=== PATIENT | male | born 1960 ===

== ENCOUNTER → 2020-06-05 10:42 | Outpatient (BNVA) | payer OTHER, SELFPAY | PROVIDERS: PCP Internal Medicine; Referring Provider Internal Medicine; Visit Provider Student in an Organized Health Care Education/Training Program | DX: M19.011 Primary osteoarthritis, right shoulder (principal) | CPT/HCPCS: 20610; 99212 ==

== ENCOUNTER 2020-08-29 13:19 | Outpatient (REF) | payer OTHER, SELFPAY | END 2020-08-29 13:20 | disposition home or self-care (01) | LOC: HO.LAB 13:19 | PROVIDERS: Visit Provider Internal Medicine | DX: Z20.828 Contact with and (suspected) exposure to other viral communicable diseases (principal) | CPT/HCPCS: 36415; C9803; U0003 ==

== ENCOUNTER → 2020-10-03 10:13 | Outpatient (BNVA) | payer OTHER, SELFPAY | PROVIDERS: PCP Internal Medicine; Visit Provider Student in an Organized Health Care Education/Training Program | DX: M19.011 Primary osteoarthritis, right shoulder (principal) | CPT/HCPCS: 99212 ==

== ENCOUNTER 2020-10-21 09:15 | Outpatient (REF) | payer OTHER, SELFPAY ==
--- NOTE | ~2020-10-21 | XR_ITS ---
EXAMINATION: XR FOOT, LEFT CLINICAL INFORMATION: Pain COMPARISON: None TECHNIQUE: AP, lateral, and oblique views of the left foot. FINDINGS: Bone alignment is normal. No fracture or dislocation is seen. There is mild arthritis with joint space narrowing and small osteophytes at the talar navicular and navicular first cuneiform joints. Soft tissues are unremarkable. XR/XR foot LT min 3V IMPRESSION: Mild degenerative changes.
== END 2020-10-21 09:16 | disposition home or self-care (01) ==
LOC: HO.XRAY 09:15
PROVIDERS: PCP Internal Medicine; Visit Provider Internal Medicine
DX: M79.672 Pain in left foot (principal)
CPT/HCPCS: 73630

== ENCOUNTER → 2021-01-31 09:58 | Outpatient (BNVA) | payer OTHER, SELFPAY | PROVIDERS: PCP Internal Medicine; Visit Provider Student in an Organized Health Care Education/Training Program | DX: M19.011 Primary osteoarthritis, right shoulder (principal); M51.36 Other intervertebral disc degeneration, lumbar region; M79.672 Pain in left foot | CPT/HCPCS: 20610; 99212 ==

== ENCOUNTER 2021-02-04 11:12 | Outpatient (REF) | payer OTHER, SELFPAY ==
--- NOTE | ~2021-02-04 | XR_ITS ---
EXAMINATION: XR LUMBOSACRAL SPINE CLINICAL INFORMATION: Other intervertebral disc degeneration lumbar region COMPARISON: Lumbar spine radiograph from 03/22/2018 TECHNIQUE: Three views of the lumbosacral spine. FINDINGS: There are 5 nonrib-bearing lumbar-type vertebral bodies. No acute visible fracture or dislocation. Very mild levocurvature at the thoracolumbar junction. Loss of lumbar lordosis. Multilevel degenerative changes with disc space narrowing greatest at L5-S1, endplate sclerosis, osteophyte formation, and lower lumbar spine facet arthropathy. Very mild grade 1 retrolisthesis of L3 on L4. Vertebral body and disc spaces are otherwise maintained. Posterior elements are intact. Paraspinal soft tissues are unremarkable. Bowel gas is unremarkable. Pelvic phleboliths are noted. XR/XR lumbar spine 2-3V IMPRESSION: 1. No acute visible fracture or dislocation. 2. Multilevel degenerative changes greatest at L5-S1 with loss of the normal lumbar lordosis and very mild grade 1 retrolisthesis of L3 on L4.
== END 2021-02-04 11:13 | disposition home or self-care (01) ==
LOC: HO.XRAY 11:12
PROVIDERS: PCP Internal Medicine; Visit Provider Student in an Organized Health Care Education/Training Program
DX: M51.36 Other intervertebral disc degeneration, lumbar region (principal)
CPT/HCPCS: 72100

== ENCOUNTER 2021-05-15 10:51 | Outpatient (REF) | payer OTHER, SELFPAY | END 2021-05-15 10:52 | disposition home or self-care (01) | LOC: HO.LAB 10:51 | PROVIDERS: PCP Internal Medicine; Visit Provider Internal Medicine | DX: Z20.822 Contact with and (suspected) exposure to COVID-19 (principal) | CPT/HCPCS: C9803; U0003; U0005 ==

== ENCOUNTER 2021-07-16 11:07 | Outpatient (REF) | payer OTHER, SELFPAY | END 2021-07-16 11:08 | disposition home or self-care (01) | LOC: HO.LAB 11:07 | PROVIDERS: PCP Internal Medicine; Visit Provider Internal Medicine | DX: Z20.822 Contact with and (suspected) exposure to COVID-19 (principal) | CPT/HCPCS: C9803; U0003; U0005 ==

== ENCOUNTER 2021-10-24 09:05 | Outpatient (REF) | payer OTHER, SELFPAY ==
[2021-10-24 09:28] LABS: MANUAL DIFF FLAG NO
[2021-10-24 09:57] LABS: Appearance Urine CLEAR; Color Urine YELLOW; Glucose Urine UA NEG (NEG); Leukocyte Esterase Urine 2+ (NEG); Nitrite Urine NEG (NEG); PH 6.5 (5.0-8.0); UACC Culture Trigger YES; Urine Blood NEG (NEG); Urine Ketones NEG (NEG); Urine Protein TRACE MG/DL (NEG-TRACE)
[2021-10-24 10:09] LABS: Mucus Urine TRACE /LPF; RBC Urine 0 /HPF (0); Squamous Epithelial Cell Urine TRACE /LPF
[2021-10-24 10:25] LABS: Basophils Percent Auto 0.5 % (0-2); Eosinophils Absolute Auto 0.1 X10*3/uL (0.0-0.4); Eosinophils Percent Auto 0.8 % (0-4); Hematocrit 42.7 % (42.0-52.0); Hemoglobin 13.6 g/dl (14.0-18.0); Imm Gran Abs Auto 0.01 X10*3/uL (0.00-0.03); Imm Gran Pct Auto 0.2 % (0.0-0.4); Lymphocytes Absolute Auto 1.4 X10*3/uL (1.2-4.9); Lymphocytes Percent Auto 22.5 % (20-40); Mean Corpuscular HGB Conc 31.9 g/dl (31.0-36.0); Mean Corpuscular Hemoglobin 27.2 pg (27.0-33.0); Mean Corpuscular Volume 85.4 fL (80.0-98.0); Mean Platelet Volume 12.6 fL (9.4-12.4); Monocytes Absolute Auto 0.6 X10*3/uL (0.1-1.2); Platelet Count 165 X10*3/uL (160-400); Red Cell Distribution Width 14.7 % (11.0-16.0); White Blood Count 6.1 X10*3/uL (4.8-10.8)
[2021-10-24 11:05] LABS: Alanine Aminotransferase 15 U/L (0-40); Albumin Level 4.1 g/dL (3.5-5.0); Alkaline Phosphatase 81 U/L (39-117); Anion Gap 10 (12-20); Aspartate Amino Transferase 15 U/L (5-37); Bilirubin Total 0.6 mg/dL (0.0-1.0); Blood Urea Nitrogen 20 mg/dL (9-16); Calcium 9.6 mg/dL (8.4-10.2); Carbon Dioxide 28 mmol/L (22-29); Chloride 106 mmol/L (96-108); Cholesterol 151 mg/dL; Estimated Glomerular Filt Rate > 60; Glucose Random 97 mg/dL (60-115); HDL Cholesterol 48 mg/dL; LDL Cholesterol Calculated 90 mg/dl; Potassium 4.6 mmol/L (3.3-5.1); Sodium 139 mmol/L (135-145); Total Protein 6.8 g/dL (6.5-8.0); Triglycerides 66 mg/dL
[2021-10-24 11:19] LABS: Prostate Specific Antigen 7.32 ng/mL (<0.05-4.0); TSH reflex Free T4 1.27 uIU/mL (0.32-4.0); Vitamin D 25-OH Total 24.9 ng/mL (>30)
== END 2021-10-24 09:06 | disposition home or self-care (01) ==
LOC: HO.LAB 09:05
PROVIDERS: Absent Provider Nurse Practitioner Family; PCP Internal Medicine; Visit Provider Internal Medicine
DX: Z00.00 Encounter for general adult medical examination without abnormal findings (principal); Z12.5 Encounter for screening for malignant neoplasm of prostate; E55.9 Vitamin D deficiency, unspecified; N40.0 Benign prostatic hyperplasia without lower urinary tract symptoms; E78.00 Pure hypercholesterolemia, unspecified; M79.672 Pain in left foot
CPT/HCPCS: 36415; 80053; 80061; 81001; 82306; 84153; 84443; 85025; 87086

== ENCOUNTER → 2021-11-05 10:55 | Outpatient (BNVA) | payer OTHER, SELFPAY | PROVIDERS: PCP Internal Medicine; Visit Provider Nurse Practitioner Family | DX: M19.011 Primary osteoarthritis, right shoulder (principal); M51.36 Other intervertebral disc degeneration, lumbar region; M79.672 Pain in left foot; M79.604 Pain in right leg; M79.605 Pain in left leg | CPT/HCPCS: 99212 ==

== ENCOUNTER 2021-11-06 09:57 | Outpatient (REF) | payer OTHER, SELFPAY ==
--- NOTE | ~2021-11-06 | XR_ITS ---
EXAMINATION: XR shoulder RT min 2V CLINICAL INFORMATION: Reason for Exam M25.511 - Pain in right shoulder COMPARISON: None TECHNIQUE: Four views of the shoulder. XR/XR shoulder RT min 2V FINDINGS/IMPRESSION: No acute fracture or dislocation. Mild degenerative changes of the acromioclavicular and glenohumeral joints with degenerative spurring. Soft tissues are unremarkable. Visualized portion of lung appears clear.
== END 2021-11-06 09:58 | disposition home or self-care (01) ==
LOC: HO.XRAY 09:57
PROVIDERS: PCP Internal Medicine; Visit Provider Nurse Practitioner Family
DX: M25.511 Pain in right shoulder (principal)
CPT/HCPCS: 73030

== ENCOUNTER → 2022-01-21 13:35 | Outpatient (BNVA) | payer OTHER, SELFPAY | PROVIDERS: PCP Internal Medicine; Visit Provider Nurse Practitioner Family | DX: M25.551 Pain in right hip (principal); M25.552 Pain in left hip; M51.36 Other intervertebral disc degeneration, lumbar region; M54.16 Radiculopathy, lumbar region | CPT/HCPCS: 99202 ==

== ENCOUNTER 2022-05-15 14:54 | Emergency (ER) | payer OTHER, SELFPAY ==
[2022-05-15 15:00] VITALS: BP 131/82; PULSE 85; RESP 18; TEMP 37.2; O2SAT 98; BMI 23.7
== END 2022-05-15 21:34 | disposition left against medical advice (07) ==
PROVIDERS: Emergency Provider Emergency Medicine
DX: M54.50 Low back pain, unspecified (principal)
CPT/HCPCS: 99281

== ENCOUNTER 2022-05-22 10:43 | Outpatient (REF) | payer OTHER, SELFPAY ==
[2022-05-22 11:51] LABS: Blood Urea Nitrogen 13 mg/dL (9-16); Estimated Glomerular Filt Rate > 60
== END 2022-05-22 10:44 | disposition home or self-care (01) ==
LOC: HO.LAB 10:43
PROVIDERS: PCP Internal Medicine; Visit Provider Urology
DX: C61 Malignant neoplasm of prostate (principal)
CPT/HCPCS: 36415; 82565; 84520

== ENCOUNTER → 2022-05-28 08:54 | Outpatient (REF) | payer OTHER, SELFPAY ==
--- NOTE | ~2022-05-28 | NM_ITS ---
EXAMINATION: NM BONE SCAN OF THE WHOLE BODY CLINICAL INFORMATION: Carcinoma of the prostate. Low back pain. COMPARISON: No existing relevant imaging study available. TECHNIQUE: Multiple gamma scintillation camera images of the whole body were performed 3 hours following the intravenous administration of 25 mCi Tc-99m MDP. FINDINGS: In the head, no suspicious focal lesion. In the thoracic cage and upper extremities, asymmetric mild increased radiotracer activities are present at the costochondral transverse junction of right 10th and 11th ribs, most consistent with degenerative changes. Mild increased radiotracer activities are also noted at both sternoclavicular as well as acromioclavicular joints, most consistent with arthritic changes. In the spine, mild increased radiotracer activities at lower cervical spine, and lower lumbosacral spine, most consistent with degenerative spondylosis. In the pelvis, no suspicious focal lesion. In the lower extremities, mildly increased radiotracer activities around both knees, most consistent with mild degenerative osteoarthrosis. No other definite bony abnormalities are noted. The urinary bladder and faint visualization of both kidneys are noted. NM/NM bone scan whole body IMPRESSION: 1. No definite scintigraphic evidence of metastatic disease. 2. Note is however made of presence of increased radiotracer activities at the costotransverse junction of right 10th and 11th ribs, the lower cervical, and the lower lumbosacral spine, most consistent with degenerative changes. 3. Mild increased radiotracer activities around both shoulder and both sternoclavicular joints and both kidneys likely also represent degenerative and/or posttraumatic arthritic changes. Follow-up the [facility] PET/CT study may be considered (more sensitive) for further full detail evaluation, if clinically appropriate.
== END ==
LOC: HO.NUCMED 08:54
PROVIDERS: Visit Provider Urology
DX: C61 Malignant neoplasm of prostate (principal)
CPT/HCPCS: 78306; A9503

== ENCOUNTER 2022-07-27 10:38 | Outpatient (REF) | payer OTHER, SELFPAY ==
[2022-07-27 11:10] LABS: COVID-19 Test Positive (Negative); IDNOW Serial# BCCEAD1C
== END 2022-07-27 10:39 | disposition home or self-care (01) ==
LOC: HO.LAB 10:38
PROVIDERS: Visit Provider Internal Medicine
DX: Z20.822 Contact with and (suspected) exposure to COVID-19 (principal)
CPT/HCPCS: 87635; C9803

== ENCOUNTER 2022-08-20 08:58 | Outpatient (REF) | payer OTHER, SELFPAY ==
--- NOTE | ~2022-08-20 | XR_ITS ---
EXAMINATION: XR FINGER, LEFT CLINICAL INFORMATION: Pain. COMPARISON: Radiograph of the left hand/wrist 09/01/2010. TECHNIQUE: Three views of the left index finger. FINDINGS: Soft tissue swelling around the second digit. No unexpected radiopaque foreign bodies. No acute fractures or malalignment. Mild degenerative osteoarthritis of the first carpometacarpal joint and triscaphe space. XR/XR finger LT min 2V IMPRESSION: 1. No acute fractures or malalignment. 2. Mild degenerative osteoarthritis of the first carpometacarpal joint and triscaphe space.
[2022-08-20 09:31] LABS: Hematocrit 42.5 % (42.0-52.0); Hemoglobin 13.8 g/dl (14.0-18.0); Mean Corpuscular HGB Conc 32.5 g/dl (31.0-36.0); Mean Corpuscular Hemoglobin 26.7 pg (27.0-33.0); Mean Corpuscular Volume 82.2 fL (80.0-98.0); Mean Platelet Volume 12.6 fL (9.4-12.4); Platelet Count 198 X10*3/uL (160-400); Red Blood Count 5.17 X10*6/uL (4.60-5.80); Red Cell Distribution Width 14.4 % (11.0-16.0)
[2022-08-20 09:32] LABS: WBC ABN SCTR FOR CBC 1
[2022-08-20 09:58] LABS: Band Neutrophils Percent 0 % (3-5); Eosinophils Percent Manual 3 % (0-4); Lymphocytes Percent Manual 29 % (20-40); Monocytes Percent Manual 7 % (2-11); Neutrophils Percent Manual 61 % (45-73)
[2022-08-20 09:59] LABS: Large Platelet PRESENT; Platelet Estimate NORMAL (NORMAL)
[2022-08-20 10:00] LABS: Hypochromasia 1+ (5-14) /OIF
[2022-08-20 10:01] LABS: Microcytosis 1+ (5-14) /OIF; Platelet Morphology Comment NOTE; RBC Morphology NOTED
[2022-08-20 10:05] LABS: Erythrocyte Sedimentation Rate 2 MM/HR (0-15)
[2022-08-20 10:26] LABS: Appearance Urine Clear; Color Urine Yellow; Glucose Urine UA Negative (Negative); Leukocyte Esterase Urine Trace (Negative); Nitrite Urine Negative (Negative); Specific Gravity - Urine 1.025 (1.005-1.025); UMIC TRIGGER UACC YES; Urine Blood Negative (Negative); Urine Ketones Trace mg/dL (Negative); Urine Protein 30 (1+) mg/dL (Neg-Trace)
[2022-08-20 10:47] LABS: Bacteria Urine None Seen (None Seen); Hyaline Casts Urine 0-2 /LPF (0-2); RBC Urine 0-2 /HPF (0-2); Squamous Epithelial Cell Urine 0-2 /HPF (0-2); WBC Urine 0-5 /HPF (0-5)
[2022-08-20 11:12] LABS: Alanine Aminotransferase 16 U/L (0-40); Albumin Level 4.1 g/dL (3.5-5.0); Alkaline Phosphatase 93 U/L (39-117); Anion Gap 10 (12-20); Aspartate Amino Transferase 15 U/L (5-37); Bilirubin Total 0.6 mg/dL (0.0-1.0); Blood Urea Nitrogen 17 mg/dL (9-16); Carbon Dioxide 27 mmol/L (22-29); Chloride 108 mmol/L (96-108); Cholesterol 174 mg/dL; Estimated Glomerular Filt Rate > 60; Glucose Fasting 99 mg/dL (60-99); HDL Cholesterol 47 mg/dL; LDL Cholesterol Calculated 110 mg/dl; Potassium 4.6 mmol/L (3.3-5.1); Sodium 140 mmol/L (135-145); TSH reflex Free T4 1.46 uIU/mL (0.32-4.0); Total Protein 6.9 g/dL (6.5-8.0); Triglycerides 86 mg/dL; Vitamin D 25-OH Total 26.8 ng/mL (>30)
[2022-08-20 11:31] LABS: Eosinophils Absolute Manual 0.2 X10*3/uL (0.0-0.4); Lymphocytes Absolute Manual 1.7 X10*3/uL (1.2-4.9); Monocytes Absolute Manual 0.4 X10*3/uL (0.1-1.2); Neutrophils Absolute Manual 3.6 X10*3/uL (2.0-8.3); White Blood Count 5.9 X10*3/uL (4.8-10.8)
== END 2022-08-20 08:59 | disposition home or self-care (01) ==
LOC: HO.LAB 08:58
PROVIDERS: PCP Internal Medicine; Visit Provider Internal Medicine
DX: Z00.00 Encounter for general adult medical examination without abnormal findings (principal); Z12.5 Encounter for screening for malignant neoplasm of prostate; M79.645 Pain in left finger(s); E55.9 Vitamin D deficiency, unspecified; M25.551 Pain in right hip; M25.552 Pain in left hip; M47.816 Spondylosis without myelopathy or radiculopathy, lumbar region; N40.0 Benign prostatic hyperplasia without lower urinary tract symptoms; E78.00 Pure hypercholesterolemia, unspecified
CPT/HCPCS: 36415; 73140; 80053; 80061; 81001; 82306; 84153; 84443; 85007; 85027; 85652

== ENCOUNTER 2022-10-15 08:58 | Emergency (ER) | payer OTHER, SELFPAY ==
[2022-10-15 09:03] VITALS: BP 141/85; PULSE 85; RESP 18; TEMP 37.2; O2SAT 98; BMI 24.6
--- NOTE | 2022-10-15 09:10 | ED_ITS ---
HPI - Ear Problem General Chief complaint: Skin/Abscess/Foreign Body <BRENDAN Calero Last Filed: 10/15/22 10:33> Stated complaint: ear pain <BRENDAN Calero Last Filed: 10/15/22 10:33> Time Seen by Provider: 10/15/22 09:09 <BRENDAN aClero Last Filed: 10/15/22 10:33> Source: patient <BRENDAN Calero Last Filed: 10/15/22 10:33> Mode of arrival: ambulatory <BRENDAN Calero Last Filed: 10/15/22 10:33> Limitations: no limitations <BRENDAN Calero Last Filed: 10/15/22 10:33> History of Present Illness HPI Narrative: 62 yo male with history of vertigo, allergic rhinitis, depression/anxiety, asthma, osteoarthritis, lumbar DJD, who presents to the ER for evaluation of pain and swelling in front of his left ear and at the angle of his jaw for the last 1 week. He states the ear itself isnt painful. The pain and swelling is described as a fullness. Discomfort with opening his jaw all the way but he is able to. he has chronic dental issues, especially on the left side. Has not seen a dentist in a long time. No fever, chills, N/V/D, hearing loss, neck swelling or trouble swallowing. <BRENDAN Calero Last Filed: 10/15/22 10:33> MD Complaint: ear pain and other (anterior ear swelling and pain) <BRENDAN Calero Last Filed: 10/15/22 10:33> Location: left ear <BRENDAN Calero Last Filed: 10/15/22 10:33> Duration: constant <BRENDAN Calero Last Filed: 10/15/22 10:33> Severity: mild <BRENDAN Calero Last Filed: 10/15/22 10:33> Relieving factors: NDAIDs and prescription analgesics <BRENDAN Calero Last Filed: 10/15/22 10:33> Exacerbating factors: chewing, position of head and palpation <BRENDAN Calero Last Filed: 10/15/22 10:33> Discharge from ear: no <BRENDAN Calero - Last Filed: 10/15/22 10:33> Associated symptoms ear: headache and external ear tenderness <BRENDAN Calero Last Filed: 10/15/22 10:33> Treatment prior to arrival: none <BRENDAN Calero - Last Filed: 10/15/22 10:33> Related Data Home medications: Home Medications Medication Instructions Recorded Confirmed clonazepam 1 mg tablet (Klonopin) 1 mg PO TID 05/28/20 08/19/22 aripiprazole 15 mg tablet 15 mg PO DAILY 07/12/20 08/19/22 nabumetone 750 mg tablet 750 mg PO BID 07/12/20 08/19/22 sertraline 100 mg tablet 100 mg PO DAILY 07/12/20 08/19/22 zolpidem 10 mg tablet (Ambien) 10 mg PO BEDTIME PRN 07/12/20 08/19/22 Previous Rx's Medication Instructions Recorded blood pressure monitor #1 ea 07/24/20 sildenafil (pulm.hypertension) 20 20 mg PO DAILY PRN sexual activity 04/22/21 mg tablet #10 tabs diclofenac sodium 1 % topical gel 2 g topical BEDTIME #100 grams 05/09/21 Flovent HFA 110 mcg/actuation 1 puff inhalation BID 30 days #12 10/21/21 aerosol inhaler (fluticasone grams propionate) meclizine 25 mg tablet 25 mg PO BID PRN dizziness 10 days 02/26/22 #20 tabs mupirocin 2 % topical ointment 1 appl topical BID #22 grams 06/03/22 pregabalin 50 mg capsule 100 mg PO BID 30 days #120 caps 06/03/22 albuterol sulfate 90 mcg/actuation 2 inh inhalation QID PRN 07/29/22 aerosol inhaler bronchospasm #18 ea hydrocortisone 2.5 % topical cream 1 appl SC BID #60 grams 08/24/22 with perineal applicator tramadol 50 mg tablet 50 mg PO TID PRN pain #90 tabs 08/28/22 sodium chloride 0.65 % nasal spray 2 spray intranasal Q12H PRN dry 09/03/22 aerosol (Saline Nasal) nasal passages #30 mL clindamycin HCl 300 mg capsule 300 mg PO Q8H 1 week #21 caps 10/15/22 <BRENDAN Calero - Last Filed: 10/15/22 10:33> Allergies/adverse reactions: Allergies Allergy/AdvReac Type Severity Reaction Status Date / Time Penicillins [PENICILLINS] Allergy Intermediate RASH AND Verified 08/19/22 11:05 SWELLING meperidine [Demerol] Allergy Unknown pain Verified 08/19/22 11:05 morphine [MORPHINE] AdvReac Intermediate N/V Verified 08/19/22 11:05 <BRENDAN Calero - Last Filed: 10/15/22 10:33> Review of Systems Review of Systems: Yes all other systems are reviewed and are negative <BRENDAN Calero - Last Filed: 10/15/22 10:33> [facility] Past Medical History Medical History: Medical History Anxiety Asthma Benign prostate hyperplasia Depression Elevated blood pressure reading Insomnia Left foot pain Left leg pain Lumbar degenerative disc disease Osteoarthritis of right shoulder Prostate cancer <BRENDAN Calero - Last Filed: 10/15/22 10:33> Surgical History: Surgical History H/O excision of ganglion cyst (~02/2014) History of colonoscopy (~03/01/18) S/P excision of lipoma <BRENDAN Calero - Last Filed: 10/15/22 10:33> Family History Family History: Family History Father Lung cancer Mother CVA (cerebral vascular accident), Onset Age: 80 Chronic mental illness <BRENDAN Calero - Last Filed: 10/15/22 10:33> Social History Social History: Social History Household Members: None Housing: Apartment Alcohol intake: former Patient Tobacco Use Status: Former Tobacco user Tobacco use type: Cigarette Cigarettes Per Day: 20 Years Smoked: 7 e-Cigarette/Vaping Use: Never Used Advance Directives: No service: No Current occupational status: disabled Cognitive needs: No Hearing needs: No Vision needs: Yes <BRENDAN Calero - Last Filed: 10/15/22 10:33> Physical Exam Vital Signs: Vital Signs: Last Vital Signs Temp 99 F 10/15/22 09:03 Pulse 85 10/15/22 09:03 Resp 18 10/15/22 09:03 BP 141/85 H 10/15/22 09:03 Pulse Ox 98 10/15/22 09:03 O2 Del Method 10/15/22 09:03 BMI result Body Mass Index 24.6 <BRENDAN Calero - Last Filed: 10/15/22 10:33> Vital Signs: Last Vital Signs Temp 99 F 10/15/22 09:03 Pulse 85 10/15/22 09:03 Resp 18 10/15/22 09:03 BP 141/85 H 10/15/22 09:03 Pulse Ox 98 10/15/22 09:03 O2 Del Method 10/15/22 09:03 BMI result Body Mass Index 24.6 <Dinesh Ratliff MD - Last Filed: 10/15/22 10:43> Appearance: Alert. Oriented X3. No acute distress. HEENT: normal external inspection, there is trace swelling and some tenderness to the preauricular area on the left side as well as at the angle of the mandible. no trismus. normal inspection of bilateral EAC and TMs. no neck swelling or tenderness. poor dentition without dental tenderness or palpable gingival fluctuation CVS: Normal heart rate and rhythm. Pulses normal. Respiratory: No respiratory distress. Skin: Skin warm and dry. Normal skin color. Normal skin turgor. No rashes. Extremities: normal inspection x4. Neuro: Oriented X 3. Grossly normal, nonfocal <BRENDAN Calero - Last Filed: 10/15/22 10:33> Course Course Course Narrative: Stable for discharge with oral antibiotics and outpatient follow-up <BRENDAN Calero - Last Filed: 10/15/22 10:33> Medical Decision Making Medical Decision Making MDM Narrative: 62-year-old male presenting with left-sided facial swelling and tenderness for the last 1 week. Area is surrounding the left ear. Does not extend to the neck. No evidence of acute otitis media or acute otitis externa on examination. No obvious dental infection however he has poor dentition. Will plan to treat empirically with antibiotics and have him follow-up with his primary care doctor and dentist. <BRENDAN Calero - Last Filed: 10/15/22 10:33> Differential Diagnosis Differential Diagnoses: The differential diagnosis associated with the presentation includes <BRENDAN Calero - Last Filed: 10/15/22 10:33> Otitis media, otitis externa, cellulitis, swollen salivary gland, dental pain/dental infection <BRENDAN Calero - Last Filed: 10/15/22 10:33> External Record Review External record reviewed: Prior outpatient labs <BRENDAN Calero Last Filed: 10/15/22 10:33> Tests considered The following testing was considered but not selected: Labs and CT scan were considered however this was deferred as there is no extension to the neck and the symptoms are minimal at this time. <BRENDAN Calero - Last Filed: 10/15/22 10:33> Prescription Management I considered prescription management with: Antibiotic <BRENDAN Calero - Last Filed: 10/15/22 10:33> Attestation Attending Attestation: I reviewed [employer] CHEMISTRY/PA/Resident note, assessment and plan. I agree with the documentation, assessment and plan unless otherwise stated. <Dinesh Ratliff MD - Last Filed: 10/15/22 10:43> Critical Care Time Critical Care Time Critical Care Time: No <BRENDAN Calero Last Filed: 10/15/22 10:33> Discharge Plan Discharge Clinical Impression: Facial swelling <BRENDAN Calero - Last Filed: 10/15/22 10:33> Patient Disposition: Home, Self-Care <BRENDAN Calero - Last Filed: 10/15/22 10:33> Instructions: Atypical Facial Pain (ED) <BRENDAN Calero Last Filed: 10/15/22 10:33> Additional Instructions: Take the prescribed antibiotic as directed, complete the entire course. Continue the medications you are taking for pain Follow up with your doctor and your dentist to ensure [place] el antibi?juancarlos recetado seg?n las indicaciones, complete todo el curso. Contin?e con los medicamentos que est? tomando para el dolor. Richard un seguimiento con [facility] m?dico y stevens dentista para asegurarse <BRENDAN Calero - Last Filed: 10/15/22 10:33> Prescriptions: New clindamycin HCl 300 mg capsule 300 mg PO Q8H 7 Days Qty: 21 0RF No Action (DME) blood pressure monitor Kit See Rx Instructions .ROUTE .MEDSUPPLY Qty: 1 0RF Rx Instructions: As directed diclofenac sodium 1 % gel 2 g topical BEDTIME Qty: 100 1RF Rx Instructions: apply 2 gram to L foot nightly as needed albuterol sulfate 90 mcg/actuation HFA aerosol inhaler 2 inh inhalation QID PRN (Reason: bronchospasm) Qty: 18 3RF hydrocortisone 2.5 % cream with perineal applicator 1 appl SC BID Qty: 60 0RF tramadol 50 mg tablet 50 mg PO TID PRN (Reason: pain) Qty: 90 1RF Saline Nasal 0.65 % aerosol,spray 2 spray intranasal Q12H PRN (Reason: dry nasal passages) Qty: 30 1RF clonazepam [Klonopin] 1 mg tablet 1 mg PO TID aripiprazole 15 mg tablet 15 mg PO DAILY zolpidem [Ambien] 10 mg tablet 10 mg PO BEDTIME PRN sertraline 100 mg tablet 100 mg PO DAILY nabumetone 750 mg tablet 750 mg PO BID Flovent HFA 110 mcg/actuation HFA aerosol inhaler 1 puff inhalation BID 30 Days Qty: 12 5RF sildenafil (pulm.hypertension) 20 mg tablet 20 mg PO DAILY PRN (Reason: sexual activity) Qty: 10 0RF pregabalin 50 mg capsule 100 mg PO BID 30 Days Qty: 120 0RF mupirocin 2 % ointment 1 appl topical BID Qty: 22 0RF Rx Instructions: apply to lesion on the back of the right leg meclizine 25 mg tablet 25 mg PO BID PRN (Reason: dizziness) 10 Days Qty: 20 0RF <BRENDAN Calero - Last Filed: 10/15/22 10:33> Referrals: Lai Olson MD [Primary Care Provider] - <BRENDAN Calero - Last Filed: 10/15/22 10:33> Interventions: ED Discharge Assessment Last Done: 10/15/22 10:01 <BRENDAN Calero - Last Filed: 10/15/22 10:33> Discharge Date/Time: 10/15/22 10:01 <BRENDAN Calero - Last Filed: 10/15/22 10:33> Print Language: Mexican <BRENDAN Calero - Last Filed: 10/15/22 10:33>
== END 2022-10-15 10:01 | disposition home or self-care (01) ==
PROVIDERS: Emergency Provider Emergency Medicine; PCP Internal Medicine
DX: R22.0 Localized swelling, mass and lump, head (principal); Z87.891 Personal history of nicotine dependence
CPT/HCPCS: 99282; 99283

== ENCOUNTER → 2022-11-04 10:33 | Outpatient (BNVA) | payer OTHER, SELFPAY | PROVIDERS: PCP Internal Medicine; Visit Provider Nurse Practitioner Family | DX: M19.011 Primary osteoarthritis, right shoulder (principal); M51.36 Other intervertebral disc degeneration, lumbar region; M79.7 Fibromyalgia | CPT/HCPCS: 99212 ==

== ENCOUNTER 2022-11-07 10:33 | Observation (INO) | payer OTHER, SELFPAY ==
[2022-11-07 10:38] VITALS: BP 135/82; PULSE 90; RESP 17; TEMP 36.3; O2SAT 97; BMI 24.3
--- NOTE | 2022-11-07 10:48 | ED.GENADULT ---
HPI - General Adult General Chief complaint: General Medical Stated complaint: personal problem? 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 Started today patient notice bright red blood in the toilet after having a bowel movement and with wiping toilet paper was soaked with bright red blood per. Started this morning. No abdominal pain, no nausea, no vomiting, no fever, no rectal pain, no diarrhea. Patient had bowel movement with normal color brown stool. Patient is not taking blood thinner, known to have hemorrhoid for long time. No dizziness, no lightheadedness. Related Data Home Medications Medication Instructions Recorded Confirmed clonazepam 1 mg tablet (Klonopin) 1 mg PO TID 05/28/20 11/07/22 aripiprazole 15 mg tablet 15 mg PO DAILY 07/12/20 11/07/22 nabumetone 750 mg tablet 750 mg PO DAILY 07/12/20 11/07/22 sertraline 100 mg tablet 100 mg PO DAILY 07/12/20 11/07/22 zolpidem 10 mg tablet (Ambien) 10 mg PO BEDTIME PRN Sleep 07/12/20 11/07/22 albuterol sulfate 90 mcg/actuation 2 puff inhalation QID PRN 11/07/22 11/07/22 aerosol inhaler (Ventolin HFA) Bronchospasm bupropion HCl 100 mg tablet,12 hr 1 tab PO DAILY 11/07/22 11/07/22 sustained-release diclofenac sodium 1 % topical gel 2 g topical BEDTIME PRN Pain 11/07/22 11/07/22 finasteride 5 mg tablet 5 mg PO BEDTIME 11/07/22 11/07/22 fluticasone propionate 50 1 spray intranasal DAILY PRN 11/07/22 11/07/22 mcg/actuation nasal Allergy Symptoms spray,suspension hydrocortisone 2.5 % topical cream 1 appl [place] BID-TID 11/07/22 11/07/22 with perineal applicator loratadine 10 mg tablet 10 mg PO DAILY PRN Allergy Symptoms 11/07/22 11/07/22 pregabalin 50 mg capsule 100 mg PO BID PRN Pain 11/07/22 11/07/22 tamsulosin 0.4 mg capsule 1 cap PO BEDTIME 11/07/22 11/07/22 Previous Rx's Medication Instructions Recorded blood pressure monitor #1 ea 07/24/20 sildenafil (pulm.hypertension) 20 20 mg PO DAILY PRN sexual activity 04/22/21 mg tablet #10 tabs meclizine 25 mg tablet 25 mg PO BID PRN dizziness 10 days 02/26/22 #20 tabs mupirocin 2 % topical ointment 1 appl topical BID #22 grams 06/03/22 sodium chloride 0.65 % nasal spray 2 spray intranasal Q12H PRN dry 09/03/22 aerosol (Saline Nasal) nasal passages #30 mL tramadol 50 mg tablet 50 mg PO TID PRN pain #90 tabs 10/28/22 Allergies Allergy/AdvReac Type Severity Reaction Status Date / Time Penicillins [PENICILLINS] Allergy Intermediate RASH AND Verified 11/04/22 10:41 SWELLING meperidine [Demerol] Allergy Unknown pain Verified 11/04/22 10:41 morphine [MORPHINE] AdvReac Intermediate N/V Verified 11/04/22 10:41 Review of Systems Review of Systems: All other systems are reviewed and are negative Constitutional: Reports as per HPI and Reports no additional constitutional complaints Eyes: Reports as per HPI and Reports no additional eye complaints Reports system reviewed and no additional complaints, except as documented Cardiovascular: Reports as per HPI and Reports no additional cardiovascular complaints Respiratory: Reports as per HPI and Reports no additional respiratory complaints Gastrointestinal: Reports as per HPI and Reports no additional gastrointestinal complaints Genitourinary: Reports no additional female genitourinary complaints Musculoskeletal: Reports no additional musculoskeletal complaints Skin/Breast: Reports system reviewed and no additional complaints, except as docu Psychiatric: Reports no additional psychiatric complaints Endocrine: Reports no additional endocrine complaints Hematologic/Lymphatic: Reports no additional hematologic/lymphatic complaints Allergic/Immunologic: Reports no additional allergic/immunologic complaints Reports system reviewed and no additional complaints, except as documented and Reports Abnormal speech present [facility] Past Medical History Medical History Anxiety Asthma Benign prostate hyperplasia Depression Elevated blood pressure reading Insomnia Left foot pain Left leg pain Lumbar degenerative disc disease Osteoarthritis of right shoulder Prostate cancer Surgical History H/O excision of ganglion cyst (~02/2014) History of colonoscopy (~03/01/18) S/P excision of lipoma Family History Family History Father Lung cancer Mother CVA (cerebral vascular accident), Onset Age: 80 Chronic mental illness Social History Social History Household Members: None Housing: Apartment Alcohol intake: former Patient Tobacco Use Status: Former Tobacco user Tobacco use type: Cigarette Cigarettes Per Day: 20 Years Smoked: 7 e-Cigarette/Vaping Use: Never Used Advance Directives: No Advance Directives Information Provided: Yes service: No Current occupational status: disabled Cognitive needs: No Hearing needs: No Vision needs: Yes Physical Exam ED Vital Signs: Vital Signs - 24 hr 11/07/22 10:38 11/07/22 11:26 11/07/22 11:26 Temperature 97.4 F Pulse Rate 90 70 82 Respiratory Rate 17 Blood Pressure 135/82 114/77 120/74 Pulse Oximetry 97 Oxygen Delivery Method Room Air Oxygen Flow Rate 11/07/22 11:27 11/07/22 12:21 Temperature 98.3 F Pulse Rate 85 70 Respiratory Rate 16 Blood Pressure 121/71 119/77 Pulse Oximetry Oxygen Delivery Method Room Air Oxygen Flow Rate 94 BMI result Body Mass Index 24.3 Vital signs have been reviewed as appeared to be correct. Blood pressure normal. Heart rate normal. Respiration rate normal. Temperature normal. Oxygen saturation normal. Appearance: Alert. Oriented X3. No acute distress. Head: Normal external exam. Normocephalic. Atraumatic. No Banks signs noted. No raccoon eyes noted Eyes: PERRLA. EOMI. Conjunctiva and sclera normal. Eyelids normal. ENT: TM's Normal. Pharynx normal. Uvula midline. Moist mucous membranes. No trismus noted. No drooling noted. No muffled voice noted. Neck: Normal inspection. Neck supple. FROM. No adenopathy. Thyroid Normal. No meningeal signs. No neck mass noted. CVS: Normal heart rate and rhythm. Heart sound normal. No murmurs noted. Pulses normal throughout. Respiratory: No respiratory distress. Painless inspiration. Breath sounds normal. No wheezes/rales/rhonchi noted. Chest nontender. No accessory muscle usage noted or decreased air movement noted. Abdomen: Soft and nontender. Bowel sounds normal in all 4 quadrants. No distention noted. No organomegaly noted. No visible injury noted. Rectal exam: No visible external hemorrhoid, no palpable internal hemorrhoid, no mass, no fluctuation in the rectal vault, Back: No CVA tenderness. Full range of motion noted. Skin: Skin warm and dry. Normal skin color. Normal skin turgor. No rashes/lesions/lacerations noted. Extremities: No lower extremity edema. Extremities exhibit normal range of motion. Extremities nontender. Neuro: Oriented X 3. Cranial nerve exam: II-XII are grossly intact No motor deficit. No sensory deficit. Reflexes normal. Course Course Course Narrative: 62-year-old male came in for bright red blood per rectum evaluation. Patient is not taking anticoagulation, patient is still bleeding in the ED, stable vital signs, stable H&H. No abdominal pain no need for CT abdomen pelvis will admit for serial CBC and GI evaluation. Medical Decision Making Differential Diagnosis Differential Diagnoses: The differential diagnosis associated with the presentation includes (Hemorrhoids, colitis, diverticular disease, upper GI bleed, lower GI bleed.) Admission/Observation Consideration of admission/observation: Escalation of care including admission/observation considered Consult Healthcare Provider Management of the patient was discussed with: Hospitalist Lab Data MDM Lab Attestation statement: I reviewed the patient's lab results. 11/07/22 11:16 11/07/22 11:16 Labs: Lab Results 11/07/22 11/07/22 11/07/22 Range/Units 11:16 11:16 11:16 WBC 5.1 (4.8-10.8) X10*3/uL RBC 5.09 (4.60-5.80) X10*6/uL Hgb 13.7 L (14.0-18.0) g/dl Hct 41.9 L (42.0-52.0) % MCV 82.3 (80.0-98.0) fL MCH 26.9 L (27.0-33.0) pg MCHC 32.7 (31.0-36.0) g/dl RDW 14.2 (11.0-16.0) % Plt Count 160 (160-400) X10*3/uL MPV 12.5 H (9.4-12.4) fL Immature Gran % (Auto) Cancelled Neut % (Auto) Cancelled Lymph % (Auto) Cancelled [place] % (Auto) Cancelled Eos % (Auto) Cancelled Baso % (Auto) Cancelled Lymph # (Auto) Cancelled [place] # (Auto) Cancelled Eos # (Auto) Cancelled Baso # (Auto) Cancelled Abs Immat Gran (auto) Cancelled Absolute Neuts (auto) Cancelled Absolute Nucleated RBC 0.000 (0.0-0.012) X10*3/uL Nucleated RBC % (auto) 0.0 (0.0-0.2) /100WBC Neutrophils % (Manual) 67 (45-73) % Band Neutrophils % 0 L (3-5) % Lymphocytes % (Manual) 26 (20-40) % Monocytes % (Manual) 5 (2-11) % Eosinophils % (Manual) 1 (0-4) % Basophils % (Manual) 1 (0-2) % Abs Neuts (Manual) 3.4 (2.0-8.3) X10*3/uL Lymphocytes # (Manual) 1.3 (1.2-4.9) X10*3/uL Monocytes # (Manual) 0.3 (0.1-1.2) X10*3/uL Eosinophils # (Manual) 0.1 (0.0-0.4) X10*3/uL Basophils # (Manual) 0.1 (0.0-0.2) X10*3/uL Platelet Estimate NORMAL (NORMAL) Plt Morphology Comment NORMAL RBC Morphology NORMAL PT 11.7 (10.0-13.1) SEC INR 1.0 (0.9-1.1) APTT 35.9 (26.0-36.4) SEC Sodium 140 (135-145) mmol/L Potassium 4.1 (3.3-5.1) mmol/L Chloride 108 (96-108) mmol/L Carbon Dioxide 25 (22-29) mmol/L Anion Gap 11 L (12-20) BUN 19 H (9-16) mg/dL Creatinine 1.03 (0.5-1.4) mg/dL Estim Creat Clear Calc 71.0 Estimated GFR > 60 Random Glucose 110 (60-115) mg/dL Calcium 8.9 (8.4-10.2) mg/dL Total Bilirubin 0.7 (0.0-1.0) mg/dL Direct Bilirubin 0.2 (0.0-0.5) mg/dL AST 23 (5-37) U/L ALT 32 (0-40) U/L Alkaline Phosphatase 80 (39-117) U/L Total Protein 6.4 L (6.5-8.0) g/dL Albumin 3.9 (3.5-5.0) g/dL Lipase 22 (8-78) U/L Urine Color Urine Appearance Urine pH (5.0-9.0) Ur Specific [place] (1.005-1.025) Urine Protein (Neg-Trace) mg/dL Urine Glucose (UA) (Negative) mg/dL Urine Ketones (Negative) mg/dL Urine Blood (Negative) Urine Nitrite (Negative) Ur Leukocyte Esterase (Negative) Urine RBC (0-2) /HPF Urine WBC (0-5) /HPF Ur Squamous Epith Cells (0-2) /HPF Urine Bacteria (None Seen) Hyaline Casts (0-2) /LPF Stool Occult Blood (NEGATIVE) COVID-19 (CAROL) (Negative) COVID-19 Clin Com 11/07/22 11/07/22 11/07/22 Range/Units 11:16 11:16 12:24 WBC (4.8-10.8) X10*3/uL RBC (4.60-5.80) X10*6/uL Hgb (14.0-18.0) g/dl Hct (42.0-52.0) % MCV (80.0-98.0) fL MCH (27.0-33.0) pg MCHC (31.0-36.0) g/dl RDW (11.0-16.0) % Plt Count (160-400) X10*3/uL MPV (9.4-12.4) fL Immature Gran % (Auto) Neut % (Auto) Lymph % (Auto) [place] % (Auto) Eos % (Auto) Baso % (Auto) Lymph # (Auto) [place] # (Auto) Eos # (Auto) Baso # (Auto) Abs Immat Gran (auto) Absolute Neuts (auto) Absolute Nucleated RBC (0.0-0.012) X10*3/uL Nucleated RBC % (auto) (0.0-0.2) /100WBC Neutrophils % (Manual) (45-73) % Band Neutrophils % (3-5) % Lymphocytes % (Manual) (20-40) % Monocytes % (Manual) (2-11) % Eosinophils % (Manual) (0-4) % Basophils % (Manual) (0-2) % Abs Neuts (Manual) (2.0-8.3) X10*3/uL Lymphocytes # (Manual) (1.2-4.9) X10*3/uL Monocytes # (Manual) (0.1-1.2) X10*3/uL Eosinophils # (Manual) (0.0-0.4) X10*3/uL Basophils # (Manual) (0.0-0.2) X10*3/uL Platelet Estimate (NORMAL) Plt Morphology Comment RBC Morphology PT (10.0-13.1) SEC INR (0.9-1.1) APTT (26.0-36.4) SEC Sodium (135-145) mmol/L Potassium (3.3-5.1) mmol/L Chloride (96-108) mmol/L Carbon Dioxide (22-29) mmol/L Anion Gap (12-20) BUN (9-16) mg/dL Creatinine (0.5-1.4) mg/dL Estim Creat Clear Calc Estimated GFR Random Glucose (60-115) mg/dL Calcium (8.4-10.2) mg/dL Total Bilirubin (0.0-1.0) mg/dL Direct Bilirubin (0.0-0.5) mg/dL AST (5-37) U/L ALT (0-40) U/L Alkaline Phosphatase (39-117) U/L Total Protein (6.5-8.0) g/dL Albumin (3.5-5.0) g/dL Lipase (8-78) U/L Urine Color Yellow Urine Appearance Clear Urine pH 6.5 (5.0-9.0) Ur Specific [place] 1.020 (1.005-1.025) Urine Protein Trace (Neg-Trace) mg/dL Urine Glucose (UA) Negative (Negative) mg/dL Urine Ketones Negative (Negative) mg/dL Urine Blood Negative (Negative) Urine Nitrite Negative (Negative) Ur Leukocyte Esterase Trace H (Negative) Urine RBC 0-2 (0-2) /HPF Urine WBC 0-5 (0-5) /HPF Ur Squamous Epith Cells 0-2 (0-2) /HPF Urine Bacteria None Seen (None Seen) Hyaline Casts 0-2 (0-2) /LPF Stool Occult Blood POSITIVE (NEGATIVE) COVID-19 (CAROL) Negative (Negative) COVID-19 Clin Com See Note Discharge Plan Discharge Clinical Impression: GI bleed Patient Disposition: Admitted As Inpatient
[2022-11-07 11:24] LABS: Hemoglobin 13.7 g/dl (14.0-18.0); Red Cell Distribution Width 14.2 % (11.0-16.0)
[2022-11-07 11:26] VITALS: BP 114/77; BP 120/74; PULSE 70; PULSE 82
[2022-11-07 11:26] LABS: Hematocrit 41.9 % (42.0-52.0); Mean Corpuscular HGB Conc 32.7 g/dl (31.0-36.0); Mean Corpuscular Hemoglobin 26.9 pg (27.0-33.0); Mean Corpuscular Volume 82.3 fL (80.0-98.0); Mean Platelet Volume 12.5 fL (9.4-12.4); PLT ABN DIST 1; Platelet Count 160 X10*3/uL (160-400); Red Blood Count 5.09 X10*6/uL (4.60-5.80); WBC ABN SCTR FOR CBC 1; White Blood Count 5.1 X10*3/uL (4.8-10.8)
[2022-11-07 11:27] VITALS: BP 121/71; PULSE 85
[2022-11-07 11:29] LABS: OBS Int Ctl Valid YES; OBS1 POSITIVE (NEGATIVE)
[2022-11-07 11:32] LABS: Prothrombin Time 11.7 SEC (10.0-13.1)
[2022-11-07 11:34] LABS: Partial Thromboplastin Time 35.9 SEC (26.0-36.4)
[2022-11-07 11:37] LABS: COVID-19 Test Negative (Negative); IDNOW Serial# 08D9AD1C
[2022-11-07 11:39] LABS: Alanine Aminotransferase 32 U/L (0-40); Albumin Level 3.9 g/dL (3.5-5.0); Alkaline Phosphatase 80 U/L (39-117); Anion Gap 11 (12-20); Aspartate Amino Transferase 23 U/L (5-37); Bilirubin Direct 0.2 mg/dL (0.0-0.5); Bilirubin Total 0.7 mg/dL (0.0-1.0); Blood Urea Nitrogen 19 mg/dL (9-16); Calcium 8.9 mg/dL (8.4-10.2); Carbon Dioxide 25 mmol/L (22-29); Chloride 108 mmol/L (96-108); Estimated Glomerular Filt Rate > 60; Glucose Random 110 mg/dL (60-115); Lipase 22 U/L (8-78); Potassium 4.1 mmol/L (3.3-5.1); Sodium 140 mmol/L (135-145); Total Protein 6.4 g/dL (6.5-8.0)
[2022-11-07 11:48] LABS: Basophils Abs Manual 0.1 X10*3/uL (0.0-0.2); Basophils Percent Manual 1 % (0-2); Eosinophils Absolute Manual 0.1 X10*3/uL (0.0-0.4); Eosinophils Percent Manual 1 % (0-4); Lymphocytes Absolute Manual 1.3 X10*3/uL (1.2-4.9); Lymphocytes Percent Manual 26 % (20-40); Monocytes Absolute Manual 0.3 X10*3/uL (0.1-1.2); Monocytes Percent Manual 5 % (2-11); Neutrophils Percent Manual 67 % (45-73)
[2022-11-07 11:49] LABS: Band Neutrophils Percent 0 % (3-5); Neutrophils Absolute Manual 3.4 X10*3/uL (2.0-8.3); Platelet Estimate NORMAL (NORMAL); Platelet Morphology Comment NORMAL; RBC Morphology NORMAL
[2022-11-07 12:21] VITALS: BP 119/77; PULSE 70; RESP 16; TEMP 36.8
[2022-11-07 12:32] LABS: Appearance Urine Clear; Color Urine Yellow; Glucose Urine UA Negative (Negative); Leukocyte Esterase Urine Trace (Negative); Nitrite Urine Negative (Negative); PH 6.5 (5.0-9.0); UMIC TRIGGER UACC YES; Urine Blood Negative (Negative); Urine Ketones Negative (Negative); Urine Protein Trace mg/dL (Neg-Trace)
[2022-11-07 12:35] LABS: Bacteria Urine None Seen (None Seen); Hyaline Casts Urine 0-2 /LPF (0-2); RBC Urine 0-2 /HPF (0-2); Squamous Epithelial Cell Urine 0-2 /HPF (0-2); WBC Urine 0-5 /HPF (0-5)
--- NOTE | 2022-11-07 12:42 | PHA.MEDREC ---
Pharmacy Consult ? Medication Reconciliation Pharmacy has completed the medication reconciliation. spoke with patient through an supervisor marble. Patient is not a good historian and seems forgetful of taking his medications. he claims to still take medications that were prescribed last fall. There are many that he does not take every day even though it is prescribed to.
--- NOTE | 2022-11-07 13:05 | P.HPHOSP_ITS ---
History of Present Illness Date of Service: 11/07/22 Attending physician on admission: Martin Jauregui Chief Complaint: BRBPR 62-year-old male with history of BPH, prostate cancer recently started on Lupron q.6 M injections, depression/anxiety, schizophrenia, mild intermittent asthma, chronic low back pain related to lumbar degenerative disc disease presented to the ED for evaluation of bright red blood per rectum. The patient states he had a single episode of bright red blood per rectum noted on toilet paper, stool, and water which occurred on Wednesday and then required this morning with an increase in amount of blood. He states he has a chronic mild diffuse abdominal pain that has not worsened. No associated nausea, vomiting, diarrhea, constipation. He did undergo colonoscopy in 2018 which showed tubular adenoma and internal hemorrhoids. He does use hydrocortisone suppositories daily for hemorrhoids but states he has not had any issues with rectal bleeding since 2019. Upon arrival, vitals stable. H/H 13.7/41.9%, consistent with baseline. Renal function and electrolyte level stable. Urinalysis unremarkable. Stool occult blood positive. Per ED provider exam, no palpable or visible hemorrhoids but blood noted on glove during rectal exam. He denies any personal or family history of colon cancer. Not on any blood thinners. Patient to be observed overnight for serial monitoring of H/H related to hematochezia. Review of Systems Review of Systems: General: No fevers, malaise, unintentional weight loss HEENT: No blurred vision, diplopia. No sore throat, nasal congestion, rhinorrhea, sinus pain, ear pain Cardiovascular: No chest pain, palpitations, or leg edema Respiratory: No shortness of breath, wheezing, cough GI: +BRBPR, +mild chronic diffuse abd pain. No nausea, vomiting, diarrhea, constipation, melena, hematochezia : +prostate cancer, +rectal pressure. No dysuria, hematuria, increased urinary frequency, decreased urinary output MSK: No myalgia, back pain Neuro: No headaches, weakness, paresthesias Skin: No rashes or lesions [facility] Medical History (Updated 11/07/22 @ 13:16 by BRENDAN Fritz) Anxiety Asthma Benign prostate hyperplasia Depression Elevated blood pressure reading Insomnia Left foot pain Left leg pain Lumbar degenerative disc disease Osteoarthritis of right shoulder Prostate cancer Schizophrenia Family History Father Lung cancer Mother CVA (cerebral vascular accident), Onset Age: 80 Chronic mental illness Surgical History H/O excision of ganglion cyst (~02/2014) History of colonoscopy (~03/01/18) S/P excision of lipoma Social History Household Members: None Housing: Apartment Alcohol intake: former Patient Tobacco Use Status: Former Tobacco user Tobacco use type: Cigarette Cigarettes Per Day: 20 Years Smoked: 7 e-Cigarette/Vaping Use: Never Used Advance Directives: No Advance Directives Information Provided: Yes service: No Current occupational status: disabled Cognitive needs: No Hearing needs: No Vision needs: Yes Meds Allergies Allergy/AdvReac Type Severity Reaction Status Date / Time Penicillins [PENICILLINS] Allergy Intermediate RASH AND Verified 11/04/22 10:41 SWELLING meperidine [Demerol] Allergy Unknown pain Verified 11/04/22 10:41 morphine [MORPHINE] AdvReac Intermediate N/V Verified 11/04/22 10:41 Active Medications: Current Medications Acetaminophen (Acetaminophen 325 Mg Tablet) 650 mg PO Q6H PRN PRN Reason: Pain, Mild (Pain Scale 1-3) Docusate Sodium (Docusate Sodium 100 Mg Capsule) 100 mg PO BID [place]IG[place] Ondansetron HCl (Ondansetron Hcl 4 Mg/2 Ml Vial) 4 mg IVPUSH Q8H PRN PRN Reason: Nausea and Vomiting Pharmacy Consult (Consult Rx Perform Med Rec) 1 each MISCELLANE ONCE PRN PRN Reason: Consult order Pharmacy Consult (Consult Rx Perform Med Rec) 1 each MISCELLANE ONCE PRN PRN Reason: Consult order Sodium Chloride (0.9 % Sodium Chloride Flush 3 Ml Syringe) 3 ml IVFLUSH [facility] Home Medications Medication Instructions Recorded Confirmed Last Taken Type clonazepam 1 mg tablet (Klonopin) 1 mg PO TID 05/28/20 11/07/22 Unknown History aripiprazole 15 mg tablet 15 mg PO DAILY 07/12/20 11/07/22 Unknown History nabumetone 750 mg tablet 750 mg PO DAILY 07/12/20 11/07/22 Unknown History sertraline 100 mg tablet 100 mg PO DAILY 07/12/20 11/07/22 Unknown History zolpidem 10 mg tablet (Ambien) 10 mg PO BEDTIME PRN Sleep 07/12/20 11/07/22 11/06/22 History albuterol sulfate 90 mcg/actuation 2 puff inhalation QID PRN 11/07/22 11/07/22 Unknown History aerosol inhaler (Ventolin HFA) Bronchospasm bupropion HCl 100 mg tablet,12 hr 1 tab PO DAILY 11/07/22 11/07/22 Unknown His tory sustained-release diclofenac sodium 1 % topical gel 2 g topical BEDTIME PRN Pain 11/07/22 11/07/22 Unknown History finasteride 5 mg tablet 5 mg PO BEDTIME 11/07/22 11/07/22 Unknown History fluticasone propionate 50 1 spray intranasal DAILY PRN 11/07/22 11/07/22 Unknown History mcg/actuation nasal Allergy Symptoms spray,suspension hydrocortisone 2.5 % topical cream 1 appl [place] BID-TID 11/07/22 11/07/22 Unknown History with perineal applicator loratadine 10 mg tablet 10 mg PO DAILY PRN Allergy Symptoms 11/07/22 11/07/22 Unknown History pregabalin 50 mg capsule 100 mg PO BID PRN Pain 11/07/22 11/07/22 Unknown History tamsulosin 0.4 mg capsule 1 cap PO BEDTIME 11/07/22 11/07/22 11/06/22 History Physical Exam Vital Signs and Narrative: Vital Signs: Last Vital Signs Temp 98.3 F 11/07/22 12:21 Pulse 70 11/07/22 12:21 Resp 16 11/07/22 12:21 BP 119/77 11/07/22 12:21 Pulse Ox 97 11/07/22 10:38 O2 Del Method 11/07/22 12:21 O2 Flow Rate 94 11/07/22 12:21 BMI result Body Mass Index 24.3 Constitutional - Awake and Alert, No apparent distress Eyes - PERRLA, EOMI Cardiovascular - S1S2, RRR, No edema Respiratory - Normal lung expansion, Normal respiratory effort, No respiratory distress, CTA bilaterally Gastrointestinal - mild diffuse ttp without guarding or rebound. No palpable masses. ND; +BS Rectal- deferred- performed by ED provider Extremities - no calf tenderness bilaterally, no swelling Skin - Warm/Dry Neurological - Alert & oriented x3 Psychological - Appropriate affect Results Labs 11/07/22 11:16 11/07/22 11:16 Labs: Laboratory Results - last 24 hr 11/07/22 11/07/22 11/07/22 11:16 11:16 11:16 MCV 82.3 MCH 26.9 L MCHC 32.7 RDW 14.2 Plt Count 160 MPV 12.5 H Immature Gran % (Auto) Cancelled Neut % (Auto) Cancelled Lymph % (Auto) Cancelled [place] % (Auto) Cancelled Eos % (Auto) Cancelled Baso % (Auto) Cancelled Lymph # (Auto) Cancelled [place] # (Auto) Cancelled Eos # (Auto) Cancelled Baso # (Auto) Cancelled Abs Immat Gran (auto) Cancelled Absolute Neuts (auto) Cancelled Absolute Nucleated RBC 0.000 Nucleated RBC % (auto) 0.0 Neutrophils % (Manual) 67 Band Neutrophils % 0 L Lymphocytes % (Manual) 26 Monocytes % (Manual) 5 Eosinophils % (Manual) 1 Basophils % (Manual) 1 Abs Neuts (Manual) 3.4 Lymphocytes # (Manual) 1.3 Monocytes # (Manual) 0.3 Eosinophils # (Manual) 0.1 Basophils # (Manual) 0.1 Platelet Estimate NORMAL Plt Morphology Comment NORMAL RBC Morphology NORMAL PT 11.7 INR 1.0 APTT 35.9 Anion Gap 11 L Estim Creat Clear Calc 71.0 Estimated GFR > 60 Random Glucose 110 Calcium 8.9 Total Bilirubin 0.7 Direct Bilirubin 0.2 AST 23 ALT 32 Alkaline Phosphatase 80 Total Protein 6.4 L Albumin 3.9 Lipase 22 Urine Color Urine Appearance Urine pH Ur Specific [place] Urine Protein Urine Glucose (UA) Urine Ketones Urine Blood Urine Nitrite Ur Leukocyte Esterase Urine RBC Urine WBC Ur Squamous Epith Cells Urine Bacteria Hyaline Casts Stool Occult Blood COVID-19 (CAROL) COVID-19 Clin Com 11/07/22 11/07/22 11/07/22 11:16 11:16 12:24 MCV MCH MCHC RDW Plt Count MPV Immature Gran % (Auto) Neut % (Auto) Lymph % (Auto) [place] % (Auto) Eos % (Auto) Baso % (Auto) Lymph # (Auto) [place] # (Auto) Eos # (Auto) Baso # (Auto) Abs Immat Gran (auto) Absolute Neuts (auto) Absolute Nucleated RBC Nucleated RBC % (auto) Neutrophils % (Manual) Band Neutrophils % Lymphocytes % (Manual) Monocytes % (Manual) Eosinophils % (Manual) Basophils % (Manual) Abs Neuts (Manual) Lymphocytes # (Manual) Monocytes # (Manual) Eosinophils # (Manual) Basophils # (Manual) Platelet Estimate Plt Morphology Comment RBC Morphology PT INR APTT Anion Gap Estim Creat Clear Calc Estimated GFR Random Glucose Calcium Total Bilirubin Direct Bilirubin AST ALT Alkaline Phosphatase Total Protein Albumin Lipase Urine Color Yellow Urine Appearance Clear Urine pH 6.5 Ur Specific [place] 1.020 Urine Protein Trace Urine Glucose (UA) Negative Urine Ketones Negative Urine Blood Negative Urine Nitrite Negative Ur Leukocyte Esterase Trace H Urine RBC 0-2 Urine WBC 0-5 Ur Squamous Epith Cells 0-2 Urine Bacteria None Seen Hyaline Casts 0-2 Stool Occult Blood POSITIVE COVID-19 (CAROL) Negative COVID-19 Clin Com See Note Assessment and Plan (1) BRBPR (bright red blood per rectum): Status: Acute Plan 62-year-old male with history of BPH, prostate cancer recently started on Lupron q.6 M injections, depression/anxiety, schizophrenia, mild intermittent asthma, chronic low back pain related to lumbar degenerative disc disease to be observed for BRBPR. # bright red blood per rectum- most likely related to internal hemorrhoid versus painless diverticular bleed -colonoscopy in 2018 noting tubular adenoma and internal hemorrhoids -continue hydrocortisone suppositories -add docusate b.i.d. -repeat H/H at 17:00, follow CBC at a.m. -Avoid blood thinners -if evidence of ongoing blood loss, consider Gastroenterology consult -he is likely due for 5 year follow-up colonoscopy this year anyway given tubular adenoma # mild intermittent asthma-no acute exacerbation -albuterol p.r.n. # chronic low back pain -complaining of coccyx pain, but mild -continue Lyrica, tramadol from home -lidocaine patches p.r.n. # malignant neoplasm of prostate -recently started on Lupron injections on 10/21 q.6m at [facility] -continue finasteride and tamsulosin # depression/schizophrenia -continue home meds DVT prophylaxis- SCPs Full code Time Spent With Patient Time: Total time managing care of this patient today ____ minutes. Quality Stroke Does the patient have a stroke diagnosis?: No VTE Prior VTE?: No VTE Risk Level:: Medical - moderate - high VTE Device Contraindication: Treatment Not Indicated VTE Drug Contraindication: N/A - Med Ordered
[2022-11-07] MEDS: 0.9 % Sodium Chloride Flush 3 ML SYRINGE IVFLUSH (16:52)
[2022-11-07 17:09] LABS: Hematocrit 41.9 % (42.0-52.0); Hemoglobin 13.6 g/dl (14.0-18.0)
[2022-11-07 18:28] VITALS: BP 154/84; PULSE 61; RESP 17; TEMP 36.3; O2SAT 98
[2022-11-07] MEDS: Finasteride 5 MG TABLET PO (20:48)
[2022-11-07] MEDS: Hydrocortisone 2.5 % Rectal Cr 30 GM TUBE 1 APPL PR (20:49)
[2022-11-07] MEDS: Docusate Sodium 100 MG CAPSULE PO (20:49)
[2022-11-07] MEDS: clonazePAM 1 MG TABLET PO (20:49)
[2022-11-07] MEDS: Tamsulosin HCL 0.4 MG CAPSULE PO (20:49)
[2022-11-08] VITALS: BP 125/76; PULSE 70; RESP 14; TEMP 36.3; O2SAT 93
[2022-11-08 03:49] VITALS: BP 117/74; PULSE 61; RESP 16; TEMP 36.8; O2SAT 94
[2022-11-08] MEDS: 0.9 % Sodium Chloride Flush 3 ML SYRINGE IVFLUSH ×2 (05:17→09:10)
[2022-11-08 06:35] LABS: Hematocrit 41.6 % (42.0-52.0); Hemoglobin 13.5 g/dl (14.0-18.0); Mean Corpuscular HGB Conc 32.5 g/dl (31.0-36.0); Mean Corpuscular Hemoglobin 26.9 pg (27.0-33.0); Red Blood Count 5.01 X10*6/uL (4.60-5.80); Red Cell Distribution Width 14.2 % (11.0-16.0)
[2022-11-08 06:39] LABS: WBC ABN SCTR FOR CBC 1; White Blood Count 5.8 X10*3/uL (4.8-10.8)
[2022-11-08 07:16] LABS: Anion Gap 11 (12-20); Basophils Abs Manual 0.1 X10*3/uL (0.0-0.2); Basophils Percent Manual 1 % (0-2); Blood Urea Nitrogen 16 mg/dL (9-16); Calcium 8.9 mg/dL (8.4-10.2); Carbon Dioxide 23 mmol/L (22-29); Chloride 108 mmol/L (96-108); Eosinophils Absolute Manual 0.3 X10*3/uL (0.0-0.4); Eosinophils Percent Manual 6 % (0-4); Estimated Glomerular Filt Rate > 60; Glucose Random 92 mg/dL (60-115); Large Platelet PRESENT; Lymphocytes Absolute Manual 1.3 X10*3/uL (1.2-4.9); Lymphocytes Percent Manual 22 % (20-40); Monocytes Absolute Manual 0.3 X10*3/uL (0.1-1.2); Monocytes Percent Manual 5 % (2-11); Neutrophils Percent Manual 66 % (45-73); Platelet Estimate SLIGHTLY DECREASED (NORMAL); Platelet Morphology Comment NOTED; Potassium 4.3 mmol/L (3.3-5.1); RBC Morphology NORMAL; Sodium 138 mmol/L (135-145)
[2022-11-08 07:30] VITALS: BP 127/85; PULSE 68; RESP 18; TEMP 36.2; O2SAT 98
[2022-11-08 07:59] LABS: Band Neutrophils Percent 0 % (3-5); Neutrophils Absolute Manual 3.8 X10*3/uL (2.0-8.3)
[2022-11-08] MEDS: ARIPiprazole 15 MG TABLET PO (09:10)
[2022-11-08] MEDS: Lidocaine 4 % Patch ADH..PATCH 1 PATCH TRANSDERMA (09:10)
[2022-11-08] MEDS: buPROPion HCL 75 MG TABLET PO (09:11)
[2022-11-08] MEDS: Sertraline HCL 100 MG TABLET PO (09:11)
[2022-11-08] MEDS: Docusate Sodium 100 MG CAPSULE PO (09:11)
--- NOTE | 2022-11-08 10:00 | PM.DS ---
DS: Providers Provider Date of Service: 11/08/22 Date of admission: 11/07/22 12:58 Date of discharge: 11/08/22 Primary care physician: Lai Olson MD DS: Diagnosis Discharge Diagnosis (1) Internal hemorrhoid, bleeding: Status: Acute (2) BRBPR (bright red blood per rectum): Status: Acute DS: Summary Hospital Course Hospital Course: 62-year-old male with history of BPH, prostate cancer recently started on Lupron q.6 M injections, depression/anxiety, schizophrenia, mild intermittent asthma, chronic low back pain related to lumbar degenerative disc disease presented to the ED for evaluation of bright red blood per rectum.? The patient states he had a single episode of bright red blood per rectum noted on toilet paper, stool, and water which occurred on Wednesday and then required this morning with an increase in amount of blood.? He states he has a chronic mild diffuse abdominal pain that has not worsened.? No associated nausea, vomiting, diarrhea, constipation.? He did undergo colonoscopy in 2018 which showed tubular adenoma and internal hemorrhoids.? He does use hydrocortisone suppositories daily for hemorrhoids but states he has not had any issues with rectal bleeding since 2019.? Upon arrival, vitals stable.? H/H 13.7/41.9%, consistent with baseline.? Renal function and electrolyte level stable.? Urinalysis unremarkable.? Stool occult blood positive.? Per ED provider exam, no palpable or visible hemorrhoids but blood noted on glove during rectal exam.? He denies any personal or family history of colon cancer. Not on any blood thinners.? Patient to be observed overnight for serial monitoring of H/H related to hematochezia. Hospital Course Patient admitted overnight. Hemoglobin stable. Had formed brown stool this a.m.; blood on toilet paper only. Exam revealed internal hemorrhoids. At this point in time he is going to be discharged home to continue to use cortisone cream and he is instructed that the bleeding on the paper may last for several days until the cream takes effect. He will follow-up with PCP Time Spent with Patient Time attestation: Total time managing care of this patient today ____ minutes. Discharge coordination time: Greater than 30 minutes Quality: Safe Use of Opioids Does Pt have an Active Cancer Diagnosis on the Problem List?: No Quality: Stroke Does the patient have a stroke diagnosis?: No Physical Exam Vital Signs: Vital Signs: Last Vital Signs Temp 97.1 F 11/08/22 07:30 Pulse 68 11/08/22 07:30 Resp 18 11/08/22 07:30 BP 127/85 11/08/22 07:30 Pulse Ox 98 11/08/22 07:30 O2 Del Method 11/08/22 07:30 O2 Flow Rate 94 11/07/22 12:21 BMI result Body Mass Index 24.3 Const: Other: Awake alert oriented x3 no acute distress Resp: Other: Clear to auscultation bilaterally no rales rhonchi or wheezes Cardio: Other: No S4; positive S1-S2; no S3 murmurs rubs or gallops GI: Other: Soft nontender nondistended normoactive bowel sounds : Other: Rectal exam consistent with internal hemorrhoids Extrem: Other: No edema bilaterally DS: Data Data Completed and Pending Labs on day of discharge: Laboratory Results - last 24 hr 11/07/22 11/07/22 11/07/22 11:16 11:16 11:16 WBC 5.1 RBC 5.09 Hgb 13.7 L Hct 41.9 L MCV 82.3 MCH 26.9 L MCHC 32.7 RDW 14.2 Plt Count 160 MPV 12.5 H Immature Gran % (Auto) Cancelled Neut % (Auto) Cancelled Lymph % (Auto) Cancelled Rich % (Auto) Cancelled Eos % (Auto) Cancelled Baso % (Auto) Cancelled Lymph # (Auto) Cancelled Rich # (Auto) Cancelled Eos # (Auto) Cancelled Baso # (Auto) Cancelled Abs Immat Gran (auto) Cancelled Absolute Neuts (auto) Cancelled Absolute Nucleated RBC 0.000 Nucleated RBC % (auto) 0.0 Neutrophils % (Manual) 67 Band Neutrophils % 0 L Lymphocytes % (Manual) 26 Monocytes % (Manual) 5 Eosinophils % (Manual) 1 Basophils % (Manual) 1 Abs Neuts (Manual) 3.4 Lymphocytes # (Manual) 1.3 Monocytes # (Manual) 0.3 Eosinophils # (Manual) 0.1 Basophils # (Manual) 0.1 Platelet Estimate NORMAL Large Platelets Plt Morphology Comment NORMAL RBC Morphology NORMAL PT 11.7 INR 1.0 APTT 35.9 Sodium 140 Potassium 4.1 Chloride 108 Carbon Dioxide 25 Anion Gap 11 L BUN 19 H Creatinine 1.03 Estim Creat Clear Calc 71.0 Estimated GFR > 60 Random Glucose 110 Calcium 8.9 Total Bilirubin 0.7 Direct Bilirubin 0.2 AST 23 ALT 32 Alkaline Phosphatase 80 Total Protein 6.4 L Albumin 3.9 Lipase 22 Urine Color Urine Appearance Urine pH Ur Specific [place] Urine Protein Urine Glucose (UA) Urine Ketones Urine Blood Urine Nitrite Ur Leukocyte Esterase Urine RBC Urine WBC Ur Squamous Epith Cells Urine Bacteria Hyaline Casts Stool Occult Blood COVID-19 (CAROL) COVID-19 Parchment Com 11/07/22 11/07/22 11/07/22 11:16 11:16 12:24 WBC RBC Hgb Hct MCV MCH MCHC RDW Plt Count MPV Immature Gran % (Auto) Neut % (Auto) Lymph % (Auto) Rich % (Auto) Eos % (Auto) Baso % (Auto) Lymph # (Auto) Rich # (Auto) Eos # (Auto) Baso # (Auto) Abs Immat Gran (auto) Absolute Neuts (auto) Absolute Nucleated RBC Nucleated RBC % (auto) Neutrophils % (Manual) Band Neutrophils % Lymphocytes % (Manual) Monocytes % (Manual) Eosinophils % (Manual) Basophils % (Manual) Abs Neuts (Manual) Lymphocytes # (Manual) Monocytes # (Manual) Eosinophils # (Manual) Basophils # (Manual) Platelet Estimate Large Platelets Plt Morphology Comment RBC Morphology PT INR APTT Sodium Potassium Chloride Carbon Dioxide Anion Gap BUN Creatinine Estim Creat Clear Calc Estimated GFR Random Glucose Calcium Total Bilirubin Direct Bilirubin AST ALT Alkaline Phosphatase Total Protein Albumin Lipase Urine Color Yellow Urine Appearance Clear Urine pH 6.5 Ur Specific [place] 1.020 Urine Protein Trace Urine Glucose (UA) Negative Urine Ketones Negative Urine Blood Negative Urine Nitrite Negative Ur Leukocyte Esterase Trace H Urine RBC 0-2 Urine WBC 0-5 Ur Squamous Epith Cells 0-2 Urine Bacteria None Seen Hyaline Casts 0-2 Stool Occult Blood POSITIVE COVID-19 (CAROL) Negative COVID-19 Parchment Com See Note 11/07/22 11/08/22 11/08/22 17:01 06:10 06:10 WBC 5.8 RBC 5.01 Hgb 13.6 L 13.5 L Hct 41.9 L 41.6 L MCV 83.0 MCH 26.9 L MCHC 32.5 RDW 14.2 Plt Count Not Reportable MPV Not Reportable Immature Gran % (Auto) Cancelled Neut % (Auto) Cancelled Lymph % (Auto) Cancelled Rich % (Auto) Cancelled Eos % (Auto) Cancelled Baso % (Auto) Cancelled Lymph # (Auto) Cancelled Rich # (Auto) Cancelled Eos # (Auto) Cancelled Baso # (Auto) Cancelled Abs Immat Gran (auto) Cancelled Absolute Neuts (auto) Cancelled Absolute Nucleated RBC 0.000 Nucleated RBC % (auto) 0.0 Neutrophils % (Manual) 66 Band Neutrophils % 0 L Lymphocytes % (Manual) 22 Monocytes % (Manual) 5 Eosinophils % (Manual) 6 H Basophils % (Manual) 1 Abs Neuts (Manual) 3.8 Lymphocytes # (Manual) 1.3 Monocytes # (Manual) 0.3 Eosinophils # (Manual) 0.3 Basophils # (Manual) 0.1 Platelet Estimate SLIGHTLY DECREASED Large Platelets PRESENT Plt Morphology Comment NOTED RBC Morphology NORMAL PT INR APTT Sodium 138 Potassium 4.3 Chloride 108 Carbon Dioxide 23 Anion Gap 11 L BUN 16 Creatinine 0.86 Estim Creat Clear Calc 85.0 Estimated GFR > 60 Random Glucose 92 Calcium 8.9 Total Bilirubin Direct Bilirubin AST ALT Alkaline Phosphatase Total Protein Albumin Lipase Urine Color Urine Appearance Urine pH Ur Specific [place] Urine Protein Urine Glucose (UA) Urine Ketones Urine Blood Urine Nitrite Ur Leukocyte Esterase Urine RBC Urine WBC Ur Squamous Epith Cells Urine Bacteria Hyaline Casts Stool Occult Blood COVID-19 (CAROL) COVID-19 Clin Com Discharge Plan Discharge Anticipated Discharge Date/Time: 11/08/22 09:55 Patient Disposition: Home, Self-Care Discharge Diagnosis: Internal hemorrhoidal bleeding Referrals: Lai Olson MD [Primary Care Provider] - 1 Week Discharge Medications: Continued (DME) blood pressure monitor Kit See Rx Instructions .ROUTE .MEDSUPPLY Qty: 1 0RF Rx Instructions: As directed Saline Nasal 0.65 % aerosol,spray 2 spray intranasal Q12H PRN (Reason: dry nasal passages) Qty: 30 1RF tramadol 50 mg tablet 50 mg PO TID PRN (Reason: pain) Qty: 90 0RF bupropion HCl 100 mg tablet sustained-release 12 hr 1 tab PO DAILY tamsulosin 0.4 mg capsule 1 cap PO BEDTIME fluticasone propionate [Flonase] 50 mcg/actuation [place],Suspension 1 spray INTRANASAL DAILY PRN (Reason: Allergy Symptoms) Rx Instructions: administer into each nostril loratadine 10 mg Tablet 10 mg PO DAILY PRN (Reason: Allergy Symptoms) hydrocortisone 2.5 % cream with perineal applicator 1 appl VT BID-TID pregabalin 50 mg capsule 100 mg PO BID PRN (Reason: Pain) Rx Instructions: patient states he only takes twice weekly diclofenac sodium 1 % gel 2 g topical BEDTIME PRN (Reason: Pain) Rx Instructions: apply 2 gram to L foot nightly as needed albuterol sulfate [Ventolin HFA] 90 mcg/actuation HFA aerosol inhaler 2 puff INHALATION QID PRN (Reason: Bronchospasm) finasteride 5 mg Tablet 5 mg PO BEDTIME clonazepam [Klonopin] 1 mg tablet 1 mg PO TID aripiprazole 15 mg tablet 15 mg PO DAILY zolpidem [Ambien] 10 mg tablet 10 mg PO BEDTIME PRN (Reason: Sleep) sertraline 100 mg tablet 100 mg PO DAILY nabumetone 750 mg tablet 750 mg PO DAILY sildenafil (pulm.hypertension) 20 mg tablet 20 mg PO DAILY PRN (Reason: sexual activity) Qty: 10 0RF mupirocin 2 % ointment 1 appl topical BID Qty: 22 0RF Rx Instructions: apply to lesion on the back of the right leg meclizine 25 mg tablet 25 mg PO BID PRN (Reason: dizziness) 10 Days Qty: 20 0RF Discharge Orders: Discharge Order (Routine); Ordered 11/08/22 Ordered By: Martin Jauregui Diet: Advance to usual diet Activity on Discharge: As tolerated Stand Alone Forms: Patient Portal Discharge page Care Plan Goals: Continue to use the cream for hemorrhoids as before the hospital Health Concerns: Follow-up with your primary care. Plan of Treatment: You likely will have some blood on the toilet paper for little bit of time. . . Continues the cream. Assessment: See discharge summary
--- NOTE | 2022-11-08 11:03 | MHC.CM.PN ---
pt lives alone has a cutter hot knife is covid vax x 4 he is dcd today with no skilled servceis pt is obs
== END 2022-11-08 11:36 | disposition home or self-care (01) ==
LOC: HO.ED 12:38 → HO.EDOVER 13:05 → HO.IMC 16:29
PROVIDERS: Admitting Provider Physician Assistant; Emergency Provider Emergency Medicine; PCP Internal Medicine; Visit Provider Hospitalist
DX: K62.5 Hemorrhage of anus and rectum (principal); K64.8 Other hemorrhoids; Z20.822 Contact with and (suspected) exposure to COVID-19; Z79.899 Other long term (current) drug therapy; Z87.891 Personal history of nicotine dependence
CPT/HCPCS: 36415; 80048; 80076; 81001; 82272; 83690; 85007; 85014; 85018; 85027; 85610; 85730; 87635; 99222; 99285

== ENCOUNTER 2022-12-07 10:32 | Outpatient (REF) | payer OTHER, SELFPAY ==
[2022-12-07 12:11] LABS: C Reactive Protein 0.39 mg/dL (< or = 0.50)
[2022-12-07 12:34] LABS: Erythrocyte Sedimentation Rate 2 MM/HR (0-15)
== END 2022-12-07 10:33 | disposition home or self-care (01) ==
LOC: HO.LAB 10:32
PROVIDERS: PCP Internal Medicine; Visit Provider Nurse Practitioner Family
DX: M25.50 Pain in unspecified joint (principal); Z51.81 Encounter for therapeutic drug level monitoring
CPT/HCPCS: 85652; 86140

== ENCOUNTER 2022-12-22 09:49 | Outpatient (AMB) | payer OTHER, SELFPAY ==
[2022-12-22 09:53] VITALS: BP 122/80; PULSE 94; O2SAT 96; BMI 24.6
--- NOTE | 2022-12-22 09:53 | A.OFFPC_ITS ---
Vital Signs 12/22/22 09:53 Height 5 ft 8 in Weight 162 lb BMI 24.6 BP 122/80 Blood Pressure Location Lt brachial Position Sitting Pulse 94 Pulse Source Pulse Oximeter Pulse Oximetry (%) 96 Oxygen Delivery Method Room Air Intake Visit Reasons: 4mth f/u Intake Note: Patient is here for a 4 months follow up. Design Checker Required: Yes Accompanied by: Self / Same As Patient Allergies Penicillins [PENICILLINS] Allergy (Intermediate, Verified 04/27/23 11:14) RASH AND SWELLING meperidine [Demerol] Allergy (Unknown, Verified 04/27/23 11:14) pain morphine [MORPHINE] Adverse Reaction (Intermediate, Verified 04/27/23 11:14) N/V Medication List - Last Reconciled 12/22/22 by Lai Olson MD albuterol sulfate 90 mcg/actuation (Ventolin HFA) 2 puffs inhalation QID PRN aripiprazole 15 mg PO DAILY blood pressure monitor As directed bupropion HCl 1 tab PO DAILY clonazepam (Klonopin) 1 mg PO TID diclofenac sodium 1% 2 grams topical BEDTIME PRN finasteride 5 mg PO BEDTIME fluticasone propionate 50 mcg/actuation 1 spray intranasal DAILY PRN [HANDHELD SHOWER As directed] hydrocortisone 2.5% 1 appl RI BID [LIGHTWEIGHT CANE As directed] loratadine 10 mg PO DAILY PRN meclizine 25 mg PO BID PRN 10 days mupirocin 2% 1 appl topical BID nabumetone 750 mg PO DAILY pregabalin 100 mg PO BID PRN sertraline 100 mg PO DAILY sildenafil (pulm.hypertension) 20 mg PO DAILY PRN sodium chloride 0.65% (Saline Nasal) 2 sprays intranasal Q12H PRN tamsulosin 1 cap PO BEDTIME tramadol 50 mg PO TID PRN zolpidem (Ambien) 10 mg PO BEDTIME PRN Tobacco use date assessed: 12/22/22 HPI 4mth f/u HPI Details Patient comes in today for his follow up visit States that he feels okay Was admitted [place] [facility] [place] for rectal bleeding from internal hemorrhoids He was recently seen via telehealth visit by urology for follow up of his prostate cancer In summary, he first had prostate Bx (TRUS Bx) on 05/09/2019 which came out negative His PSA level gradually trended down with Tx (Finasteride) but was noted to have increased gradually last year on routine follow up He was then sent for a pelvic MRI, which showed a concerning prostate lesion A repeat prostate Bx was then done on 04/21/2022, which unfortunately revealed an unfavorable intermediate risk prostate cancer category - [place] 4+3 prostate cancer with a PSA of 14.2 He recently completed a restaging pelvic MRI on 11/05/2022, which did not reveal any concerning findings Was recommended for treatment with space OAR placement and moderate hypofraction for curative intent radiation therapy, which patient agreed to However, due to his recent rectal bleed and the fact that patient will be actually due for a repeat colonoscopy in 02/2023 (5 year recall from his last colonoscopy in 02/2018), he was referred to GI at [facility] to get his repeat colo noscopy done first prior to starting Tx for his prostate cancer States that he was just scheduled for an appointment with GI and he will make sure he gets all of his required testing/screenings done timely He continues to experience multiple joint pains and states that for the past month, he has been experiencing a persistent/recurrent pain over the ribs on his left chest wall He denies any recent chest trauma He feels okay otherwise and denies any recent fever, headaches or dizziness Denies any exertional chest pains or SOB No nausea/vomiting, no abdominal pain and no change in bowel habits noted Will need his Tramadol Rx refilled PFSH Medical History Anxiety Asthma Benign prostate hyperplasia Depression Elevated blood pressure reading Insomnia Left foot pain Left leg pain Lumbar degenerative disc disease Osteoarthritis of right shoulder Prostate cancer Schizophrenia Surgical History H/O excision of ganglion cyst (~02/2014) History of colonoscopy (~03/01/18) S/P excision of lipoma Family History Father Lung cancer Mother CVA (cerebral vascular accident), Onset Age: 80 Chronic mental illness Social History Household Members: None Housing: Apartment Alcohol intake: never Patient Tobacco Use Status: Former Tobacco user Tobacco use type: Cigar Cigarettes Per Day: 20 Years Smoked: pt. states he has not smoked in years e-Cigarette/Vaping Use: Never Used Second Hand Smoke Exposure: No service: No Current occupational status: disabled Cognitive needs: No Hearing needs: No Vision needs: Yes Questionnaire PHQ-9 Over the last 2 weeks, how often have you been bothered by any of the following problems? 1. Little interest or pleasure in doing things: several days 2. Feeling down, depressed, or hopeless: several days 3. Trouble falling or staying asleep, or sleeping too much: several days 4. Feeling tired or having little energy: several days 5. Poor appetite or overeating: several days 6. Feeling bad about yourself - or that you are a failure or have let yourself or your family down: several days 7. Trouble concentrating on things, such as reading the newspaper or watching television: not at all 8. Moving or speaking so slowly that other people could have noticed. Or the opposite - being so fidgety or restless that you have been moving around a lot more than usual: not at all 9. Thoughts that you would be better off or of hurting yourself in some way: not at all Total score: 6 Depression Screening Interpretation: Positive Depression Screening Follow-up: Existing condition and In treatment 25950 - PHQ-9 Billing: Yes Source: Developed by Drs. Angel Castellanos, Arlet Fine, Valeriano Shah and colleagues, with an educational sari from [employer]. Thrive Questionnaire Date Thrive assessed: 12/22/22 I am a: Patient What is your living situation today?: I have a steady place to live Within the past 12 months, did the food you bought not last and you didn't have the money to get more?: Never true Within the past 12 months, did you worry whether your food would run out before you got money to buy more?: Never true Do you have trouble paying for medicines?: No Do you have trouble getting transportation to medical appointments?: No Do you have trouble paying your heating and electricity bill?: No Do you have trouble taking care of your child, family member or friend?: No Do you have trouble with day-to-day activities such as bathing, preparing meals, shopping, managing finances, etc.?: No Are you currently unemployed and looking for a job?: No Are you interested in more education?: No Currently or been in a relationship where the following occur: no concerns reported AUDIT C Alcohol Use Questionnaire (AUDIT-C) 1. How often do you have a drink containing alcohol?: Never 3. How often do you have six or more drinks on one occasion?: Never Total Score: 0 Score Reviewed/Action Taken: Yes NILSON-7 AMB Questionnaire NILSON-7 Date NILSON - 7 assessed: 12/22/22 Feeling nervous, anxious, or on edge: 0 = Not at all Not being able to stop or control worryin = Not at all Worrying too much about different things: 0 = Not at all Trouble relaxin = Not at all Being so restless that it is hard to sit still: 0 = Not at all Becoming easily annoyed or irritable: 0 = Not at all Feeling afraid as if something awful might happen: 0 = Not at all Total NILSON-7 score (0-4 normal; 5-9 mild; 10-14 moderate; 15-21 severe): 0 Source: Developed by Drs. Angel Castellanos, Arlet Fine, Valeriano Shah and colleagues, with an educational sari from [employer]. Review of Systems Const Denies chills, Reports fatigue, Denies fever(s) and Denies headache(s) ENT Denies dysphagia, Denies dizziness, Denies otalgia, Denies headache(s), Denies neck pain, Denies odynophagia and Denies sore throat Card Denies chest pain, Denies palpitations and Denies dyspnea Resp Denies cough and Denies dyspnea GI Denies abdominal pain, Reports hematochezia (at times), Denies constipation, Denies dysphagia, Denies heartburn, Denies diarrhea, Denies nausea, Denies odynophagia and Denies vomiting Denies dysuria, Reports nocturia, Reports urinary frequency and Reports urinary hesitancy Musc Denies neck pain Neuro Denies dizziness and Denies headache(s) Endo Reports fatigue and Denies palpitations Physical exam (Primary Care) Vital Signs: Last Vital Signs Pulse 94 12/22/22 09:53 BP 122/80 05/02/23 09:53 Pulse Ox 96 12/22/22 09:53 Oxygen Delivery Method Room Air 12/22/22 09:53 BMI result Body Mass Index 24.6 Tobacco/Smoking Status: Tobacco use Status Tobacco use date assessed 12/22/22 12/22/22 09:59 Patient Tobacco Use Status Former Tobacco user 12/22/22 09:59 Tobacco use type Cigar 12/22/22 09:59 e-Cigarette/Vaping Use Never Used 12/22/22 09:59 PHQ-9: PHQ-9 Score PHQ-9: Total score 6 12/22/22 10:30 Depression Screening Interpretation: Positive Depression Screening Follow-up: Existing condition and In treatment Thrive Assessment: Date of Thrive Assessment Date Thrive assessed 12/22/22 12/22/22 09:59 Currently or been in a relationship where the following occur: no concerns reported Const General: no acute distress and alert HENMT Ears: TM's normal bilaterally and EAC's normal Throat: Yes posterior oropharynx normal and Yes tonsils normal (no TP congestion) Neck Neck: Yes no lymphadenopathy and Yes supple Thyroid: Thyroid normal Chest Other: (+) mild tenderness on palpation over the left lower chest wall/ribs Resp Auscultation: clear to auscultation bilaterally, no rales and no wheezes Cardio Rate: regular rate Rhythm: regular rhythm Heart sounds: no murmurs GI Palpation (GI): Soft to palpation and nontender Auscultation: normal bowel sounds General: Yes no CVA tenderness Back/Spine/Pelvis Back: no CVA tenderness Thoracic/Lumbar Spine: lumbar spinal tenderness Skin Rashes: no rashes Extrem General: Yes no clubbing, cyanosis or edema Right upper extremity: shoulder/upper arm Details: tenderness Location: of the A-C joint Left upper extremity: hand Details: tenderness Location: of the 2nd digit Location: involving the entire digit ((+) tenderness and stiffness - unable to flex finger) Right lower extremity: hip/thigh Details: tenderness Location: of the hip Left lower extremity: hip/thigh Details: tenderness Location: of the hip Assessment and Plan Assessment & Plan (1) Left-sided chest pain: Code(s): R07.9 - Chest pain, unspecified Plan: Will send for x-rays of the chest and left ribs for further evaluation (2) Asthma: Code(s): J45.909 - Unspecified asthma, uncomplicated Qualifiers: Asthma severity: moderate Asthma persistence: persistent Asthma complication type: uncomplicated Qualified Code(s): J45.40 - Moderate persistent asthma, uncomplicated Plan: Appears stable / controlled lately Continue Flovent HFA 110 mcg 1 inhalation BID and Albuterol HFA 2 inhalations every 6 hours as needed (3) Prostate cancer: Code(s): C61 - Malignant neoplasm of prostate Plan: He was diagnosed with an unfavorable intermediate-risk prostate cancer by urology last year and received his first Eligard injection on 10/21/2022 He has also been following up with radiation oncology at [facility] and will be starting radiation therapy soon Follow up with urology and radiation oncology as scheduled (4) Rectal bleeding: Code(s): K62.5 - Hemorrhage of anus and rectum Plan: On and off lately; is likely due to his hemorrhoids He is scheduled to have his repeat colonoscopy in February 2023 Follow up with GI as scheduled (5) Allergic rhinitis: Code(s): J30.9 - Allergic rhinitis, unspecified Qualifiers: Allergic rhinitis trigger: unspecified Allergic rhinitis seasonality: unspecified Qualified Code(s): J30.9 - Allergic rhinitis, unspecified Plan: Continue Fluticasone 50 mcg nasal spray QD PRN and Loratadine 10 mg QD PRN (6) Osteoarthritis of right shoulder: Code(s): M19.011 - Primary osteoarthritis, right shoulder Qualifiers: Osteoarthritis type: primary Qualified Code(s): M19.011 - Primary osteoarthritis, right shoulder Plan: X-rays of the right shoulder done in October 2019 showed mild AC joint arthritis Follow up with rheumatology as scheduled - has been receiving cortisone injections into the right shoulder as needed with (+) relief of shoulder pain Continue Nabumetone 750 mg BID PRN (7) Lumbar degenerative disc disease: Code(s): M51.36 - Other intervertebral disc degeneration, lumbar region Plan: Reinforced activity and weight-lifting restrictions Continue Tramadol 50 mg TID PRN for pain (Rx refilled) and Pregabalin 100 mg BID Have also considered starting him on Duloxetine for his chronic low back pain but he is already presently on Sertraline for his mood disorder and seems to be doing well on it so will hold off on starting Duloxetine for now Follow up with pain management as scheduled Reminded that we will NOT be prescribing him any opioids for pain, as they are never a good or acceptable long-term management for chronic pain Advised that a lumbar spine MRI may be beneficial to help establish a more effective treatment plan for him going forward and I will leave this up to the pain specialist to decide how to best go about this (8) Erectile dysfunction: Code(s): N52.9 - Male erectile dysfunction, unspecified Qualifiers: Erectile dysfunction type: unspecified Qualified Code(s): N52.9 - Male erectile dysfunction, unspecified Plan: Continue Sildenafil 20 mg QD PRN (9) Insomnia: Code(s): G47.00 - Insomnia, unspecified Qualifiers: Insomnia type: unspecified Qualified Code(s): G47.00 - Insomnia, unspecified Plan: Sleep hygiene reinforced Continue Zolpidem 10 mg Q HS PRN (10) Anxiety: Code(s): F41.9 - Anxiety disorder, unspecified Plan: Continue Clonazepam 1 mg TID PRN and Hydroxyzine 25 mg BID PRN (11) Depression: Code(s): F32.9 - Major depressive disorder, single episode, unspecified Qualifiers: Depression Type: major depressive disorder Major depression recurrence: recurrent Active/Remission status: currently active Major depression episode severity: unspecified Qualified Code(s): F33.9 - Major depressive disorder, recurrent, unspecified Plan: Continue Sertraline 100 mg QD and Abilify 15 mg Q HS Follow-up with Psychiatry as scheduled Plan Follow up in 4 months Orders: Orders XR ribs LT min 3V w CXR1V 12/23/22 R07.9 - Chest pain, unspecified Medications: Refilled tramadol 50 mg PO TID PRN 90 tabs 0RF pain Coding Level of Care Code Est Pt Level 4 (02879) Diagnoses Left-sided chest pain R07.9 Asthma J45.40 Asthma severity: moderate Asthma persistence: persistent Asthma complication type: uncomplicated Prostate cancer C61 Rectal bleeding K62.5 Allergic rhinitis J30.9 Allergic rhinitis trigger: unspecified Allergic rhinitis seasonality: unspecified Osteoarthritis of right shoulder M19.011 Osteoarthritis type: primary Lumbar degenerative disc disease M51.36 Erectile dysfunction N52.9 Erectile dysfunction type: unspecified Insomnia G47.00 Insomnia type: unspecified Anxiety F41.9 Depression F33.9 Depression Type: major depressive disorder Major depression recurrence: recurrent Active/Remission status: currently active Major depression episode severity: unspecified
== END 2022-12-22 10:38 | disposition home or self-care (01) ==
LOC: HO.HMGH 09:49
PROVIDERS: PCP Internal Medicine; Visit Provider Internal Medicine
DX: R07.9 Chest pain, unspecified (principal); J45.40 Moderate persistent asthma, uncomplicated; C61 Malignant neoplasm of prostate; F41.9 Anxiety disorder, unspecified; F33.9 Major depressive disorder, recurrent, unspecified; K62.5 Hemorrhage of anus and rectum; J30.9 Allergic rhinitis, unspecified; M19.011 Primary osteoarthritis, right shoulder; M51.36 Other intervertebral disc degeneration, lumbar region; N52.9 Male erectile dysfunction, unspecified; G47.00 Insomnia, unspecified
CPT/HCPCS: 99214

== ENCOUNTER 2022-12-22 10:44 | Outpatient (REF) | payer OTHER, SELFPAY | END 2022-12-22 10:45 | disposition home or self-care (01) | LOC: HO.XRAY 10:44 | PROVIDERS: PCP Internal Medicine; Visit Provider Internal Medicine | DX: Z13.89 Encounter for screening for other disorder (principal) ==

== ENCOUNTER 2022-12-23 08:55 | Outpatient (REF) | payer OTHER, SELFPAY ==
--- NOTE | ~2022-12-23 | XR_ITS ---
EXAMINATION: XR RIBS, LEFT CLINICAL INFORMATION: Chest pain COMPARISON: None available. TECHNIQUE: 3 views of the left ribs were obtained. Chest PA 1 view FINDINGS: Lungs are clear. No consolidation, pneumothorax, or pleural effusion. The cardiomediastinal silhouette and pulmonary vasculature are normal. Osseous structures are unremarkable. Ribs are intact. No fractures are identified. XR/XR ribs LT min 3V w CXR1V IMPRESSION: Unremarkable chest and left rib exam.
== END 2022-12-23 08:56 | disposition home or self-care (01) ==
LOC: HO.XRAY 08:55
PROVIDERS: PCP Internal Medicine; Visit Provider Internal Medicine
DX: R07.9 Chest pain, unspecified (principal)
CPT/HCPCS: 71101

== ENCOUNTER 2023-01-23 08:25 | Emergency (ER) | payer OTHER, SELFPAY ==
[2023-01-23 08:36] VITALS: BP 126/83; PULSE 85; RESP 18; TEMP 36.8; O2SAT 96; BMI 25.7
--- NOTE | 2023-01-23 09:09 | ED.GENADULT ---
HPI - General Adult General Chief complaint: General Medical Stated complaint: Pain L side of ribs Time Seen by Provider: 01/23/23 09:05 Source: patient and per diem interpreter Mode of arrival: ambulatory Limitations: no limitations History of Present Illness HPI narrative: 62 yo [place] speaking male with history Move prostate cancer, currently getting radiation, vertigo, fibromyalgia, anxiety, depression, asthma, osteoarthritis, lumbar disc disease who presents to the ER for evaluation of a swollen, tender lump under his left under arm that he noticed yesterday when he was bathing. He states that it is only tender when he touches it. There is no overlying redness or drainage from the area. He does shave his under arms every day. He denies history of abscesses in the area. He denies other swollen lumps or bumps in the other under arm or inguinal area, cervical area, supraclavicular area. No fevers, chills, night sweats, weight loss. MD complaint: Tender and swollen mass in the left axillary area Onset (ago): day(s) (1) Location: left and upper extremity Radiation: non-radiation Severity: mild Severity scale (1-10): 3 Quality: aching Pain Consistency: intermittent Relieving factors: none Exacerbating factors: other (palpation) Associated symptoms: denies other symptoms Treatments prior to arrival: none Related Data Home Medications Medication Instructions Recorded Confirmed clonazepam 1 mg tablet (Klonopin) 1 mg PO TID 05/28/20 12/22/22 aripiprazole 15 mg tablet 15 mg PO DAILY 07/12/20 12/22/22 nabumetone 750 mg tablet 750 mg PO DAILY 07/12/20 12/22/22 sertraline 100 mg tablet 100 mg PO DAILY 07/12/20 12/22/22 zolpidem 10 mg tablet (Ambien) 10 mg PO BEDTIME PRN Sleep 07/12/20 12/22/22 albuterol sulfate 90 mcg/actuation 2 puff inhalation QID PRN 11/07/22 12/22/22 aerosol inhaler (Ventolin HFA) Bronchospasm bupropion HCl 100 mg tablet,12 hr 1 tab PO DAILY 11/07/22 12/22/22 sustained-release diclofenac sodium 1 % topical gel 2 g topical BEDTIME PRN Pain 11/07/22 12/22/22 finasteride 5 mg tablet 5 mg PO BEDTIME 11/07/22 12/22/22 fluticasone propionate 50 1 spray intranasal DAILY PRN 11/07/22 12/22/22 mcg/actuation nasal Allergy Symptoms spray,suspension loratadine 10 mg tablet 10 mg PO DAILY PRN Allergy Symptoms 11/07/22 12/22/22 pregabalin 50 mg capsule 100 mg PO BID PRN Pain 11/07/22 12/22/22 tamsulosin 0.4 mg capsule 1 cap PO BEDTIME 11/07/22 12/22/22 Previous Rx's Medication Instructions Recorded blood pressure monitor #1 ea 07/24/20 sildenafil (pulm.hypertension) 20 20 mg PO DAILY PRN sexual activity 04/22/21 mg tablet #10 tabs meclizine 25 mg tablet 25 mg PO BID PRN dizziness 10 days 02/26/22 #20 tabs mupirocin 2 % topical ointment 1 appl topical BID #22 grams 06/03/22 sodium chloride 0.65 % nasal spray 2 spray intranasal Q12H PRN dry 09/03/22 aerosol (Saline Nasal) nasal passages #30 mL HANDHELD SHOWER #1 ea 11/18/22 LIGHTWEIGHT CANE #1 ea 11/18/22 tramadol 50 mg tablet 50 mg PO TID PRN pain #90 tabs 12/22/22 hydrocortisone 2.5 % topical cream 1 appl MS BID #60 grams 12/28/22 with perineal applicator [id number] 3.3 5 drp otic (ear) left QID 7 days 01/01/23 mg-3 mg-10 mg-0.5 mg/mL ear #10 mL drops,susp (Cortisporin-TC) Allergies Allergy/AdvReac Type Severity Reaction Status Date / Time Penicillins [PENICILLINS] Allergy Intermediate RASH AND Verified 12/22/22 10:16 SWELLING meperidine [Demerol] Allergy Unknown pain Verified 12/22/22 10:16 morphine [MORPHINE] AdvReac Intermediate N/V Verified 12/22/22 10:16 Review of Systems Review of Systems: Yes all other systems are reviewed and are negative PMFSH Past Medical History Medical History Anxiety Asthma Benign prostate hyperplasia Depression Elevated blood pressure reading Insomnia Left foot pain Left leg pain Lumbar degenerative disc disease Osteoarthritis of right shoulder Prostate cancer Schizophrenia Surgical History H/O excision of ganglion cyst (~02/2014) History of colonoscopy (~03/01/18) S/P excision of lipoma Family History Family History Father Lung cancer Mother CVA (cerebral vascular accident), Onset Age: 80 Chronic mental illness Social History Social History Household Members: None Housing: Apartment Alcohol intake: never Patient Tobacco Use Status: Former Tobacco user Tobacco use type: Cigar Cigarettes Per Day: 20 Years Smoked: pt. states he has not smoked in years Smoked in Last 30 Days: No e-Cigarette/Vaping Use: Never Used Second Hand Smoke Exposure: No Use of substances other than those prescribed or required for medical reasons: No Advance Directives: No service: No Current occupational status: disabled Cognitive needs: No Hearing needs: No Vision needs: Yes Physical Exam ED Vital Signs: Vital Signs - 24 hr 01/23/23 08:36 Temperature 98.3 F Pulse Rate 85 Respiratory Rate 18 Blood Pressure 126/83 Pulse Oximetry 96 Oxygen Delivery Method Room Air BMI result Body Mass Index 25.7 Appearance: Alert. Oriented X3. No acute distress. Head: normocephalic, atraumatic. Eyes: Pupils equal, round and reactive to light. ENT: Pharynx normal. No tonsillar swelling or exudate. Neck: Normal inspection. Neck supple. no cervical lymphadenopathy, no supraclavicular lymphadenopathy CVS: Normal heart rate and rhythm. Pulses normal. chest wall symmetrical, nontender, no rashes or swelling appreciated Respiratory: No respiratory distress. Breath sounds normal. Abdomen: Soft and nontender. +BS x4 Skin: Skin warm and dry. Normal skin color. Normal skin turgor. No rashes. Extremities: No lower extremity edema. No joint swelling. no inguinal lymphadenopathy. Left axillary area with a 1 cm palpable somewhat firm area with slight tenderness, mobile. no overlying erythema, no fluctuance. Neuro/psych: Oriented X 3. Grossly normal, nonfocal. Normal speech and cognition. Medical Decision Making Medical Decision Making MDM Narrative: 62 yo [place] speaking male with history Move prostate cancer, currently getting radiation, vertigo, fibromyalgia, anxiety, depression, asthma, osteoarthritis, lumbar disc disease who presents to the ER for evaluation of a swollen, tender lump under his left under arm that he noticed yesterday when he was bathing. exam and clinical presentation are consistent with a benign isolated axillary lymphadenopathy. Symptoms started yesterday. No need for ultrasound today. No evidence of abscess or cellulitis today. No need for antibiotics. Patient was counseled on watchful waiting and need for follow-up if no improvement or worsening symptoms. He expressed understanding. translator/interpreter was used to discuss findings and plan. He is stable for discharge home Differential Diagnosis Differential Diagnoses: The differential diagnosis associated with the presentation includes axillary lymphadenopathy, cellulitis, evolving abscess, External Record Review External record reviewed: Outpatient record, Prior outpatient labs and Prior outpatient radiology Prescription Management I considered prescription management with: Pain Medication and Antibiotic Critical Care Time Critical Care Time Critical Care Time: No Discharge Plan Discharge Clinical Impression: Axillary adenopathy Patient Disposition: Home, Self-Care Instructions: Lymphadenopathy (ED) Additional Instructions: Exam today is most consistent with a benign enlarged lymph node in your left under arm area. This will most likely resolve on its own with time. Use warm compresses to the area for the weekend, 20 minutes at a time. Do not shave the area for the next 1-2 weeks. If you developed increased pain, increased size, redness, swelling or the inflamed area does not resolve within 1-2 weeks, come back to the ER or call your doctor for further evaluation. El examen de shayy es m?s consistente con un ganglio linf?juancarlos agrandado lakeisha en el ?magdalena de la axila [place]quier[place]. Lo m?s probable es que esto se resuelva solo con el tiempo. Use compresas tibias en el ?magdalena joseph el fin de semana, 20 minutos a la vez. No afeite el ?magdalena joseph las pr?ximas 1-2 semanas. Si desarroll? m?s dolor, m?s liliane?o, enrojecimiento, hinchaz?n o el ?magdalena inflamada no se resuelve en 1 a 2 semanas, regrese a la alek de emergencias o llame a stevens m?dico para eveline evaluaci?n adicional. Prescriptions: No Action (DME) blood pressure monitor Kit See Rx Instructions .ROUTE .MEDSUPPLY Qty: 1 0RF Rx Instructions: As directed Saline Nasal 0.65 % aerosol,spray 2 spray intranasal Q12H PRN (Reason: dry nasal passages) Qty: 30 1RF (DME) LIGHTWEIGHT CANE See Rx Instructions .Route .MEDSUPPLY Qty: 1 0RF Rx Instructions: As directed (DME) HANDHELD SHOWER See Rx Instructions .Route .MEDSUPPLY Qty: 1 0RF Rx Instructions: As directed hydrocortisone 2.5 % cream with perineal applicator 1 appl MS BID Qty: 60 0RF Cortisporin-TC 3.3-3-10-0.5 mg/mL drops,suspension 5 drp otic (ear) left QID 7 Days Qty: 10 0RF bupropion HCl 100 mg tablet sustained-release 12 hr 1 tab PO DAILY tamsulosin 0.4 mg capsule 1 cap PO BEDTIME fluticasone propionate 50 mcg/actuation Energy,Suspension 1 spray INTRANASAL DAILY PRN (Reason: Allergy Symptoms) Rx Instructions: administer into each nostril loratadine 10 mg Tablet 10 mg PO DAILY PRN (Reason: Allergy Symptoms) pregabalin 50 mg capsule 100 mg PO BID PRN (Reason: Pain) Rx Instructions: patient states he only takes twice weekly diclofenac sodium 1 % gel 2 g topical BEDTIME PRN (Reason: Pain) Rx Instructions: apply 2 gram to L foot nightly as needed albuterol sulfate [Ventolin HFA] 90 mcg/actuation HFA aerosol inhaler 2 puff INHALATION QID PRN (Reason: Bronchospasm) finasteride 5 mg Tablet 5 mg PO BEDTIME clonazepam [Klonopin] 1 mg tablet 1 mg PO TID aripiprazole 15 mg tablet 15 mg PO DAILY zolpidem [Ambien] 10 mg tablet 10 mg PO BEDTIME PRN (Reason: Sleep) sertraline 100 mg tablet 100 mg PO DAILY nabumetone 750 mg tablet 750 mg PO DAILY sildenafil (pulm.hypertension) 20 mg tablet 20 mg PO DAILY PRN (Reason: sexual activity) Qty: 10 0RF mupirocin 2 % ointment 1 appl topical BID Qty: 22 0RF Rx Instructions: apply to lesion on the back of the right leg meclizine 25 mg tablet 25 mg PO BID PRN (Reason: dizziness) 10 Days Qty: 20 0RF tramadol 50 mg tablet 50 mg PO TID PRN (Reason: pain) Qty: 90 0RF Referrals: Lai Olson MD [Primary Care Provider] - (left inguinal lymphadenopathy) Interventions: ED Discharge Assessment Last Done: 01/23/23 09:43 Print Language: [place]
== END 2023-01-23 09:44 | disposition home or self-care (01) ==
PROVIDERS: Emergency Provider Emergency Medicine; PCP Internal Medicine
DX: R59.0 Localized enlarged lymph nodes (principal); Z87.891 Personal history of nicotine dependence; Z79.899 Other long term (current) drug therapy
CPT/HCPCS: 99283

== ENCOUNTER 2023-04-27 10:15 | Outpatient (AMB) | payer OTHER, SELFPAY ==
[2023-04-27 10:18] VITALS: BP 130/80; PULSE 68; O2SAT 98; BMI 24.7
--- NOTE | 2023-04-27 10:18 | MHC.PC.OV ---
Vital Signs 04/27/23 10:18 Height 5 ft 8 in Weight 162 lb 4 oz BMI 24.7 BP 130/80 Blood Pressure Location Lt brachial Position Sitting Pulse 68 Pulse Source Pulse Oximeter Pulse Oximetry (%) 98 Oxygen Delivery Method Room Air Intake Visit Reasons: prostatecancer,rectalbleedinghemorrhoids,OA,asthma Class B Driver Required: No Accompanied by: Self / Same As Patient Allergies Penicillins [PENICILLINS] Allergy (Intermediate, Verified 04/27/23 11:14) RASH AND SWELLING meperidine [Demerol] Allergy (Unknown, Verified 04/27/23 11:14) pain morphine [MORPHINE] Adverse Reaction (Intermediate, Verified 04/27/23 11:14) N/V Medication List - Last Reconciled 04/27/23 by Lai Olson MD acetaminophen 500 mg PO Q6H PRN albuterol sulfate 90 mcg/actuation (Ventolin HFA) 2 puffs inhalation QID PRN aripiprazole 15 mg PO DAILY blood pressure monitor As directed bupropion HCl 1 tab PO DAILY clonazepam (Klonopin) 1 mg PO TID diclofenac sodium 1% 2 grams topical BEDTIME PRN famotidine 20 mg PO BID PRN finasteride 5 mg PO BEDTIME fluticasone propionate 50 mcg/actuation 1 spray intranasal DAILY PRN [HANDHELD SHOWER As directed] hydrocortisone 2.5% 1 appl GA BID hydrocortisone 2.5% (Anusol-HC) 1 appl GA BID-QID PRN leuprolide acetate (6 month) (Eligard) 45 mg subcut [id number] [LIGHTWEIGHT CANE As directed] loratadine 10 mg PO DAILY PRN meclizine 25 mg PO BID PRN 10 days mupirocin 2% 1 appl topical BID nabumetone 750 mg PO DAILY kiclgfza-nfuypu-NN-thonzonium 3.3-3-10-0.5 mg/mL (Cortisporin-TC) 5 drps otic (ear) left QID 7 days pregabalin 100 mg PO BID PRN sertraline 100 mg PO DAILY sildenafil (pulm.hypertension) 20 mg PO DAILY PRN sodium chloride 0.65% (Saline Nasal) 2 sprays intranasal Q12H PRN tamsulosin 1 cap PO BEDTIME tramadol 50 mg PO TID PRN zolpidem (Ambien) 10 mg PO BEDTIME PRN Tobacco use date assessed: 04/27/23 Dental Screening Dental Screen Date: 04/27/23 Did you have a dental visit in the last 12 months?: Yes Did you have a dental problem in the last 6 months where you did not have access to dental care?: No Was dental information given to patient?: Patient has dentist HPI prostatecancer,rectalbleedinghemorrhoids,OA,asthma HPI Details Patient comes in today for his follow up visit States that he has been experiencing on and off epigastric and left upper abdominal pain for past few weeks now Notes that his abdominal pain seems to be triggered after he eats and has been occurring about 3 to 4 times a week lately Has tried taking some OTC Tums recently with no significant relief; states that he took some Tums together with some OTC Tylenol and drank a lot of water whenever his abdominal pain flared up over the past week or two and this seems to help somewhat Would like to have Rx for Acetaminophen sent in to his pharmacy States that he is still having problems with his hemorrhoids off and on lately - has some pain and irritation in his rectal area whenever he moves his bowels and notes (+) blood in his stool at times, which he is attributing to his hemorrhoids Would like to get a refill on his hemorrhoid cream Still has on and off burning sensation on urination as well as urinary hesitancy and urgency - he continues to follow up with urology for management/treatment of his prostate cancer Reports (+) on and off headaches and dizziness Relates (+) on and off left-sided chest pains but denies any exertional chest pains Denies any SOB No nausea/vomiting noted lately and no change in bowel habits noted [facility] Medical History Anxiety Asthma Benign prostate hyperplasia Depression Elevated blood pressure reading Insomnia Left foot pain Left leg pain Lumbar degenerative disc disease Osteoarthritis of right shoulder Prostate cancer Schizophrenia Surgical History H/O excision of ganglion cyst (~02/2014) History of colonoscopy (~03/01/18) S/P excision of lipoma Family History Father Lung cancer Mother CVA (cerebral vascular accident), Onset Age: 80 Chronic mental illness Social History Household Members: None Housing: Apartment Alcohol intake: never Patient Tobacco Use Status: Former Tobacco user Tobacco use type: Cigar Cigarettes Per Day: 20 Years Smoked: pt. states he has not smoked in years e-Cigarette/Vaping Use: Never Used Second Hand Smoke Exposure: No service: No Current occupational status: disabled Cognitive needs: No Hearing needs: No Vision needs: Yes Questionnaire PHQ-9 Over the last 2 weeks, how often have you been bothered by any of the following problems? 1. Little interest or pleasure in doing things: several days 2. Feeling down, depressed, or hopeless: several days 3. Trouble falling or staying asleep, or sleeping too much: several days 4. Feeling tired or having little energy: several days 5. Poor appetite or overeating: several days 6. Feeling bad about yourself - or that you are a failure or have let yourself or your family down: several days 7. Trouble concentrating on things, such as reading the newspaper or watching television: not at all 8. Moving or speaking so slowly that other people could have noticed. Or the opposite - being so fidgety or restless that you have been moving around a lot more than usual: not at all 9. Thoughts that you would be better off or of hurting yourself in some way: not at all Total score: 6 Depression Screening Interpretation: Positive Depression Screening Follow-up: Existing condition and In treatment 22858 - PHQ-9 Billing: Yes Source: Developed by Drs. Angel Castellanos, Arlet Fine, Valeriano Shah and colleagues, with an educational sari from [employer]. Thrive Questionnaire Date Thrive assessed: 04/27/23 I am a: Patient What is your living situation today?: I have a steady place to live Within the past 12 months, did the food you bought not last and you didn't have the money to get more?: Never true Within the past 12 months, did you worry whether your food would run out before you got money to buy more?: Never true Do you have trouble paying for medicines?: No Do you have trouble getting transportation to medical appointments?: No Do you have trouble paying your heating and electricity bill?: No Do you have trouble taking care of your child, family member or friend?: No Do you have trouble with day-to-day activities such as bathing, preparing meals, shopping, managing finances, etc.?: No Are you currently unemployed and looking for a job?: No Are you interested in more education?: No Please select the resources that you would like help with: None Currently or been in a relationship where the following occur: no concerns reported AUDIT C Alcohol Use Questionnaire (AUDIT-C) 1. How often do you have a drink containing alcohol?: Never 3. How often do you have six or more drinks on one occasion?: Never Total Score: 0 Score Reviewed/Action Taken: Yes NILSON-7 AMB Questionnaire NILSON-7 Date NILSON - 7 assessed: 04/27/23 Feeling nervous, anxious, or on edge: 0 = Not at all Not being able to stop or control worryin = Not at all Worrying too much about different things: 0 = Not at all Trouble relaxin = Not at all Being so restless that it is hard to sit still: 0 = Not at all Becoming easily annoyed or irritable: 0 = Not at all Feeling afraid as if something awful might happen: 0 = Not at all Total NILSON-7 score (0-4 normal; 5-9 mild; 10-14 moderate; 15-21 severe): 0 Source: Developed by Drs. Angel Castellanos, Arlet Fine, Valeriano Shah and colleagues, with an educational sari from [employer]. Review of Systems Const Denies chills, Reports fatigue, Denies fever(s) and Reports headache(s) (on and off) ENT Denies dysphagia, Reports dizziness (occasional), Denies otalgia, Reports headache(s) (on and off), Denies neck pain, Denies odynophagia and Denies sore throat Card Reports chest pain (on and off, over the left side of the chest wall), Denies chest pain with activity, Denies rapid heart rate, Denies irregular heart rhythm, Denies palpitations and Denies dyspnea Resp Denies chest congestion, Denies cough, Denies dyspnea and Denies wheezing GI Details: reports (+) rectal pain and irritation during bowel movements - has hemorrhoids but is aware that his rectal pain may also be due to effects of his radiation Tx for his prostate cancer (proctitis) Reports abdominal pain (on and off, over the epigastric and left upper abd, tim after eating), Reports hematochezia (at times), Denies constipation, Denies dysphagia, Denies heartburn, Denies diarrhea, Denies nausea, Denies odynophagia and Denies vomiting Denies hematuria, Reports difficulty urinating (at times - has to force out his urine when urinating), Reports urinary hesitancy and Reports urinary urgency Musc Reports back pain (chronic), Reports arthralgias (involving multiple joints) and Denies neck pain Skin/Breast Denies rash Neuro Reports dizziness (occasional), Reports headache(s) (on and off) and Denies paresthesias Endo Reports fatigue and Denies palpitations Aller/Immun Denies wheezing Physical exam (Primary Care) Vital Signs: Last Vital Signs Pulse 68 04/27/23 10:18 BP 130/80 04/27/23 10:18 Pulse Ox 98 04/27/23 10:18 Oxygen Delivery Method Room Air 04/27/23 10:18 BMI result Body Mass Index 24.7 Tobacco/Smoking Status: Tobacco use Status Tobacco use date assessed 04/27/23 04/27/23 10:19 Patient Tobacco Use Status Former Tobacco user 04/27/23 10:19 Tobacco use type Cigar 04/27/23 10:19 e-Cigarette/Vaping Use Never Used 04/27/23 10:19 PHQ-9: PHQ-9 Score PHQ-9: Total score 6 04/27/23 10:33 Depression Screening Interpretation: Positive Depression Screening Follow-up: Existing condition and In treatment Thrive Assessment: Date of Thrive Assessment Date Thrive assessed 04/27/23 04/27/23 10:19 Currently or been in a relationship where the following occur: no concerns reported Const General: no acute distress and alert HENMT Ears: TM's normal bilaterally and EAC's normal Throat: Yes posterior oropharynx normal and Yes tonsils normal (no TP congestion) Neck Neck: Yes no lymphadenopathy and Yes supple Thyroid: Thyroid normal Chest Other: (+) mild tenderness on palpation over the left lower chest wall/ribs Resp Auscultation: clear to auscultation bilaterally, no rales and no wheezes Cardio Rate: regular rate Rhythm: regular rhythm Heart sounds: no murmurs GI Palpation (GI): Soft to palpation and nontender Auscultation: normal bowel sounds General: Yes no CVA tenderness Back/Spine/Pelvis Back: no CVA tenderness Thoracic/Lumbar Spine: lumbar spinal tenderness Skin Rashes: no rashes Extrem General: Yes no clubbing, cyanosis or edema Right upper extremity: shoulder/upper arm Details: tenderness Location: of the A-C joint Left upper extremity: hand Details: tenderness Location: of the 2nd digit Location: involving the entire digit ((+) tenderness and stiffness - unable to flex finger) Right lower extremity: hip/thigh Details: tenderness Location: of the hip Left lower extremity: hip/thigh Details: tenderness Location: of the hip Assessment and Plan Assessment & Plan (1) Abdominal pain: Comment: mostly over the epigastric and left upper abdomen Code(s): R10.9 - Unspecified abdominal pain Qualifiers: Abdominal location: epigastric Qualified Code(s): R10.13 - Epigastric pain Plan: Mostly over the epigastric and left upper abdominal area - suspect gastritis Will send him for an upper GI series PETER for further evaluation Advised that depending on how his upper GI series come out, we may need to refer him to GI for further evaluation and management Will start him for now on Famotidine 20 mg BID PRN Also discussed dietary restrictions in GERD/gastritis (2) Asthma: Code(s): J45.909 - Unspecified asthma, uncomplicated Qualifiers: Asthma severity: moderate Asthma persistence: persistent Asthma complication type: uncomplicated Qualified Code(s): J45.40 - Moderate persistent asthma, uncomplicated Plan: Appears stable and controlled Continue Flovent HFA 110 mcg 1 inhalation BID and Albuterol HFA 2 inhalations every 6 hours as needed (3) Prostate cancer: Code(s): C61 - Malignant neoplasm of prostate Plan: He was diagnosed with an unfavorable intermediate-risk prostate cancer by urology earlier this year and has received his first Eligard injection on 10/21/2022 He has also been following up with radiation oncology at [facility] and has received radiation therapy a few months ago Follow up with urology as scheduled (4) Allergic rhinitis: Code(s): J30.9 - Allergic rhinitis, unspecified Qualifiers: Allergic rhinitis trigger: unspecified Allergic rhinitis seasonality: unspecified Qualified Code(s): J30.9 - Allergic rhinitis, unspecified Plan: Continue Fluticasone 50 mcg nasal spray QD PRN and Loratadine 10 mg QD PRN (5) Osteoarthritis of right shoulder: Code(s): M19.011 - Primary osteoarthritis, right shoulder Qualifiers: Osteoarthritis type: primary Qualified Code(s): M19.011 - Primary osteoarthritis, right shoulder Plan: X-rays of the right shoulder done in October 2019 showed mild AC joint arthritis Follow up with rheumatology as scheduled - has been receiving cortisone injections into the right shoulder as needed with (+) relief of shoulder pain Continue Nabumetone 750 mg BID PRN and Acetaminophen 500 mg Q 6 hours PRN (6) Lumbar degenerative disc disease: Code(s): M51.36 - Other intervertebral disc degeneration, lumbar region Plan: Reinforced activity and weight-lifting restrictions Continue Tramadol 50 mg TID PRN for pain and Pregabalin 100 mg BID Have also considered starting him on Duloxetine for his chronic low back pain but he is already presently on Sertraline for his mood disorder and seems to be doing well on it so will hold off on adding Duloxetine for now Follow up with pain management as scheduled Reminded that we will NOT be prescribing him any opioids for pain, as they are never a good or acceptable long-term management for chronic pain Advised that a lumbar spine MRI may be beneficial to help establish a more effective treatment plan for him going forward and I will leave this up to the pain specialist to decide how to best go about this (7) Hemorrhoids: Code(s): K64.9 - Unspecified hemorrhoids Qualifiers: Hemorrhoid type: unspecified Qualified Code(s): K64.9 - Unspecified hemorrhoids Plan: Per request, will start him again on Anusol-HC cream QID PRN - Rx sent (8) Erectile dysfunction: Code(s): N52.9 - Male erectile dysfunction, unspecified Qualifiers: Erectile dysfunction type: unspecified Qualified Code(s): N52.9 - Male erectile dysfunction, unspecified Plan: Continue Sildenafil 20 mg QD PRN (9) Insomnia: Code(s): G47.00 - Insomnia, unspecified Qualifiers: Insomnia type: unspecified Qualified Code(s): G47.00 - Insomnia, unspecified Plan: Sleep hygiene reinforced Continue Zolpidem 10 mg Q HS PRN (10) Anxiety: Code(s): F41.9 - Anxiety disorder, unspecified Plan: Continue Clonazepam 1 mg TID PRN and Hydroxyzine 25 mg BID PRN (11) Depression: Code(s): F32.9 - Major depressive disorder, single episode, unspecified Qualifiers: Depression Type: major depressive disorder Major depression recurrence: recurrent Active/Remission status: currently active Major depression episode severity: unspecified Qualified Code(s): F33.9 - Major depressive disorder, recurrent, unspecified Plan: Continue Sertraline 100 mg QD and Abilify 15 mg Q HS Follow-up with Psychiatry as scheduled Plan Follow up in 3 months Orders: Orders [place] upper GI series Today R10.13 - Epigastric pain Medications: New hydrocortisone 2.5% (Anusol-HC) 1 appl GA BID-QID PRN 30 grams 1RF hemorrhoids acetaminophen 500 mg PO Q6H PRN 100 tabs 1RF pain famotidine 20 mg PO BID PRN 60 tabs 2RF abdominal pain Coding Level of Care Code Est Pt Level 4 (01810) Diagnoses Abdominal pain R10.13 Abdominal location: epigastric Asthma J45.40 Asthma severity: moderate Asthma persistence: persistent Asthma complication type: uncomplicated Prostate cancer C61 Allergic rhinitis J30.9 Allergic rhinitis trigger: unspecified Allergic rhinitis seasonality: unspecified Osteoarthritis of right shoulder M19.011 Osteoarthritis type: primary Lumbar degenerative disc disease M51.36 Hemorrhoids K64.9 Hemorrhoid type: unspecified Erectile dysfunction N52.9 Erectile dysfunction type: unspecified Insomnia G47.00 Insomnia type: unspecified Anxiety F41.9 Depression F33.9 Depression Type: major depressive disorder Major depression recurrence: recurrent Active/Remission status: currently active Major depression episode severity: unspecified
== END 2023-04-27 11:28 | disposition home or self-care (01) ==
PROVIDERS: Visit Provider Internal Medicine
DX: J45.40 Moderate persistent asthma, uncomplicated (principal); F41.9 Anxiety disorder, unspecified; F33.9 Major depressive disorder, recurrent, unspecified; C61 Malignant neoplasm of prostate; R10.13 Epigastric pain; J30.9 Allergic rhinitis, unspecified; M19.011 Primary osteoarthritis, right shoulder; M51.36 Other intervertebral disc degeneration, lumbar region; K64.9 Unspecified hemorrhoids; N52.9 Male erectile dysfunction, unspecified; G47.00 Insomnia, unspecified
CPT/HCPCS: 99214

== ENCOUNTER 2023-05-13 10:01 | Outpatient (AMB) | payer OTHER, SELFPAY ==
[2023-05-13 10:04] VITALS: BP 122/80; PULSE 74; O2SAT 97; BMI 25.0
--- NOTE | 2023-05-13 10:04 | A.OFFPC_ITS ---
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 Accompanied by: Self / Same As Patient Allergies Penicillins [PENICILLINS] Allergy (Intermediate, Verified 05/13/23 11:13) RASH AND SWELLING meperidine [Demerol] Allergy (Unknown, Verified 05/13/23 11:13) pain morphine [MORPHINE] Adverse Reaction (Intermediate, Verified 05/13/23 11:13) N/V Medication List - Last Reconciled 05/13/23 by Lai Olson MD acetaminophen 500 mg PO Q6H PRN albuterol sulfate 90 mcg/actuation (Ventolin HFA) 2 puffs inhalation QID PRN aripiprazole 15 mg PO DAILY blood pressure monitor As directed bupropion HCl 1 tab PO DAILY clonazepam (Klonopin) 1 mg PO TID diclofenac sodium 1% 2 grams topical BEDTIME PRN famotidine 20 mg PO BID PRN finasteride 5 mg PO BEDTIME fluticasone propionate 50 mcg/actuation 1 spray intranasal DAILY PRN [HANDHELD SHOWER As directed] hydrocortisone 2.5% 1 appl DE BID hydrocortisone 2.5% (Anusol-HC) 1 appl DE BID-QID PRN leuprolide acetate (6 month) (Eligard) 45 mg subcut [id number] [LIGHTWEIGHT CANE As directed] loratadine 10 mg PO DAILY PRN meclizine 25 mg PO BID PRN 10 days mupirocin 2% 1 appl topical BID nabumetone 750 mg PO DAILY gpeonkbg-hageau-KA-thonzonium 3.3-3-10-0.5 mg/mL (Cortisporin-TC) 5 drps otic (ear) left QID 7 days pregabalin 100 mg PO BID PRN sertraline 100 mg PO DAILY sildenafil (pulm.hypertension) 20 mg PO DAILY PRN sodium chloride 0.65% (Saline Nasal) 2 sprays intranasal Q12H PRN tamsulosin 1 cap PO BEDTIME tramadol 50 mg PO TID PRN zolpidem (Ambien) 10 mg PO BEDTIME PRN Tobacco use date assessed: 05/13/23 Dental Screening Dental Screen Date: 05/13/23 Did you have a dental visit in the last 12 months?: Yes Did you have a dental problem in the last 6 months where you did not have access to dental care?: No Was dental information given to patient?: Patient has dentist HPI Discuss personal matters HPI Details Patient comes in today for evaluation of recurrent rectal bleeding for the past 3 days Reports (+) rectal pain and bleeding with his bowel movements over the past 3 days He just completed his prostate CA Tx last week (Wednesday) - had radiation Tx 5 days a week from 01/28/23 until 05/07/23 Had colonoscopy done back in 2018 - colonoscopy revealed (+) small internal hemorrhoids and diverticulosis Patient reports experiencing some headaches and occasional dizziness lately He denies any chest pains, no increased SOB No nausea/vomiting but still has on and off epigastric and LUQ abdominal pain - states that his Famotidine Rx has not really helped much He was sent for an upper GI series for further evaluation and he is scheduled to have this done on 07/06/2023 No change in bowel habits noted [facility] Medical History Schizophrenia Prostate cancer Left foot pain Left leg pain Elevated blood pressure reading Depression Anxiety Insomnia Benign prostate hyperplasia Lumbar degenerative disc disease Osteoarthritis of right shoulder Asthma Surgical History History of colonoscopy (~03/01/18) S/P excision of lipoma H/O excision of ganglion cyst (~02/2014) Family History Father Lung cancer Mother CVA (cerebral vascular accident), Onset Age: 80 Chronic mental illness Social History Household Members: None Housing: Apartment Alcohol intake: never Patient Tobacco Use Status: Former Tobacco user Tobacco use type: Cigar Cigarettes Per Day: 20 Years Smoked: pt. states he has not smoked in years e-Cigarette/Vaping Use: Never Used Second Hand Smoke Exposure: No service: No Current occupational status: disabled Cognitive needs: No Hearing needs: No Vision needs: Yes Questionnaire PHQ-9 Over the last 2 weeks, how often have you been bothered by any of the following problems? 1. Little interest or pleasure in doing things: several days 2. Feeling down, depressed, or hopeless: several days 3. Trouble falling or staying asleep, or sleeping too much: several days 4. Feeling tired or having little energy: several days 5. Poor appetite or overeating: several days 6. Feeling bad about yourself - or that you are a failure or have let yourself or your family down: several days 7. Trouble concentrating on things, such as reading the newspaper or watching television: not at all 8. Moving or speaking so slowly that other people could have noticed. Or the opposite - being so fidgety or restless that you have been moving around a lot more than usual: not at all 9. Thoughts that you would be better off or of hurting yourself in some way: not at all Total score: 6 Depression Screening Interpretation: Positive Depression Screening Follow-up: Existing condition and In treatment 96710 - PHQ-9 Billing: Yes Source: Developed by Drs. Angel Castellanos, Arlet Fine, aVleriano Shah and colleagues, with an educational sari from [employer]. Thrive Questionnaire Date Thrive assessed: 05/13/23 I am a: Patient What is your living situation today?: I have a steady place to live Within the past 12 months, did the food you bought not last and you didn't have the money to get more?: Never true Within the past 12 months, did you worry whether your food would run out before you got money to buy more?: Never true Do you have trouble paying for medicines?: No Do you have trouble getting transportation to medical appointments?: No Do you have trouble paying your heating and electricity bill?: No Do you have trouble taking care of your child, family member or friend?: No Do you have trouble with day-to-day activities such as bathing, preparing meals, shopping, managing finances, etc.?: No Are you currently unemployed and looking for a job?: No Are you interested in more education?: No Please select the resources that you would like help with: None Currently or been in a relationship where the following occur: no concerns reported AUDIT C Alcohol Use Questionnaire (AUDIT-C) 1. How often do you have a drink containing alcohol?: Never 3. How often do you have six or more drinks on one occasion?: Never Total Score: 0 Score Reviewed/Action Taken: Yes NILSON-7 AMB Questionnaire NILSON-7 Date NILSON - 7 assessed: 05/13/23 Feeling nervous, anxious, or on edge: 0 = Not at all Not being able to stop or control worryin = Not at all Worrying too much about different things: 0 = Not at all Trouble relaxin = Not at all Being so restless that it is hard to sit still: 0 = Not at all Becoming easily annoyed or irritable: 0 = Not at all Feeling afraid as if something awful might happen: 0 = Not at all Total NILSON-7 score (0-4 normal; 5-9 mild; 10-14 moderate; 15-21 severe): 0 Source: Developed by Drs. Angel Castellanos, Arlet Fine, Valeriano Shah and colleagues, with an educational sari from [employer]. Review of Systems Const Denies chills, Reports fatigue, Denies fever(s) and Reports headache(s) (on and off) ENT Denies dysphagia, Reports dizziness (occasional), Denies otalgia, Reports headache(s) (on and off), Denies neck pain, Denies odynophagia and Denies sore throat Card Denies chest pain, Denies rapid heart rate, Denies irregular heart rhythm, Denies palpitations and Denies dyspnea Resp Denies chest congestion, Denies cough, Denies dyspnea and Denies wheezing GI Details: reports (+) rectal pain and irritation and more recently, bleeding during his bowel movements - has hemorrhoids and is aware that his rectal pain and bleeding may also be due to effects from his radiation Tx for his prostate cancer (proctitis) Reports abdominal pain (on and off, over the epigastric and left upper abd, tim after eating), Reports hematochezia (at times), Denies constipation, Denies dysphagia, Denies heartburn, Denies diarrhea, Denies nausea, Denies odynophagia and Denies vomiting Denies hematuria, Reports difficulty urinating (at times - has to force out his urine when urinating), Reports urinary hesitancy and Reports urinary urgency Musc Reports back pain (chronic), Reports arthralgias (involving multiple joints) and Denies neck pain Skin/Breast Denies rash Neuro Reports dizziness (occasional), Reports headache(s) (on and off) and Denies paresthesias Endo Reports fatigue and Denies palpitations Aller/Immun Denies wheezing Physical exam (Primary Care) Vital Signs: Last Vital Signs Pulse 74 05/13/23 10:04 BP 122/80 05/13/23 10:04 Pulse Ox 97 05/13/23 10:04 Oxygen Delivery Method Room Air 05/13/23 10:04 BMI result Body Mass Index 25.0 Tobacco/Smoking Status: Tobacco use Status Tobacco use date assessed 05/13/23 05/13/23 10:05 Patient Tobacco Use Status Former Tobacco user 05/13/23 10:05 Tobacco use type Cigar 05/13/23 10:05 e-Cigarette/Vaping Use Never Used 05/13/23 10:05 PHQ-9: PHQ-9 Score PHQ-9: Total score 6 05/13/23 11:14 Depression Screening Interpretation: Positive Depression Screening Follow-up: Existing condition and In treatment Thrive Assessment: Date of Thrive Assessment Date Thrive assessed 05/13/23 05/13/23 10:05 Currently or been in a relationship where the following occur: no concerns reported Const General: no acute distress and alert HENMT Ears: TM's normal bilaterally and EAC's normal Throat: Yes posterior oropharynx normal and Yes tonsils normal (no TP congestion) Neck Neck: Yes no lymphadenopathy and Yes supple Thyroid: Thyroid normal Resp Auscultation: clear to auscultation bilaterally, no rales and no wheezes Cardio Rate: regular rate Rhythm: regular rhythm Heart sounds: no murmurs GI Palpation (GI): Soft to palpation and nontender Auscultation: normal bowel sounds General: Yes no CVA tenderness Back/Spine/Pelvis Back: no CVA tenderness Thoracic/Lumbar Spine: lumbar spinal tenderness Skin Rashes: no rashes Extrem General: Yes no clubbing, cyanosis or edema Right upper extremity: shoulder/upper arm Details: tenderness Location: of the A-C joint Left upper extremity: hand Details: tenderness Location: of the 2nd digit Location: involving the entire digit ((+) tenderness and stiffness - unable to flex finger) Right lower extremity: hip/thigh Details: tenderness Location: of the hip Left lower extremity: hip/thigh Details: tenderness Location: of the hip Assessment and Plan Assessment & Plan (1) Rectal bleeding: Code(s): K62.5 - Hemorrhage of anus and rectum Plan: His previous colonoscopy revealed (+) internal hemorrhoids and mild diverticulosis although have reminded patient that his recent rectal pain and bleeding may be due to radiation proctitis Will refer him to GI for further evaluation and management Will also send patient to the lab to check his CBC PETER Per request, will send in Rx for Anusol HC suppositories to at least help alleviate some of his rectal symptoms until he is seen by GI (2) Abdominal pain: Comment: mostly over the epigastric and left upper abdomen Code(s): R10.9 - Unspecified abdominal pain Qualifiers: Abdominal location: epigastric Qualified Code(s): R10.13 - Epigastric pain Plan: Mostly over the epigastric and left upper abdominal area - suspect gastritis He was previously sent for an upper GI series for further evaluation - is now scheduled for this on 07/06/2023 Will start him on Pantoprazole 40 mg QD since his Famotidine 20 mg BID PRN did not seem to have helped much Reinforced dietary restrictions in GERD/gastritis (3) Prostate cancer: Code(s): C61 - Malignant neoplasm of prostate Plan: He was diagnosed with an unfavorable intermediate-risk prostate cancer by urology earlier this year and has received his first Eligard injection on 10/21/2022 He has also been following up with radiation oncology at [facility] and has completed his radiation therapy last week Follow up with urology as scheduled (4) Anxiety: Code(s): F41.9 - Anxiety disorder, unspecified Plan: Continue Clonazepam 1 mg TID PRN and Hydroxyzine 25 mg BID PRN (5) Depression: Code(s): F32.9 - Major depressive disorder, single episode, unspecified Qualifiers: Depression Type: major depressive disorder Major depression recurrence: recurrent Active/Remission status: currently active Major depression episode severity: unspecified Qualified Code(s): F33.9 - Major depressive disorder, recurrent, unspecified Plan: Continue Sertraline 100 mg QD and Abilify 15 mg Q HS Follow-up with Psychiatry as scheduled Plan Follow up as scheduled in July 2023 Orders: Orders Complete Blood Count Auto Diff 05/13/23 K62.5 - Hemorrhage of anus and rectum Referrals Gastroenterology Referral K62.5 - Hemorrhage of anus and rectum, K64.9 - Unspecified hemorrhoids Medications: New pantoprazole 40 mg PO DAILY 30 days 30 tabs 3RF hydrocortisone acetate (Anusol-HC) 25 mg DE BID 14 days 28 ea 0RF K62.5 - Hemorrhage of anus and rectum, K64.9 - Unspecified hemorrhoids Coding Level of Care Code Est Pt Level 4 (05124) Diagnoses Rectal bleeding K62.5 Epigastric pain R10.13 Abdominal location: epigastric Prostate cancer C61 Anxiety F41.9 Episode of recurrent major depressive disorder, unspecified depression episode severity F33.9 Depression Type: major depressive disorder Major depression recurrence: recurrent Active/Remission status: currently active Major depression episode severity: unspecified
== END 2023-05-13 11:25 | disposition home or self-care (01) ==
PROVIDERS: PCP Internal Medicine; Visit Provider Internal Medicine
DX: K62.5 Hemorrhage of anus and rectum (principal); C61 Malignant neoplasm of prostate; F41.9 Anxiety disorder, unspecified; F33.9 Major depressive disorder, recurrent, unspecified; R10.13 Epigastric pain
CPT/HCPCS: 99214

== ENCOUNTER 2023-05-13 12:40 | Outpatient (REF) | payer OTHER, MEDICAID, SELFPAY ==
[2023-05-13 12:59] LABS: MANUAL DIFF FLAG NO
[2023-05-13 13:15] LABS: Basophils Percent Auto 0.6 % (0-2); Eosinophils Absolute Auto 0.1 X10*3/uL (0.0-0.4); Eosinophils Percent Auto 2.4 % (0-4); Hematocrit 34.6 % (42.0-52.0); Hemoglobin 11.2 g/dl (14.0-18.0); Imm Gran Abs Auto 0.01 X10*3/uL (0.00-0.03); Imm Gran Pct Auto 0.2 % (0.0-0.4); Lymphocytes Absolute Auto 0.6 X10*3/uL (1.2-4.9); Lymphocytes Percent Auto 12.1 % (20-40); Mean Corpuscular HGB Conc 32.4 g/dl (31.0-36.0); Mean Corpuscular Hemoglobin 27.6 pg (27.0-33.0); Mean Corpuscular Volume 85.2 fL (80.0-98.0); Mean Platelet Volume 12.4 fL (9.4-12.4); Monocytes Absolute Auto 0.5 X10*3/uL (0.1-1.2); Monocytes Percent Auto 9.5 % (2-11); Neutrophils Absolute Auto 3.7 x10*3/uL (2.0-8.3); Neutrophils Percent Auto 75.2 % (45-73); Platelet Count 152 X10*3/uL (160-400); Red Blood Count 4.06 X10*6/uL (4.60-5.80); Red Cell Distribution Width 14.4 % (11.0-16.0)
[2023-05-13 16:24] LABS: Appearance Urine Clear; Color Urine Yellow; Glucose Urine UA Negative (Negative); Leukocyte Esterase Urine Negative (Negative); Nitrite Urine Negative (Negative); PH 5.5 (5.0-9.0); UMIC TRIGGER UACC YES; Urine Blood Trace (Negative); Urine Ketones Negative (Negative); Urine Protein 30 (1+) mg/dL (Neg-Trace)
[2023-05-13 16:31] LABS: Amphetamine Screen Urine Not Detected (Not Detect); Barbiturates, Urine Not Detected (Not Detect); Benzodiazepines Screen Urine Not Detected (Not Detect); Cannabinoid Screen Urine Not Detected (Not Detect); Cocaine Screen Urine Not Detected (Not Detect); Fentanyl, urine Not Detected (Not Detect); Opiate Screen Urine Not Detected (Not Detect); Phencyclidine Screen Urine Not Detected (Not Detect)
[2023-05-13 16:42] LABS: Other Crystals Urine Present
[2023-05-13 16:44] LABS: Bacteria Urine None Seen (None Seen); Hyaline Casts Urine 0-2 /LPF (0-2); RBC Urine 0-2 /HPF (0-2); Squamous Epithelial Cell Urine 0-2 /HPF (0-2); WBC Urine 0-5 /HPF (0-5)
[2023-05-20 15:27] LABS: Desmethyltramadol, Ur NEGATIVE
[2023-05-20 15:28] LABS: Tramadol, Ur NEGATIVE
== END 2023-05-13 12:41 | disposition home or self-care (01) ==
LOC: HO.LAB 12:40
PROVIDERS: Nurse Practitioner Family; PCP Internal Medicine; Visit Provider Internal Medicine
DX: Z00.00 Encounter for general adult medical examination without abnormal findings (principal); K62.5 Hemorrhage of anus and rectum; I10 Essential (primary) hypertension; Z51.81 Encounter for therapeutic drug level monitoring; Z79.899 Other long term (current) drug therapy
CPT/HCPCS: 36415; 80307; 80373; 81001; 85025

== ENCOUNTER 2023-06-04 11:48 | Emergency (ER) | payer OTHER, SELFPAY ==
--- NOTE | ~2023-06-04 | XR_ITS ---
EXAMINATION: XR RIBS, RIGHT CLINICAL INFORMATION: Pain after fall COMPARISON: 12/23/2022 TECHNIQUE: 3 views of the right ribs were obtained. FINDINGS: Lungs are clear. No consolidation, pneumothorax, or pleural effusion. The cardiomediastinal silhouette and pulmonary vasculature are normal. Degenerative changes of the thoracic spine and minor scoliosis. Ribs are intact. No fractures are identified. XR/XR ribs RT min 3V w CXR1V IMPRESSION: Unremarkable examination with no interval change.
--- NOTE | 2023-06-04 11:58 | ED_ITS ---
HPI - General Adult General Chief complaint: General Medical Stated complaint: R rib injury? Time Seen by Provider: 06/04/23 12:04 Source: patient and medical interpreter Mode of arrival: ambulatory Limitations: language barrier History of Present Illness HPI narrative: Patient is a 62 year old assigned male at with a history of fibromyalgia presenting to the emergency department today with right rib pain. Patient states that he slipped and hit his right rib cage against a counter and is now having pain. Patient denies any head strike, loss of consciousness, dizziness, lightheadedness, abdominal pain, nausea, vomiting, fever, chills, blurry vision, double vision, loss of vision, chest pain, difficulty breathing, shortness of breath, back pain, night sweats, pain with urination, increased urinary frequency, increased urinary urgency, blood in his urine or stool, syncope or a near syncopal episode, bowel incontinence, bladder incontinence, bowel retention, bladder retention, or any other complaints at this time. Onset (ago): hour(s) Location: right (ribs) Radiation: non-radiation Severity: mild Severity scale (1-10): 3 Quality: aching and dull Pain Consistency: constant Relieving factors: none Exacerbating factors: none Associated symptoms: denies other symptoms Treatments prior to arrival: none Related Data Home Medications Medication Instructions Recorded Confirmed clonazepam 1 mg tablet (Klonopin) 1 mg PO TID 05/28/20 05/13/23 aripiprazole 15 mg tablet 15 mg PO DAILY 07/12/20 05/13/23 nabumetone 750 mg tablet 750 mg PO DAILY 07/12/20 05/13/23 sertraline 100 mg tablet 100 mg PO DAILY 07/12/20 05/13/23 zolpidem 10 mg tablet (Ambien) 10 mg PO BEDTIME PRN Sleep 07/12/20 05/13/23 albuterol sulfate 90 mcg/actuation 2 puff inhalation QID PRN 11/07/22 05/13/23 aerosol inhaler (Ventolin HFA) Bronchospasm bupropion HCl 100 mg tablet,12 hr 1 tab PO DAILY 11/07/22 05/13/23 sustained-release diclofenac sodium 1 % topical gel 2 g topical BEDTIME PRN Pain 11/07/22 05/13/23 finasteride 5 mg tablet 5 mg PO BEDTIME 11/07/22 05/13/23 fluticasone propionate 50 1 spray intranasal DAILY PRN 11/07/22 05/13/23 mcg/actuation nasal Allergy Symptoms spray,suspension loratadine 10 mg tablet 10 mg PO DAILY PRN Allergy Symptoms 11/07/22 05/13/23 pregabalin 50 mg capsule 100 mg PO BID PRN Pain 11/07/22 05/13/23 tamsulosin 0.4 mg capsule 1 cap PO BEDTIME 11/07/22 05/13/23 leuprolide acetate (6 month) 45 mg 45 mg subcut [id number] 04/27/23 05/13/23 (6 month) subcutaneous syringe ([email or web address]) Previous Rx's Medication Instructions Recorded blood pressure monitor #1 ea 07/24/20 sildenafil (pulm.hypertension) 20 20 mg PO DAILY PRN sexual activity 04/22/21 mg tablet #10 tabs mupirocin 2 % topical ointment 1 appl topical BID #22 grams 06/03/22 HANDHELD SHOWER #1 ea 11/18/22 LIGHTWEIGHT CANE #1 ea 11/18/22 [id number] 3.3 5 drp otic (ear) left QID 7 days 01/01/23 mg-3 mg-10 mg-0.5 mg/mL ear #10 mL drops,susp (Cortisporin-TC) meclizine 25 mg tablet 25 mg PO BID PRN dizziness 10 days 02/06/23 #20 tabs hydrocortisone 2.5 % topical cream 1 appl OK BID #60 grams 02/26/23 with perineal applicator acetaminophen 500 mg tablet 500 mg PO Q6H PRN pain #100 tabs 04/27/23 hydrocortisone 2.5 % topical cream 1 appl OK BID-QID PRN hemorrhoids 04/27/23 with perineal applicator #30 grams (Anusol-HC) sodium chloride 0.65 % nasal spray 2 spray intranasal Q12H PRN dry 05/01/23 aerosol (Saline Nasal) nasal passages #30 mL famotidine 20 mg tablet 20 mg PO BID PRN abdominal pain 05/10/23 #60 tabs hydrocortisone acetate 25 mg 25 mg OK BID 14 days #28 ea 05/13/23 rectal suppository (Anusol-HC) pantoprazole 40 mg tablet,delayed 40 mg PO DAILY 30 days #30 tabs 05/13/23 release tramadol 50 mg tablet 50 mg PO TID #90 tabs 05/19/23 Allergies Allergy/AdvReac Type Severity Reaction Status Date / Time Penicillins [PENICILLINS] Allergy Intermediate RASH AND Verified 06/04/23 12:01 SWELLING meperidine [Demerol] Allergy Unknown pain Verified 06/04/23 12:01 morphine [MORPHINE] AdvReac Intermediate N/V Verified 06/04/23 12:01 Review of Systems Constitutional: Constitutional: Reports no additional constitutional complaints, Denies chills, Denies fever(s) and Denies night sweats Eyes: Eyes: Reports no additional eye complaints, Denies blurry vision, Denies change in vision, Denies diplopia, Denies eye discharge, Denies loss of vision and Denies eye pain ENT: Denies dizziness Cardiovascular: Cardiovascular: Reports no additional cardiovascular complain ts, Denies chest pain, Denies lightheadedness, Denies Loss of Consciousness and Denies dyspnea Respiratory: Respiratory: Reports no additional respiratory complaints and Denies dyspnea Gastrointestinal: Gastrointestinal: Reports no additional gastrointestinal complaints, Denies abdominal pain, Denies melena, Denies hematochezia, Denies change in bowel habits and Denies change in stool character Genitourinary: Genitourinary: Reports no additional male genitourinary complaints, Denies hematuria, Denies oliguria, Denies difficulty urinating, Denies dysuria, Denies urinary frequency, Denies urinary hesitancy, Denies urinary incontinence and Denies urinary urgency Musculoskeletal: Musculoskeletal: Reports no additional musculoskeletal complaints, Denies numbness and Denies tingling Comments: right rib pain Neurologic: Denies dizziness, Denies loss of vision, Denies numbness and Denies tingling Psychiatric: Psychiatric: Reports no additional psychiatric complaints Endocrine: Endocrine: Reports no additional endocrine complaints Hematologic/Lymphatic: Hematologic/Lymphatic: Reports no additional hematologic/lymphatic complaints Allergic/Immunologic: Allergic/Immunologic: Reports no additional allergic/immunologic complaints PMFSH Past Medical History Attestation statement: The following information was validated with the patient. Source: old records reviewed and nursing notes reviewed Medical History Rectal bleeding Abdominal pain Epigastric pain Left-sided chest pain Internal hemorrhoid, bleeding Encounter for medication monitoring Pain in finger of left hand Bilateral hip pain Schizophrenia Prostate cancer Left foot pain Left leg pain Elevated blood pressure reading Depression Anxiety Insomnia Benign prostate hyperplasia Lumbar degenerative disc disease Osteoarthritis of right shoulder Asthma Surgical History History of colonoscopy (~03/01/18) S/P excision of lipoma H/O excision of ganglion cyst (~02/2014) Family History Family History Father Lung cancer Mother CVA (cerebral vascular accident), Onset Age: 80 Chronic mental illness Social History Social History Household Members: None Housing: Apartment Alcohol intake: never Patient Tobacco Use Status: Former Tobacco user Tobacco use type: Cigar Cigarettes Per Day: 20 Years Smoked: pt. states he has not smoked in years e-Cigarette/Vaping Use: Never Used Second Hand Smoke Exposure: No Advance Directives: No Advance Directives Information Provided: Yes service: No Current occupational status: disabled Cognitive needs: No Hearing needs: No Vision needs: Yes Physical Exam ED Vital Signs: Vital Signs - 24 hr 06/04/23 11:59 Temperature 98.0 F Pulse Rate 78 Respiratory Rate 18 Blood Pressure 126/79 Pulse Oximetry 96 Oxygen Delivery Method Room Air BMI result Body Mass Index 25.1 Const General: cooperative, no acute distress, alert and awake Nutritional Appearance: well nourished Orientation/consciousness: patient oriented x3 Limitations: no limitations HENMT Head: Yes normal to inspection and Yes atraumatic Ears: hearing grossly normal bilaterally and external ears normal General nose exam: Normal external nose present, no nasal discharge noted and no epistaxis Face and sinus: Yes normal facial exam, No abrasion and No laceration Mouth: Normal oral and palatal mucosa present, no drooling and no muffled voice Eyes General: appearance normal, both eyes and all related structures Periorbital: periorbital findings normal Eyelids: Yes eyelids normal Conjunctivae: conjunctivae normal Pupils: Equal, round and reactive pupils present EOM: EOMs intact bilaterally Neck Neck: Yes normal visual inspection, Yes full ROM and Yes no lymphadenopathy Chest Chest palpation & inspection: normal inspection of the chest Resp Effort & Inspection: normal respiratory effort and able to speak in complete sentences Auscultation: clear to auscultation bilaterally Cardio Rate: regular rate Rhythm: regular rhythm GI Inspection: Yes normal to inspection Neuro General: patient oriented x3 and moves all extremities Cranial nerves: Yes Equal, round and reactive pupils present Cognition (Neuro): normal cognition Motor exam (neuro): 5/5 motor strength present throughout Sensory Exam: Normal double simultaneous stimulation for sensation Coordination: [id number] test normal Extrem General: Yes normal to inspection, Yes full ROM and Yes capillary refill normal Psych Appearance: grossly normal Mental Status: mental status grossly normal Affect: normal affect Attitude: cooperative Thought process: Normal thought process present Thought content: Normal thought content present Insight: Good insight present (Psych) Course Course Course Narrative: RME- 62 year old male presents for evaluation of right chest wall pain. He reports that he slipped and fell into a counter top causing pain to his right ribs. Plan for x-rays Medical Decision Making Medical Decision Making [facility] Narrative: Patient is a 62 year old assigned male at with a history of fibromyalgia presenting to the emergency department today with right rib pain after a fall. Patient's physical exam was unremarkable. Patient's right rib x-ray showed no acute process. I explained my physical exam findings as well as all test results to the patient. I answered all questions asked by the patient. I stressed the importance of the patient taking his medication as prescribed. I stressed the importance of the patient following up with his primary care provider. I stressed the importance of the patient returning to the emergency department immediately if his symptoms were to worsen or if he were to develop any dizziness, shortness of breath, difficulty breathing, chest pain, blurry vision, loss of vision, nausea, vomiting, abdominal pain, fever, chills, back pain, or any other complaints. Patient verbalized agreement and understanding with this treatment plan and discharge. Differential Diagnosis Differential Diagnoses: The differential diagnosis associated with the presentation includes Rib fracture Rib contusion Independent Interpretation I performed an independent interpretation of an: Plain X-Ray Interpretation: My interpretation is in agreement with the radiologist's impression of this imaging study. EXAMINATION: XR RIBS, RIGHT CLINICAL INFORMATION: Pain after fall COMPARISON: 12/23/2022 TECHNIQUE: 3 views of the right ribs were obtained. FINDINGS: Lungs are clear. No consolidation, pneumothorax, or pleural effusion. The cardiomediastinal silhouette and pulmonary vasculature are normal. Degenerative changes of the thoracic spine and minor scoliosis. Ribs are intact. No fractures are identified. XR/XR ribs RT min 3V w CXR1V IMPRESSION: Unremarkable examination with no interval change. Dictated By: Pratibha Crowell MD Signed By: Electronically signed by Pratibha Crowell MD 06/04/23 2102 Radiology Impression Discussion of test interpretation with radiology: I have reviewed the radiolog ist's reading. Discharge Plan Discharge Clinical Impression: Contusion of rib Patient Disposition: Home, Self-Care Instructions: Rib Contusion (ED) Additional Instructions: Follow up with your primary care provider. Return to the emergency department immediately if your symptoms worsen or if you develop any dizziness, shortness of breath, difficulty breathing, chest pain, blurry vision, loss of vision, nausea, vomiting, abdominal pain, fever, chills, back pain, or any other complaints. Richard un seguimiento con stevens proveedor de atenci?n primaria. Regrese al departamento de emergencias inmediatamente si anil s?ntomas empeoran o si presenta mareos, dificultad para respirar, dificultad para respirar, dolor en el pecho, visi?n borrosa, p?rdida de la visi?n, n?useas, v?mitos, dolor abdominal, fiebre, escalofr?os, dolor de espalda o cualquier otras quejas. Prescriptions: No Action (DME) blood pressure monitor Kit See Rx Instructions .ROUTE .[facility] Qty: 1 0RF Rx Instructions: As directed (DME) LIGHTWEIGHT CANE See Rx Instructions .Route .MEDSUPPLY Qty: 1 0RF Rx Instructions: As directed (DME) HANDHELD SHOWER See Rx Instructions .Route .MEDSUPPLY Qty: 1 0RF Rx Instructions: As directed Cortisporin-TC 3.3-3-10-0.5 mg/mL drops,suspension 5 drp otic (ear) left QID 7 Days Qty: 10 0RF meclizine 25 mg tablet 25 mg PO BID PRN (Reason: dizziness) 10 Days Qty: 20 0RF hydrocortisone 2.5 % cream with perineal applicator 1 appl OK BID Qty: 60 1RF Saline Nasal 0.65 % aerosol,spray 2 spray intranasal Q12H PRN (Reason: dry nasal passages) Qty: 30 1RF famotidine 20 mg tablet 20 mg PO BID PRN (Reason: abdominal pain) Qty: 60 2RF tramadol 50 mg tablet 50 mg PO TID Qty: 90 1RF bupropion HCl 100 mg tablet sustained-release 12 hr 1 tab PO DAILY tamsulosin 0.4 mg capsule 1 cap PO BEDTIME fluticasone propionate 50 mcg/actuation [place],Suspension 1 spray INTRANASAL DAILY PRN (Reason: Allergy Symptoms) Rx Instructions: administer into each nostril loratadine 10 mg Tablet 10 mg PO DAILY PRN (Reason: Allergy Symptoms) pregabalin 50 mg capsule 100 mg PO BID PRN (Reason: Pain) Rx Instructions: patient states he only takes twice weekly diclofenac sodium 1 % gel 2 g topical BEDTIME PRN (Reason: Pain) Rx Instructions: apply 2 gram to L foot nightly as needed albuterol sulfate [Ventolin HFA] 90 mcg/actuation HFA aerosol inhaler 2 puff INHALATION QID PRN (Reason: Bronchospasm) finasteride 5 mg Tablet 5 mg PO BEDTIME clonazepam [Klonopin] 1 mg tablet 1 mg PO TID aripiprazole 15 mg tablet 15 mg PO DAILY zolpidem [Ambien] 10 mg tablet 10 mg PO BEDTIME PRN (Reason: Sleep) sertraline 100 mg tablet 100 mg PO DAILY nabumetone 750 mg tablet 750 mg PO DAILY sildenafil (pulm.hypertension) 20 mg tablet 20 mg PO DAILY PRN (Reason: sexual activity) Qty: 10 0RF mupirocin 2 % ointment 1 appl topical BID Qty: 22 0RF Rx Instructions: apply to lesion on the back of the right leg hydrocortisone [Anusol-HC] 2.5 % cream with perineal applicator 1 appl OK BID-QID PRN (Reason: hemorrhoids) Qty: 30 1RF acetaminophen 500 mg tablet 500 mg PO Q6H PRN (Reason: pain) Qty: 100 1RF Eligard (6 month) 45 mg syringe 45 mg subcut [id number] pantoprazole 40 mg tablet,delayed release (DR/EC) 40 mg PO DAILY 30 Days Qty: 30 3RF hydrocortisone acetate [Anusol-HC] 25 mg suppository 25 mg OK BID 14 Days Qty: 28 0RF Referrals: Lai Olson MD [Primary Care Provider] - Print Language: Croatian
[2023-06-04 11:59] VITALS: BP 126/79; PULSE 78; RESP 18; TEMP 36.7; O2SAT 96; BMI 25.1
--- OUTSIDE RECORDS SUMMARY | 2023-06-04 12:31 | XMS_ITS | Continuity of Care Document ---
Author Name Unknown Organization [facility] Address [address] [place] [address]- Care Team Providers Care Regional Account Manager Name Role Phone Lai Olson MD Primary Care Physician [phone] [place] [facility] [place] [id number] Date(s): 02/26/23 - 03/28/[facility] [address] [place] [id number] Attending Physician: Admtr, [id number] Admitting Physician: Admtr, Ar8 Referring Physician: Admtr, Ar8 Allergies, Adverse Reactions, Alerts Substance Reaction Severity Status penicillin rash Active Latex Active Medications albuterol CFC free 90 mcg/inh inhalation aerosol 2 puffs, Inhalation, 4 times a day, PRN Wheezing/Shortness of Breath, 0 Refills, Maintenance Start Date: 08/31/12 Status: Ordered ARIPiprazole 15 mg oral tablet TOME YEYO TABLETA TODOS LOS D Start Date: 12/10/22 Status: Ordered buPROPion 100 mg/12 hours (SR) oral tablet, extended release TOME YEYO TABLETA TODOS LOS D EN AMARA FERREIRA Start Date: 12/10/22 Status: Ordered clonazePAM 1 mg oral tablet 0 Refills, Maintenance, 12/10/22 9:51:00 EDT, Partial fill upon patient request if the prescriptionis for a schedule II opioid drug. Start Date: 12/10/22 Status: Ordered PEG-3350 with Electrolytes ([id number]) oral powder for reconstitution See Instructions, as directed, # 1 each, 0 Refills, Maintenance, 12/10/22 9:49:00 EDT, [id number], Ok to sub for any gallon prep, as directed, 169, cm, 12/10/22 9:18:00 EDT, Height, 74.2, kg,12/04/22 9:52:00 EDT, Dry Weight Start Date: 12/10/22 Status: Ordered sertraline 100 mg oral tablet TOME YEYO TABLETA TODOS LOS D EN LA MA HANNA Start Date: 12/10/22 Status: Ordered tamsulosin 0.4 mg oral capsule TOME YEYO C PSULA TODOS LOS D Start Date: 12/10/22 Status: Ordered traMADol 50 mg oral tablet TOME YEYO TABLETA POR V A ORAL DELIO VECES AL D A CUANDO SEA NECESARIO PARA EL DOLOR Start Date: 12/10/22 Status: Ordered zolpidem 10 mg oral tablet TOME YEYO TABLETA TODOS LOS D AL ACOSTARSE Start Date: 12/10/22 Status: Ordered Patient Care team information Care Team Personnel Name: Lai Olson MD Position: Reference Physician Member Role: PCP Address: Address: [address] [place] [address] [address] [place] [address]- Name: Jonathon Villalobos RN Position: S RN Member Role: Primary Care Nurse Care Team Related Persons Name: CARLINE ISSA Address: home [address] [place] [id number] Name: JUAN FRANCISCO ISSA
--- OUTSIDE RECORDS SUMMARY | 2023-06-04 12:31 | XMS_ITS | Continuity of Care Document ---
Author Name Unknown Organization [facility] ter Address [address] [place] [address]- Care Team Providers Care Project Economist Name Role Phone Wesley CUNNINGHAM, Lai Lantigua Primary Care Physician [place] [facility] [place] - 02/17/[address] [address] Discharge Disposition: A-D/C Home Attending Physician: Garo Small MD Admitting Physician: Garo Small MD Referring Physician: Zander Chandler MD Allergies, Adverse Reactions, Alerts Substance Reaction Severity [...] 169, cm, 12/10/22 9:18:00 EDT, Height, 74.2, kg,04/14/23 9:52:00 EDT, Dry Weight Start Date: 12/10/22 [...] AL ACOSTARSE Start Date: 12/10/22 Status: Ordered Results Radiology Reports * Exam Date Time Procedure Performing Provider Status 02/17/23 10:41 AM IR US Guided Transre ctal Injection Auth (Verified) Notes: (IR US Guided Transrectal Injection) Reason For Exam: Other: IR US Guided Transrectal Injection Patient: RAYSHAWN ISSA Study Date: 02/17/2023 Performing: Garo Small MD Referring: : 1960 Age: 62 Gender: MALE Pre-procedure diagnosis and Indication: PROSTATE CANCER Exam: Prior to the procedure, the patient was seen and the nature of the procedure explained along with its attendant risks and benefits to the patient through an medical delivery driver. Informed consent was obtained from, the patient through an medical delivery driver. The patient underwent a pre-anesthesia assessment. On completion of this it was determined the patient is SUITABLE FOR THIS PROCEDURE The patient arrived in IR room 3 for a fiducial marker placement, SpaceOAR hydrogel placement PROCEDURE: The patient was positioned supine on the table, and positioned appropriately with feet in stirrups. A fleet enema and topical EMLA cream had been administered in advance. Timeout was performed that verified correct procedure, site and materials available. The access site was evaluated, then prepped with and draped in the usual sterile fashion. Patient received moderate sedation administered under my direct supervision.. A biplane endorectal ultrasound probe was inserted in the anal canal and lower rectum; anatomic landmarks were verified and images were stored in both the longitudinal and axial transverse planes, showing heterogeneous echogenicity of the prostate, which is [ ] in size. Local anesthetic was administered under real-time ultrasonographic guidance up to near the gland apex, along the midline and right and left adjacent regions. Under real-time ultrasonographic guidance, the needle of a fiducial marker set was advanced into the prostate, position was confirmed in both longitudinal and axial transverse views, and the fiducial marker was deployed; the needle was removed. The same technique was repeated twice more and a total of 3 fiducial gold markers were inserted in different planes (one at the base on the patient's RIGHT side, a second at the apex on the same RIGHT side, and the third one at the mid gland on the LEFT side); corresponding images were stored in both planes fro each of these markers. After changing gloves, the SpaceOAR kit was opened and prepared as per cherry pitter's instructions. A needle connected to a syringe with sterile normal saline was again advanced under real-time ultrasonographic guidance, along the midline, reaching the rectoprostatic fascia (Denonvilliers' fascia), which was then entered with the beveled needle tip facing posteriorly. Hydrodissection was performed and images were stored in both longitudinal and axial transverse views, which confirmed satisfactory position of the needle tip. The syringe was disconnected from the needle, which was kept immobile, and was exchanged for the SpaceOAR bouble-syringe injection set. The hydrogel was injected continuously over [ 13 seconds, and the needle was removed. Final images stored in both longitudinal and axial transverse views showed adequate positioning of the polymerized hydrogel. The sterile field was maintained throughout the procedure and patient tolerated the procedure well with no complications of the procedure estimated blood loss was minimal Specimens/samples: no specimens or samples were sent for this procedure [place] [address] Post procedure instructions sent in envelope with the patient Impression: Technically successful percutaneous insertion of 3 fiducial markers in the prostate and on the SpaceOAR hydrogel in the rectprostatic fascia (Denonvilliers' fascia). under real-time ultrasonographic guidance. patient tolerated the procedure well with no complications of the procedure Local Anesthetic Lidocaine 1% w/ 4.2% sodium bicarbonate 6 ml's SQ Sensorcaine 0.5% w/ 1:200,000 Epi 8 ml's SQ Moderate sedation was provided From 10:55:00 to 11:33:00 Moderate Sedation Agent Dose Route Time By Fentanyl 50 mcg IV 10:55:44 LC Versed 1 mg IV 10:55:48 LC Fentanyl 50 mcg IV 11:13:29 LC Versed 1 mg IV 11:13:31 LC 11:33:01 Signed By Garo Small MD On 02/17/2023 11:51:51 Garo Small MD Dictated By: Garo Small MD Dictated Date/Time: 02/17/23 10:41 a Reviewed By: Garo Small MD Signed By: Garo Small MD Signed Date/Time: 02/17/23 10:41 am Transcribed By: CATRACHO Transcribed Date/Time: 02/17/23 10:41 am * Exam Date Time Procedure Performing Provider Status 02/17/23 10:41 AM IR End of Case Report Au th (Verified) IR End of Case Report Vital Signs Most recent to oldest [Reference Range]: 1 Height 173 cm (02/17/23 8:41 AM) Weight 72.72 kg (02/17/23 8:41 AM) Dry Weight 72.72 kg (02/17/23 8:41 AM) Hospital Progress note * Jennifer Raymundo RN: PERFORM, SIGN, VERIFY Event Display: Progress Note Hospital Authored Date: Patient: RAYSHAWN ISSA Age: 62 years Sex: Male : 1960 Associated Diagnoses: None Author: Jennifer Raymundo RN Findings Narrative/Incidental Pt alert and oriented, denied pain, VSS, dressing with no changes. Discharge instructions reviewed,understanding verbalized, temperature inspector present at that time.. * Isela Hart RN: MODIFY, SIGN, PERFORM, SIGN, VERIFY, MODIFY, SIGN Event Display: Progress Note Hospital Authored Date: Patient: RAYSHAWN ISSA Age: 62 years Sex: Male : 1960 Associated Diagnoses: None Author: Isela Hart RN Findings Narrative/Incidental 0830 Pt. arrived to [facility]. Barbadian speaking only. Medication list, Medical Daystay form and Pre-procedure check list completed with hvac design engineer from [employer]. Vitals stable. IV #22 started right forearm. Ordered bloodwork obtained and sent to lab. NS infusing at KVO. Lidocaine cream LMX4 applied to perianal region as ordered. 1145 Returned to unit post procedure. Awake and denied any nausea or pain. Dressing to perineal area noted for scant amount reddish/brown drainage. No acitve or signs or symptomes of bleeding. Vitalsstable. Tolerated Reg diet. . Note * Jennifer Raymundo RN: PERFORM Event Display: Discharge/Transfer Note Hospital Authored Date: [id number] Nursing Discharge Note Entered On: 02/17/2023 13:55 EDT Performed On: 02/17/2023 13:55 EDT by Jennifer Raymundo RN Nursing Discharge Note 2 Discharge Time : 02/17/2023 13:55 EDT Discharge Level of Care at Discharge : Home/Long-Term/Foster Care Patient Left Unit Via : Wheelchair Patient Accompanied Off Unit with : Responsible adult DC Instructions Provided & Signed by Pt : Yes Patient Understands D/C Instructions : Yes Patient Instructions Discharge Signed : Yes Did Pt have Specialty Bed or Wound Vac : No Jennifer Raymundo RN - 02/17/2023 13:55 EDT Patient Care team information Care Team Personnel Name: Wesley CUNNINGHAM, Lai Lantigua Position: Reference Physician Member Role: PCP Address: Address: [address] [place] [address] Drive [address] [place] [address]- Name: Jonathon Villalobos RN Position: Grzegorz RN Member Role: Primary Care Nurse Care Team Related Persons Name: CARLINE ISSA Address: home [address] [place] [address] [address] [place] [address] Name: JUAN FRANCISCO ISSA
--- OUTSIDE RECORDS SUMMARY | 2023-06-04 12:31 | XMS_ITS | Continuity of Care Document ---
Author Name Unknown Organization [facility] Address [address] [place] [address]- Care Team Providers Care Corporate Legal Assistant Name Role Phone Lai Olson MD Primary Care Physician [phone] [place] [facility] [place] [facility] [id number] Date(s): 09/15/22 - 02/21/23 [facility] [address] [place] [address]- Discharge Disposition: A-D/C Home Attending Physician: Zander Chandler MD Admitting Physician: Zander Chandler MD Referring Physician: Martin Montero MD Allergies, Adverse Reactions, Alerts Substance Reaction [...] YEYO TABLETA TODOS LOS D EN LA KWAN HANNA Start Date: 12/10/22 Status: Ordered clonazePAM 1 [...] AL ACOSTARSE Start Date: 12/10/22 Status: Ordered Vital Signs Most recent to oldest [Reference Range]: 1 2 3 Height 169 cm (12/04/22 9:47 AM) 169 cm (10/14/22 10:08 AM) 169 cm (10/14/22 10:03 AM) Weight 74.2 kg (12/04/22 9:47 AM) 73.4 kg (10/14/22 10:03 AM) Oxygen Saturation [94-100 %] 97 % (12/04/22 9:47 AM) 97 % (10/14/22 10:03 AM) Pulse Rate [55-90 bpm] 77 bpm (12/04/22 9:47 AM) 80 bpm (10/14/22 10:03 AM) Body Mass Index [18.5-24.99 kg/m2] 25.98 kg/m2 *H* (12/04/22 9:47 AM) 25.7 kg/m2 *H* (10/14/22 10:03 AM) Blood Pressure [90-138/55-84 mm Hg] 129/86mm Hg (12/04/22 9:47 AM) 136/91mm Hg (10/14/22 10:08 AM) 143/94mm Hg *H* (10/14/22 10:03 AM) Temperature [96.8-100.4 DegF] 97.5 DegF (12/04/22 9:47 AM) 97.9 DegF (10/14/22 10:03 AM) Mode of Delivery (Oxygen) Room air (12/04/22 9:47 AM) Room air (10/14/22 10:03 AM) Blood pressure sites Arm, right (12/04/22 9:47 AM) Arm, right (10/14/22 10:08 AM) Arm, right (10/14/22 10:03 AM) Temperature Route Temporal (12/04/22 9:47 AM) Oral (10/14/22 10:03 AM) Dry Weight 74.2 kg (12/04/22 9:47 AM) 73.4 kg (10/14/22 10:03 AM) Weight Obtained Via Standing scale (12/04/22 9:47 AM) Standing scale (10/14/22 10:03 AM) Dry Weight Obtained Via Standing scale (12/04/22 9:47 AM) Standing scale (10/14/22 10:03 AM) Laboratory * Event Display: Non BH Lab Results Authored Date: * Event Display: Non BH Lab Results Authored Date: * Event Display: Non BH Lab Results Authored Date: Radiology * Event Display: [place] Nuclear Medicine, Non-BH Authored Date: Patient Care team information Care Team Personnel Name: Wesley CUNNINGHAM, Lai Lantigua Position: Reference Physician Member Role: PCP Address: Address: [address] [place] [address] Drive [address] [place] [address]- Name: Jonathon Villalobos RN Position: S RN Member Role: Primary Care Nurse Care Team Related Persons Name: CARLINE ISSA Address: home [address] [place] [address] Name: JUAN FRANCISCO ISSA
--- OUTSIDE RECORDS SUMMARY | 2023-06-04 12:31 | XMS_ITS | Continuity of Care Document ---
Author Name Unknown Organization [facility] Address [address] [place] [address]- Care Team Providers Care Undertaker Helper Name Role Phone Lai Olson MD Primary Care Physician [place] [facility] [place] 11/16/22 - 12/16/22 [facility] [address] [place] [address]- Allergies, Adverse Reactions, Alerts Substance Reaction Severity [...] AMARA FERREIRA Start Date: 12/10/22 Status: Ordered tamsulosin 0.4 [...] Reference Physician Member Role: PCP Address: Address: [address] [place] [address] Drive [address] [place] [address]- Care Team Related Persons Name: CARLINE ISSA Address: home [address] [place] [address]
--- OUTSIDE RECORDS SUMMARY | 2023-06-04 12:31 | XMS_ITS | Continuity of Care Document ---
Author Name Unknown Organization [facility] Address [address] [place] [address]- Care Team Providers Care Machined Parts Quality Inspector Name Role Phone Makayla Chopra MD Primary Care Physician [phone] En[place] [facility] [place] Date(s): 10/14/22 - 11/13/22 [facility] [address] [place] [address]- Allergies, Adverse Reactions, Alerts Substance Reaction Severity Status penicillin rash Active Latex Active Medications albuterol CFC free 90 mcg/inh inhalation aerosol 2 puffs, Inhalation, 4 times a day, PRN Wheezing/Shortness of Breath, 0 Refills, Maintenance Start Date: 08/31/12 Status: Ordered ibuprofen 600 mg oral tablet 1 tablet = 600 mg, By Mouth, 3 times a day, PRN pain, 0 Refills, Maintenance Start Date: 08/31/12 Status: Ordered Patient Care team information Care Team Personnel Name: Makayla Chopra MD Position: S Outreach Member Role: PCP Address: Address: [address] [place] [address]- Care Team Related Persons Name: CARLINE ISSA Address: home [address] [place] [address]
--- OUTSIDE RECORDS SUMMARY | 2023-06-04 12:31 | XMS_ITS | Continuity of Care Document ---
Author Name Unknown Organization [facility] Address [address] [place] [address]- Care Team Providers Care Optician Name Role Phone Makayla Chopra MD Primary Care Physician [phone] [place] [facility] [place](s): 10/15/22 - 11/14/22 [facility] [address] [place] [address]- Allergies, Adverse Reactions, Alerts Substance Reaction Severity [...] Outreach Member Role: PCP Address: Address: [address] [place] [address]- Care Team Related Persons Name: CARLINE ISSA Address: home [address] [place] [address]
--- OUTSIDE RECORDS SUMMARY | 2023-06-04 12:31 | XMS_ITS | Continuity of Care Document ---
Author Name Unknown Organization [facility] Address [address] [place] [address]- Care Team Providers Care Cover Assembler Name Role Phone Lai Olson MD Primary Care Physician Encounter [facility] [place] Date(s): 01/12/23 - 01/19/23 [facility] [address] [place], [place] [address] Attending Physician: Garo Small MD Admitting Physician: [...] YEYO TABLETA TODOS LOS D EN AMARA BOWENS HANNA Start Date: 12/10/22 Status: Ordered clonazePAM [...] AL ACOSTARSE Start Date: 12/10/22 Status: Ordered Radiology * Garo Small MD: PERFORM, SIGN, VERIFY Event Display: IR Office Initial Note Authored Date: [id number] Patient: GOYO ISSA Age: 62 years Sex: Male : 1960 Associated Diagnoses: None Author: Garo Small MD Report sent to all consultants: Zander Chandler MD. Report sent to all consultants: Lai Olson MD Report sent to all consultants: Makayla Chopra MD. Report sent to all consultants: Martin Montero MD NAME: Goyo Issa : 1960 ATTENDING PHYSICIAN: Zander Chandler MD REFERRING PHYSICIAN: Martin Montero MD PRIMARY CARE PHYSICIAN: Makayla Chopra MD PRIMARY CARE PHYSICIAN: Lai Olson Thursday, January 12, 2023 Evaluation for Space OAR 02/08/[address] CHANDLER: Thank you for asking us to see Mr. GOYO ISSA in consultation concerning potential placement of a gold seeds and SpaceOAR. This is scheduled for the morning of 02/08/2023 @ 9.30am with an arrival timeof 08:00am. I called the patient today through the automatic trimming sewer line to discuss. We called the patient at his home telephone number. He identified himself by name and date of . I was at [facility]. He gave permission for the telehealth consultation VIA [employer]. Past History: Rectal bleeding with colonoscopy showing patchy colitis. He has a history of asthma ??? he says controlled with inhaler, migraines-none for months, depression, anxiety, schizophrenia, renal cyst. He has allergies to Demerol, morphine, latex and penicillin. In summary, this gentleman has carcinoma of the prostate and has opted for radiation therapy. We discussed the procedures, which are due to happen on 02/08/2023 as a morning procedure. I discussed with the patient that the procedure is done as an outpatient procedure with local anesthesia and sedation. I discussed that he would need to take a Fleets enema ahead of leaving home in [place] that morning. I explained that the procedure will be done under moderate sedation; therefore, he would need to be n.p.o. after midnight. I understand that he has no medications on board, which may affect clotting. I explained the procedure will be performed under moderate sedation, but we would not be putting him asleep. I explained he will get local anesthetic and we would be placing an ultrasound probe in the rectum. I explained that there would be multiple people discussing what is going on. I explained that the procedure will be done with local anesthesia just anterior to the rectum with sedation into his IV as well as antibiotics IV. I explained that we first place the gold seeds and then place the SpaceOAR gel. The potential complications including but not limited to bleeding, infection, damage to the rectum, the prostate or the urethra and other things, which are unpredictable and may be serious, were discussed. His questions were answered. I REPEATED THE NEED TO BE NPO AFTER MIDNIGHT, TO TAKE THE BOWEL PREP BEFORE LEAVING HOME AND THE NEED FOR A RIDE HOME WITH NO DRIVING OR OTHER ACTIVITY REQUIRING CAREFUL COGNITION FOR 24 HOURS AFTER THE PROCEDURE. Total time spent in this interaction, which was necessarily entirely counseling concerning his condition, next steps in management and care, as well as extensive review of the medical record was over25 minutes [08.55-09.22]. Thank you for this kind consultation. Yours sincerely, Garo Small M.D. continuous drier helper Patient Care team information Care Team Personnel Name: Lai Olson MD Position: Reference Physician Member Role: PCP Address: Address: [address] [place] [address] Drive [address] [place] [address]- Care Team Related Persons Name: CARLINE ISSA Address: [address] [address]
--- OUTSIDE RECORDS SUMMARY | 2023-06-04 12:31 | XMS_ITS | Continuity of Care Document ---
Author Name Unknown Organization [facility] Address [address] [place] [address]- Care Team Providers Care Kayaking Instructor Name Role Phone Lai Olson MD Primary Care Physician Encounter [facility] [place] Date(s): 01/12/23 - 02/11/23 [facility] [address] [place], [place] [address] Attending Physician: Admtr, Joana Admitting Physician: Admtr, Ar8 Referring Physician: Admtr, [...] Reference Physician Member Role: PCP Address: Address: [address] [place] [address] Drive [address] [place] [address]- Care Team Related Persons Name: CARLINE ISSA Address: home [address] [place] [address] Name: JUAN FRANCISCO ISSA
--- OUTSIDE RECORDS SUMMARY | 2023-06-04 12:31 | XMS_ITS | Continuity of Care Document ---
Author Name Unknown Organization [facility] ter Address [address] [place] [address]- Care Team Providers Care Mica Spreader Name Role Phone Lai Olson MD Primary Care Physician [phone] [place] [facility] [place](s): 12/29/22 - 03/10/[address] [address] Attending Physician: Garo Small MD [...] Reference Physician Member Role: PCP Address: Address: [address] [place] [address] Drive [address] [place] [address]- Name: Jonathon Villalobos RN Position: S RN Member Role: Primary Care Nurse Care Team Related Persons Name: CARLINE ISSA Address: home [address] [place] [address] Name: JUAN FRANCISCO ISSA
== END 2023-06-04 13:36 | disposition home or self-care (01) ==
PROVIDERS: Emergency Provider Student in an Organized Health Care Education/Training Program; PCP Internal Medicine
DX: S20.211A Contusion of right front wall of thorax, initial encounter (principal); W01.198A Fall on same level from slipping, tripping and stumbling with subsequent striking against other object, initial encounter; Y93.9 Activity, unspecified; Y92.9 Unspecified place or not applicable; Y99.9 Unspecified external cause status
CPT/HCPCS: 71101; 99282; 99283

== ENCOUNTER 2023-06-15 13:56 | Outpatient (AMB) | payer OTHER, SELFPAY ==
[2023-06-15 14:22] VITALS: BP 112/60; PULSE 78; TEMP 36.5; O2SAT 96; BMI 25.4
--- NOTE | 2023-06-15 14:22 | A.OFFVIS_ITS ---
Intake Vital Signs 06/15/23 14:22 Height 5 ft 8 in Weight 166 lb 14.239 oz BMI 25.4 BP 112/60 Blood Pressure Location Rt brachial Position Sitting Pulse 78 Pulse Source Pulse Oximeter Temp 97.7 F Temp Source Skin Pulse Oximetry (%) 96 Intake Visit Reasons: Osteoarthritis Intake Note: Pt presents today for OA follow up, last seen by Jessika 11/04/22. He is managing pain with tramadol and Lyrica. He was referred to ortho, pt no showed appt. 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 Name: Artem [id number] Information Interpreted: clinical only Accompanied by: Self / Same As Patient Allergies Penicillins [PENICILLINS] Allergy (Intermediate, Verified 06/15/23 14:37) RASH AND SWELLING meperidine [Demerol] Allergy (Unknown, Verified 06/15/23 14:37) pain morphine [MORPHINE] Adverse Reaction (Intermediate, Verified 06/15/23 14:37) N/V Medication List - Last Reconciled 06/15/23 by Lovely Garcia MD acetaminophen 500 mg PO Q6H PRN albuterol sulfate 90 mcg/actuation (Ventolin HFA) 2 puffs inhalation QID PRN aripiprazole 15 mg PO DAILY blood pressure monitor As directed bupropion HCl 1 tab PO DAILY clonazepam (Klonopin) 1 mg PO TID diclofenac sodium 1% 2 grams topical BEDTIME PRN famotidine 20 mg PO BID PRN finasteride 5 mg PO BEDTIME fluticasone propionate 50 mcg/actuation 1 spray intranasal DAILY PRN [HANDHELD SHOWER As directed] hydrocortisone 2.5% 1 appl [place] BID hydrocortisone 2.5% (Anusol-HC) 1 appl [place] BID-QID PRN hydrocortisone acetate (Anusol-HC) 25 mg [place] BID 14 days leuprolide acetate (6 month) (Eligard) 45 mg subcut [id number] [LIGHTWEIGHT CANE As directed] loratadine 10 mg PO DAILY PRN meclizine 25 mg PO BID PRN 10 days mupirocin 2% 1 appl topical BID nabumetone 750 mg PO DAILY elvvtavg-ojvodt-LD-thonzonium 3.3-3-10-0.5 mg/mL (Cortisporin-TC) 5 drps otic (ear) left QID 7 days pantoprazole 40 mg PO DAILY 30 days pregabalin 100 mg PO BID PRN sertraline 100 mg PO DAILY sildenafil (pulm.hypertension) 20 mg PO DAILY PRN sodium chloride 0.65% (Saline Nasal) 2 sprays intranasal Q12H PRN tamsulosin 1 cap PO BEDTIME tramadol 50 mg PO TID zolpidem (Ambien) 10 mg PO BEDTIME PRN HPI HPI Comments History of Present Illness Details This is a 62-year-old male with fibromyalgia who presents for follow- up. States that he is in the process of getting radiation therapy for his prostate cancer. States that he takes tramadol 3 times a day. States that he takes Lyrica once daily but not sure of the dose. Continues to have diffuse pain PFSH Medical History Rectal bleeding Abdominal pain Epigastric pain Left-sided chest pain Internal hemorrhoid, bleeding Encounter for medication monitoring Pain in finger of left hand Bilateral hip pain Schizophrenia Prostate cancer Left foot pain Left leg pain Elevated blood pressure reading Depression Anxiety Insomnia Benign prostate hyperplasia Lumbar degenerative disc disease Osteoarthritis of right shoulder Asthma Surgical History History of colonoscopy (~03/01/18) S/P excision of lipoma H/O excision of ganglion cyst (~02/2014) Family History Father Lung cancer Mother CVA (cerebral vascular accident), Onset Age: 80 Chronic mental illness Social History Household Members: None Housing: Apartment Alcohol intake: never Patient Tobacco Use Status: Former Tobacco user Tobacco use type: Cigar Cigarettes Per Day: 20 Years Smoked: pt. states he has not smoked in years e-Cigarette/Vaping Use: Never Used Second Hand Smoke Exposure: No service: No Current occupational status: disabled Cognitive needs: No Hearing needs: No Vision needs: Yes Review of Systems Musc Reports back pain and Reports arthralgias Physical Exam Vital Signs: Last Vital Signs Temp 97.7 F 06/15/23 14:22 Pulse 78 06/15/23 14:22 BP 112/60 06/15/23 14:22 Pulse Ox 96 06/15/23 14:22 BMI result Body Mass Index 25.4 Const General: cooperative, healthy appearing and comfortable HEENT Head: Yes normocephalic and Yes atraumatic Extrem Other: Multiple fibromyalgia tender points Results Reviewed Results Reviewed: Laboratory Tests 1 09:10 09:10 09:10 [facility] 12/31/2014 Rheumatoid factor negative, HANNA positive 1:40, p-ANCA/c-Anca negative, immunofixation normal, double-stranded DNA negative, C3 low at 61, C4 normal at 17. Hepatitis panel negative Ordering Physician: Lai Olson MD Date of Service: 08/20/22 Procedure(s): XR finger LT min 2V Accession Number(s): [id number] cc: Lai Olson MD~ EXAMINATION: XR FINGER, LEFT CLINICAL INFORMATION: Pain.? COMPARISON: Radiograph of the left hand/wrist 09/01/2010.? TECHNIQUE: Three views of the left index finger. FINDINGS: Soft tissue swelling around the second digit. No unexpected radiopaque foreign bodies. No acute fractures or malalignment. Mild degenerative osteoarthritis of the first carpometacarpal joint and triscaphe space. Ordering Physician: Bobby Pro MD Date of Service: 05/28/22 Procedure(s): NM bone scan whole body Accession Number(s): [id number] cc: Bobby Pro MD~ EXAMINATION: NM BONE SCAN OF THE WHOLE BODY CLINICAL INFORMATION: Carcinoma of the prostate. Low back pain. COMPARISON: No existing relevant imaging study available. TECHNIQUE: Multiple gamma scintillation camera images of the whole body were performed 3 hours following the intravenous administration of 25 mCi Tc-99m MDP. FINDINGS: In the head, no suspicious focal lesion. In the thoracic cage and upper extremities, asymmetric mild increased radiotracer activities are present at the costochondral transverse junction of right 10th and 11th ribs, most consistent with degenerative changes. Mild increased radiotracer activities are also noted at both sternoclavicular as well as acromioclavicular joints, most consistent with arthritic changes. In the spine, mild increased radiotracer activities at lower cervical spine, and lower lumbosacral spine, most consistent with degenerative spondylosis. In the pelvis, no suspicious focal lesion. In the lower extremities, mildly increased radiotracer activities around both knees, most consistent with mild degenerative osteoarthrosis. No other definite bony abnormalities are noted. The urinary bladder and faint visualization of both kidneys are noted. NM/NM bone scan whole body IMPRESSION: ? 1. No definite scintigraphic evidence of metastatic disease. 2. Note is however made of presence of increased radiotracer activities at the costotransverse junction of right 10th and 11th ribs, the lower cervical, and the lower lumbosacral spine, most consistent with degenerative changes. 3. Mild increased radiotracer activities around both shoulder and both sternoclavicular joints and both kidneys likely also represent degenerative and/or posttraumatic arthritic changes. ? Follow-up the PSMA PET/CT study may be considered (more sensitive) for further full detail evaluation, if clinically appropriate. XR/XR finger LT min 2V IMPRESSION: 1.? No acute fractures or malalignment. 2.? Mild degenerative osteoarthritis of the first carpometacarpal joint and triscaphe space. ? Ordering Physician: Jessika Borden NP Date of Service: 11/06/21 Procedure(s): XR shoulder RT min 2V Accession Number(s): [id number] cc: Jessika Borden NP~ EXAMINATION: XR shoulder RT min 2V CLINICAL INFORMATION: Reason for Exam M25.511 - Pain in right shoulder COMPARISON: None? TECHNIQUE: Four views of the shoulder. XR/XR shoulder RT min 2V FINDINGS/IMPRESSION: ? No acute fracture or dislocation. ? Mild degenerative changes of the acromioclavicular and glenohumeral joints with degenerative spurring. ? Soft tissues are unremarkable. ? Visualized portion of lung appears clear. Assessment & Plan Assessment & Plan (1) Fibromyalgia: Code(s): M79.7 - Fibromyalgia (2) Lumbar spondylosis: Code(s): M47.816 - Spondylosis without myelopathy or radiculopathy, lumbar region Plan: This is a 62-year-old male with fibromyalgia and generalized osteoarthritis who presents for follow-up. Continues to take tramadol 50 mg t.i.d. symptoms stable. He also takes Lyrica but isn't entirely sure of the dose. Continue with tramadol 50 mg t.i.d. Follow-up in 6 months Coding Level of Care Code Est Pt Level 3 (05178) Diagnoses Fibromyalgia M79.7 Lumbar spondylosis M47.816
== END 2023-06-15 14:56 | disposition home or self-care (01) ==
PROVIDERS: PCP Internal Medicine; Visit Provider Student in an Organized Health Care Education/Training Program
DX: M79.7 Fibromyalgia (principal); M47.816 Spondylosis without myelopathy or radiculopathy, lumbar region
CPT/HCPCS: 99213

== ENCOUNTER → 2023-06-15 13:56 | Outpatient (BNVA) | payer OTHER, SELFPAY | PROVIDERS: PCP Internal Medicine; Visit Provider Student in an Organized Health Care Education/Training Program | DX: M19.011 Primary osteoarthritis, right shoulder (principal); M79.7 Fibromyalgia; M47.816 Spondylosis without myelopathy or radiculopathy, lumbar region; C61 Malignant neoplasm of prostate; Z79.899 Other long term (current) drug therapy | CPT/HCPCS: 99212 ==

== ENCOUNTER 2023-07-22 08:01 | Emergency (ER) | payer OTHER, SELFPAY ==
[2023-07-22 08:17] VITALS: BP 127/74; PULSE 84; RESP 16; TEMP 36.3; O2SAT 98; BMI 28.3
--- NOTE | 2023-07-22 08:34 | ED.GENADULT ---
HPI - General Adult General Chief complaint: General Medical Stated complaint: nose issue Time Seen by Provider: 07/22/23 08:34 Source: patient Mode of arrival: ambulatory Limitations: no limitations History of Present Illness HPI narrative: 62-year-old male with history of asthma anxiety and fibromyalgia who presents emergency department for evaluation of intermittent nose bleeds for 5 days which she has stopped with direct pressure to his nares, right-sided facial pain, nasal congestion and headaches. Patient has been taking Tylenol for his headache. He denied fever, chills, rhinorrhea, sore throat or cough. He denied ear pain or change in his hearing. Related Data Home Medications Medication Instructions Recorded Confirmed clonazepam 1 mg tablet (Klonopin) 1 mg PO TID 05/28/20 06/15/23 aripiprazole 15 mg tablet 15 mg PO DAILY 07/12/20 06/15/23 nabumetone 750 mg tablet 750 mg PO DAILY 07/12/20 06/15/23 sertraline 100 mg tablet 100 mg PO DAILY 07/12/20 06/15/23 zolpidem 10 mg tablet (Ambien) 10 mg PO BEDTIME PRN Sleep 07/12/20 06/15/23 albuterol sulfate 90 mcg/actuation 2 puff inhalation QID PRN 11/07/22 06/15/23 aerosol inhaler (Ventolin HFA) Bronchospasm bupropion HCl 100 mg tablet,12 hr 1 tab PO DAILY 11/07/22 06/15/23 sustained-release diclofenac sodium 1 % topical gel 2 g topical BEDTIME PRN Pain 11/07/22 06/15/23 finasteride 5 mg tablet 5 mg PO BEDTIME 11/07/22 06/15/23 fluticasone propionate 50 1 spray intranasal DAILY PRN 11/07/22 06/15/23 mcg/actuation nasal Allergy Symptoms spray,suspension loratadine 10 mg tablet 10 mg PO DAILY PRN Allergy Symptoms 11/07/22 06/15/23 pregabalin 50 mg capsule 100 mg PO BID PRN Pain 11/07/22 06/15/23 tamsulosin 0.4 mg capsule 1 cap PO BEDTIME 11/07/22 06/15/23 leuprolide acetate (6 month) 45 mg 45 mg subcut [id number] 04/27/23 06/15/23 (6 month) subcutaneous syringe ([employer]) Previous Rx's Medication Instructions Recorded blood pressure monitor #1 ea 07/24/20 sildenafil (pulm.hypertension) 20 20 mg PO DAILY PRN sexual activity 04/22/21 mg tablet #10 tabs mupirocin 2 % topical ointment 1 appl topical BID #22 grams 06/03/22 HANDHELD SHOWER #1 ea 11/18/22 LIGHTWEIGHT CANE #1 ea 11/18/22 wniukhbx-klfxou-EE-thonzonm 3.3 5 drp otic (ear) left QID 7 days 01/01/23 mg-3 mg-10 mg-0.5 mg/mL ear #10 mL drops,susp (Cortisporin-TC) meclizine 25 mg tablet 25 mg PO BID PRN dizziness 10 days 02/06/23 #20 tabs hydrocortisone 2.5 % topical cream 1 appl MA BID #60 grams 02/26/23 with perineal applicator famotidine 20 mg tablet 20 mg PO BID PRN abdominal pain 05/10/23 #60 tabs hydrocortisone acetate 25 mg 25 mg MA BID 14 days #28 ea 05/13/23 rectal suppository (Anusol-HC) hydrocortisone 2.5 % topical cream 1 appl MA BID-QID PRN hemorrhoids 06/16/23 with perineal applicator #30 grams (Anusol-HC) pantoprazole 40 mg tablet,delayed 40 mg PO DAILY 30 days #30 tabs 06/16/23 release acetaminophen 500 mg tablet 500 mg PO Q6H PRN pain #100 tabs 07/07/23 sodium chloride 0.65 % nasal spray 2 spray intranasal Q12H PRN dry 07/12/23 aerosol (Saline Nasal) nasal passages #30 mL tramadol 50 mg tablet 50 mg PO TID PRN pain #90 tabs 07/14/23 cefuroxime axetil 500 mg tablet 500 mg PO Q12H 7 days #14 tabs 07/22/23 Allergies Allergy/AdvReac Type Severity Reaction Status Date / Time Penicillins [PENICILLINS] Allergy Intermediate RASH AND Verified 06/15/23 14:37 SWELLING meperidine [Demerol] Allergy Unknown pain Verified 06/15/23 14:37 morphine [MORPHINE] AdvReac Intermediate N/V Verified 06/15/23 14:37 Review of Systems Review of Systems: Yes all other systems are reviewed and are negative [facility] Past Medical History Medical History Rectal bleeding Abdominal pain Epigastric pain Left-sided chest pain Internal hemorrhoid, bleeding Encounter for medication monitoring Pain in finger of left hand Bilateral hip pain Schizophrenia Prostate cancer Left foot pain Left leg pain Elevated blood pressure reading Depression Anxiety Insomnia Benign prostate hyperplasia Lumbar degenerative disc disease Osteoarthritis of right shoulder Asthma Surgical History History of colonoscopy (~03/01/18) S/P excision of lipoma H/O excision of ganglion cyst (~02/2014) Family History Family History Father Lung cancer Mother CVA (cerebral vascular accident), Onset Age: 80 Chronic mental illness Social History Social History Household Members: None Housing: Apartment Alcohol intake: never Patient Tobacco Use Status: Former Tobacco user Tobacco use type: Cigar Cigarettes Per Day: 20 Years Smoked: pt. states he has not smoked in years e-Cigarette/Vaping Use: Never Used Second Hand Smoke Exposure: No Advance Directives: No service: No Current occupational status: disabled Cognitive needs: No Hearing needs: No Vision needs: Yes Physical Exam ED Vital Signs: Vital Signs - 24 hr 07/22/23 08:17 Temperature 97.4 F Pulse Rate 84 Respiratory Rate 16 Blood Pressure 127/74 Pulse Oximetry 98 Oxygen Delivery Method Room Air BMI result Body Mass Index 28.3 Vital signs were normal Exam: General: Awake, alert in no distress Head: Normocephalic, atraumatic, patient has no frontal sinus tenderness but does have significant tenderness palpation of her right maxillary sinus EENT: PERRL, Lids normal, sclera normal, conjunctiva normal, nose: External nares normal, patient's right and left nasal septum area is dry, no obvious bleeding at this time, normal , ears normal, throat without erythema or exudates Neck: Supple, no adenopathy, no trachea midline or C-spine tenderness Lung: breath sounds symmetric, no wheezing, rales or rhonchi Heart: regular rate and rhythm, normal S1, S2 no murmurs or rubs Abdomen: soft, non-tender, nondistended, normal bowel sounds Extremities: no deformities, moves all extremities symmetrically Neuro: Awake, alert, oriented, normal speech, cranial nerves intact, moves all extremities symmetrically Psych: Pleasant, cooperative Medical Decision Making Medical Decision Making MDM Narrative: 62-year-old male with history of asthma, anxiety and fibromyalgia presents emergency department for evaluation of 5 days of intermittent bilateral nares bleeding, congestion, headaches and right-sided facial pain. Examination is consistent with right maxillary sinusitis and dry nares which is most likely causing his bleeding. Patient was started on cefuroxime 500 mg q.12 hours x7 days for sinus infection. He was advised to use Vaseline to both nares 3 times a day for 1 week to decrease dryness and decreased number of episodes of bleeding. He was given a nasal clip in shown how to pinch the front of his nose to stop bleeding. He was given printed and verbal instructions and discharged home. Differential Diagnosis Differential Diagnoses: The differential diagnosis associated with the presentation includes Differential diagnosis includes but is not limited to maxillary sinusitis, URI, epistaxis Prescription Management I considered prescription management with: Antibiotic Chronic Conditions Patient?s care impacted by: Other (Asthma) Discharge Plan Discharge Clinical Impression: Epistaxis Acute maxillary sinusitis Qualifiers: Recurrence: non-recurrent Qualified Code(s): J01.00 - Acute maxillary sinusitis, unspecified Patient Disposition: Home, Self-Care Instructions: Sinusitis (ED), Nosebleed (ED) Additional Instructions: Use Vaseline to keep both of your nostrils wet and to keep them from cracking and bleeding Apply the Vaseline 3 times a day just inside of your nose for 1 week. If your nose bleeds again apply pressure for 20 minutes with your fingers or with the nose clip and that should stop the bleeding. You have tenderness with pushing on your right cheek over the maxillary sinus therefore I am treating you for sinus infection with cefuroxime 500 mg, 1 pill every 12 hours for 7 days. Take Tylenol (acetaminophen) 500 mg pills, 2 pills every 6 hours as needed for pain or fever. Follow-up with your doctor in 2 days. Please return to the emergency department if your symptoms get worse or if you develop any symptoms that are concerning to you. Prescriptions: New cefuroxime axetil 500 mg tablet 500 mg PO Q12H 7 Days Qty: 14 0RF No Action (DME) blood pressure monitor Kit See Rx Instructions .ROUTE .MEDSUPPLY Qty: 1 0RF Rx Instructions: As directed (DME) LIGHTWEIGHT CANE See Rx Instructions .Route .MEDSUPPLY Qty: 1 0RF Rx Instructions: As directed (DME) HANDHELD SHOWER See Rx Instructions .Route .MEDSUPPLY Qty: 1 0RF Rx Instructions: As directed Cortisporin-TC 3.3-3-10-0.5 mg/mL drops,suspension 5 drp otic (ear) left QID 7 Days Qty: 10 0RF meclizine 25 mg tablet 25 mg PO BID PRN (Reason: dizziness) 10 Days Qty: 20 0RF hydrocortisone 2.5 % cream with perineal applicator 1 appl MA BID Qty: 60 1RF famotidine 20 mg tablet 20 mg PO BID PRN (Reason: abdominal pain) Qty: 60 2RF pantoprazole 40 mg tablet,delayed release (DR/EC) 40 mg PO DAILY 30 Days Qty: 30 3RF hydrocortisone [Anusol-HC] 2.5 % cream with perineal applicator 1 appl MA BID-QID PRN (Reason: hemorrhoids) Qty: 30 1RF acetaminophen 500 mg tablet 500 mg PO Q6H PRN (Reason: pain) Qty: 100 1RF Saline Nasal 0.65 % aerosol,spray 2 spray intranasal Q12H PRN (Reason: dry nasal passages) Qty: 30 1RF tramadol 50 mg tablet 50 mg PO TID PRN (Reason: pain) Qty: 90 2RF bupropion HCl 100 mg tablet sustained-release 12 hr 1 tab PO DAILY tamsulosin 0.4 mg capsule 1 cap PO BEDTIME fluticasone propionate 50 mcg/actuation [place],Suspension 1 spray INTRANASAL DAILY PRN (Reason: Allergy Symptoms) Rx Instructions: administer into each nostril loratadine 10 mg Tablet 10 mg PO DAILY PRN (Reason: Allergy Symptoms) pregabalin 50 mg capsule 100 mg PO BID PRN (Reason: Pain) Rx Instructions: patient states he only takes twice weekly diclofenac sodium 1 % gel 2 g topical BEDTIME PRN (Reason: Pain) Rx Instructions: apply 2 gram to L foot nightly as needed albuterol sulfate [Ventolin HFA] 90 mcg/actuation HFA aerosol inhaler 2 puff INHALATION QID PRN (Reason: Bronchospasm) finasteride 5 mg Tablet 5 mg PO BEDTIME clonazepam [Klonopin] 1 mg tablet 1 mg PO TID aripiprazole 15 mg tablet 15 mg PO DAILY zolpidem [Ambien] 10 mg tablet 10 mg PO BEDTIME PRN (Reason: Sleep) sertraline 100 mg tablet 100 mg PO DAILY nabumetone 750 mg tablet 750 mg PO DAILY sildenafil (pulm.hypertension) 20 mg tablet 20 mg PO DAILY PRN (Reason: sexual activity) Qty: 10 0RF mupirocin 2 % ointment 1 appl topical BID Qty: 22 0RF Rx Instructions: apply to lesion on the back of the right leg Elirachelled (6 month) 45 mg syringe 45 mg subcut [id number] hydrocortisone acetate [Anusol-HC] 25 mg suppository 25 mg MA BID 14 Days Qty: 28 0RF Interventions: ED Discharge Assessment Last Done: 07/22/23 09:07
--- OUTSIDE RECORDS SUMMARY | 2023-07-22 08:35 | XMS_ITS | Continuity of Care Document ---
Author Name Unknown Organization [facility] Address [address] [place] [id number] Care Team Providers Care Cardiac Cath Lab Technologist Name Role Phone Lai Olson MD Primary Care Physician [phone] Encounter [facility] ACCT R [id number] Date(s): 02/26/23 - 07/07/23 [facility] [address] [place] [id number]- Discharge Disposition: A-D/C Home Attending Physician: Zander [...] Reference Physician Member Role: PCP Address: Address: [address] [place] [address] [address] [place], [place] - Name: Elyse Cao RN Position: [facility] RN Member Role: Primary Care Nurse Name: Jonathon Villalobos RN Position: S RN Member Role: Primary Care Nurse Care Team Related Persons Name: CARLINE ISSA Address: home [address] [place] [address] Name: JUAN FRANCISCO ISSA
== END 2023-07-22 09:08 | disposition home or self-care (01) ==
PROVIDERS: Emergency Provider Emergency Medicine Emergency Medical Services; PCP Internal Medicine
DX: R04.0 Epistaxis (principal); J01.00 Acute maxillary sinusitis, unspecified; R51.9 Headache, unspecified; Z87.891 Personal history of nicotine dependence; Z79.899 Other long term (current) drug therapy
CPT/HCPCS: 99282; 99283

== ENCOUNTER 2023-08-11 09:54 | Outpatient (REF) | payer OTHER, SELFPAY ==
--- NOTE | ~2023-08-11 | FL_ITS ---
EXAMINATION: XR FLUOROSCOPY UPPER GI WITH AIR CLINICAL INFORMATION: Epigastric pain COMPARISON: None TECHNIQUE: Fluoroscopic air contrast upper GI examination was performed utilizing standard techniques with thin and thick barium and effervescent granules. Numerous spot images were obtained. FINDINGS: Lateral cine images of the oropharynx and hypopharynx demonstrate normal swallow mechanism with normal epiglottic inversion and soft palate elevation. No tracheal penetration, glottic or subglottic aspiration identified. No nasopharyngeal reflux present. Hypopharyngeal structures appear normal without evidence of mass or diverticulum. There was no significant cricopharyngeal achalasia. Dual and single contrast images of the esophagus demonstrate a patulous esophagus without evidence of stricture, mass, or ulcerations. Primary esophageal peristalsis was normal. Nonpropulsive tertiary contractions are seen. A small type I hiatal hernia is present. Gastroesophageal reflux is seen up to the thoracic inlet Dual contrast and single contrast images of the stomach demonstrated normal contour and mucosal pattern without evidence of mass, ulceration, or other abnormality. Contrast freely passed into the gastric antrum and duodenal bulb without delay. Single and air-contrast images of the duodenal bulb demonstrate no abnormality. The duodenal sweep has a normal appearance, course, and mucosal fold appearance. The imaged proximal jejunum has a normal fold pattern and caliber. FLUOROSCOPY TIME: 3 minutes 20 seconds Number of Spot Images: 11 Number of Cine: 6 DOSE AREA PRODUCT: [id number] uGy-m2 (microgray-meter squared) FL/FL upper GI series IMPRESSION: 1. Small type I hiatal hernia 2. Significant gastroesophageal reflux 3. Mild esophageal dysmotility This procedure was performed by Huy Mohamud PA-C, and supervised by Dr. Tarango
== END 2023-08-11 09:55 | disposition home or self-care (01) ==
LOC: HO.XRAY 09:54
PROVIDERS: PCP Internal Medicine; Visit Provider Internal Medicine
DX: R10.13 Epigastric pain (principal)
CPT/HCPCS: 74240

== ENCOUNTER → 2023-08-11 09:55 | Outpatient (BNV) | payer OTHER, SELFPAY | PROVIDERS: PCP Internal Medicine; Visit Provider Radiology Diagnostic Radiology | DX: R10.13 Epigastric pain (principal) | CPT/HCPCS: 74246 ==

== ENCOUNTER 2023-08-12 09:53 | Outpatient (AMB) | payer OTHER, SELFPAY ==
[2023-08-12 09:55] VITALS: BP 110/64; PULSE 84; O2SAT 97; BMI 28.1
--- NOTE | 2023-08-12 09:55 | A.OFFPC_ITS ---
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 Accompanied by: Self / Same As Patient Allergies Penicillins [PENICILLINS] Allergy (Intermediate, Verified 08/12/23 10:27) RASH AND SWELLING meperidine [Demerol] Allergy (Unknown, Verified 08/12/23 10:27) pain morphine [MORPHINE] Adverse Reaction (Intermediate, Verified 08/12/23 10:27) N/V Medication List - Last Reconciled 08/12/23 by Lai Olson MD acetaminophen 500 mg PO Q6H PRN albuterol sulfate 90 mcg/actuation (Ventolin HFA) 2 puffs inhalation QID PRN aripiprazole 15 mg PO DAILY blood pressure monitor As directed bupropion HCl 1 tab PO DAILY clonazepam (Klonopin) 1 mg PO TID diclofenac sodium 1% 2 grams topical BEDTIME PRN famotidine 20 mg PO BID PRN finasteride 5 mg PO BEDTIME fluticasone propionate 50 mcg/actuation 1 spray intranasal DAILY PRN [HANDHELD SHOWER As directed] hydrocortisone 2.5% 1 appl [place] BID hydrocortisone 2.5% (Anusol-HC) 1 appl [place] BID-QID PRN leuprolide acetate (6 month) (Eligard) 45 mg subcut [id number] [LIGHTWEIGHT CANE As directed] loratadine 10 mg PO DAILY PRN meclizine 25 mg PO BID PRN 10 days mupirocin 2% 1 appl topical BID nabumetone 750 mg PO DAILY pantoprazole 40 mg PO DAILY 30 days pregabalin 100 mg PO BID PRN sertraline 100 mg PO DAILY sildenafil (pulm.hypertension) 20 mg PO DAILY PRN sodium chloride 0.65% (Saline Nasal) 2 sprays intranasal Q12H PRN tamsulosin 1 cap PO BEDTIME tramadol 50 mg PO TID PRN zolpidem (Ambien) 10 mg PO BEDTIME PRN Tobacco use date assessed: 08/12/23 Dental Screening Dental Screen Date: 08/12/23 Did you have a dental visit in the last 12 months?: No Did you have a dental problem in the last 6 months where you did not have access to dental care?: No Was dental information given to patient?: No HPI Opthalmology Cssepfum-Drbsc-hn Due HPI Details Patient comes in today for his follow up visit States that he currently feels okay He completed his external beam radiation therapy for his prostate cancer back in April 2023 and states that his prostate symptoms are currently well- controlled on his current Rx He was seen by urology for follow up back in May 2023 and was reportedly ad vised that he responded well to Tx and will be seen again next month (August 2023) for urology follow up and have his PSA rechecked again States that he has been experiencing some blurring of his vision lately Used to see Dr. Morton for his eye exams but has not been back to see him in a few years and was advised when he tried calling them recently to schedule an appointment that he will need a new referral from his PCP He denies any headaches or dizziness Denies any chest pains, no SOB No nausea/vomiting, no abdominal pain No change in bowel habits noted [facility] Medical History (Updated 08/12/23 @ 10:44 by Lai Olson MD) Overweight (BMI 25.0-29.9) Rectal bleeding Abdominal pain Epigastric pain Left-sided chest pain Internal hemorrhoid, bleeding Encounter for medication monitoring Pain in finger of left hand Bilateral hip pain Schizophrenia Prostate cancer Left foot pain Left leg pain Elevated blood pressure reading Depression Anxiety Insomnia Benign prostate hyperplasia Lumbar degenerative disc disease Osteoarthritis of right shoulder Asthma Surgical History History of colonoscopy (~03/01/18) S/P excision of lipoma H/O excision of ganglion cyst (~02/2014) Family History Father Lung cancer Mother CVA (cerebral vascular accident), Onset Age: 80 Chronic mental illness Social History Household Members: None Housing: Apartment Alcohol intake: never Patient Tobacco Use Status: Former Tobacco user Tobacco use type: Cigar Cigarettes Per Day: 20 Years Smoked: pt. states he has not smoked in years e-Cigarette/Vaping Use: Never Used Second Hand Smoke Exposure: No service: No Current occupational status: disabled Cognitive needs: No Hearing needs: No Vision needs: Yes Questionnaire PHQ-9 Over the last 2 weeks, how often have you been bothered by any of the following problems? 1. Little interest or pleasure in doing things: several days 2. Feeling down, depressed, or hopeless: several days 3. Trouble falling or staying asleep, or sleeping too much: several days 4. Feeling tired or having little energy: several days 5. Poor appetite or overeating: several days 6. Feeling bad about yourself - or that you are a failure or have let yourself or your family down: several days 7. Trouble concentrating on things, such as reading the newspaper or watching television: not at all 8. Moving or speaking so slowly that other people could have noticed. Or the opposite - being so fidgety or restless that you have been moving around a lot more than usual: not at all 9. Thoughts that you would be better off or of hurting yourself in some way: not at all Total score: 6 Depression Screening Interpretation: Positive Depression Screening Follow-up: Existing condition and In treatment Depression Screening Done: Yes 27442 - PHQ-9 Billing: Yes Source: Developed by Drs. Angel Castellanos, Arlet Fine, Valeriano Shah and colleagues, with an educational sari from [employer] Thrive Questionnaire Date Thrive assessed: 08/12/23 I am a: Patient What is your living situation today?: I have a steady place to live Within the past 12 months, did the food you bought not last and you didn't have the money to get more?: Never true Within the past 12 months, did you worry whether your food would run out before you got money to buy more?: Never true Do you have trouble paying for medicines?: No Do you have trouble getting transportation to medical appointments?: No Do you have trouble paying your heating and electricity bill?: No Do you have trouble taking care of your child, family member or friend?: No Do you have trouble with day-to-day activities such as bathing, preparing meals, shopping, managing finances, etc.?: No Are you currently unemployed and looking for a job?: No Are you interested in more education?: No Please select the resources that you would like help with: None Currently or been in a relationship where the following occur: no concerns reported AUDIT C Alcohol Use Questionnaire (AUDIT-C) 1. How often do you have a drink containing alcohol?: Never 3. How often do you have six or more drinks on one occasion?: Never Total Score: 0 Score Reviewed/Action Taken: Yes NILSON-7 AMB Questionnaire NILSON-7 Date NILSON - 7 assessed: 08/12/23 Feeling nervous, anxious, or on edge: 0 = Not at all Not being able to stop or control worryin = Not at all Worrying too much about different things: 0 = Not at all Trouble relaxin = Not at all Being so restless that it is hard to sit still: 0 = Not at all Becoming easily annoyed or irritable: 0 = Not at all Feeling afraid as if something awful might happen: 0 = Not at all Total NILSON-7 score (0-4 normal; 5-9 mild; 10-14 moderate; 15-21 severe): 0 Source: Developed by Drs. Angel Castellanos, Arlet Fine, Valeriano Shah and colleagues, with an educational sari from [employer] Review of Systems Const Denies chills, Reports fatigue, Denies fever(s) and Denies headache(s) ENT Denies dysphagia, Denies dizziness, Denies otalgia, Denies headache(s), Denies n josselin pain, Denies odynophagia and Denies sore throat Card Denies chest pain, Denies rapid heart rate, Denies irregular heart rhythm, Denies palpitations and Denies dyspnea Resp Denies chest congestion, Denies cough, Denies dyspnea and Denies wheezing GI Denies abdominal pain, Denies hematochezia, Denies constipation, Denies dysphagia, Denies heartburn, Denies diarrhea, Denies nausea, Denies odynophagia and Denies vomiting Denies hematuria, Reports difficulty urinating (occasionally), Denies nocturia, Reports urinary hesitancy (occasionally) and Denies urinary urgency Musc Reports back pain (chronic), Reports arthralgias (involving multiple joints) and Denies neck pain Skin/Breast Denies rash Neuro Denies dizziness, Denies headache(s) and Denies paresthesias Endo Reports fatigue and Denies palpitations Aller/Immun Denies wheezing Physical exam (Primary Care) Vital Signs: Last Vital Signs Pulse 84 08/12/23 09:55 BP 110/64 08/12/23 09:55 Pulse Ox 97 08/12/23 09:55 Oxygen Delivery Method Room Air 08/12/23 09:55 BMI result Body Mass Index 28.1 Tobacco/Smoking Status: Tobacco use Status Tobacco use date assessed 08/12/23 08/12/23 10:00 Patient Tobacco Use Status Former Tobacco user 08/12/23 10:00 Tobacco use type Cigar 08/12/23 10:00 e-Cigarette/Vaping Use Never Used 08/12/23 10:00 PHQ-9: PHQ-9 Score PHQ-9: Total score 6 08/12/23 10:28 Depression Screening Interpretation: Positive Depression Screening Follow-up: Existing condition and In treatment Thrive Assessment: Date of Thrive Assessment Date Thrive assessed 08/12/23 08/12/23 10:00 Currently or been in a relationship where the following occur: no concerns reported Const General: no acute distress and alert HENMT Ears: TM's normal bilaterally and EAC's normal Throat: Yes posterior oropharynx normal and Yes tonsils normal (no TP congestion) Neck Neck: Yes no lymphadenopathy and Yes supple Thyroid: Thyroid normal Resp Auscultation: clear to auscultation bilaterally, no rales and no wheezes Cardio Rate: regular rate Rhythm: regular rhythm Heart sounds: no murmurs GI Palpation (GI): Soft to palpation and nontender Auscultation: normal bowel sounds General: Yes no CVA tenderness Back/Spine/Pelvis Back: no CVA tenderness Thoracic/Lumbar Spine: lumbar spinal tenderness Skin Rashes: no rashes Extrem General: Yes no clubbing, cyanosis or edema Right upper extremity: shoulder/upper arm Details: tenderness Location: of the A-C joint Left upper extremity: hand Details: tenderness Location: of the 2nd digit Location: involving the entire digit ((+) tenderness and stiffness - unable to flex finger) Right lower extremity: hip/thigh Details: tenderness Location: of the hip Left lower extremity: hip/thigh Details: tenderness Location: of the hip Assessment and Plan Assessment & Plan (1) Prostate cancer: Code(s): C61 - Malignant neoplasm of prostate Plan: He was diagnosed with an unfavorable intermediate-risk prostate cancer by urology earlier this year and has received his first Eligard injection on 10/21/2022 He was also following up with radiation oncology (at [facility]) and completed his radiation therapy back in April 2023 Follow up with urology as scheduled for continuing surveillance and monitoring (2) Asthma: Code(s): J45.909 - Unspecified asthma, uncomplicated Qualifiers: Asthma severity: moderate Asthma persistence: persistent Asthma complication type: uncomplicated Qualified Code(s): J45.40 - Moderate persistent asthma, uncomplicated Plan: Stable/controlled Continue Flovent HFA 110 mcg 1 inhalation BID and Albuterol HFA 2 inhalations every 6 hours as needed (3) Allergic rhinitis: Code(s): J30.9 - Allergic rhinitis, unspecified Qualifiers: Allergic rhinitis trigger: unspecified Allergic rhinitis seasonality: unspecified Qualified Code(s): J30.9 - Allergic rhinitis, unspecified Plan: Continue Fluticasone 50 mcg nasal spray QD PRN and Loratadine 10 mg QD PRN (4) Osteoarthritis of right shoulder: Code(s): M19.011 - Primary osteoarthritis, right shoulder Qualifiers: Osteoarthritis type: primary Qualified Code(s): M19.011 - Primary osteoarthritis, right shoulder Plan: X-rays of the right shoulder done in October 2019 showed mild AC joint arthritis Follow up with rheumatology as scheduled - has been receiving cortisone injections into the right shoulder as needed with (+) relief of shoulder pain Continue Nabumetone 750 mg BID PRN and Acetaminophen 500 mg Q 6 hours PRN (5) Lumbar degenerative disc disease: Code(s): M51.36 - Other intervertebral disc degeneration, lumbar region Plan: Reinforced activity and weight-lifting restrictions Continue Tramadol 50 mg TID PRN for pain and Pregabalin 100 mg BID Have also considered starting him on Duloxetine for his chronic low back pain but he is already presently on Sertraline for his mood disorder and seems to be doing well on it so will hold off on adding Duloxetine at this time Follow up with pain management as scheduled Reminded that we will NOT be prescribing him any opioids for pain, as they are never a good or acceptable long-term management for chronic pain Advised that a lumbar spine MRI may be beneficial to help establish a more effective treatment plan for him going forward and I will leave this up to the pain specialists to decide how to best go about this (6) Erectile dysfunction: Code(s): N52.9 - Male erectile dysfunction, unspecified Qualifiers: Erectile dysfunction type: unspecified Qualified Code(s): N52.9 - Male erectile dysfunction, unspecified Plan: Continue Sildenafil 20 mg QD PRN (7) Blurred vision, bilateral: Code(s): H53.8 - Other visual disturbances Plan: Per request, will refer him back to Dr. Morton for ophthalmology follow up (8) Insomnia: Code(s): G47.00 - Insomnia, unspecified Qualifiers: Insomnia type: unspecified Qualified Code(s): G47.00 - Insomnia, unspecified Plan: Sleep hygiene reinforced Continue Zolpidem 10 mg Q HS PRN (9) Anxiety: Code(s): F41.9 - Anxiety disorder, unspecified Plan: Continue Clonazepam 1 mg TID PRN and Hydroxyzine 25 mg BID PRN (10) Depression: Code(s): F32.9 - Major depressive disorder, single episode, unspecified Qualifiers: Depression Type: major depressive disorder Major depression recurrence: recurrent Active/Remission status: currently active Major depression episode severity: unspecified Qualified Code(s): F33.9 - Major depressive disorder, recurrent, unspecified Plan: Continue Sertraline 100 mg QD and Abilify 15 mg Q HS Follow-up with Psychiatry as scheduled (11) Overweight (BMI 25.0-29.9): Code(s): E66.3 - Overweight Plan: Reinforced diet/exercise as tolerated/lose weight Plan To return in 4 months for his next annual physical examination Orders: Orders Lipid Panel 4 Months E78.00 - Pure hypercholesterolemia, unspecified TSH reflex Free T4 4 Months E78.00 - Pure hypercholesterolemia, unspecified, Z00.00 - Encounter for general adult medical examination without abnormal findings UA CC w/rflx Micro + Cult 4 Months R30.0 - Dysuria, Z00.00 - Encounter for general adult medical examination without abnormal findings Comprehensive [place]. Panel Fast 4 Months E78.00 - Pure hypercholesterolemia, unspecified Complete Blood Count Auto Diff 4 Months C61 - Malignant neoplasm of prostate, Z00.00 - Encounter for general adult medical examination without abnormal findings Vitamin D 25-OH Total 4 Months E55.9 - Vitamin D deficiency, unspecified, Z00.00 - Encounter for general adult medical examination without abnormal findings Referrals Ophthalmology Referral H53.8 - Other visual disturbances Coding Level of Care Code Est Pt Level 4 (79286) Diagnoses Prostate cancer C61 Moderate persistent asthma without complication J45.40 Asthma severity: moderate Asthma persistence: persistent Asthma complication type: uncomplicated Allergic rhinitis, unspecified seasonality, unspecified trigger J30.9 Allergic rhinitis trigger: unspecified Allergic rhinitis seasonality: unspecified Primary osteoarthritis of right shoulder M19.011 Osteoarthritis type: primary Lumbar degenerative disc disease M51.36 Erectile dysfunction, unspecified erectile dysfunction type N52.9 Erectile dysfunction type: unspecified Blurred vision, bilateral H53.8 Insomnia, unspecified type G47.00 Insomnia type: unspecified Anxiety F41.9 Episode of recurrent major depressive disorder, unspecified depression episode severity F33.9 Depression Type: major depressive disorder Major depression recurrence: recurrent Active/Remission status: currently active Major depression episode severity: unspecified Overweight (BMI 25.0-29.9) E66.3
== END 2023-08-12 10:38 | disposition home or self-care (01) ==
PROVIDERS: PCP Internal Medicine; Visit Provider Internal Medicine
DX: C61 Malignant neoplasm of prostate (principal); F33.9 Major depressive disorder, recurrent, unspecified; J45.40 Moderate persistent asthma, uncomplicated; J30.9 Allergic rhinitis, unspecified; M19.011 Primary osteoarthritis, right shoulder; M51.36 Other intervertebral disc degeneration, lumbar region; N52.9 Male erectile dysfunction, unspecified; H53.8 Other visual disturbances; G47.00 Insomnia, unspecified; F41.9 Anxiety disorder, unspecified; E66.3 Overweight
CPT/HCPCS: 99214

== ENCOUNTER 2023-10-18 15:19 | Outpatient (REF) | payer OTHER, SELFPAY ==
[2023-10-18 15:51] LABS: Hematocrit 37.7 % (42.0-52.0); Hemoglobin 12.1 g/dl (14.0-18.0); Mean Corpuscular HGB Conc 32.1 g/dl (31.0-36.0); Mean Corpuscular Volume 84.2 fL (80.0-98.0); Mean Platelet Volume 12.5 fL (9.4-12.4); Platelet Count 165 X10*3/uL (160-400); Red Blood Count 4.48 X10*6/uL (4.60-5.80); Red Cell Distribution Width 14.3 % (11.0-16.0); WBC ABN SCTR FOR CBC 1; White Blood Count 6.5 X10*3/uL (4.8-10.8)
[2023-10-18 16:30] LABS: Alanine Aminotransferase 12 U/L (0-40); Albumin Level 3.9 g/dL (3.5-5.0); Alkaline Phosphatase 117 U/L (39-117); Anion Gap 13 (12-20); Aspartate Amino Transferase 13 U/L (5-37); Bilirubin Total 0.3 mg/dL (0.0-1.0); Blood Urea Nitrogen 18 mg/dL (9-16); Calcium 8.8 mg/dL (8.4-10.2); Carbon Dioxide 24 mmol/L (22-29); Chloride 107 mmol/L (96-108); Cholesterol 169 mg/dL (<200); Estimated Glomerular Filt Rate > 60; Glucose Fasting 141 mg/dL (60-99); HDL Cholesterol 48 mg/dL (>40); LDL Cholesterol Calculated 102 mg/dL (<100); Potassium 3.9 mmol/L (3.3-5.1); Sodium 140 mmol/L (135-145); Triglycerides 98 mg/dL (<150)
[2023-10-18 16:38] LABS: TSH reflex Free T4 0.87 uIU/mL (0.32-4.0); Vitamin D 25-OH Total 25.2 ng/mL (>30)
[2023-10-18 16:39] LABS: Band Neutrophils Percent 0 % (3-5); Lymphocytes Absolute Manual 1.1 X10*3/uL (1.2-4.9); Lymphocytes Percent Manual 17 % (20-40); Monocytes Absolute Manual 0.1 X10*3/uL (0.1-1.2); Monocytes Percent Manual 2 % (2-11); Neutrophils Absolute Manual 5.3 X10*3/uL (2.0-8.3); Neutrophils Percent Manual 81 % (45-73)
[2023-10-18 16:40] LABS: RBC Morphology NORMAL
[2023-10-18 16:41] LABS: Platelet Estimate NORMAL (NORMAL); Platelet Morphology Comment NORMAL
[2023-10-18 17:20] LABS: Appearance Urine Clear; Color Urine Dark Yellow; Glucose Urine UA Negative (Negative); Leukocyte Esterase Urine Negative (Negative); Nitrite Urine Negative (Negative); PH 5.5 (5.0-9.0); Specific Gravity - Urine >= 1.030 (1.005-1.025); UMIC TRIGGER UACC YES; Urine Blood Trace (Negative); Urine Ketones Trace mg/dL (Negative); Urine Protein 100 (2+) mg/dL (Neg-Trace)
[2023-10-18 17:53] LABS: Bacteria Urine None Seen (None Seen); Calcium Oxalate Crystals Urine Present; Squamous Epithelial Cell Urine 0-2 /HPF (0-2); WBC Urine 0-5 /HPF (0-5)
== END 2023-10-18 15:20 | disposition home or self-care (01) ==
LOC: HO.LAB 15:19
PROVIDERS: PCP Internal Medicine; Visit Provider Internal Medicine
DX: Z00.00 Encounter for general adult medical examination without abnormal findings (principal); E78.00 Pure hypercholesterolemia, unspecified; E55.9 Vitamin D deficiency, unspecified
CPT/HCPCS: 36415; 80053; 80061; 81001; 82306; 84443; 85007; 85027

== ENCOUNTER 2023-10-19 10:59 | Outpatient (AMB) | payer OTHER, SELFPAY ==
[2023-10-19 11:19] VITALS: BP 112/72; PULSE 65; O2SAT 97; BMI 27.9
--- NOTE | 2023-10-19 11:19 | MHC.PC.OV ---
Vital Signs 10/19/23 11:19 Height 5 ft 4 in Weight 162 lb 6 oz BMI 27.9 BP 112/72 Blood Pressure Location Lt brachial Position Sitting Pulse 65 Pulse Source Pulse Oximeter Pulse Oximetry (%) 97 Oxygen Delivery Method Room Air Intake Visit Reasons: Possible UTI/ right ear pain Intake Note: The patient is presenting symptoms indicative of a left ear infection and a possible urinary tract infection, characterized by burning sensations and increased frequency with small urine output. Billing Checker Required: Yes Billing Checker Language: Indian Child Welfare Assistant: Not Required per policy Accompanied by: Self / Same As Patient Allergies Penicillins [PENICILLINS] Allergy (Intermediate, Verified 06/13/24 10:53) RASH AND SWELLING meperidine [Demerol] Allergy (Unknown, Verified 06/13/24 10:53) pain morphine [MORPHINE] Adverse Reaction (Intermediate, Verified 06/13/24 10:53) N/V Medication List - Last Reconciled 10/19/23 by Lai Olson MD acetaminophen 500 mg PO Q6H PRN albuterol sulfate 90 mcg/actuation (Ventolin HFA) 2 puffs inhalation QID PRN aripiprazole 15 mg PO DAILY blood pressure monitor As directed bupropion HCl 1 tab PO DAILY clonazepam (Klonopin) 1 mg PO TID diclofenac sodium 1% 2 grams topical BEDTIME PRN famotidine 20 mg PO BID PRN finasteride 5 mg PO BEDTIME fluticasone propionate 50 mcg/actuation 1 spray intranasal DAILY PRN [HANDHELD SHOWER As directed] hydrocortisone 2.5% (Anusol-HC) 1 appl CO BID-QID PRN hydrocortisone 2.5% 1 appl CO BID leuprolide acetate (6 month) (Eligard) 45 mg subcut [id number] [LIGHTWEIGHT CANE As directed] loratadine 10 mg PO DAILY PRN meclizine 25 mg PO BID PRN 10 days mupirocin 2% 1 appl topical BID nabumetone 750 mg PO DAILY pantoprazole 40 mg PO DAILY 30 days pregabalin 100 mg PO BID PRN sertraline 100 mg PO DAILY sildenafil (pulm.hypertension) 20 mg PO DAILY PRN sodium chloride 0.65% (Saline Nasal) 2 sprays intranasal Q12H PRN tamsulosin 1 cap PO BEDTIME tramadol 50 mg PO TID PRN zolpidem (Ambien) 10 mg PO BEDTIME PRN Tobacco use date assessed: 10/19/23 Fall risk assessment: No Falls in past year Last assessed Fall Risk: 10/19/23 HPI Possible UTI/ right ear pain HPI Details Patient comes in today for his follow up visit States that he has been experiencing recurrent right ear pain for the past few days He has also been experiencing urinary frequency, some dysuria and urgency for the past few days and thinks that he has a urinary tract infection at this time He denies any fever, headaches or dizziness Denies any chest pains, no increased SOB No nausea/vomiting, no abdominal pain No change in bowel habits noted Also needs his hemorrhoid cream Rx refilled He had his follow up labs done yesterday - to discuss his results [facility] Medical History Overweight (BMI 25.0-29.9) Rectal bleeding Abdominal pain Epigastric pain Left-sided chest pain Internal hemorrhoid, bleeding Encounter for medication monitoring Pain in finger of left hand Bilateral hip pain Schizophrenia Prostate cancer Left foot pain Left leg pain Elevated blood pressure reading Depression Anxiety Insomnia Benign prostate hyperplasia Lumbar degenerative disc disease Osteoarthritis of right shoulder Asthma Surgical History History of colonoscopy (~03/01/18) S/P excision of lipoma H/O excision of ganglion cyst (~02/2014) Family History Father Lung cancer Mother CVA (cerebral vascular accident), Onset Age: 80 Chronic mental illness Social History Household Members: None Housing: Apartment Alcohol intake: never Patient Tobacco Use Status: Former Tobacco user Tobacco use type: Cigar Cigarettes Per Day: 20 Years Smoked: pt. states he has not smoked in years e-Cigarette/Vaping Use: Never Used Second Hand Smoke Exposure: No service: No Current occupational status: disabled Cognitive needs: No Hearing needs: No Vision needs: Yes (glasses) Questionnaire PHQ-9 Over the last 2 weeks, how often have you been bothered by any of the following problems? 1. Little interest or pleasure in doing things: nearly every day 2. Feeling down, depressed, or hopeless: nearly every day 3. Trouble falling or staying asleep, or sleeping too much: more than half the days 4. Feeling tired or having little energy: nearly every day 5. Poor appetite or overeating: more than half the days 6. Feeling bad about yourself - or that you are a failure or have let yourself or your family down: nearly every day 7. Trouble concentrating on things, such as reading the newspaper or watching television: more than half the days 8. Moving or speaking so slowly that other people could have noticed. Or the opposite - being so fidgety or restless that you have been moving around a lot more than usual: several days 9. Thoughts that you would be better off or of hurting yourself in some way: several days Total score: 20 Depression Screening Interpretation: Positive Depression Screening Follow-up: Existing condition and In treatment Depression Screening Done: Yes 45235 - PHQ-9 Billing: Yes Source: Developed by Drs. Angel Castellanos, Arlet Fine, Valeriano Shah and colleagues, with an educational sari from [employer]. Thrive Questionnaire Date Thrive assessed: 10/19/23 I am a: Patient What is your living situation today?: I have a steady place to live Within the past 12 months, did the food you bought not last and you didn't have the money to get more?: Never true Within the past 12 months, did you worry whether your food would run out before you got money to buy more?: Never true Do you have trouble paying for medicines?: No Do you have trouble getting transportation to medical appointments?: No Do you have trouble paying your heating and electricity bill?: No Do you have trouble taking care of your child, family member or friend?: No Do you have trouble with day-to-day activities such as bathing, preparing meals, shopping, managing finances, etc.?: No Are you currently unemployed and looking for a job?: No Are you interested in more education?: No Please select the resources that you would like help with: None Currently or been in a relationship where the following occur: no concerns reported THRIVE Score: 0 AUDIT C Alcohol Use Questionnaire (AUDIT-C) 1. How often do you have a drink containing alcohol?: Never 3. How often do you have six or more drinks on one occasion?: Never Total Score: 0 Score Reviewed/Action Taken: Yes NILSON-7 AMB Questionnaire NILSON-7 Date NILSON - 7 assessed: 10/19/23 Feeling nervous, anxious, or on edge: 2 = More than half the days Not being able to stop or control worryin = Nearly every day Worrying too much about different things: 3 = Nearly every day Trouble relaxin = More than half the days Being so restless that it is hard to sit still: 3 = Nearly every day Becoming easily annoyed or irritable: 3 = Nearly every day Feeling afraid as if something awful might happen: 1 = Several days Total NILSON-7 score (0-4 normal; 5-9 mild; 10-14 moderate; 15-21 severe): 17 Source: Developed by Drs. Angel Castellanos, Arlet Fine, Valeriano Shah and colleagues, with an educational sari from [employer]. NILSON-7 Assessment Billing NILSON-7 Assessment Tool: NILSON-7 Assessment 50533 Review of Systems Const Denies chills, Reports fatigue, Denies fever(s) and Denies headache(s) ENT Denies dysphagia, Denies dizziness, Reports otalgia (in the right ear), Denies headache(s), Denies neck pain, Denies odynophagia and Denies sore throat Card Denies chest pain, Denies rapid heart rate, Denies irregular heart rhythm, Denies palpitations and Denies dyspnea Resp Denies chest congestion, Denies cough and Denies dyspnea GI Denies abdominal pain, Denies hematochezia, Denies constipation, Denies dysphagia, Denies heartburn, Denies diarrhea, Denies nausea, Denies odynophagia and Denies vomiting Denies hematuria, Reports difficulty urinating (occasionally), Reports dysuria (recently), Reports nocturia, Reports urinary frequency, Reports urinary hesitancy (occasionally) and Reports urinary urgency Musc Reports back pain (chronic), Reports arthralgias (involving multiple joints) and Denies neck pain Skin/Breast Denies rash Neuro Denies dizziness, Denies headache(s) and Denies paresthesias Endo Reports fatigue and Denies palpitations Physical exam (Primary Care) Vital Signs: Last Vital Signs Pulse 65 10/19/23 11:19 BP 112/72 10/19/23 11:19 Pulse Ox 97 10/19/23 11:19 Oxygen Delivery Method Room Air 10/19/23 11:19 BMI result Body Mass Index 27.9 Tobacco/Smoking Status: Tobacco use Status Tobacco use date assessed 10/19/23 10/19/23 11:21 Patient Tobacco Use Status Former Tobacco user 10/19/23 11:21 Tobacco use type Cigar 10/19/23 11:21 e-Cigarette/Vaping Use Never Used 10/19/23 11:21 PHQ-9: PHQ-9 Score PHQ-9: Total score 20 10/19/23 12:04 Depression Screening Interpretation: Positive Depression Screening Follow-up: Existing condition and In treatment Thrive Assessment: Date of Thrive Assessment Date Thrive assessed 10/19/23 10/19/23 11:42 Currently or been in a relationship where the following occur: no concerns reported Const General: no acute distress and alert HENMT Ears: TM's normal bilaterally and EAC's normal Throat: Yes posterior oropharynx normal and Yes tonsils normal (no TP congestion) Neck Neck: Yes no lymphadenopathy and Yes supple Thyroid: Thyroid normal Resp Auscultation: clear to auscultation bilaterally, no rales and no wheezes Cardio Rate: regular rate Rhythm: regular rhythm Heart sounds: no murmurs GI Palpation (GI): Soft to palpation and nontender Auscultation: normal bowel sounds General: Yes no CVA tenderness Back/Spine/Pelvis Back: no CVA tenderness Thoracic/Lumbar Spine: lumbar spinal tenderness Skin Rashes: no rashes Extrem General: Yes no clubbing, cyanosis or edema Right upper extremity: shoulder/upper arm Details: tenderness Location: of the A-C joint Right lower extremity: hip/thigh Details: tenderness Location: of the hip Left lower extremity: hip/thigh Details: tenderness Location: of the hip Results AMB Hemoglobin A1c AMB Hemoglobin A1c 5.5 % Last Edit by FLORECITA Brewster on 10/19/23 11:43 Results Reviewed Results Reviewed: Laboratory Last Values Hgb A1c (Clinic) 5.5 % (4.0-6.0) 10/19/23 11:29 Laboratory Tests 10/18/23 10/18/23 10/18/23 15:30 15:33 15:33 WBC 6.5 Hgb 12.1 L Hct 37.7 L Plt Count 165 Sodium 140 Potassium 3.9 Creatinine 0.93 Estimated GFR > 60 Fasting Glucose 141 H Hgb A1c (Clinic) Calcium AST ALT Triglycerides 98 Cholesterol 169 LDL Cholesterol, Calc 102 H HDL Cholesterol 48 25-OH Vitamin D Total 25.2 L TSH 0.87 Ur Specific [place] >= 1.030 H Urine Protein 100 (2+) H Urine Glucose (UA) Negative Urine Blood Trace H Urine Nitrite Negative Ur Leukocyte Esterase Negative 10/18/23 10/19/23 15:33 11:29 WBC Hgb Hct Plt Count Sodium Potassium Creatinine Estimated GFR Fasting Glucose Hgb A1c (Clinic) 5.5 Calcium 8.8 AST 13 ALT 12 Triglycerides Cholesterol LDL Cholesterol, Calc HDL Cholesterol 25-OH Vitamin D Total TSH Ur Specific [place] Urine Protein Urine Glucose (UA) Urine Blood Urine Nitrite Ur Leukocyte Esterase Coding Level of Care Code Est Pt Level 4 (43825) Diagnoses Prostate cancer C61 Moderate persistent asthma without complication J45.40 Asthma severity: moderate Asthma persistence: persistent Asthma complication type: uncomplicated Allergic rhinitis, unspecified seasonality, unspecified trigger J30.9 Allergic rhinitis trigger: unspecified Allergic rhinitis seasonality: unspecified Right ear pain H92.01 Dysuria R30.0 Primary osteoarthritis of right shoulder M19.011 Osteoarthritis type: primary Degeneration of intervertebral disc of lumbar region with discogenic back pain M51.360 Disc-related pain type: discogenic back pain only Erectile dysfunction, unspecified erectile dysfunction type N52.9 Erectile dysfunction type: unspecified Hemorrhoids, unspecified hemorrhoid type K64.9 Hemorrhoid type: unspecified Insomnia, unspecified type G47.00 Insomnia type: unspecified Anxiety F41.9 Episode of recurrent major depressive disorder, unspecified depression episode severity F33.9 Depression Type: major depressive disorder Major depression recurrence: recurrent Active/Remission status: currently active Major depression episode severity: unspecified Overweight (BMI 25.0-29.9) E66.3 Additional Codes NILSON-7 Assessment Billing - NILSON-7 Assessment Tool: NILSON-7 Assessment [id number] ([id number])
== END 2023-10-19 12:05 | disposition home or self-care (01) ==
PROVIDERS: PCP Internal Medicine; Visit Provider Internal Medicine
DX: R73.01 Impaired fasting glucose (principal)
CPT/HCPCS: 83036; 99499

== ENCOUNTER 2023-10-23 10:20 | Emergency (ER) | payer OTHER, SELFPAY ==
--- NOTE | ~2023-10-23 | US_ITS ---
EXAMINATION: US SCROTUM US SCROTUM WITH DOPPLER CLINICAL INFORMATION: Right testicular pain. COMPARISON: None available. TECHNIQUE: A sonogram of the scrotum was performed assessing cotter-scale appearance and color Doppler flow. Spectral Doppler analysis of the arterial and venous flow were performed in the testes bilaterally. FINDINGS: RIGHT: Right testicle measures 3.2 x 1.3 x 2.4 cm, volume 5.2 mL. No focal testicular parenchymal lesions are visualized. Spectral Doppler analysis of the arterial and venous flow is normal in the right testis. Right epididymal head is normal in size. The right epididymal body and tail were not well visualized. No right-sided hydrocele. Mild right-sided varicocele. Right epididymal Doppler flow is normal. LEFT: Left testicle measures 3.2 x 2.5 x 2.2 cm, volume 9.5 mL. No focal testicular parenchymal lesions are visualized. Tiny left parenchymal calcifications measuring up to 0.1 cm. Spectral Doppler analysis of the arterial and venous flow is normal in the left testis. Left epididymal head is normal in size. No left hydrocele or varicocele is seen. Left epididymal Doppler flow is normal. US/US scrotum IMPRESSION: 1. Mild right-sided varicocele. 2. Tiny left testicular parenchymal calcifications measuring up to 0.1 cm.
--- NOTE | ~2023-10-23 | CT_ITS ---
EXAMINATION: CT ABDOMEN AND PELVIS WITHOUT CONTRAST CLINICAL INFORMATION: Right flank pain. COMPARISON: Abdominal ultrasound dated 03/02/[address] abdomen/pelvis dated 09/04/2014. TECHNIQUE: Multidetector volumetric imaging was performed from the superior aspect of the liver through the pubic symphysis. Sagittal and coronal reformatted images were obtained on the technologist's workstation. This CT examination was performed using dose optimization techniques as appropriate, variously including the following: *Automated exposure control *Adjustment of mA and/or kV according to patient size (this includes techniques or standardized protocols for targeted exams where dose is matched to indication/reason for exam; i.e. extremities or head) *Use of iterative reconstruction technique DLP: 454 mGy-cm. FINDINGS: LUNG BASES: The visualized lung bases are unremarkable. LIVER, GALLBLADDER, AND BILIARY TREE: The liver is normal in size, shape, and attenuation. No focal hepatic lesion or biliary ductal dilatation is present. The gallbladder is unremarkable with no evidence of radiopaque gallstones, gallbladder wall thickening, or obvious pericholecystic inflammatory changes. PANCREAS: Unremarkable. SPLEEN: Unremarkable. ADRENAL GLANDS: Unremarkable. KIDNEYS AND URETERS: The kidneys are normal in size, shape, and attenuation. No hydronephrosis, hydroureter, or calculi seen. Redemonstration of a simple midpole cyst, which has increased in size when compared to the prior CT and measures up to 7.7 cm in greatest axial dimension (previously 5.3 cm). Redemonstration of a simple lateral left midpole cyst measuring up to 1.4 cm. Findings are not clinically significant and no dedicated follow-up imaging is recommended. No perinephric stranding. BLADDER: Nondistended. There is circumferential bladder wall thickening with adjacent stranding, new when compared to the prior examination. Findings could represent cystitis in the appropriate clinical setting. No evidence of perforation or adjacent abscess formation. GASTROINTESTINAL TRACT: No small or large bowel obstruction. No bowel wall thickening or inflammatory change. Significantly redundant sigmoid colon. Unremarkable appendix. PERITONEAL CAVITY: No intra-abdominal free air or free fluid. No abscess formation. ABDOMINAL WALL: No significant hernia is appreciated. LYMPH NODES: No significant lymphadenopathy. VASCULAR: No abdominal aortic dilatation. PELVIC VISCERA: Prostatomegaly. Multiple pelvic phleboliths. OSSEOUS STRUCTURES: No acute fracture or dislocation. No concerning lytic or blastic osseous lesion. CT/CT abdomen pelvis wo IV con IMPRESSION: 1. Circumferential bladder wall thickening with adjacent stranding, new when compared to the prior examination. Findings could represent cystitis in the appropriate clinical setting. No evidence of perforation or abscess formation. 2. No hydronephrosis or nephrolithiasis. Simple bilateral renal cysts. Findings are not clinically significant and no dedicated follow-up imaging is recommended. 3. No small or large bowel obstruction. No bowel wall thickening or inflammatory change. Unremarkable appendix. 4. No intra-abdominal mass, lymphadenopathy, or ascites. 5. Prostatomegaly. Fleischner guidelines were followed.
--- NOTE | ~2023-10-23 | US_ITS ---
EXAMINATION: US SCROTUM US SCROTUM WITH DOPPLER CLINICAL INFORMATION: Right testicular pain. COMPARISON: None available. TECHNIQUE: A sonogram of the scrotum was performed assessing ctoter-scale appearance and color Doppler flow. Spectral Doppler analysis of the arterial and venous flow were performed in the testes bilaterally. FINDINGS: RIGHT: Right testicle measures 3.2 x 1.3 x 2.4 cm, volume 5.2 mL. No focal testicular parenchymal lesions are visualized. Spectral Doppler analysis of the arterial and venous flow is normal in the right testis. Right epididymal head is normal in size. The right epididymal body and tail were not well visualized. No right-sided hydrocele. Mild right-sided varicocele. Right epididymal Doppler flow is normal. LEFT: Left testicle measures 3.2 x 2.5 x 2.2 cm, volume 9.5 mL. No focal testicular parenchymal lesions are visualized. Tiny left parenchymal calcifications measuring up to 0.1 cm. Spectral Doppler analysis of the arterial and venous flow is normal in the left testis. Left epididymal head is normal in size. No left hydrocele or varicocele is seen. Left epididymal Doppler flow is normal. US/US scrotum doppler IMPRESSION: 1. Mild right-sided varicocele. 2. Tiny left testicular parenchymal calcifications measuring up to 0.1 cm.
[2023-10-23 10:30] VITALS: BP 116/72; PULSE 80; RESP 16; TEMP 36.9; O2SAT 95; BMI 25.1
[2023-10-23 11:10] LABS: Hematocrit 37.8 % (42.0-52.0); Hemoglobin 12.2 g/dl (14.0-18.0); Mean Corpuscular HGB Conc 32.3 g/dl (31.0-36.0); Mean Corpuscular Hemoglobin 26.8 pg (27.0-33.0); Mean Corpuscular Volume 83.1 fL (80.0-98.0); Mean Platelet Volume 12.5 fL (9.4-12.4); Platelet Count 178 X10*3/uL (160-400); Red Blood Count 4.55 X10*6/uL (4.60-5.80); Red Cell Distribution Width 13.6 % (11.0-16.0)
[2023-10-23 11:12] LABS: WBC ABN SCTR FOR CBC 1; White Blood Count 7.6 X10*3/uL (4.8-10.8)
[2023-10-23 11:20] LABS: Appearance Urine Clear; Color Urine Orange
[2023-10-23 11:23] LABS: Alanine Aminotransferase 8 U/L (0-40); Albumin Level 3.9 g/dL (3.5-5.0); Alkaline Phosphatase 114 U/L (39-117); Anion Gap 12 (12-20); Aspartate Amino Transferase 16 U/L (5-37); Bilirubin Total 0.6 mg/dL (0.0-1.0); Blood Urea Nitrogen 18 mg/dL (9-16); Calcium 9.5 mg/dL (8.4-10.2); Carbon Dioxide 27 mmol/L (22-29); Chloride 108 mmol/L (96-108); Creatinine Clr Calc Pharmacy 74.4; Estimated Glomerular Filt Rate > 60; Glucose Random 103 mg/dL (60-115); Potassium 4.3 mmol/L (3.3-5.1); Sodium 143 mmol/L (135-145)
[2023-10-23 11:26] LABS: Specific Gravity - Urine > 1.030 (1.005-1.025)
[2023-10-23 11:27] LABS: UMIC TRIGGER UACC YES
[2023-10-23 11:29] LABS: Bacteria Urine None Seen (None Seen); Hyaline Casts Urine 0-2 /LPF (0-2); Squamous Epithelial Cell Urine 0-2 /HPF (0-2); WBC Urine 0-5 /HPF (0-5)
[2023-10-23 11:58] LABS: Band Neutrophils Percent 0 % (3-5); Lymphocytes Absolute Manual 0.5 X10*3/uL (1.2-4.9); Lymphocytes Percent Manual 6 % (20-40); Monocytes Absolute Manual 0.9 X10*3/uL (0.1-1.2); Monocytes Percent Manual 12 % (2-11); Neutrophils Absolute Manual 6.2 X10*3/uL (2.0-8.3); Neutrophils Percent Manual 82 % (45-73)
[2023-10-23 11:59] LABS: Hypochromasia 1+ (5-14) /OIF; Platelet Estimate NORMAL (NORMAL); Platelet Morphology Comment NORMAL; RBC Morphology NOTED
--- NOTE | 2023-10-23 12:25 | ED.BACK ---
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 He endorses associated symptoms of dysuria and increased frequency. after following up with his PCP for this, he was prescribed AZO and Levaquin for suspected UTI on 10/18/2023. He has been taking this as prescribed without relief of symptoms. Denies fever, chills, neck or back pain, hematuria. Additionally he endorses right testicular pain x3 days. He states that I was eating a spicy taco and then had sexual intercourse with my friend . The following day he woke up with right testicular pain. He has never had pain like this before. Denies penile discharge, penile lesions. He does not have concern for STDs and is declining testing at this time. lab technologist utilized throughout visit to communicate with patient. Related Data Home Medications Medication Instructions Recorded Confirmed clonazepam 1 mg tablet (Klonopin) 1 mg PO TID 05/28/20 10/19/23 aripiprazole 15 mg tablet 15 mg PO DAILY 07/12/20 10/19/23 nabumetone 750 mg tablet 750 mg PO DAILY 07/12/20 10/19/23 sertraline 100 mg tablet 100 mg PO DAILY 07/12/20 10/19/23 zolpidem 10 mg tablet (Ambien) 10 mg PO BEDTIME PRN Sleep 07/12/20 10/19/23 bupropion HCl 100 mg tablet,12 hr 1 tab PO DAILY 11/07/22 10/19/23 sustained-release diclofenac sodium 1 % topical gel 2 g topical BEDTIME PRN Pain 11/07/22 10/19/23 finasteride 5 mg tablet 5 mg PO BEDTIME 11/07/22 10/19/23 fluticasone propionate 50 1 spray intranasal DAILY PRN 11/07/22 10/19/23 mcg/actuation nasal Allergy Symptoms spray,suspension loratadine 10 mg tablet 10 mg PO DAILY PRN Allergy Symptoms 11/07/22 10/19/23 pregabalin 50 mg capsule 100 mg PO BID PRN Pain 11/07/22 10/19/23 tamsulosin 0.4 mg capsule 1 cap PO BEDTIME 11/07/22 10/19/23 leuprolide acetate (6 month) 45 mg 45 mg subcut [id number] 04/27/23 10/19/23 (6 month) subcutaneous syringe ([employer]) Previous Rx's Medication Instructions Recorded blood pressure monitor #1 ea 07/24/20 sildenafil (pulm.hypertension) 20 20 mg PO DAILY PRN sexual activity 04/22/21 mg tablet #10 tabs mupirocin 2 % topical ointment 1 appl topical BID #22 grams 06/03/22 HANDHELD SHOWER #1 ea 11/18/22 LIGHTWEIGHT CANE #1 ea 11/18/22 meclizine 25 mg tablet 25 mg PO BID PRN dizziness 10 days 02/06/23 #20 tabs pantoprazole 40 mg tablet,delayed 40 mg PO DAILY 30 days #30 tabs 06/16/23 release sodium chloride 0.65 % nasal spray 2 spray intranasal Q12H PRN dry 07/12/23 aerosol (Saline Nasal) nasal passages #30 mL hydrocortisone 2.5 % topical cream 1 appl [place] BID-QID PRN hemorrhoids 08/06/23 with perineal applicator #30 grams (Anusol-HC) acetaminophen 500 mg tablet 500 mg PO Q6H PRN pain #100 tabs 08/19/23 famotidine 20 mg tablet 20 mg PO BID PRN abdominal pain 09/14/23 #60 tabs albuterol sulfate 90 mcg/actuation 2 puff inhalation QID PRN 10/08/23 aerosol inhaler (Ventolin HFA) Bronchospasm #8.5 grams tramadol 50 mg tablet 50 mg PO TID PRN pain #90 tabs 10/13/23 hydrocortisone 2.5 % topical cream 1 appl IL BID #60 grams 10/19/23 with perineal applicator levofloxacin 500 mg tablet 500 mg PO DAILY 7 days #7 tabs 10/19/23 nitrofurantoin macrocrystal 100 mg 100 mg PO BID 7 days #14 caps 10/23/23 capsule phenazopyridine 200 mg tablet 200 mg PO Q8H PRN pain (scale 10/23/23 (Pyridium) score 4-6) 6 doses #14 tabs Allergies Allergy/AdvReac Type Severity Reaction Status Date / Time Penicillins [PENICILLINS] Allergy Intermediate RASH AND Verified 10/23/23 10:38 SWELLING meperidine [Demerol] Allergy Unknown pain Verified 10/23/23 10:38 morphine [MORPHINE] AdvReac Intermediate N/V Verified 10/23/23 10:38 Review of Systems Review of Systems: Constitutional: No fever, chills, fatigue, night sweats, weight changes ENT/Mouth: No ear pain, hearing loss, nasal congestion, sinus pain, rhinorrhea, sore throat Eyes: No eye pain, swelling, redness, vision changes, discharge Cardio: No chest pain, palpitations, KHAN, orthopnea, peripheral edema Pulm: No SOB, cough, sputum, wheezing, dyspnea, hemoptysis GI: No nausea, vomiting, hematemesis, abdominal pain, diarrhea, constipation, hematochezia, melena : No irregular bleeding, urgency, hesitancy, hematuria, urinary flow changes, urinary incontinence or retention, + dysuria, +increased frequency, +right flank pain MSK: No back pain, No neck pain, joint pain, myalgias Skin: No lesions, rashes Neuro: No weakness, numbness, paresthesias, LOC, dizziness, headache All other systems reviewed and are negative. [facility] Past Medical History Attestation statement: The following information was validated with the patient. Source: old records reviewed and nursing notes reviewed Medical History Overweight (BMI 25.0-29.9) Rectal bleeding Abdominal pain Epigastric pain Left-sided chest pain Internal hemorrhoid, bleeding Encounter for medication monitoring Pain in finger of left hand Bilateral hip pain Schizophrenia Prostate cancer Left foot pain Left leg pain Elevated blood pressure reading Depression Anxiety Insomnia Benign prostate hyperplasia Lumbar degenerative disc disease Osteoarthritis of right shoulder Asthma Surgical History History of colonoscopy (~03/01/18) S/P excision of lipoma H/O excision of ganglion cyst (~02/2014) Family History Family History Father Lung cancer Mother CVA (cerebral vascular accident), Onset Age: 80 Chronic mental illness Social History Social History Household Members: None Housing: Apartment Alcohol intake: never Patient Tobacco Use Status: Former Tobacco user Tobacco use type: Cigar Cigarettes Per Day: 20 Years Smoked: pt. states he has not smoked in years e-Cigarette/Vaping Use: Never Used Second Hand Smoke Exposure: No Advance Directives: No Advance Directives Information Provided: No service: No Current occupational status: disabled Cognitive needs: No Hearing needs: No Vision needs: Yes Physical Exam Vital Signs: Vital Signs: Last Vital Signs Temp 98.4 F 10/23/23 10:30 Pulse 80 10/23/23 16:35 Resp 19 10/23/23 16:35 BP 132/65 10/23/23 16:35 Pulse Ox 97 10/23/23 16:35 O2 Del Method Room Air 10/23/23 16:35 BMI result Body Mass Index 25.1 Vital signs stable, afebrile Const: General: cooperative, healthy appearing, comfortable, no acute distress, alert, awake and Physically active Orientation/consciousness: patient oriented x3 Limitations: language barrier (montserr[place] speaking) HEENT: Head: Yes normal to inspection, Yes normocephalic and Yes atraumatic Eyes: General: appearance normal, both eyes and all related structures Conjunctivae: conjunctivae normal Sclerae: sclerae normal Pupils: Equal, round and reactive pupils present EOM: EOMs intact bilaterally Neck: Neck: Yes normal visual inspection, Yes full ROM and Yes no lymphadenopathy Resp: Effort & Inspection: normal respiratory effort and able to speak in complete sentences Auscultation: clear to auscultation bilaterally Cardio: Rate: regular rate Rhythm: regular rhythm GI: Other: abd soft, nondistended, nontender, no rebound or guarding, normoactive bs x4. Inspection: Yes normal to inspection : Other: Sensitive exam performed with Gina BOND in room to loss prevention investigator. Penis is uncircumsized. Foreskin easily retractable. No penile lesions or expressible discharge from urethral meatus. Testicles with normal lie. Cremasteric reflex intact b/l. no obvious scrotal swelling. No overlying skin changes or cellulitis. General: Yes no CVA tenderness Male General Exam: No inguinal lymphadenopathy Back/Spine/Pelvis: Other: No midline spinous tenderness or step off deformity. Back: no CVA tenderness Neuro: Other: Strength 5/5 intact throughout.?Sensation intact to light touch.? Neurovascular intact distally.? General: patient oriented x3 and gait normal Cranial nerves: Yes Equal, round and reactive pupils present Gait exam (Neuro): Normal gait present Extrem: General: Yes normal to inspection and Yes capillary refill normal Course Course Course Narrative: 1626-- CBC without leukocytosis. Normocytic anemia when compared to priors. Stable H&H. Slightly elevated BUN with normal creatinine. Liver function wnl.? No acute electrolyte abnormalities requiring intervention. UA with orange coloration secondary to AZO use. Results obscured by color of the urine however it does show a high amount of RBCs. Unable to determine the presences of nitrates however this would be falsely elevated d/t azo use anyway. No bacteria seen. CT abd/pelvis obtained showing circumfrential bladder wall thickening w/ stranding account maintenance representative of cystitis. No evidence of hydronephrosis or nephrolithiasis to suggest obstructive uropathy. It also shows prostatomegally secondary to prostate cancer and BPH - of which patient is aware and has proper follow up for. Scrotal ultrasound obtained which shows normal flow to both testicals with mild right-sided varicocele that was not appreciated on physical exam. There are also tiny left testicular parenchymal calcifications which patient has been made aware of and will follow up with his urologist regarding these findings. > discussed all findings with patient. Given findings of cystitis and continued symptoms despite treatment, will send patient home with new antibiotic. He has an allergy to penicillin which he states is anaphylactic - will not prescribe cephalosporin. Nitrofurantoin sent to pharmacy. Patient has remained stable throughout ED visit today. Discussed worrisome signs and symptoms and when to return to the ED. All questions answered at this time. Patient is agreeable with disposition and stable for discharge.? Medical Decision Making Medical Decision Making [facility] Narrative: 63 year old [place] speaking male with pmhx significant for fibromyalgia, erectile dysfunction, BPH, prostate cancer in remission, asthma, osteoarthritis, lumbar DDD presents to the ED today for evaluation of right flank pain x8 days. Vital signs stable, afebrile. He is nontoxic appearing and in NAD. Please refer to physical exam section for findings. Differential diagnosis includes urinary tract infection, renal colic, nephrolithiasis, hydronephrosis, pyelonephritis, STI, BPH. Lower suspicion for obstructive uropathy, urosepsis fourniers gangrene. Plan for labs, US, CT, pain control and re-eavluation. Differential Diagnosis Differential Diagnoses: The differential diagnosis associated with the presentation includes as above Admission/Observation Not indicated. Lab Data MDM Lab Attestation statement: I reviewed the patient's lab results. as above. 10/23/23 11:01 10/23/23 11:01 Labs: Lab Results 10/23/23 Range/Units 11:01 WBC 7.6 (4.8-10.8) X10*3/uL RBC 4.55 L (4.60-5.80) X10*6/uL Hgb 12.2 L (14.0-18.0) g/dl Hct 37.8 L (42.0-52.0) % MCV 83.1 (80.0-98.0) fL MCH 26.8 L (27.0-33.0) pg MCHC 32.3 (31.0-36.0) g/dl RDW 13.6 (11.0-16.0) % Plt Count 178 (160-400) X10*3/uL MPV 12.5 H (9.4-12.4) fL Immature Gran % (Auto) Cancelled Neut % (Auto) Cancelled Lymph % (Auto) Cancelled [place] % (Auto) Cancelled Eos % (Auto) Cancelled Baso % (Auto) Cancelled Lymph # (Auto) Cancelled [place] # (Auto) Cancelled Eos # (Auto) Cancelled Baso # (Auto) Cancelled Abs Immat Gran (auto) Cancelled Absolute Neuts (auto) Cancelled Absolute Nucleated RBC 0.000 (0.0-0.012) X10*3/uL Nucleated RBC % (auto) 0.0 (0.0-0.2) /100WBC Neutrophils % (Manual) 82 H (45-73) % Band Neutrophils % 0 L (3-5) % Lymphocytes % (Manual) 6 L (20-40) % Monocytes % (Manual) 12 H (2-11) % Abs Neuts (Manual) 6.2 (2.0-8.3) X10*3/uL Lymphocytes # (Manual) 0.5 L (1.2-4.9) X10*3/uL Monocytes # (Manual) 0.9 (0.1-1.2) X10*3/uL Platelet Estimate NORMAL (NORMAL) Plt Morphology Comment NORMAL RBC Morphology NOTED Hypochromasia 1+ (5-14) /OIF Sodium 143 (135-145) mmol/L Potassium 4.3 (3.3-5.1) mmol/L Chloride 108 (96-108) mmol/L Carbon Dioxide 27 (22-29) mmol/L Anion Gap 12 (12-20) BUN 18 H (9-16) mg/dL Creatinine 0.97 (0.5-1.4) mg/dL Estim Creat Clear Calc 74.4 Estimated GFR > 60 Random Glucose 103 (60-115) mg/dL Calcium 9.5 D (8.4-10.2) mg/dL Total Bilirubin 0.6 (0.0-1.0) mg/dL AST 16 (5-37) U/L ALT 8 (0-40) U/L Alkaline Phosphatase 114 (39-117) U/L Total Protein 7.0 (6.5-8.0) g/dL Albumin 3.9 (3.5-5.0) g/dL Urine Color [place] A Urine Appearance Clear Urine pH 5.0 (5.0-9.0) Ur Specific [place] > 1.030 H (1.005-1.025) Urine Protein See Note (Neg-Trace) mg/dL Urine Glucose (UA) See Note (Negative) mg/dL Urine Ketones See Note (Negative) mg/dL Urine Blood See Note (Negative) Urine Nitrite See Note (Negative) Ur Leukocyte Esterase See Note (Negative) Urine RBC 3-5 H (0-2) /HPF Urine WBC 0-5 (0-5) /HPF Ur Squamous Epith Cells 0-2 (0-2) /HPF Urine Bacteria None Seen (None Seen) Hyaline Casts 0-2 (0-2) /LPF Independent Interpretation I performed an independent interpretation of an: Ultrasound and CT Scan Interpretation: I have reviewed scrotal US and agree with radiologist's interpretation. I have reviewed CT scan and agree with radiologist's interpretation. Radiology Impression Discussion of test interpretation with radiology: I have reviewed the radiologist's reading. Radiologist Impression: CT abdomen pelvis wo IV con IMPRESSION: 1. Circumferential bladder wall thickening with adjacent stranding, new when compared to the prior examination. Findings could represent cystitis in the appropriate clinical setting. No evidence of perforation or abscess formation. 2. No hydronephrosis or nephrolithiasis. Simple bilateral renal cysts. Findings are not clinically significant and no dedicated follow-up imaging is recommended. 3. No small or large bowel obstruction. No bowel wall thickening or inflammatory change. Unremarkable appendix. 4. No intra-abdominal mass, lymphadenopathy, or ascites. 5. Prostatomegaly. Fleischner guidelines were followed. US scrotum doppler IMPRESSION: 1. Mild right-sided varicocele. 2. Tiny left testicular parenchymal calcifications measuring up to 0.1 cm. External Record Review External record reviewed: Inpatient record, Office record, Outpatient record, Prior outpatient labs, Prior outpatient radiology, Primary care record and Outside ED record Prescription Management I considered prescription management with: Pain Medication Chronic Conditions Patient?s care impacted by: Other (BPH, prostate cancer) Social Determinants Patient?s care significantly limited by Social Determinants of Health including: Other Social Determinant of Health Discharge Plan Discharge Clinical Impression: Cystitis, Benign prostatic hyperplasia, Right varicocele Patient Disposition: Home, Self-Care Instructions: Urinary Tract Infection in Men (ED), Acute Low Back Pain (ED) Additional Instructions: Your labs today are reassuring. Your urine results were obscured due to the color of your urine. The CT scan of your abdomen/ pelvis does not show renal stones. The imaging shows cysts on both of your kidneys along with thickening of the lining of your bladder which indicates cystitis , or infection of the bladder. Stop taking Levaquin. Nitrofurantoin is a new antibiotic that has been sent to your pharmacy. Take this as directed over the next 7 days. Do not skip any doses or stop taking this early as this may cause infection to persist or worsen. Pyridium has not sent to your pharmacy to help with urinary discomfort. Return with new or worsening symptoms as discussed, such as fever, chills, increasing pain, inability to urinate. The ultrasound of your scrotum shows a small amount of fluid around your right testicle along with small calcifications. As discussed, you need to follow up with either your urologist or your PCP regarding these findings. If you do not have a urologist, a referral has been provided to you. Nolvia an?lisis de hoy son tranquilizadores. Los resultados de stevens orina quedaron oscurecidos debido al color de stevens orina. La tomograf?a computarizada de stevens abdomen/pelvis no muestra c?lculos renales. Las im?genes muestran quistes en ambos ri?ones junto con un engrosamiento del revestimiento de la vejiga, lo que indica cistitis o infecci?n de la vejiga. Deje de krissy Levaquin. La nitrofuranto?na es un nuevo antibi?juancarlos que velasco sido enviado a stevens farmacia. T?beltrán seg?n las indicaciones joseph los pr?ximos 7 d?as. No se salte ninguna dosis ni deje de tomarlo antes de tiempo, ya que esto puede hacer que la infecci?n persista o empeore. Pyridium no lo velasco enviado a stevens farmacia para ayudar con las molestias urinarias. Regrese con s?ntomas nuevos o que empeoran mikaela se mencion? anteriormente, mikaela fiebre, escalofr?os, dolor creciente, incapacidad para orinar. La ecograf?a del escroto muestra eveline tariq?a cantidad de l?quido alrededor del test?culo derecho junto con tariq?as calcificaciones. Mikaela se mencion? anteriormente, debe hacer un seguimiento con stevens ur?logo o stevens PCP con respecto a estos hallazgos. Si no tiene un ur?logo, se le velasco proporcionado eveline derivaci?n. Prescriptions: New nitrofurantoin macrocrystal 100 mg capsule 100 mg PO BID 7 Days Qty: 14 0RF Rx Instructions: must administer with a meal/food phenazopyridine [Pyridium] 200 mg tablet 200 mg PO Q8H PRN (Reason: pain (scale score 4-6)) Qty: 14 0RF No Action (DME) blood pressure monitor Kit See Rx Instructions .ROUTE .MEDSUPPLY Qty: 1 0RF Rx Instructions: As directed (DME) LIGHTWEIGHT CANE See Rx Instructions .Route .MEDSUPPLY Qty: 1 0RF Rx Instructions: As directed (DME) HANDHELD SHOWER See Rx Instructions .Route .MEDSUPPLY Qty: 1 0RF Rx Instructions: As directed meclizine 25 mg tablet 25 mg PO BID PRN (Reason: dizziness) 10 Days Qty: 20 0RF pantoprazole 40 mg tablet,delayed release (DR/EC) 40 mg PO DAILY 30 Days Qty: 30 3RF Saline Nasal 0.65 % aerosol,spray 2 spray intranasal Q12H PRN (Reason: dry nasal passages) Qty: 30 1RF hydrocortisone [Anusol-HC] 2.5 % cream with perineal applicator 1 appl IL BID-QID PRN (Reason: hemorrhoids) Qty: 30 1RF acetaminophen 500 mg tablet 500 mg PO Q6H PRN (Reason: pain) Qty: 100 1RF famotidine 20 mg tablet 20 mg PO BID PRN (Reason: abdominal pain) Qty: 60 2RF albuterol sulfate [Ventolin HFA] 90 mcg/actuation HFA aerosol inhaler 2 puff INHALATION QID PRN (Reason: Bronchospasm) Qty: 8.5 0RF tramadol 50 mg tablet 50 mg PO TID PRN (Reason: pain) Qty: 90 2RF bupropion HCl 100 mg tablet sustained-release 12 hr 1 tab PO DAILY tamsulosin 0.4 mg capsule 1 cap PO BEDTIME fluticasone propionate 50 mcg/actuation [place],Suspension 1 spray INTRANASAL DAILY PRN (Reason: Allergy Symptoms) Rx Instructions: administer into each nostril loratadine 10 mg Tablet 10 mg PO DAILY PRN (Reason: Allergy Symptoms) pregabalin 50 mg capsule 100 mg PO BID PRN (Reason: Pain) Rx Instructions: patient states he only takes twice weekly diclofenac sodium 1 % gel 2 g topical BEDTIME PRN (Reason: Pain) Rx Instructions: apply 2 gram to L foot nightly as needed finasteride 5 mg Tablet 5 mg PO BEDTIME clonazepam [Klonopin] 1 mg tablet 1 mg PO TID aripiprazole 15 mg tablet 15 mg PO DAILY zolpidem [Ambien] 10 mg tablet 10 mg PO BEDTIME PRN (Reason: Sleep) sertraline 100 mg tablet 100 mg PO DAILY nabumetone 750 mg tablet 750 mg PO DAILY sildenafil (pulm.hypertension) 20 mg tablet 20 mg PO DAILY PRN (Reason: sexual activity) Qty: 10 0RF mupirocin 2 % ointment 1 appl topical BID Qty: 22 0RF Rx Instructions: apply to lesion on the back of the right leg Eligard (6 month) 45 mg syringe 45 mg subcut [id number] hydrocortisone 2.5 % cream with perineal applicator 1 appl [place] BID Qty: 60 1RF levofloxacin 500 mg tablet 500 mg PO DAILY 7 Days Qty: 7 0RF Ref[place]: [facility] [place] [facility] [[place] Group] [facility] [place] [facility] [Provider Group] Interventions: ED Discharge Assessment Last Done: 10/23/23 16:39 Discharge Date/Time: 10/23/23 16:40 Print Language: An[place]
[2023-10-23 16:35] VITALS: BP 132/65; PULSE 80; RESP 19; O2SAT 97
== END 2023-10-23 16:40 | disposition home or self-care (01) ==
PROVIDERS: Emergency Provider Emergency Medicine Emergency Medical Services; PCP Internal Medicine
DX: N30.90 Cystitis, unspecified without hematuria (principal); N40.0 Benign prostatic hyperplasia without lower urinary tract symptoms; I86.1 Scrotal varices; R10.9 Unspecified abdominal pain; R30.0 Dysuria; N50.811 Right testicular pain; Z79.899 Other long term (current) drug therapy
CPT/HCPCS: 36415; 74176; 76870; 80053; 81001; 85007; 85027; 93975; 99283; 99284

== ENCOUNTER 2023-11-30 07:19 | Emergency (ER) | payer OTHER, SELFPAY ==
[2023-11-30 07:42] VITALS: BP 106/70; PULSE 82; RESP 16; TEMP 37; O2SAT 96; BMI 24.4
--- NOTE | 2023-11-30 09:23 | ED.BACK ---
HPI - Back Pain/Injury General Chief Complaint: Back Pain/Injury Stated Complaint: Back pain Time Seen by Provider: 11/30/23 07:45 Source: patient Mode of arrival: ambulatory Limitations: no limitations History of Present Illness HPI Narrative: Patient with lumbar pain, he denies injury, states that the pain is mostly down his right leg. Patient is being followed for prostate cancer, had a CT in October that was negative for lytic lesions, had a nuclear bone scan done last week at [facility] that was negative for active metastatic cancer MD elicited complaint: back pain Onset (ago): day(s) Quality: aching Related Data Home Medications ?Medication ?Instructions ?Recorded ?Confirmed clonazepam 1 mg tablet (Klonopin) 1 mg PO TID 05/28/20 10/19/23 aripiprazole 15 mg tablet 15 mg PO DAILY 07/12/20 10/19/23 nabumetone 750 mg tablet 750 mg PO DAILY 07/12/20 10/19/23 sertraline 100 mg tablet 100 mg PO DAILY 07/12/20 10/19/23 zolpidem 10 mg tablet (Ambien) 10 mg PO BEDTIME PRN Sleep 07/12/20 10/19/23 bupropion HCl 100 mg tablet,12 hr 1 tab PO DAILY 11/07/22 10/19/23 sustained-release diclofenac sodium 1 % topical gel 2 g topical BEDTIME PRN Pain 11/07/22 10/19/23 finasteride 5 mg tablet 5 mg PO BEDTIME 11/07/22 10/19/23 fluticasone propionate 50 1 spray intranasal DAILY PRN 11/07/22 10/19/23 mcg/actuation nasal Allergy Symptoms spray,suspension loratadine 10 mg tablet 10 mg PO DAILY PRN Allergy Symptoms 11/07/22 10/19/23 pregabalin 50 mg capsule 100 mg PO BID PRN Pain 11/07/22 10/19/23 tamsulosin 0.4 mg capsule 1 cap PO BEDTIME 11/07/22 10/19/23 leuprolide acetate (6 month) 45 mg 45 mg subcut [id number] 04/27/23 10/19/23 (6 month) subcutaneous syringe (Eligard) Previous Rx's ?Medication ?Instructions ?Recorded blood pressure monitor #1 ea 07/24/20 sildenafil (pulm.hypertension) 20 20 mg PO DAILY PRN sexual activity 04/22/21 mg tablet #10 tabs mupirocin 2 % topical ointment 1 appl topical BID #22 grams 06/03/22 HANDHELD SHOWER #1 ea 11/18/22 LIGHTWEIGHT CANE #1 ea 11/18/22 meclizine 25 mg tablet 25 mg PO BID PRN dizziness 10 days 02/06/23 #20 tabs pantoprazole 40 mg tablet,delayed 40 mg PO DAILY 30 days #30 tabs 06/16/23 release sodium chloride 0.65 % nasal spray 2 spray intranasal Q12H PRN dry 07/12/23 aerosol (Saline Nasal) nasal passages #30 mL hydrocortisone 2.5 % topical cream 1 appl MI BID-QID PRN hemorrhoids 08/06/23 with perineal applicator #30 grams (Anusol-HC) acetaminophen 500 mg tablet 500 mg PO Q6H PRN pain #100 tabs 08/19/23 famotidine 20 mg tablet 20 mg PO BID PRN abdominal pain 09/14/23 #60 tabs tramadol 50 mg tablet 50 mg PO TID PRN pain #90 tabs 10/13/23 hydrocortisone 2.5 % topical cream 1 appl MI BID #60 grams 10/19/23 with perineal applicator levofloxacin 500 mg tablet 500 mg PO DAILY 7 days #7 tabs 10/19/23 nitrofurantoin macrocrystal 100 mg 100 mg PO BID 7 days #14 caps 10/23/23 capsule phenazopyridine 200 mg tablet 200 mg PO Q8H PRN pain (scale 10/23/23 (Pyridium) score 4-6) 6 doses #14 tabs REUSABLE BED PADS #3 ea 10/25/23 albuterol sulfate 90 mcg/actuation 2 puff inhalation QID PRN 10/31/23 aerosol inhaler (Ventolin HFA) Bronchospasm #8.5 grams cyclobenzaprine 10 mg tablet 10 mg PO TID #10 tabs 11/30/23 naproxen 500 mg tablet (Naprosyn) 500 mg PO BID #20 tabs 11/30/23 Allergies Allergy/AdvReac Type Severity Reaction Status Date / Time Penicillins [PENICILLINS] Allergy Intermediate RASH AND Verified 11/30/23 07:44 SWELLING meperidine [Demerol] Allergy Unknown pain Verified 11/30/23 07:44 morphine [MORPHINE] AdvReac Intermediate N/V Verified 11/30/23 07:44 Review of Systems Review of Systems: Yes all other systems are reviewed and are negative Neurologic: Denies Sensory deficit (Neuro) [facility] Past Medical History Medical History Overweight (BMI 25.0-29.9) Rectal bleeding Abdominal pain Epigastric pain Left-sided chest pain Internal hemorrhoid, bleeding Encounter for medication monitoring Pain in finger of left hand Bilateral hip pain Schizophrenia Prostate cancer Left foot pain Left leg pain Elevated blood pressure reading Depression Anxiety Insomnia Benign prostate hyperplasia Lumbar degenerative disc disease Osteoarthritis of right shoulder Asthma Surgical History History of colonoscopy (~03/01/18) S/P excision of lipoma H/O excision of ganglion cyst (~02/2014) Family History Family History Father Lung cancer Mother CVA (cerebral vascular accident), Onset Age: 80 Chronic mental illness Social History Social History Household Members: None Housing: Apartment Alcohol intake: never Patient Tobacco Use Status: Former Tobacco user Tobacco use type: Cigar Cigarettes Per Day: 20 Years Smoked: pt. states he has not smoked in years e-Cigarette/Vaping Use: Never Used Second Hand Smoke Exposure: No Advance Directives: No Advance Directives Information Provided: Yes service: No Current occupational status: disabled Cognitive needs: No Hearing needs: No Vision needs: Yes Physical Exam Vital Signs: Vital Signs: Last Vital Signs Temp 98.6 F 11/30/23 07:42 Pulse 82 11/30/23 07:42 Resp 16 11/30/23 07:42 BP 106/70 11/30/23 07:42 Pulse Ox 96 11/30/23 07:42 O2 Del Method Room Air 11/30/23 07:42 BMI result Body Mass Index 24.4 Const: General: healthy appearing Nutritional Appearance: average body habitus Orientation/consciousness: oriented to person and patient oriented x3 Limitations: no limitations HEENT: Head: Yes normal to inspection Ears: external ears normal General nose exam: Normal external nose present Mouth: Normal oral and palatal mucosa present and oropharynx normal Throat: Yes posterior oropharynx normal Eyes: General: appearance normal, both eyes and all related structures Neck: Other: supple Neck: Yes normal visual inspection Chest: Chest palpation & inspection: normal inspection of the chest Resp: Auscultation: clear to auscultation bilaterally Cardio: Jugular venous distension: no JVD Rate: regular rate Rhythm: regular rhythm Heart sounds: S1 normal heart sound present and S2 normal heart sound present GI: Inspection: Yes normal to inspection Palpation (GI): Soft to palpation, nontender and No hepatosplenomegaly present Auscultation: normal bowel sounds Back/Spine/Pelvis: Other: right SI tenderness, sciatic notch very mild tenderness Skin: General skin exam: no rashes or lesions noted Neuro: General: oriented to person and patient oriented x3 Cranial nerves: Yes CN's II-XII intact bilaterally Motor exam (neuro): 5/5 motor strength present throughout Sensory Exam: No Sensory deficit (Neuro) Extrem: General: Yes normal to inspection Psych: Appearance: grossly normal Course Reevaluation(s) Reevaluation #1: patient with no evidence of metastatic cancer will treat with nsaids and flexeril Time: 09:43 Medical Decision Making Differential Diagnosis Differential Diagnoses: The differential diagnosis associated with the presentation includes (metastatic cancer, prostate cancer, herniated disk, sciatica, lumbago) Admission/Observation Consideration of admission/observation: Escalation of care including admission/observation considered (upon arrival admission was considered) External Record Review External record reviewed: Outpatient record and Prior outpatient radiology Tests considered The following testing was considered but not selected: MRI of spine considered but patient does not have focal weakness, and does not have metastatic disease Chronic Conditions Patient?s care impacted by: Cancer Discharge Plan Discharge Clinical Impression: Lumbar radiculopathy Patient Disposition: Home, Self-Care Instructions: Acute Low Back Pain (ED), Lumbar Radiculopathy (ED) Prescriptions: New cyclobenzaprine 10 mg tablet 10 mg PO TID Qty: 10 0RF naproxen [Naprosyn] 500 mg tablet 500 mg PO BID Qty: 20 0RF No Action (DME) blood pressure monitor Kit See Rx Instructions .ROUTE .MEDSUPPLY Qty: 1 0RF Rx Instructions: As directed (DME) LIGHTWEIGHT CANE See Rx Instructions .Route .MEDSUPPLY Qty: 1 0RF Rx Instructions: As directed (DME) HANDHELD SHOWER See Rx Instructions .Route .MEDSUPPLY Qty: 1 0RF Rx Instructions: As directed meclizine 25 mg tablet 25 mg PO BID PRN (Reason: dizziness) 10 Days Qty: 20 0RF pantoprazole 40 mg tablet,delayed release (DR/EC) 40 mg PO DAILY 30 Days Qty: 30 3RF Saline Nasal 0.65 % aerosol,spray 2 spray intranasal Q12H PRN (Reason: dry nasal passages) Qty: 30 1RF hydrocortisone [Anusol-HC] 2.5 % cream with perineal applicator 1 appl MI BID-QID PRN (Reason: hemorrhoids) Qty: 30 1RF acetaminophen 500 mg tablet 500 mg PO Q6H PRN (Reason: pain) Qty: 100 1RF famotidine 20 mg tablet 20 mg PO BID PRN (Reason: abdominal pain) Qty: 60 2RF tramadol 50 mg tablet 50 mg PO TID PRN (Reason: pain) Qty: 90 2RF (DME) REUSABLE BED PADS See Rx Instructions .Route .MEDSUPPLY Qty: 3 0RF Rx Instructions: As directed albuterol sulfate [Ventolin HFA] 90 mcg/actuation HFA aerosol inhaler 2 puff INHALATION QID PRN (Reason: Bronchospasm) Qty: 8.5 0RF bupropion HCl 100 mg tablet sustained-release 12 hr 1 tab PO DAILY tamsulosin 0.4 mg capsule 1 cap PO BEDTIME fluticasone propionate 50 mcg/actuation [place],Suspension 1 spray INTRANASAL DAILY PRN (Reason: Allergy Symptoms) Rx Instructions: administer into each nostril loratadine 10 mg Tablet 10 mg PO DAILY PRN (Reason: Allergy Symptoms) pregabalin 50 mg capsule 100 mg PO BID PRN (Reason: Pain) Rx Instructions: patient states he only takes twice weekly diclofenac sodium 1 % gel 2 g topical BEDTIME PRN (Reason: Pain) Rx Instructions: apply 2 gram to L foot nightly as needed finasteride 5 mg Tablet 5 mg PO BEDTIME nitrofurantoin macrocrystal 100 mg capsule 100 mg PO BID 7 Days Qty: 14 0RF Rx Instructions: must administer with a meal/food phenazopyridine [Pyridium] 200 mg tablet 200 mg PO Q8H PRN (Reason: pain (scale score 4-6)) Qty: 14 0RF clonazepam [Klonopin] 1 mg tablet 1 mg PO TID aripiprazole 15 mg tablet 15 mg PO DAILY zolpidem [Ambien] 10 mg tablet 10 mg PO BEDTIME PRN (Reason: Sleep) sertraline 100 mg tablet 100 mg PO DAILY nabumetone 750 mg tablet 750 mg PO DAILY sildenafil (pulm.hypertension) 20 mg tablet 20 mg PO DAILY PRN (Reason: sexual activity) Qty: 10 0RF mupirocin 2 % ointment 1 appl topical BID Qty: 22 0RF Rx Instructions: apply to lesion on the back of the right leg Eligard (6 month) 45 mg syringe 45 mg subcut [id number] hydrocortisone 2.5 % cream with perineal applicator 1 appl MI BID Qty: 60 1RF levofloxacin 500 mg tablet 500 mg PO DAILY 7 Days Qty: 7 0RF Referrals: Lai Olson MD [Primary Care Provider] - 5 days Print Language: Cymro
[2023-11-30] MEDS: Cyclobenzaprine HCl 10 MG TABLET PO (09:40)
[2023-11-30] MEDS: Ketorolac Tromethamine 60 MG/2 ML VIAL IM (09:41)
[2023-11-30 10:26] VITALS: BP 143/82; PULSE 80; RESP 18; TEMP 36.1; O2SAT 98
[2023-11-30 10:31] VITALS: BP 140/63; PULSE 80; RESP 18; TEMP 36.1; O2SAT 99
== END 2023-11-30 10:30 | disposition home or self-care (01) ==
PROVIDERS: Emergency Provider Emergency Medicine; PCP Internal Medicine
DX: M54.16 Radiculopathy, lumbar region (principal); M79.661 Pain in right lower leg; C61 Malignant neoplasm of prostate; Z79.899 Other long term (current) drug therapy
CPT/HCPCS: 96372; 99284; J1885

== ENCOUNTER 2023-12-08 09:29 | Outpatient (AMB) | payer OTHER, SELFPAY ==
[2023-12-08 09:34] VITALS: BP 130/72; PULSE 77; O2SAT 98; BMI 24.8
--- NOTE | 2023-12-08 09:34 | A.OFFVIS_ITS ---
Intake Vital Signs 12/08/23 09:34 Height 5 ft 8 in Weight 163 lb 2.273 oz BMI 24.8 BP 130/72 Blood Pressure Location Rt brachial Position Sitting Pulse 77 Pulse Source Pulse Oximeter Pulse Oximetry (%) 98 Oxygen Delivery Method Room Air Intake Visit Reasons: FMS Intake Note: Patient last seen 06/15/23 presents today for follow up. 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 Required: Yes Supervisor Fish Bait Processing Language: Director Outpatient Services Name: Radha [id number] Information Interpreted: clinical only Accompanied by: Self / Same As Patient Allergies Penicillins [PENICILLINS] Allergy (Intermediate, Verified 12/08/23 09:37) RASH AND SWELLING meperidine [Demerol] Allergy (Unknown, Verified 12/08/23 09:37) pain morphine [MORPHINE] Adverse Reaction (Intermediate, Verified 12/08/23 09:37) N/V Medication List - Last Reconciled 12/08/23 by Lovely Garcia MD acetaminophen 500 mg PO Q6H PRN albuterol sulfate 90 mcg/actuation (Ventolin HFA) 2 puffs inhalation QID PRN aripiprazole 15 mg PO DAILY blood pressure monitor As directed bupropion HCl SR 1 tab PO DAILY clonazepam (Klonopin) 1 mg PO TID cyclobenzaprine 10 mg PO TID diclofenac sodium 1% 2 grams topical BEDTIME PRN famotidine 20 mg PO BID PRN finasteride 5 mg PO BEDTIME fluticasone propionate 50 mcg/actuation 1 spray intranasal DAILY PRN [HANDHELD SHOWER As directed] hydrocortisone 2.5% (Anusol-HC) 1 appl [place] BID-QID PRN hydrocortisone 2.5% 1 appl [place] BID leuprolide acetate (6 month) (Eligard) 45 mg subcut [id number] [LIGHTWEIGHT CANE As directed] loratadine 10 mg PO DAILY PRN meclizine 25 mg PO BID PRN 10 days mupirocin 2% 1 appl topical BID nabumetone 750 mg PO DAILY naproxen (Naprosyn) 500 mg PO BID pantoprazole 40 mg PO DAILY 30 days phenazopyridine (Pyridium) 200 mg PO Q8H PRN 6 doses pregabalin 100 mg PO BID PRN [REUSABLE BED PADS As directed] sertraline 100 mg PO DAILY sildenafil (pulm.hypertension) 20 mg PO DAILY PRN sodium chloride 0.65% (Saline Nasal) 2 sprays intranasal Q12H PRN tamsulosin 1 cap PO BEDTIME tramadol 50 mg PO TID zolpidem (Ambien) 10 mg PO BEDTIME PRN HPI HPI Comments History of Present Illness Details This is a 63-year-old male with fibromyalgia who presents for follow- up. States that he recently presented to the hospital with low back pain and had a CT abdomen which did not show kidney stones but showed findings suggestive of cystitis. He was evaluated by urologist and had a cystoscopy. Was told that he has some inflammation. He continues to have bilateral lower back pain that radiates towards his lower extremities. States that he was evaluated by pain management in the past and had an injection in his back and had a bad reaction to it. Continues to take tramadol t.i.d. [facility] Medical History Overweight (BMI 25.0-29.9) Rectal bleeding Abdominal pain Epigastric pain Left-sided chest pain Internal hemorrhoid, bleeding Encounter for medication monitoring Pain in finger of left hand Bilateral hip pain Schizophrenia Prostate cancer Left foot pain Left leg pain Elevated blood pressure reading Depression Anxiety Insomnia Benign prostate hyperplasia Lumbar degenerative disc disease Osteoarthritis of right shoulder Asthma Surgical History History of colonoscopy (~03/01/18) S/P excision of lipoma H/O excision of ganglion cyst (~02/2014) Family History Father Lung cancer Mother CVA (cerebral vascular accident), Onset Age: 80 Chronic mental illness Social History Household Members: None Housing: Apartment Alcohol intake: never Patient Tobacco Use Status: Former Tobacco user Tobacco use type: Cigar Cigarettes Per Day: 20 Years Smoked: pt. states he has not smoked in years e-Cigarette/Vaping Use: Never Used Second Hand Smoke Exposure: No service: No Current occupational status: disabled Cognitive needs: No Hearing needs: No Vision needs: Yes Review of Systems Musc Reports back pain, Reports arthralgias and Reports radiating pain into limb Physical Exam Vital Signs: Last Vital Signs Pulse 77 12/08/23 09:34 BP 130/72 12/08/23 09:34 Pulse Ox 98 12/08/23 09:34 Oxygen Delivery Method Room Air 12/08/23 09:34 BMI result Body Mass Index 24.8 Const General: cooperative, healthy appearing and comfortable HEENT Head: Yes normocephalic and Yes atraumatic Back/Spine/Pelvis Other: Positive straight leg raise test bilaterally Extrem Other: Multiple fibromyalgia tender points Results Reviewed Results Reviewed: Laboratory Tests 1 09:10 09:10 09:[address] [facility] 12/31/2014 Rheumatoid factor negative, HANNA positive 1:40, p-ANCA/c-Anca negative, immunofixation normal, double-stranded DNA negative, C3 low at 61, C4 normal at 17. Hepatitis panel negative Ordering Physician: Lai Olson MD Date of Service: 08/20/22 Procedure(s): XR finger LT min 2V Accession Number(s): [id number] cc: Lai Olson MD~ EXAMINATION: XR FINGER, LEFT CLINICAL INFORMATION: Pain.? COMPARISON: Radiograph of the left hand/wrist 09/01/2010.? TECHNIQUE: Three views of the left index finger. FINDINGS: Soft tissue swelling around the second digit. No unexpected radiopaque foreign bodies. No acute fractures or malalignment. Mild degenerative osteoarthritis of the first carpometacarpal joint and triscaphe space. Ordering Physician: Bobby Pro MD Date of Service: 05/28/22 Procedure(s): NM bone scan whole body Accession Number(s): [id number] cc: Bobby Pro MD~ EXAMINATION: NM BONE SCAN OF THE WHOLE BODY CLINICAL INFORMATION: Carcinoma of the prostate. Low back pain. COMPARISON: No existing relevant imaging study available. TECHNIQUE: Multiple gamma scintillation camera images of the whole body were performed 3 hours following the intravenous administration of 25 mCi Tc-99m MDP. FINDINGS: In the head, no suspicious focal lesion. In the thoracic cage and upper extremities, asymmetric mild increased radiotracer activities are present at the costochondral transverse junction of right 10th and 11th ribs, most consistent with degenerative changes. Mild increased radiotracer activities are also noted at both sternoclavicular as well as acromioclavicular joints, most consistent with arthritic changes. In the spine, mild increased radiotracer activities at lower cervical spine, and lower lumbosacral spine, most consistent with degenerative spondylosis. In the pelvis, no suspicious focal lesion. In the lower extremities, mildly increased radiotracer activities around both knees, most consistent with mild degenerative osteoarthrosis. No other definite bony abnormalities are noted. The urinary bladder and faint visualization of both kidneys are noted. NM/NM bone scan whole body IMPRESSION: ? 1. No definite scintigraphic evidence of metastatic disease. 2. Note is however made of presence of increased radiotracer activities at the costotransverse junction of right 10th and 11th ribs, the lower cervical, and the lower lumbosacral spine, most consistent with degenerative changes. 3. Mild increased radiotracer activities around both shoulder and both sternoclavicular joints and both kidneys likely also represent degenerative and/or posttraumatic arthritic changes. ? Follow-up the PSMA PET/CT study may be considered (more sensitive) for further full detail evaluation, if clinically appropriate. XR/XR finger LT min 2V IMPRESSION: 1.? No acute fractures or malalignment. 2.? Mild degenerative osteoarthritis of the first carpometacarpal joint and triscaphe space. ? Ordering Physician: Jessika Borden NP Date of Service: 11/06/21 Procedure(s): XR shoulder RT min 2V Accession Number(s): [id number] cc: Jessika Borden NP~ EXAMINATION: XR shoulder RT min 2V CLINICAL INFORMATION: Reason for Exam M25.511 - Pain in right shoulder COMPARISON: None? TECHNIQUE: Four views of the shoulder. XR/XR shoulder RT min 2V FINDINGS/IMPRESSION: ? No acute fracture or dislocation. ? Mild degenerative changes of the acromioclavicular and glenohumeral joints with degenerative spurring. ? Soft tissues are unremarkable. ? Visualized portion of lung appears clear. Assessment & Plan Assessment & Plan (1) Fibromyalgia: Code(s): M79.7 - Fibromyalgia (2) Lumbar spondylosis: Code(s): M47.816 - Spondylosis without myelopathy or radiculopathy, lumbar region Plan: This is a 62-year-old male with fibromyalgia and generalized osteoarthritis who presents for follow-up. Continues to take tramadol 50 mg t.i.d. has been having worsening bilateral lower back pain. Not interested in pain management evaluation as he had a bad reaction to an injection previously. Continue with tramadol 50 mg t.i.d. refilled Follow-up in 6 months Plan I spent 16 minutes reviewing patient's chart, evaluating patient, , counseling patient and documenting in the chart Medications: Changed From tramadol 50 mg PO TID M47.816 - Spondylosis without myelopathy or radiculopathy, lumbar region To tramadol 50 mg PO TID PRN 90 tabs 5RF pain M47.816 - Spondylosis without myelopathy or radiculopathy, lumbar region Coding Level of Care Code Est Pt Level 3 (79464) Diagnoses Fibromyalgia M79.7 Lumbar spondylosis M47.816
== END 2023-12-08 10:05 | disposition home or self-care (01) ==
PROVIDERS: PCP Internal Medicine; Visit Provider Student in an Organized Health Care Education/Training Program
DX: M79.7 Fibromyalgia (principal); M47.816 Spondylosis without myelopathy or radiculopathy, lumbar region
CPT/HCPCS: 99213

== ENCOUNTER → 2023-12-08 09:29 | Outpatient (BNVA) | payer OTHER, SELFPAY | PROVIDERS: PCP Internal Medicine; Visit Provider Student in an Organized Health Care Education/Training Program | DX: M79.7 Fibromyalgia (principal); M47.816 Spondylosis without myelopathy or radiculopathy, lumbar region | CPT/HCPCS: 99212 ==

== ENCOUNTER 2023-12-09 10:27 | Outpatient (AMB) | payer OTHER, SELFPAY ==
--- NOTE | 2023-12-09 10:43 | AM.OFFVISNUR ---
Intake Intake Visit Reasons: pneumonia vaccine Allergies Penicillins [PENICILLINS] Allergy (Intermediate, Verified 12/08/23 09:37) RASH AND SWELLING meperidine [Demerol] Allergy (Unknown, Verified 12/08/23 09:37) pain morphine [MORPHINE] Adverse Reaction (Intermediate, Verified 12/08/23 09:37) N/V Immunizations pneumoc 20-palmira conj-dip cr(PF) 0.5 mL IM syringe Performing Provider: Lai Olson MD Performing Location: [facility] Administered by: Valentina Mullins RN on 12/09/23 10:43 Dose Route Admin Location Dispensed Lot Number Expiration Date NDC Kiln Operator Helper 0.5 mL IM Right Deltoid 0.5 mL [id number] 01/19/25 [employer] VIS Given Date VIS Provided VIS Publication Date 12/09/23 Single Vaccine 21 Eligibility Eligibility Date Funding Source Not [facility] Eligible 12/09/23 Private Coding Assessment & Plan Assessment & Plan Orders: Orders Pneumococcal 20 Immunization Today Z23 - Encounter for immunization Medications: New pneumoc 20-palmira conj-dip cr(PF) 0.5 mL IM ONCE 0.5 mL 0RF Z23 - Encounter for immunization
== END 2023-12-09 10:45 | disposition home or self-care (01) ==
PROVIDERS: PCP Internal Medicine; Visit Provider Internal Medicine
DX: Z23 Encounter for immunization (principal)
CPT/HCPCS: 90471; 90677

== ENCOUNTER 2024-02-18 08:23 | Outpatient (REF) | payer OTHER, SELFPAY ==
[2024-02-18 08:35] LABS: MANUAL DIFF FLAG NO
[2024-02-18 08:38] LABS: Basophils Percent Auto 0.6 % (0-2); Eosinophils Absolute Auto 0.1 X10*3/uL (0.0-0.4); Eosinophils Percent Auto 2.1 % (0-4); Hematocrit 35.1 % (42.0-52.0); Hemoglobin 11.2 g/dl (14.0-18.0); Imm Gran Abs Auto 0.01 X10*3/uL (0.00-0.03); Imm Gran Pct Auto 0.2 % (0.0-0.4); Lymphocytes Percent Auto 20.8 % (20-40); Mean Corpuscular HGB Conc 31.9 g/dl (31.0-36.0); Mean Corpuscular Hemoglobin 26.3 pg (27.0-33.0); Mean Corpuscular Volume 82.4 fL (80.0-98.0); Mean Platelet Volume 11.9 fL (9.4-12.4); Monocytes Absolute Auto 0.5 X10*3/uL (0.1-1.2); Monocytes Percent Auto 9.5 % (2-11); Neutrophils Absolute Auto 3.2 x10*3/uL (2.0-8.3); Neutrophils Percent Auto 66.8 % (45-73); Platelet Count 177 X10*3/uL (160-400); Red Blood Count 4.26 X10*6/uL (4.60-5.80); Red Cell Distribution Width 15.2 % (11.0-16.0); White Blood Count 4.8 X10*3/uL (4.8-10.8)
[2024-02-18 09:17] LABS: Appearance Urine Clear; Color Urine Yellow; Glucose Urine UA Negative (Negative); Leukocyte Esterase Urine Negative (Negative); Nitrite Urine Negative (Negative); PH 5.5 (5.0-9.0); Specific Gravity - Urine 1.025 (1.005-1.025); UMIC TRIGGER UACC YES; Urine Blood Small (1+) (Negative); Urine Ketones Negative (Negative); Urine Protein 100 (2+) mg/dL (Neg-Trace)
[2024-02-18 09:20] LABS: Bacteria Urine None Seen (None Seen); Hyaline Casts Urine 0-2 /LPF (0-2); Squamous Epithelial Cell Urine 0-2 /HPF (0-2); WBC Urine 0-5 /HPF (0-5)
[2024-02-18 10:27] LABS: Alanine Aminotransferase 8 U/L (0-40); Albumin Level 3.8 g/dL (3.5-5.0); Alkaline Phosphatase 111 U/L (39-117); Anion Gap 12 (12-20); Aspartate Amino Transferase 12 U/L (5-37); Bilirubin Total 0.4 mg/dL (0.0-1.0); Blood Urea Nitrogen 19 mg/dL (9-16); Calcium 8.3 mg/dL (8.4-10.2); Carbon Dioxide 22 mmol/L (22-29); Chloride 110 mmol/L (96-108); Cholesterol 160 mg/dL (<200); Estimated Glomerular Filt Rate > 60; Glucose Fasting 96 mg/dL (60-99); HDL Cholesterol 50 mg/dL (>40); LDL Cholesterol Calculated 99 mg/dL (<100); Potassium 3.6 mmol/L (3.3-5.1); Sodium 140 mmol/L (135-145); Total Protein 6.9 g/dL (6.5-8.0); Triglycerides 55 mg/dL (<150)
[2024-02-18 10:30] LABS: TSH reflex Free T4 1.64 uIU/mL (0.32-4.0); Vitamin D 25-OH Total 31.1 ng/mL (>30)
== END 2024-02-18 08:24 | disposition home or self-care (01) ==
LOC: HO.LAB 08:23
PROVIDERS: PCP Internal Medicine; Visit Provider Internal Medicine
DX: D64.9 Anemia, unspecified (principal); E78.00 Pure hypercholesterolemia, unspecified; E55.9 Vitamin D deficiency, unspecified
CPT/HCPCS: 36415; 80053; 80061; 81001; 82306; 84443; 85025

== ENCOUNTER 2024-03-07 15:45 | Outpatient (AMB) | payer OTHER, SELFPAY ==
--- NOTE | 2024-03-07 15:47 | MHC.PC.OV ---
Vital Signs 03/07/24 15:50 Height 5 ft 8 in Weight 158 lb BMI 24.0 BP 110/70 Blood Pressure Location Lt brachial Position Sitting Pulse 74 Pulse Source Pulse Oximeter Pulse Oximetry (%) 7 L Oxygen Delivery Method Room Air Intake Visit Reasons: LFT breast pain Intake Note: Patient is here to follow up on Left breast pain, ongoing for a month. No dizziness, no short of breath, no heavy lifting. Manager Advanced Required: No Automatic Grinding Machine Operator: Not Required per policy Accompanied by: Self / Same As Patient Allergies Penicillins [PENICILLINS] Allergy (Intermediate, Verified 03/07/24 15:49) RASH AND SWELLING meperidine [Demerol] Allergy (Unknown, Verified 03/07/24 15:49) pain morphine [MORPHINE] Adverse Reaction (Intermediate, Verified 03/07/24 15:49) N/V Tobacco use date assessed: 03/07/24 Fall risk assessment: No Falls in past year Last assessed Fall Risk: 03/07/24 Dental Screening Dental Screen Date: 03/07/24 Did you have a dental visit in the last 12 months?: No Did you have a dental problem in the last 6 months where you did not have access to dental care?: No Was dental information given to patient?: No HPI LFT breast pain HPI Details Patient comes in today complaining of persistent pain over his left breast for more than a month now He denies any recent injury or trauma to his left breast although he thinks that he may have hit or brushed his left breast with his right hand while in the shower a couple of times but he does not think it was with enough force to cause any pain He has not noticed any swelling of his left breast or any abnormal discharge from the breast lately He denies any fever No other acute complaints or symptoms are noted He also needs his Albuterol inhaler Rx refilled [facility] Medical History Overweight (BMI 25.0-29.9) Rectal bleeding Abdominal pain Epigastric pain Left-sided chest pain Internal hemorrhoid, bleeding Encounter for medication monitoring Pain in finger of left hand Bilateral hip pain Schizophrenia Prostate cancer Left foot pain Left leg pain Elevated blood pressure reading Depression Anxiety Insomnia Benign prostate hyperplasia Lumbar degenerative disc disease Osteoarthritis of right shoulder Asthma Surgical History History of colonoscopy (~03/01/18) S/P excision of lipoma H/O excision of ganglion cyst (~02/2014) Family History Father Lung cancer Mother CVA (cerebral vascular accident), Onset Age: 80 Chronic mental illness Social History Household Members: None Housing: Apartment Alcohol intake: never Patient Tobacco Use Status: Former Tobacco user Tobacco use type: Cigar Cigarettes Per Day: 20 Years Smoked: pt. states he has not smoked in years e-Cigarette/Vaping Use: Never Used Second Hand Smoke Exposure: No service: No Current occupational status: disabled Cognitive needs: No Hearing needs: No Vision needs: Yes (glasses) Questionnaire Thrive Questionnaire Date Thrive assessed: 10/19/23 NILSON-7 AMB Questionnaire NILSON-7 Date NILSON - 7 assessed: 10/19/23 Source: Developed by Drs. Angel Castellanos, Arlet Fine, Valeriano Shah and colleagues, with an educational sari from [employer]. Review of Systems Const Denies fatigue, Denies fever(s) and Denies headache(s) ENT Denies dysphagia, Denies dizziness, Denies headache(s), Denies neck pain and Denies sore throat Card Denies chest pain, Denies palpitations and Denies dyspnea Resp Denies cough and Denies dyspnea GI Denies abdominal pain, Denies constipation, Denies dysphagia, Denies heartburn, Denies diarrhea, Denies nausea and Denies vomiting Denies dysuria, Denies nocturia and Denies urinary frequency Musc Denies neck pain Skin/Breast Denies breast swelling, Reports breast pain (left breast - mostly over the areola/nipple area), Denies breast mass, Denies nipple discharge and Denies rash Neuro Denies dizziness and Denies headache(s) Endo Denies fatigue and Denies palpitations Physical exam (Primary Care) Vital Signs: Last Vital Signs Pulse 74 03/07/24 15:50 BP 110/70 03/07/24 15:50 Pulse Ox 7 L 03/07/24 15:50 Oxygen Delivery Method Room Air 03/07/24 15:50 BMI result Body Mass Index 24.0 Tobacco/Smoking Status: Tobacco use Status Tobacco use date assessed 03/07/24 03/07/24 15:59 Patient Tobacco Use Status Former Tobacco user 03/07/24 15:59 Tobacco use type Cigar 03/07/24 15:59 e-Cigarette/Vaping Use Never Used 03/07/24 15:59 Thrive Assessment: Date of Thrive Assessment Date Thrive assessed 10/19/23 03/07/24 15:59 Const General: no acute distress and alert Neck Neck: Yes no lymphadenopathy and Yes supple Thyroid: Thyroid normal Chest Other: (+) tenderness primarily over the left areola/left nipple area; NO tenderness noted on palpation of the left breast tissues and no abnormal masses or swelling is noted on exam of the left breast Resp Auscultation: clear to auscultation bilaterally, no rales and no wheezes Cardio Rate: regular rate Rhythm: regular rhythm Heart sounds: no murmurs GI Palpation (GI): Soft to palpation and nontender Extrem General: Yes no clubbing, cyanosis or edema Assessment and Plan Assessment & Plan (1) Pain of left breast: Code(s): N64.4 - Mastodynia Plan: Pain is primarily over the areola and nipple area of the left breast with NO other areas of tenderness on palpation Will start patient empirically on a trial of oral Doxycycline 100 mg BID x 7 days - is advised to avoid being out in direct sunlight as much as possible while he is on the Abx prescribed Will send patient as well for a diagnostic left mammogram for further evaluation (2) Asthma: Code(s): J45.909 - Unspecified asthma, uncomplicated Qualifiers: Asthma severity: moderate Asthma persistence: persistent Asthma complication type: uncomplicated Qualified Code(s): J45.40 - Moderate persistent asthma, uncomplicated Plan: Stable/controlled Continue Albuterol HFA 2 inhalations every 6 hours as needed - Rx refilled Plan To return as scheduled in May 2024 for his annual physical examination Orders: Orders MM tomosynthesis diagnostic LT Today N64.4 - Mastodynia Medications: New doxycycline hyclate 100 mg PO BID 7 days 14 caps 0RF Refilled albuterol sulfate 90 mcg/actuation (Ventolin HFA) 2 puffs inhalation QID PRN 8.5 grams 0RF Bronchospasm Coding Level of Care Code Est Pt Level 3 (07091) Diagnoses Pain of left breast N64.4 Moderate persistent asthma without complication J45.40 Asthma severity: moderate Asthma persistence: persistent Asthma complication type: uncomplicated
[2024-03-07 15:50] VITALS: BP 110/70; PULSE 74; O2SAT 7; BMI 24.0
== END 2024-03-07 16:44 | disposition home or self-care (01) ==
PROVIDERS: PCP Internal Medicine; Visit Provider Internal Medicine
DX: N64.4 Mastodynia (principal); J45.40 Moderate persistent asthma, uncomplicated
CPT/HCPCS: 99213

== ENCOUNTER 2024-03-20 14:53 | Outpatient (REF) | payer OTHER, SELFPAY ==
--- NOTE | ~2024-03-20 | US_ITS ---
EXAMINATION: MM DIAGNOSTIC DIGITAL BREAST TOMOSYNTHESIS, BILATERAL US BREAST LIMITED, LEFT MAMMOGRAPHY: CLINICAL INFORMATION: Left breast pain in a male patient. COMPARISON: Mammography: This study is compared with the 2019. TECHNIQUE: Digital breast tomosynthesis is performed in both the craniocaudal and mediolateral oblique views along with computer-aided detection (CAD). Synthesized 2D images are generated from the tomosynthesis. FINDINGS: There are scattered areas of fibroglandular density (ACR BI-RADS breast composition Category b). There are no significant masses, abnormal calcifications, or other abnormalities. There is mild left gynecomastia, not significantly changed from the prior study, allowing for technical differences in acquisition of the images. ULTRASOUND: CLINICAL INFORMATION: Left breast pain in a male patient. COMPARISON: None TECHNIQUE: Targeted sonographic evaluation was performed using a high frequency linear transducer. Selected archived documentation. FINDINGS: LEFT BREAST: Sonography of the subareolar region of the left breast reveals mild gynecomastia. US/US breast LT limited mamm only IMPRESSION: There are no significant changes from prior study. OVERALL ASSESSMENT: Mammography: BI-RADS 2 - Benign Findings Ultrasound: BI-RADS 2 - Benign Findings RECOMMENDATION: 1. Patient should be managed based on the clinical impression. 2. Otherwise, routine annual screening mammography. Results were provided to the patient at time of visit by the technologist. This patient's information was entered into a reminder system with a target due date for their next mammogram.
== END 2024-03-20 14:54 | disposition home or self-care (01) ==
LOC: HO.MAMMO 14:53
PROVIDERS: PCP Internal Medicine; Visit Provider Internal Medicine
DX: N64.4 Mastodynia (principal)
CPT/HCPCS: 76642; 77062; 77066

== ENCOUNTER → 2024-03-20 15:00 | Outpatient (BNV) | payer OTHER, SELFPAY | PROVIDERS: PCP Internal Medicine; Visit Provider Radiology Diagnostic Radiology | DX: N64.4 Mastodynia (principal) | CPT/HCPCS: 76642; 77066; G0279 ==

== ENCOUNTER 2024-04-14 22:12 | Emergency (ER) | payer OTHER, SELFPAY ==
--- NOTE | ~2024-04-14 | CT_ITS ---
EXAMINATION: CT ABDOMEN AND PELVIS WITHOUT AND WITH CONTRAST CLINICAL INFORMATION: Hematuria. Rule out kidney stone. COMPARISON: CT abdomen pelvis 10/23/2023. TECHNIQUE: Multidetector volumetric imaging was performed of the abdomen and pelvis before and after the IV administration of 85 mL of Omnipaque 300 intravenous contrast. Sagittal and coronal reformatted images were obtained on the technologist's workstation. This CT examination was performed using dose optimization techniques as appropriate, variously including the following: *Automated exposure control *Adjustment of mA and/or kV according to patient size (this includes techniques or standardized protocols for targeted exams where dose is matched to indication/reason for exam; i.e. extremities or head) *Use of iterative reconstruction technique DLP: 939 mGy-cm FINDINGS: LUNG BASES: The visualized lung bases are unremarkable. LIVER, GALLBLADDER, AND BILIARY TREE: The liver is normal in size, shape, and attenuation. No focal hepatic lesion or biliary ductal dilatation is present. The gallbladder is unremarkable with no evidence of radiopaque gallstones, gallbladder wall thickening, or obvious pericholecystic inflammatory changes. PANCREAS: Unremarkable SPLEEN: Incidental 1 cm cyst at the inferior margin of the spleen. ADRENAL GLANDS: Unremarkable KIDNEYS AND URETERS: Multiple bilateral rounded low-density benign-appearing simple cyst requiring no additional imaging follow-up. No nephrolithiasis or hydronephrosis identified. No perinephric inflammatory changes visualized. BLADDER: Decompressed. Concentric mural thickening of the urinary bladder is present. GASTROINTESTINAL TRACT: Appendix is normal in appearance. No free intraperitoneal fluid or gas collections. No intestinal dilatation or mural thickening. ABDOMINAL WALL: No significant hernia is appreciated. LYMPH NODES: Normal VASCULAR: Mild scattered calcific atherosclerosis PELVIC VISCERA: Brachii therapy seeds are noted within the prostate. The prostate demonstrates heterogeneous density and mild diffuse enlargement to a diameter 4.2 cm diminished in size compared with 10/23/2023. Multiple pelvic phleboliths identified. OSSEOUS STRUCTURES: No suspicious skeletal lesions identified. Multilevel intervertebral disc space narrowing and intervertebral disc space vacuum phenomenon of the lumbar spine. CT/CT abdomen pelvis wo/w IV con IMPRESSION: *Posttreatment related changes of the prostate. The prostate is decreased in size compared with 10/23/2023. History of prostate carcinoma. *Concentric mural thickening of the urinary bladder which may represent a combination of cystitis and/or mural trabeculation related to chronic urinary bladder outlet obstruction. *No urolithiasis. No suspicious renal lesions. *No suspicious skeletal lesions identified. Fleischner guidelines were followed. Electronically signed by: Fabio George MD 04/15/2024 02:44 AM EDT RP
[2024-04-14 22:32] VITALS: BP 134/79; PULSE 79; RESP 18; TEMP 36.9; O2SAT 96; BMI 24.6
[2024-04-14 22:57] LABS: Hematocrit 35.5 % (42.0-52.0); Hemoglobin 11.6 g/dl (14.0-18.0); Mean Corpuscular HGB Conc 32.7 g/dl (31.0-36.0); Mean Corpuscular Hemoglobin 26.5 pg (27.0-33.0); Mean Corpuscular Volume 81.1 fL (80.0-98.0); Mean Platelet Volume 11.5 fL (9.4-12.4); Platelet Count 177 X10*3/uL (160-400); Red Blood Count 4.38 X10*6/uL (4.60-5.80); Red Cell Distribution Width 15.1 % (11.0-16.0); White Blood Count 5.7 X10*3/uL (4.8-10.8)
[2024-04-14 22:58] LABS: Appearance Urine Clear; Color Urine Yellow; Glucose Urine UA Negative (Negative); Leukocyte Esterase Urine Negative (Negative); Nitrite Urine Negative (Negative); UMIC TRIGGER UACC YES; Urine Blood Large (3+) (Negative); Urine Ketones Negative (Negative); Urine Protein 30 (1+) mg/dL (Neg-Trace)
[2024-04-14 23:03] LABS: Bacteria Urine None Seen (None Seen); Hyaline Casts Urine 0-2 /LPF (0-2); RBC Urine >20 /HPF (0-2); Squamous Epithelial Cell Urine 0-2 /HPF (0-2); WBC Urine 0-5 /HPF (0-5)
[2024-04-14 23:10] LABS: Alanine Aminotransferase 11 U/L (0-40); Albumin Level 3.9 g/dL (3.5-5.0); Alkaline Phosphatase 114 U/L (39-117); Anion Gap 8 (12-20); Aspartate Amino Transferase 16 U/L (5-37); Bilirubin Total 0.2 mg/dL (0.0-1.0); Blood Urea Nitrogen 20 mg/dL (9-16); Calcium 8.6 mg/dL (8.4-10.2); Carbon Dioxide 26 mmol/L (22-29); Chloride 109 mmol/L (96-108); Creatinine Clr Calc Pharmacy 78.4; Estimated Glomerular Filt Rate > 60; Glucose Random 100 mg/dL (60-115); Potassium 4.1 mmol/L (3.3-5.1); Sodium 139 mmol/L (135-145); Total Protein 6.6 g/dL (6.5-8.0)
--- NOTE | 2024-04-15 00:59 | ED.MALEGU ---
HPI - Male Genitourinary General Chief complaint: Urogenital-Male Stated complaint: hematuria Time Seen by Provider: 04/15/24 00:59 Source: patient Mode of arrival: ambulatory Limitations: language barrier (Malagasy speaking only) History of Present Illness ED Provider: Dr. Omar Foster HPI Narrative: 63-year-old male with a history of peripheral neuropathy, prostate cancer treated 8 months prior with radiation who presents emergency department for evaluation of gross hematuria. Patient states that 2 hours prior to coming to the emergency department he started to urinate blood. He states that 3 months ago he also had hematuria but it was mild and resolved. He states that he was waiting to follow-up with his urologist for his 1st episode of hematuria. Patient states he does have a burning sensation when he urinates. He was also complaining of lower abdominal pain and bilateral flank pain. He states the pain is 5/10 at its worst. He denied fever, chills, chest pain, shortness of breath, nausea, vomiting or diarrhea. Related Data Home Medications ?Medication ?Instructions ?Recorded ?Confirmed clonazepam 1 mg tablet (Klonopin) 1 mg PO TID 05/28/20 12/08/23 aripiprazole 15 mg tablet 15 mg PO DAILY 07/12/20 12/08/23 nabumetone 750 mg tablet 750 mg PO DAILY 07/12/20 12/08/23 sertraline 100 mg tablet 100 mg PO DAILY 07/12/20 12/08/23 zolpidem 10 mg tablet (Ambien) 10 mg PO BEDTIME PRN Sleep 07/12/20 12/08/23 bupropion HCl 100 mg tablet,12 hr 1 tab PO DAILY 11/07/22 12/08/23 sustained-release diclofenac sodium 1 % topical gel 2 g topical BEDTIME PRN Pain 11/07/22 12/08/23 finasteride 5 mg tablet 5 mg PO BEDTIME 11/07/22 12/08/23 fluticasone propionate 50 1 spray intranasal DAILY PRN 11/07/22 12/08/23 mcg/actuation nasal Allergy Symptoms spray,suspension loratadine 10 mg tablet 10 mg PO DAILY PRN Allergy Symptoms 11/07/22 12/08/23 pregabalin 50 mg capsule 100 mg PO BID PRN Pain 11/07/22 12/08/23 tamsulosin 0.4 mg capsule 1 cap PO BEDTIME 11/07/22 12/08/23 leuprolide acetate (6 month) 45 mg 45 mg subcut [id number] 04/27/23 12/08/23 (6 month) subcutaneous syringe (EliIntuitzhanna) Previous Rx's ?Medication ?Instructions ?Recorded blood pressure monitor #1 ea 07/24/20 sildenafil (pulm.hypertension) 20 20 mg PO DAILY PRN sexual activity 04/22/21 mg tablet #10 tabs mupirocin 2 % topical ointment 1 appl topical BID #22 grams 06/03/22 HANDHELD SHOWER #1 ea 11/18/22 LIGHTWEIGHT CANE #1 ea 11/18/22 meclizine 25 mg tablet 25 mg PO BID PRN dizziness 10 days 02/06/23 #20 tabs sodium chloride 0.65 % nasal spray 2 spray intranasal Q12H PRN dry 07/12/23 aerosol (Saline Nasal) nasal passages #30 mL hydrocortisone 2.5 % topical cream 1 appl [place] BID-QID PRN hemorrhoids 08/06/23 with perineal applicator #30 grams (Anusol-HC) phenazopyridine 200 mg tablet 200 mg PO Q8H PRN pain (scale 10/23/23 (Pyridium) score 4-6) 6 doses #14 tabs REUSABLE BED PADS #3 ea 10/25/23 cyclobenzaprine 10 mg tablet 10 mg PO TID #10 tabs 11/30/23 naproxen 500 mg tablet (Naprosyn) 500 mg PO BID #20 tabs 11/30/23 tramadol 50 mg tablet 50 mg PO TID PRN pain #90 tabs 12/08/23 hydrocortisone 2.5 % topical cream 1 appl WI BID #60 grams 02/11/24 with perineal applicator famotidine 20 mg tablet 20 mg PO BID PRN for abdominal 03/05/24 pain #180 tabs doxycycline hyclate 100 mg capsule 100 mg PO BID 7 days #14 caps 03/07/24 acetaminophen 500 mg tablet 500 mg PO Q6H PRN pain #100 tabs 03/10/24 pantoprazole 40 mg tablet,delayed 40 mg PO DAILY 30 days #30 tabs 03/25/24 release albuterol sulfate 90 mcg/actuation 2 puff inhalation QID PRN 03/30/24 aerosol inhaler (Ventolin HFA) Bronchospasm #8.5 grams Allergies Allergy/AdvReac Type Severity Reaction Status Date / Time Penicillins [PENICILLINS] Allergy Intermediate RASH AND Verified 04/14/24 22:33 SWELLING meperidine [Demerol] Allergy Unknown pain Verified 04/14/24 22:33 morphine [MORPHINE] AdvReac Intermediate N/V Verified 04/14/24 22:33 Review of Systems Review of Systems: Yes all other systems are reviewed and are negative [facility] Past Medical History [facility] Narrative: Social history: He denies tobacco, alcohol and drug use Medical History Overweight (BMI 25.0-29.9) Rectal bleeding Abdominal pain Epigastric pain Left-sided chest pain Internal hemorrhoid, bleeding Encounter for medication monitoring Pain in finger of left hand Bilateral hip pain Schizophrenia Prostate cancer Left foot pain Left leg pain Elevated blood pressure reading Depression Anxiety Insomnia Benign prostate hyperplasia Lumbar degenerative disc disease Osteoarthritis of right shoulder Asthma Surgical History History of colonoscopy (~03/01/18) S/P excision of lipoma H/O excision of ganglion cyst (~02/2014) Family History Family History Father Lung cancer Mother CVA (cerebral vascular accident), Onset Age: 80 Chronic mental illness Social History Social History Household Members: None Housing: Apartment Alcohol intake: never Patient Tobacco Use Status: Former Tobacco user Tobacco use type: Cigar Cigarettes Per Day: 20 Years Smoked: pt. states he has not smoked in years e-Cigarette/Vaping Use: Never Used Second Hand Smoke Exposure: No Advance Directives: No Advance Directives Information Provided: Yes Do you have a plan to hurt others: No Plan service: No Current occupational status: disabled Cognitive needs: No Hearing needs: No Vision needs: Yes (glasses) Physical Exam Vital Signs: Vital Signs: Last Vital Signs Temp 98.5 F 04/14/24 22:32 Pulse 79 04/14/24 22:32 Resp 18 04/14/24 22:32 BP 134/79 04/14/24 22:32 Pulse Ox 96 04/14/24 22:32 O2 Del Method Room Air 04/14/24 22:32 BMI result Body Mass Index 24.6 Vital signs were normal. Exam: General: Awake, alert in no distress Head: Normocephalic, atraumatic EENT: PERRL, Lids normal, sclera normal, conjunctiva normal, nose normal , ears normal, throat without erythema or exudates Neck: Supple, no adenopathy Lung: breath sounds symmetric, no wheezing, rales or rhonchi Chest: symmetric movement, nontender Heart: regular rate and rhythm, normal S1, S2 no murmurs or rubs Abdomen: soft, moderate suprapubic tenderness, nondistended, normal bowel sounds Back: no vertebral tenderness, no paraspinal muscle tenderness, moderate bilateral flank tenderness Extremities: no deformities, moves all extremities symmetrically Neuro: Awake, alert, oriented, normal speech, cranial nerves intact, moves all extremities symmetrically Psych: Pleasant, cooperative Medications Administered Generic Name Dose Route Start Last Admin Trade Name Freq PRN Reason Stop Dose Admin Sodium Chloride 1,000 mls @ 999 mls/hr 04/15/24 01:31 04/15/24 01:41 Ns IV 04/15/24 02:31 999 mls/hr .Q1H1M STA Administration Discontinued Medications Generic Name Dose Route Start Last Admin Trade Name Freq PRN Reason Stop Dose Admin Iohexol 85 ml 04/15/24 02:03 04/15/24 02:03 Iohexol 350 Mg/Ml 100 Ml Infus..Btl IV 04/15/24 02:04 85 ml ONCE ONE Administration Medical Decision Making Medical Decision Making [facility] Narrative: 63-year-old male with a history of peripheral neuropathy, prostate cancer treated 8 months prior with radiation who presents emergency department for evaluation of gross hematuria which started 2 hours prior to arrival, bilateral flank pain and suprapubic pain. Patient had an episode of hematuria 3 months prior which was mild and resolved. Patient also had dysuria. Exam revealed normal vital signs. The patient did have suprapubic tenderness and bilateral flank tenderness. Vital signs were normal. Physical exam did reveal bilateral flank pain and suprapubic tenderness. Differential diagnosis: ?Includes but is not limited to renal colic, ureteral stone, urinary tract infection, cancer of the kidney, ureter or bladder, anemia, electrolyte abnormalities Course: 02:38 My interpretation patient's laboratory evaluation is as follows: WBC normal. Normocytic anemia with an H&H of 11.6 and 35.5. Platelet count was normal 177,000. BUN was elevated 20 with a normal creatinine of 0.92. LFTs were normal. Urinalysis was positive for protein, 3+ blood, negative for nitrates and leukocyte esterase. Microscopic revealed greater than 20 RBCs, 0-5 WBCs, 0-2 squamous cells, no bacteria seen-urinalysis is not consistent with a urinary tract infection. Given the concern for possible urinary tract malignancy and ureteral/kidney stones, I did order both CT scan with and without IV contrast. Patient was treated with normal saline IV x1 L. Patient did not want any pain medications. At the end of my shift, patient's care was turned over to my colleague, Dr. Sarath Matthews. Admission/Observation Consideration of admission/observation: Escalation of care including admission/observation considered Lab Data MDM Lab Attestation statement: I reviewed the patient's lab results. 04/14/24 22:51 04/14/24 22:51 Labs: Lab Results 04/14/24 Range/Units 22:51 WBC 5.7 (4.8-10.8) X10*3/uL RBC 4.38 L (4.60-5.80) X10*6/uL Hgb 11.6 L (14.0-18.0) g/dl Hct 35.5 L (42.0-52.0) % MCV 81.1 (80.0-98.0) fL MCH 26.5 L (27.0-33.0) pg MCHC 32.7 (31.0-36.0) g/dl RDW 15.1 (11.0-16.0) % Plt Count 177 (160-400) X10*3/uL MPV 11.5 (9.4-12.4) fL Absolute Nucleated RBC 0.000 (0.0-0.012) X10*3/uL Nucleated RBC % (auto) 0.0 (0.0-0.2) /100WBC Sodium 139 (135-145) mmol/L Potassium 4.1 (3.3-5.1) mmol/L Chloride 109 H (96-108) mmol/L Carbon Dioxide 26 (22-29) mmol/L Anion Gap 8 L (12-20) BUN 20 H (9-16) mg/dL Creatinine 0.92 (0.5-1.4) mg/dL Estim Creat Clear Calc 78.4 Estimated GFR > 60 Random Glucose 100 (60-115) mg/dL Calcium 8.6 (8.4-10.2) mg/dL Total Bilirubin 0.2 (0.0-1.0) mg/dL AST 16 (5-37) U/L ALT 11 (0-40) U/L Alkaline Phosphatase 114 (39-117) U/L Total Protein 6.6 (6.5-8.0) g/dL Albumin 3.9 (3.5-5.0) g/dL Urine Color Yellow Urine Appearance Clear Urine pH 7.0 (5.0-9.0) Ur Specific [place] 1.010 (1.005-1.025) Urine Protein 30 (1+) H (Neg-Trace) mg/dL Urine Glucose (UA) Negative (Negative) mg/dL Urine Ketones Negative (Negative) mg/dL Urine Blood Large (3+) H (Negative) Urine Nitrite Negative (Negative) Ur Leukocyte Esterase Negative (Negative) Urine RBC >20 H (0-2) /HPF Urine WBC 0-5 (0-5) /HPF Ur Squamous Epith Cells 0-2 (0-2) /HPF Urine Bacteria None Seen (None Seen) Hyaline Casts 0-2 (0-2) /LPF Independent Interpretation I performed an independent interpretation of an: EKG Chronic Conditions Patient?s care impacted by: Other (Prostate cancer) Discharge Plan Discharge Clinical Impression: Hematuria, Bilateral flank pain, Suprapubic pain Patient Disposition: Still a Patient Additional Instructions: Your complete blood count revealed mild anemia with a hemoglobin and hematocrit of 11.6 and 35.5. Your kidney function was normal. Your urine did reveal blood in the urine but no evidence for urinary tract infection. Your CT scan of your abdomen pelvis with out and with IV contrast did not reveal a clear cause for your blood in your urine It is important that you follow-up with your urologist for further evaluation which sometimes involves a cystoscopy to look at your bladder and your ureters to see if there is a reason for your bleeding. Continue your medications as prescribed by your providers. Follow-up with your doctor in 2 days. Please return to the emergency department if your symptoms get worse or if you develop any symptoms that are concerning to you. Prescriptions: No Action (DME) blood pressure monitor Kit See Rx Instructions .ROUTE .MEDSUPPLY Qty: 1 0RF Rx Instructions: As directed (DME) LIGHTWEIGHT CANE See Rx Instructions .Route .MEDSUPPLY Qty: 1 0RF Rx Instructions: As directed (DME) HANDHELD SHOWER See Rx Instructions .Route .MEDSUPPLY Qty: 1 0RF Rx Instructions: As directed meclizine 25 mg tablet 25 mg PO BID PRN (Reason: dizziness) 10 Days Qty: 20 0RF Saline Nasal 0.65 % aerosol,spray 2 spray intranasal Q12H PRN (Reason: dry nasal passages) Qty: 30 1RF hydrocortisone [Anusol-HC] 2.5 % cream with perineal applicator 1 appl WI BID-QID PRN (Reason: hemorrhoids) Qty: 30 1RF (DME) REUSABLE BED PADS See Rx Instructions .Route .MEDSUPPLY Qty: 3 0RF Rx Instructions: As directed hydrocortisone 2.5 % cream with perineal applicator 1 appl WI BID Qty: 60 1RF famotidine 20 mg tablet 20 mg PO BID PRN (Reason: for abdominal pain) Qty: 180 0RF acetaminophen 500 mg tablet 500 mg PO Q6H PRN (Reason: pain) Qty: 100 1RF pantoprazole 40 mg tablet,delayed release (DR/EC) 40 mg PO DAILY 30 Days Qty: 30 1RF albuterol sulfate [Ventolin HFA] 90 mcg/actuation HFA aerosol inhaler 2 puff INHALATION QID PRN (Reason: Bronchospasm) Qty: 8.5 0RF bupropion HCl 100 mg tablet sustained-release 12 hr 1 tab PO DAILY tamsulosin 0.4 mg capsule 1 cap PO BEDTIME fluticasone propionate 50 mcg/actuation [place],Suspension 1 spray INTRANASAL DAILY PRN (Reason: Allergy Symptoms) Rx Instructions: administer into each nostril loratadine 10 mg Tablet 10 mg PO DAILY PRN (Reason: Allergy Symptoms) pregabalin 50 mg capsule 100 mg PO BID PRN (Reason: Pain) Rx Instructions: patient states he only takes twice weekly diclofenac sodium 1 % gel 2 g topical BEDTIME PRN (Reason: Pain) Rx Instructions: apply 2 gram to L foot nightly as needed finasteride 5 mg Tablet 5 mg PO BEDTIME phenazopyridine [Pyridium] 200 mg tablet 200 mg PO Q8H PRN (Reason: pain (scale score 4-6)) Qty: 14 0RF cyclobenzaprine 10 mg tablet 10 mg PO TID Qty: 10 0RF naproxen [Naprosyn] 500 mg tablet 500 mg PO BID Qty: 20 0RF clonazepam [Klonopin] 1 mg tablet 1 mg PO TID aripiprazole 15 mg tablet 15 mg PO DAILY zolpidem [Ambien] 10 mg tablet 10 mg PO BEDTIME PRN (Reason: Sleep) sertraline 100 mg tablet 100 mg PO DAILY nabumetone 750 mg tablet 750 mg PO DAILY sildenafil (pulm.hypertension) 20 mg tablet 20 mg PO DAILY PRN (Reason: sexual activity) Qty: 10 0RF mupirocin 2 % ointment 1 appl topical BID Qty: 22 0RF Rx Instructions: apply to lesion on the back of the right leg doxycycline hyclate 100 mg capsule 100 mg PO BID 7 Days Qty: 14 0RF Eligard (6 month) 45 mg syringe 45 mg subcut [id number] tramadol 50 mg tablet 50 mg PO TID PRN (Reason: pain) Qty: 90 5RF Print Language: Malagasy
[2024-04-15] MEDS: 0.9 % Sodium Chloride 1,000 ML 999 ML IV (01:41)
[2024-04-15] MEDS: iohexoL 350 MG/ML 100 ML INFUS..BTL 85 ML IV (02:03)
[2024-04-15 03:27] VITALS: BP 135/88; PULSE 64; RESP 16; TEMP 36.4; O2SAT 96
[2024-04-15 04:54] VITALS: BP 135/88; PULSE 64; RESP 16; TEMP 36.4; O2SAT 96
--- OUTSIDE RECORDS SUMMARY | 2024-04-16 00:29 | XMS_ITS ---
Author Organization [facility] Address [address] [place] [address] Care Team Providers Care Tetryl Dissolver Operator Name Role Phone Wesley CUNNINGHAM, Hope Primary Care Provider Unava Angel Carter Unavailable [phone] REASON FOR VISIT cancelled appt for today. Encounters Encounter Location Date Provider Diagnosis [facility] [address] [place] [address] 11/30/2023 Angel Duke PLAN OF TREATMENT Next Appt Details Provider Name:Angel Duke , 04/18/2024 10:10:00 AM, [address], [address], [place], [address],
--- OUTSIDE RECORDS SUMMARY | 2024-04-16 00:29 | XMS_ITS ---
Author Organization [facility] Address [address] [place] [address] Care Team Providers Care Facilities Maintenance Worker Name Role Phone Wesley CUNNINGHAM, [place] Primary Care Provider Unava Angel Carter Unavailable [phone] REASON FOR VISIT Patient presents today for a screening colonoscopy Encounters Encounter Location Date Provider Diagnosis [facility] [address] [place] [address] 11/30/2023 Angel Duke PLAN OF TREATMENT Next Appt Details Provider Name:Angel Duke , 04/18/2024 10:10:00 AM, [address], [address], [place], [address],
--- OUTSIDE RECORDS SUMMARY | 2024-04-16 00:29 | XMS_ITS | Patient Health Record ---
Author Organization [facility] Address [address] [place] [address] Care Team Providers Care Aircraft Armorer Name Role Phone Lai Olson MD Primary Care Provider Angel Branch Unavailable [phone] ALLERGIES Allergen (clinical drug ingredient) Drug/Non Drug Allergy documented on EMR Reaction Allergy Type Onset Date Status Penicillin Unknown Drug Allergy Active meperidine Demerol Unknown Drug Allergy Active REASON FOR REFERRAL No Information MEDICATIONS Medication SIG (Take, Route, Frequency, Duration) Notes Start Date End Date Status Proctosol HC 2.5 % 1 application to affected area Rectal Twice a day Active MiraLax (colon prep) 8.3 ounce ((238) grams mixed with Gatorade or Crystal Light orally begin at 5:00 p.m. the day before the procedure for 1 day 02/08/2018 Active Dulcolax (colon prep) 5 MG take at 3:00 p.m and 7:00p.m. Orally two tablets twice a day for one day for 1 day 02/08/2018 Active Albuterol Sulfate HFA 108 (90 Base) MCG/ACT 2 puffs as needed Inhalation every 6 hrs Active Ambien 10 MG 1 tablet at bedtime as needed Orally Once a day Active Sertraline HCl 100 MG 1 tablet Orally On ce a day Active Abilify 5 MG 1 tablet Orally Once a day Active KlonoPIN 1 MG 1 tablet Orally twic e a day Active Nabumetone 750 MG 1 tablet Orally Twic e a day Active Cyclobenzaprine HCl 10 MG 1 tablet as ne eded Orally Three times a day Active Loratadine 10 MG 1 tablet Orally Once a day Active Fluticasone Propionate 50 MCG/ACT 1 spray in each nostril Nasally Once a day Active SOCIAL HISTORY Tobacco Use: Social History Observation Description Date Details (start date - stop date) Former Smoker NA - NA Sex Assigned At : Social History Observation Description Sex Assigned At Unknown Tobacco Use/Smoking Question Answer Notes Patient is a former smoker How long has it been since you last smoked? > 10 years Alcohol Screen Question Answer Notes Did you have a drink containing alcohol in the p ast year? No Points 0 Interpretation Negative PROBLEMS Problem Type ICD Code Onset Dates Problem Status W/U Status Risk SNOMED Code Notes Problem History of adenomatous polyp of colon (Z86.010) Active confirmed 444626477 Problem Encounter for screening for malignant neoplasm of colon (Z12.11) Active confirmed 114753504 Problem Preprocedural examination (Z01.818) Active confirmed [id number] Encounters Encounter Location Date Provider Diagnosis [facility] [address] [place] [address] 11/30/2023 Angel Duke [facility] [address] [place] [address] 11/30/2023 Angel Duke PLAN OF TREATMENT Pending Test Test Name Order Date GI BIOPSY 03/01/2018 Future Test Test Name Order Date COLONOSCOPY 02/08/2018 Next Appt Details Provider Name:Angel Quintanilla Duke , 04/18/2024 10:10:00 AM, [address], [address], [place], [address], Insurance Providers Payer Name Payer Address Payer Phone Subscriber Number Group Number Insured Name Patient Relationship to Insured Coverage Start Date Coverage End Date [facility] [address] [place] [address] [id number] CAITY RAYSHAWN SEN Self - patient is the insured MEDICAID OF [employer] [address] [place] [address] [id number] RAYSHAWN FLORES Self - patient is the insured MEDICAL (GENERAL) HISTORY Medical History History ICD Code Depression Insomnia Asthma Denies PA,DM,CVA Colonoscopy 09/2012 with a sm all tubular adenoma removed, internal hemorrhoids --Dr. Montilla Sees Dr. Son for renal cysts and ston es Surgical History Surgery Date(Month/Year) Ganglion cyst removed from left hand Lipoma on his back
== END 2024-04-15 04:56 | disposition home or self-care (01) ==
PROVIDERS: Emergency Medicine Emergency Medical Services; Emergency Provider Internal Medicine; PCP Internal Medicine
DX: R31.9 Hematuria, unspecified (principal); R10.9 Unspecified abdominal pain; R10.30 Lower abdominal pain, unspecified; D64.9 Anemia, unspecified; Z79.899 Other long term (current) drug therapy
CPT/HCPCS: 36415; 74178; 80053; 81001; 85027; 96360; 99283; 99284; Q9967

== ENCOUNTER 2024-06-08 09:23 | Outpatient (AMB) | payer OTHER, SELFPAY ==
--- NOTE | 2024-06-08 09:32 | MHC.OFFVIS ---
Vital Signs 06/08/24 09:37 Height 5 ft 8 in Weight 164 lb 0.383 oz BMI 24.9 BP 112/68 Blood Pressure Location Rt brachial Position Sitting Respiration 16 Pulse 87 Pulse Source Pulse Oximeter Pulse Oximetry (%) 97 Oxygen Delivery Method Room Air Intake Visit Reasons: LBP/LVM Intake Note: Patient presents for LBP. Trencher Driver Required: Yes Trencher Driver Language: Sheet Heater Helper Services: Trencher Driver Present Trencher Driver Name: [id number] Information Interpreted: non-clinical & clinical Allergies Penicillins [PENICILLINS] Allergy (Intermediate, Verified 06/08/24 09:36) RASH AND SWELLING meperidine [Demerol] Allergy (Unknown, Verified 06/08/24 09:36) pain morphine [MORPHINE] Adverse Reaction (Intermediate, Verified 06/08/24 09:36) N/V Medication List - Last Reconciled 06/08/24 by Lovely Garcia MD acetaminophen 500 mg PO Q6H PRN [air conditioner As directed] albuterol sulfate 90 mcg/actuation (Ventolin HFA) 2 puffs inhalation QID PRN aripiprazole 15 mg PO DAILY blood pressure monitor As directed bupropion HCl SR 1 tab PO DAILY clonazepam (Klonopin) 1 mg PO TID cyclobenzaprine 10 mg PO TID diclofenac sodium 1% 2 grams topical BEDTIME PRN doxycycline hyclate 100 mg PO BID 7 days famotidine 20 mg PO BID PRN finasteride 5 mg PO BEDTIME fluticasone propionate 50 mcg/actuation 1 spray intranasal DAILY PRN [HANDHELD SHOWER As directed] hydrocortisone 2.5% (Anusol-HC) 1 appl HI BID-QID PRN hydrocortisone 2.5% 1 appl HI BID [left knee supportive brace As directed] leuprolide acetate (6 month) (Eligard) 45 mg subcut [id number] [LIGHTWEIGHT CANE As directed] loratadine 10 mg PO DAILY PRN meclizine 25 mg PO BID PRN 10 days mupirocin 2% 1 appl topical BID nabumetone 750 mg PO DAILY naproxen (Naprosyn) 500 mg PO BID pantoprazole 40 mg PO DAILY 30 days phenazopyridine (Pyridium) 200 mg PO Q8H PRN 6 doses pregabalin 100 mg PO BID PRN [REUSABLE BED PADS As directed] sertraline 100 mg PO DAILY [shower head As directed] sildenafil (pulm.hypertension) 20 mg PO DAILY PRN sodium chloride 0.65% (Saline Nasal) 2 sprays intranasal Q12H PRN tamsulosin 1 cap PO BEDTIME tramadol 50 mg PO TID PRN zolpidem (Ambien) 10 mg PO BEDTIME PRN HPI Comments Details: This is a 63-year-old male with fibromyalgia who presents for follow-up. Continues to feel about the same. Diffuse pain especially in his back, knees, and legs. States that his fingers have been getting stuck multiple times a day for a long period of time especially his left 4th and 5th fingers. He has not had any treatment specifically aimed for that. Continues to take tramadol t.i.d. [facility] Medical History Overweight (BMI 25.0-29.9) Rectal bleeding Abdominal pain Epigastric pain Left-sided chest pain Internal hemorrhoid, bleeding Encounter for medication monitoring Pain in finger of left hand Bilateral hip pain Schizophrenia Prostate cancer Left foot pain Left leg pain Elevated blood pressure reading Depression Anxiety Insomnia Benign prostate hyperplasia Lumbar degenerative disc disease Osteoarthritis of right shoulder Asthma Surgical History History of colonoscopy (~03/01/18) S/P excision of lipoma H/O excision of ganglion cyst (~02/2014) Family History Father Lung cancer Mother CVA (cerebral vascular accident), Onset Age: 80 Chronic mental illness Social History Household Members: None Housing: Apartment Alcohol intake: never Patient Tobacco Use Status: Former Tobacco user Tobacco use type: Cigar Cigarettes Per Day: 20 Years Smoked: pt. states he has not smoked in years e-Cigarette/Vaping Use: Never Used Second Hand Smoke Exposure: No service: No Current occupational status: disabled Cognitive needs: No Hearing needs: No Vision needs: Yes (glasses) Review of Systems Musc Reports back pain, Reports arthralgias and Reports limited range of motion Physical Exam Vital Signs: Last Vital Signs Pulse 87 06/08/24 09:37 Resp 16 06/08/24 09:37 BP 112/68 06/08/24 09:37 Pulse Ox 97 06/08/24 09:37 Oxygen Delivery Method Room Air 06/08/24 09:37 BMI result Body Mass Index 24.9 Const General: cooperative, healthy appearing and comfortable HEENT Head: Yes normocephalic and Yes atraumatic Resp Effort & Inspection: normal respiratory effort and able to speak in complete sentences Auscultation: clear to auscultation bilaterally Cardio Rate: regular rate Rhythm: regular rhythm Extrem Other: Multiple fibromyalgia tender points No active synovitis Results Reviewed Results Reviewed: Laboratory Tests 1 09:10 09:10 09:10 [facility] 12/31/2014 Rheumatoid factor negative, HANNA positive 1:40, p-ANCA/c-Anca negative, immunofixation normal, double-stranded DNA negative, C3 low at 61, C4 normal at 17. Hepatitis panel negative Ordering Physician: Lai Olson MD Date of Service: 08/20/22 Procedure(s): XR finger LT min 2V Accession Number(s): [id number] cc: Lai Olson MD~ EXAMINATION: XR FINGER, LEFT CLINICAL INFORMATION: Pain.? COMPARISON: Radiograph of the left hand/wrist 09/01/2010.? TECHNIQUE: Three views of the left index finger. FINDINGS: Soft tissue swelling around the second digit. No unexpected radiopaque foreign bodies. No acute fractures or malalignment. Mild degenerative osteoarthritis of the first carpometacarpal joint and triscaphe space. Ordering Physician: Bobby Pro MD Date of Service: 05/28/22 Procedure(s): NM bone scan whole body Accession Number(s): [id number] cc: Bobby Pro MD~ EXAMINATION: NM BONE SCAN OF THE WHOLE BODY CLINICAL INFORMATION: Carcinoma of the prostate. Low back pain. COMPARISON: No existing relevant imaging study available. TECHNIQUE: Multiple gamma scintillation camera images of the whole body were performed 3 hours following the intravenous administration of 25 mCi Tc-99m MDP. FINDINGS: In the head, no suspicious focal lesion. In the thoracic cage and upper extremities, asymmetric mild increased radiotracer activities are present at the costochondral transverse junction of right 10th and 11th ribs, most consistent with degenerative changes. Mild increased radiotracer activities are also noted at both sternoclavicular as well as acromioclavicular joints, most consistent with arthritic changes. In the spine, mild increased radiotracer activities at lower cervical spine, and lower lumbosacral spine, most consistent with degenerative spondylosis. In the pelvis, no suspicious focal lesion. In the lower extremities, mildly increased radiotracer activities around both knees, most consistent with mild degenerative osteoarthrosis. No other definite bony abnormalities are noted. The urinary bladder and faint visualization of both kidneys are noted. NM/NM bone scan whole body IMPRESSION: ? 1. No definite scintigraphic evidence of metastatic disease. 2. Note is however made of presence of increased radiotracer activities at the costotransverse junction of right 10th and 11th ribs, the lower cervical, and the lower lumbosacral spine, most consistent with degenerative changes. 3. Mild increased radiotracer activities around both shoulder and both sternoclavicular joints and both kidneys likely also represent degenerative and/or posttraumatic arthritic changes. ? Follow-up the [facility] PET/CT study may be considered (more sensitive) for further full detail evaluation, if clinically appropriate. XR/XR finger LT min 2V IMPRESSION: 1.? No acute fractures or malalignment. 2.? Mild degenerative osteoarthritis of the first carpometacarpal joint and triscaphe space. ? Ordering Physician: Jessika Borden NP Date of Service: 11/06/21 Procedure(s): XR shoulder RT min 2V Accession Number(s): [id number] cc: Jessika Borden NP~ EXAMINATION: XR shoulder RT min 2V CLINICAL INFORMATION: Reason for Exam M25.511 - Pain in right shoulder COMPARISON: None? TECHNIQUE: Four views of the shoulder. XR/XR shoulder RT min 2V FINDINGS/IMPRESSION: ? No acute fracture or dislocation. ? Mild degenerative changes of the acromioclavicular and glenohumeral joints with degenerative spurring. ? Soft tissues are unremarkable. ? Visualized portion of lung appears clear. Assessment & Plan Assessment & Plan (1) Fibromyalgia: Code(s): M79.7 - Fibromyalgia Category: Medical (2) Lumbar spondylosis: Code(s): M47.816 - Spondylosis without myelopathy or radiculopathy, lumbar region Category: Medical Plan: This is a 63-year-old male with fibromyalgia and generalized osteoarthritis who presents for follow-up. Continues to take tramadol 50 mg t.i.d. has been having worsening bilateral lower back pain. Not interested in pain management evaluation as he had a bad reaction to an injection previously. Continue with tramadol 50 mg t.i.d. refilled Follow-up in 6 months (3) Trigger finger, left: Code(s): M65.30 - Trigger finger, unspecified finger Category: Medical Qualifiers: Trigger finger location: unspecified finger Qualified Code(s): M65.30 - Trigger finger, unspecified finger Plan: Mostly affecting the left 4th and 5th fingers. Advised patient to buy OTC finger splints and wear them at night Plan I spent 16 minutes reviewing patient's chart, evaluating patient, , counseling patient and documenting in the chart Coding Level of Care Code Est Pt Level 3 (45652) Diagnoses Fibromyalgia M79.7 Lumbar spondylosis M47.816 Trigger finger of left hand, unspecified finger M65.30 Trigger finger location: unspecified finger
[2024-06-08 09:37] VITALS: BP 112/68; PULSE 87; RESP 16; O2SAT 97; BMI 24.9
== END 2024-06-08 10:05 | disposition home or self-care (01) ==
PROVIDERS: PCP Internal Medicine; Visit Provider Student in an Organized Health Care Education/Training Program
DX: M79.7 Fibromyalgia (principal); M47.816 Spondylosis without myelopathy or radiculopathy, lumbar region; M65.30 Trigger finger, unspecified finger
CPT/HCPCS: 99213

== ENCOUNTER → 2024-06-08 09:23 | Outpatient (BNVA) | payer OTHER, SELFPAY | PROVIDERS: PCP Internal Medicine; Visit Provider Student in an Organized Health Care Education/Training Program | DX: M79.7 Fibromyalgia (principal); M47.816 Spondylosis without myelopathy or radiculopathy, lumbar region; M65.342 Trigger finger, left ring finger; M65.352 Trigger finger, left little finger | CPT/HCPCS: 99212 ==

== ENCOUNTER 2024-06-13 10:16 | Outpatient (AMB) | payer OTHER, SELFPAY ==
[2024-06-13 10:20] VITALS: BP 116/62; PULSE 85; O2SAT 97; BMI 23.8
--- NOTE | 2024-06-13 10:20 | A.OFFPC_ITS ---
Vital Signs 06/13/24 10:20 Height 5 ft 8 in Weight 156 lb 6 oz BMI 23.8 BP 116/62 Blood Pressure Location Lt brachial Position Sitting Pulse 85 Pulse Source Pulse Oximeter Pulse Oximetry (%) 97 Oxygen Delivery Method Room Air Intake Visit Reasons: annual exam Trainman Required: No Accompanied by: Self / Same As Patient Allergies Penicillins [PENICILLINS] Allergy (Intermediate, Verified 06/13/24 10:53) RASH AND SWELLING meperidine [Demerol] Allergy (Unknown, Verified 06/13/24 10:53) pain morphine [MORPHINE] Adverse Reaction (Intermediate, Verified 06/13/24 10:53) N/V Medication List - Last Reconciled 06/19/24 by Lai Olson MD acetaminophen 500 mg PO Q6H PRN [air conditioner As directed] albuterol sulfate 90 mcg/actuation (Ventolin HFA) 2 puffs inhalation QID PRN aripiprazole 15 mg PO DAILY blood pressure monitor As directed bupropion HCl SR 100 mg PO DAILY clonazepam (Klonopin) 1 mg PO TID cyclobenzaprine 10 mg PO TID diclofenac sodium 1% 2 grams topical BEDTIME PRN doxycycline hyclate 100 mg PO BID 7 days famotidine 20 mg PO BID PRN finasteride 5 mg PO BEDTIME fluticasone propionate 50 mcg/actuation 1 spray intranasal DAILY PRN [HANDHELD SHOWER As directed] hydrocortisone 2.5% (Anusol-HC) 1 appl MS BID-QID PRN hydrocortisone 2.5% 1 appl MS BID [left knee supportive brace As directed] leuprolide acetate (6 month) (Eligard) 45 mg subcut [id number] [LIGHTWEIGHT CANE As directed] loratadine 10 mg PO DAILY PRN meclizine 25 mg PO BID PRN 10 days mupirocin 2% 1 appl topical BID nabumetone 750 mg PO DAILY naproxen (Naprosyn) 500 mg PO BID pantoprazole 40 mg PO DAILY 30 days phenazopyridine (Pyridium) 200 mg PO Q8H PRN 6 doses pregabalin 100 mg PO BID PRN [REUSABLE BED PADS As directed] sertraline 100 mg PO DAILY [shower head As directed] sildenafil (pulm.hypertension) 20 mg PO DAILY PRN sodium chloride 0.65% (Saline Nasal) 2 sprays intranasal Q12H PRN tamsulosin 0.4 mg PO BEDTIME tramadol 50 mg PO TID PRN zolpidem (Ambien) 10 mg PO BEDTIME PRN Tobacco use date assessed: 06/13/24 Fall risk assessment: 2 + Falls in past year Last assessed Fall Risk: 06/13/24 Dental Screening Dental Screen Date: 06/13/24 Did you have a dental visit in the last 12 months?: No Did you have a dental problem in the last 6 months where you did not have access to dental care?: No Was dental information given to patient?: Patient has dentist HPI annual exam HPI Details Patient comes in today for his annual physical examination States that he feels okay except for increased pain in his left hand lately States that he is unable to completely close his hand to make a fist sometimes over the past week He denies any recent injury or trauma to his hand He denies any headaches or dizziness Denies any chest pains, no SOB No nausea/vomiting, no abdominal pain No change in bowel habits noted Denies any acute urinary symptoms He had his screening colonoscopy done back [place] [address] Duke - was advised to get repeat colonoscopy in 5 years (2022) so he is past due on his repeat colonoscopy [facility] Medical History Overweight (BMI 25.0-29.9) Rectal bleeding Abdominal pain Epigastric pain Left-sided chest pain Internal hemorrhoid, bleeding Encounter for medication monitoring Pain in finger of left hand Bilateral hip pain Schizophrenia Prostate cancer Left foot pain Left leg pain Elevated blood pressure reading Depression Anxiety Insomnia Benign prostate hyperplasia Lumbar degenerative disc disease Osteoarthritis of right shoulder Asthma Surgical History History of colonoscopy (~03/01/18) S/P excision of lipoma H/O excision of ganglion cyst (~02/2014) Family History Father Lung cancer Mother CVA (cerebral vascular accident), Onset Age: 80 Chronic mental illness Social History Household Members: None Housing: Apartment Alcohol intake: never Patient Tobacco Use Status: Former Tobacco user Tobacco use type: Cigar Cigarettes Per Day: 20 Years Smoked: pt. states he has not smoked in years e-Cigarette/Vaping Use: Never Used Second Hand Smoke Exposure: No service: No Current occupational status: disabled Cognitive needs: No Hearing needs: No Vision needs: Yes (glasses) Questionnaire PHQ-9 Over the last 2 weeks, how often have you been bothered by any of the following problems? 1. Little interest or pleasure in doing things: nearly every day 2. Feeling down, depressed, or hopeless: nearly every day 3. Trouble falling or staying asleep, or sleeping too much: more than half the days 4. Feeling tired or having little energy: nearly every day 5. Poor appetite or overeating: more than half the days 6. Feeling bad about yourself - or that you are a failure or have let yourself or your family down: nearly every day 7. Trouble concentrating on things, such as reading the newspaper or watching television: more than half the days 8. Moving or speaking so slowly that other people could have noticed. Or the opposite - being so fidgety or restless that you have been moving around a lot more than usual: several days 9. Thoughts that you would be better off or of hurting yourself in some way: several days Total score: 20 Depression Screening Interpretation: Positive Depression Screening Follow-up: Existing condition and In treatment Depression Screening Done: Yes 50146 - PHQ-9 Billing: Yes Source: Developed by Drs. Angel Castellanos, Arlet Fine, Valeriano Shah and colleagues, with an educational sari from [employer]. Thrive Questionnaire Date Thrive assessed: 06/13/24 I am a: Patient What is your living situation today?: I have a steady place to live Within the past 12 months, did the food you bought not last and you didn't have the money to get more?: Never true Within the past 12 months, did you worry whether your food would run out before you got money to buy more?: Never true Do you have trouble paying for medicines?: No Do you have trouble getting transportation to medical appointments?: No Do you have trouble paying your heating and electricity bill?: No Do you have trouble taking care of your child, family member or friend?: No Do you have trouble with day-to-day activities such as bathing, preparing meals, shopping, managing finances, etc.?: No Are you currently unemployed and looking for a job?: No Are you interested in more education?: No Please select the resources that you would like help with: None Currently or been in a relationship where the following occur: No concerns reported THRIVE Score: 0 AUDIT C Alcohol Use Questionnaire (AUDIT-C) 1. How often do you have a drink containing alcohol?: Never 3. How often do you have six or more drinks on one occasion?: Never Total Score: 0 Score Reviewed/Action Taken: Yes NILSON-7 AMB Questionnaire NILSON-7 Date NILSON - 7 assessed: 06/13/24 Feeling nervous, anxious, or on edge: 0 = Not at all Not being able to stop or control worryin = Not at all Worrying too much about different things: 0 = Not at all Trouble relaxin = Not at all Being so restless that it is hard to sit still: 0 = Not at all Becoming easily annoyed or irritable: 0 = Not at all Feeling afraid as if something awful might happen: 0 = Not at all Total NILSON-7 score (0-4 normal; 5-9 mild; 10-14 moderate; 15-21 severe): 0 Source: Developed by Drs. Angel Castellanos, Arlet Fine, Valeriano Shah and colleagues, with an educational sari from [employer]. Review of Systems Const Denies chills, Denies fatigue, Denies fever(s), Denies headache(s), Denies malaise and Denies weakness Eyes Denies blurry vision, Denies change in vision, Denies irritation and Denies itchy eyes ENT Denies dysphagia, Denies dizziness, Denies otalgia, Denies headache(s), Denies nasal congestion, Denies neck pain, Denies odynophagia and Denies sore throat Card Denies chest pain, Denies rapid heart rate, Denies irregular heart rhythm, Denies palpitations and Denies dyspnea Resp Denies chest congestion, Denies cough, Denies dyspnea and Denies wheezing GI Denies abdominal pain, Denies bloating, Denies constipation, Denies dysphagia, Denies heartburn, Denies diarrhea, Denies nausea, Denies odynophagia and Denies vomiting Denies hematuria, Denies difficulty urinating, Denies dysuria, Denies urinary frequency and Denies urinary urgency Musc Denies back pain, Reports arthralgias (in the left hand/fingers lately - see HPI), Denies joint swelling, Denies muscle weakness and Denies neck pain Skin/Breast Denies change in pigmentation, Denies lesions, Denies rash and Denies unusual bruising Neuro Denies dizziness, Denies headache(s), Denies paresthesias and Denies weakness Endo Denies fatigue and Denies palpitations Aller/Immun Denies itchy eyes and Denies wheezing Physical exam (Primary Care) Vital Signs: Last Vital Signs Pulse 85 06/13/24 10:20 BP 116/62 06/13/24 10:20 Pulse Ox 97 06/13/24 10:20 Oxygen Delivery Method Room Air 06/13/24 10:20 BMI result Body Mass Index 23.8 Tobacco/Smoking Status: Tobacco use Status Tobacco use date assessed 06/13/24 06/13/24 10:22 Patient Tobacco Use Status Former Tobacco user 06/13/24 10:22 Tobacco use type Cigar 06/13/24 10:22 e-Cigarette/Vaping Use Never Used 06/13/24 10:22 PHQ-9: PHQ-9 Score PHQ-9: Total score 20 06/13/24 10:54 Depression Screening Interpretation: Positive Depression Screening Follow-up: Existing condition and In treatment Thrive Assessment: Date of Thrive Assessment Date Thrive assessed 06/13/24 06/13/24 10:22 Currently or been in a relationship where the following occur: No concerns reported Const General: no acute distress, alert and awake Orientation/consciousness: patient oriented x3 HENMT Head: Yes normocephalic and Yes atraumatic Ears: external ears normal, TM's normal bilaterally and EAC's normal General nose exam: No nasal discharge present Face and sinus: Yes normal facial exam and Yes sinuses nontender Teeth and gingiva: dentition normal Throat: Yes posterior oropharynx normal and Yes tonsils normal (no TP congestion) Eyes Eyelids: Yes eyelids normal Conjunctivae: conjunctivae normal Pupils: Equal, round and reactive pupils present EOM: EOMs intact bilaterally Neck Neck: Yes no lymphadenopathy and Yes supple Thyroid: Thyroid normal Resp Auscultation: clear to auscultation bilaterally, no rales and no wheezes Cardio Rate: regular rate Rhythm: regular rhythm Heart sounds: no murmurs GI Palpation (GI): Soft to palpation, nontender and No hepatosplenomegaly present Auscultation: normal bowel sounds General: Yes no CVA tenderness Back/Spine/Pelvis Back: no CVA tenderness Thoracic/Lumbar Spine: thoracic and lumbar spine normal to inspection Skin Lesions: no lesions Rashes: no rashes Neuro General: patient oriented x3, moves all extremities, no focal motor deficits and CN's II-XI intact bilaterally Cranial nerves: Yes Equal, round and reactive pupils present Cognition (Neuro): normal cognition Gait exam (Neuro): Normal gait present Extrem General: Yes no clubbing, cyanosis or edema Left upper extremity: hand Details: tenderness Location: of the palm and no swelling Office Procedures Flu Questionnaire Does the patient have a severe egg allergy?: No Immunizations Fluarix Triv [id number] (PF) 45 mcg (15 mcg x 3)/0.5 mL IM syringe Performing Provider: Lai Olson MD [facility] Documented (not given) by: LAKHWINDER Davis on 06/13/24 10:29 Reason Not Given: Received Previously Results Reviewed Results Reviewed: Laboratory Tests 02/18/24 04/14/24 08:34 22:51 WBC 5.7 Hgb 11.6 L Hct 35.5 L Plt Count 177 Sodium 139 Potassium 4.1 Creatinine 0.92 Estimated GFR > 60 Random Glucose 100 Calcium 8.6 AST 16 ALT 11 Triglycerides 55 Cholesterol 160 LDL Cholesterol, Calc 99 HDL Cholesterol 50 25-OH Vitamin D Total 31.1 TSH 1.64 Ur Specific [place] 1.010 Urine Protein 30 (1+) H Urine Glucose (UA) Negative Urine Blood Large (3+) H Urine Nitrite Negative Ur Leukocyte Esterase Negative Coding Level of Care Code Est Pt Prev Care 40-64y(64425) Diagnoses Annual physical exam Z00.00 Prostate cancer C61 Moderate persistent asthma without complication J45.40 Asthma severity: moderate Asthma persistence: persistent Asthma complication type: uncomplicated Allergic rhinitis, unspecified seasonality, unspecified trigger J30.9 Allergic rhinitis trigger: unspecified Allergic rhinitis seasonality: unspecified Primary osteoarthritis of right shoulder M19.011 Osteoarthritis type: primary Lumbar spondylosis M47.816 Left hand pain M79.642 Erectile dysfunction, unspecified erectile dysfunction type N52.9 Erectile dysfunction type: unspecified Insomnia, unspecified type G47.00 Insomnia type: unspecified Anxiety F41.9 Episode of recurrent major depressive disorder, unspecified depression episode severity F33.9 Depression Type: major depressive disorder Major depression recurrence: recurrent Active/Remission status: currently active Major depression episode severity: unspecified Overweight (BMI 25.0-29.9) E66.3 Assessment & Plan Assessment & Plan (1) Annual physical exam: Code(s): Z00.00 - Encounter for general adult medical examination without abnormal findings Category: Medical Plan: He has no recent follow up labs done although he had some labs done a couple of months ago in March 2024 when he went to the ER He is past due for his repeat colonoscopy (due in 2022) - he had his screening colonoscopy done back [place] [address] Duke and was advised to get repeat colonoscopy in 5 years Have advised him to reach out to Dr. Duke' office to get this scheduled PETER - is advised to call if he needs a new referral from us (2) Prostate cancer: Code(s): C61 - Malignant neoplasm of prostate Category: Medical Plan: He was diagnosed with an unfavorable intermediate-risk prostate cancer by urology last year (2022) and he has been on Eligard injection every 6 months since his first dose on 10/21/2022 He completed his radiation therapy back in April 2023 Continue Finasteride 5 mg QD and Tamsulosin 0.4 mg Q HS Follow up with urology as scheduled for continuing surveillance and monitoring (3) Asthma: Code(s): J45.909 - Unspecified asthma, uncomplicated Category: Medical Qualifiers: Asthma severity: moderate Asthma persistence: persistent Asthma complication type: uncomplicated Qualified Code(s): J45.40 - Moderate persistent asthma, uncomplicated Plan: Stable/controlled Continue Flovent HFA 110 mcg 1 inhalation BID and Albuterol HFA 2 inhalations every 6 hours as needed (4) Allergic rhinitis: Code(s): J30.9 - Allergic rhinitis, unspecified Category: Medical Qualifiers: Allergic rhinitis trigger: unspecified Allergic rhinitis seasonality: unspecified Qualified Code(s): J30.9 - Allergic rhinitis, unspecified Plan: Continue Fluticasone 50 mcg nasal spray QD PRN and Loratadine 10 mg QD PRN (5) Osteoarthritis of right shoulder: Code(s): M19.011 - Primary osteoarthritis, right shoulder Category: Medical Qualifiers: Osteoarthritis type: primary Qualified Code(s): M19.011 - Primary osteoarthritis, right shoulder Plan: X-rays of the right shoulder done in October 2019 showed mild AC joint arthritis Follow up with rheumatology as scheduled - has been receiving cortisone injections into the right shoulder as needed with (+) relief of shoulder pain Continue Nabumetone 750 mg BID PRN and Acetaminophen 500 mg Q 6 hours PRN (6) Lumbar spondylosis: Code(s): M47.816 - Spondylosis without myelopathy or radiculopathy, lumbar region Category: Medical Plan: Reinforced activity and weight-lifting restrictions Continue Tramadol 50 mg TID PRN for pain and Pregabalin 100 mg BID We have also considered starting him on Duloxetine for his chronic low back pain but he is already presently on Sertraline for his mood disorder and seems to be doing well on it so we held off on adding Duloxetine for now Follow up with pain management as scheduled Reminded that we will NOT be prescribing him any opioids for pain, as they are never a good or acceptable long-term management for chronic pain Advised that a lumbar spine MRI may be beneficial to help establish a more effective treatment plan for him going forward and I will leave this up to the pain specialists to decide how to best go about this (7) Left hand pain: Code(s): M79.642 - Pain in left hand Category: Medical Plan: Will send him for x-rays of the left hand for further evaluation Is advised that depending on how his x-rays come out, he will likely need to see orthopedics for his hand issues later on (8) Erectile dysfunction: Code(s): N52.9 - Male erectile dysfunction, unspecified Category: Medical Qualifiers: Erectile dysfunction type: unspecified Qualified Code(s): N52.9 - Male erectile dysfunction, unspecified Plan: Continue Sildenafil 20 mg QD PRN (9) Insomnia: Code(s): G47.00 - Insomnia, unspecified Category: Medical Qualifiers: Insomnia type: unspecified Qualified Code(s): G47.00 - Insomnia, unspecified Plan: Sleep hygiene reinforced Continue Zolpidem 10 mg Q HS PRN (10) Anxiety: Code(s): F41.9 - Anxiety disorder, unspecified Category: Medical Plan: Continue Clonazepam 1 mg TID PRN and Hydroxyzine 25 mg BID PRN (11) Depression: Code(s): F32.9 - Major depressive disorder, single episode, unspecified Category: Medical Qualifiers: Depression Type: major depressive disorder Major depression recurrence: recurrent Active/Remission status: currently active Major depression episode severity: unspecified Qualified Code(s): F33.9 - Major depressive disorder, recurrent, unspecified Plan: Continue Sertraline 100 mg QD and Abilify 15 mg Q HS Follow-up with Psychiatry as scheduled (12) Overweight (BMI 25.0-29.9): Code(s): E66.3 - Overweight Category: Medical Plan: Reinforced diet/exercise as tolerated/lose weight Plan Follow up in 4 months Orders: Orders XR hand LT min 3V 06/16/24 M79.642 - Pain in left hand Comprehensive [place]. Panel Fast 4 Months E78.00 - Pure hypercholesterolemia, unspecified UA CC w/rflx Micro + Cult 4 Months R30.0 - Dysuria Influenza [id number] Immunization 06/13/24 Z23 - Encounter for immunization Complete Blood Count Auto Diff 4 Months D64.9 - Anemia, unspecified Lipid Panel 4 Months E78.00 - Pure hypercholesterolemia, unspecified TSH reflex Free T4 4 Months E78.00 - Pure hypercholesterolemia, unspecified Vitamin D 25-OH Total 4 Months E55.9 - Vitamin D deficiency, unspecified
== END 2024-06-13 11:11 | disposition home or self-care (01) ==
PROVIDERS: PCP Internal Medicine; Visit Provider Internal Medicine
DX: Z00.00 Encounter for general adult medical examination without abnormal findings (principal); C61 Malignant neoplasm of prostate; J45.40 Moderate persistent asthma, uncomplicated; J30.9 Allergic rhinitis, unspecified; M19.011 Primary osteoarthritis, right shoulder; M47.816 Spondylosis without myelopathy or radiculopathy, lumbar region; M79.642 Pain in left hand; N52.9 Male erectile dysfunction, unspecified; G47.00 Insomnia, unspecified; F41.9 Anxiety disorder, unspecified; F33.9 Major depressive disorder, recurrent, unspecified; E66.3 Overweight

== ENCOUNTER → 2024-06-13 10:16 | Outpatient (BNVA) | payer OTHER, SELFPAY | PROVIDERS: PCP Internal Medicine; Visit Provider Internal Medicine | DX: Z00.00 Encounter for general adult medical examination without abnormal findings (principal); C61 Malignant neoplasm of prostate; J45.40 Moderate persistent asthma, uncomplicated; J30.9 Allergic rhinitis, unspecified; M19.011 Primary osteoarthritis, right shoulder; M47.816 Spondylosis without myelopathy or radiculopathy, lumbar region; M79.642 Pain in left hand; N52.9 Male erectile dysfunction, unspecified; G47.00 Insomnia, unspecified; F41.9 Anxiety disorder, unspecified; F33.9 Major depressive disorder, recurrent, unspecified; E66.3 Overweight; Z68.23 Body mass index [BMI] 23.0-23.9, adult; Z79.899 Other long term (current) drug therapy | CPT/HCPCS: 90471; 96127; 99396 ==

== ENCOUNTER 2024-06-15 15:02 | Outpatient (REF) | payer OTHER, SELFPAY ==
[2024-06-15 16:04] LABS: Influenza A PCR NEGATIVE (Negative); Influenza B PCR NEGATIVE (Negative); Resp Syncy Virus RNA Qual PCR NEGATIVE (Negative); SARS COV2 PCR INHOUSE NEGATIVE (Negative)
== END 2024-06-15 15:03 | disposition home or self-care (01) ==
LOC: HO.LAB 15:02
PROVIDERS: PCP Internal Medicine; Visit Provider Internal Medicine
DX: J98.8 Other specified respiratory disorders (principal); R06.00 Dyspnea, unspecified; R06.02 Shortness of breath; R09.89 Other specified symptoms and signs involving the circulatory and respiratory systems; J02.9 Acute pharyngitis, unspecified
CPT/HCPCS: 0241U

== ENCOUNTER 2024-06-16 09:00 | Outpatient (REF) | payer OTHER, SELFPAY | END 2024-06-16 09:01 | disposition home or self-care (01) | LOC: HO.XRAY 09:00 | PROVIDERS: PCP Internal Medicine; Visit Provider Internal Medicine | DX: M79.642 Pain in left hand (principal) | CPT/HCPCS: 73130 ==

== ENCOUNTER 2024-07-18 13:55 | Outpatient (AMB) | payer OTHER, SELFPAY ==
--- NOTE | 2024-07-18 13:56 | MHC.PC.OV ---
Vital Signs 07/18/24 13:58 Height 5 ft 8 in Weight 159 lb 8 oz BMI 24.2 BP 110/70 Blood Pressure Location Lt brachial Position Sitting Pulse 78 Pulse Source Pulse Oximeter Pulse Oximetry (%) 98 Oxygen Delivery Method Room Air Intake Visit Reasons: Spots on skin, they hurt Intake Note: Patient is here to follow up on Blister on left arm and back and it hurts. Community Service Organization Director Required: Yes Community Service Organization Director Language: [employer] Ax Consultant Name: Maria A ([id number]) Information Interpreted: non-clinical & clinical Bird Tender: Not Required per policy Accompanied by: Self / Same As Patient Allergies Penicillins [PENICILLINS] Allergy (Intermediate, Verified 07/18/24 13:57) RASH AND SWELLING meperidine [Demerol] Allergy (Unknown, Verified 07/18/24 13:57) pain morphine [MORPHINE] Adverse Reaction (Intermediate, Verified 07/18/24 13:57) N/V Tobacco use date assessed: 07/18/24 Fall risk assessment: No Falls in past year Last assessed Fall Risk: 07/18/24 Dental Screening Dental Screen Date: 06/13/24 HPI HPI Comments History of Present Illness Details Patient presenting today for evaluation of 2 spots on his body. He reports the spots have been present for the past 2 weeks. The 1 on his arm is very itchy although improving. He is concerned the spots may be skin cancer. He is concerned due to history of prostate cancer. Patient was offered influenza vaccine today although he stated he already received this vaccine. He denies any other abnormal lesions, rashes anywhere else in the body, fevers, nausea vomiting, chest pain, shortness of breath, wheezing, throat pain, throat swelling, lip swelling, tongue swelling, others with similar symptoms, recent tick or insect bites that he is aware of, changes in medications/lotions/detergent or any other symptoms complaints or concerns at this time. [facility] Medical History (Updated 07/18/24 @ 14:23 by Vijaya Rogers PA-C) Congenital nevus Contact dermatitis Overweight (BMI 25.0-29.9) Rectal bleeding Abdominal pain Epigastric pain Left-sided chest pain Internal hemorrhoid, bleeding Encounter for medication monitoring Pain in finger of left hand Bilateral hip pain Schizophrenia Prostate cancer Left foot pain Left leg pain Elevated blood pressure reading Depression Anxiety Insomnia Benign prostate hyperplasia Lumbar degenerative disc disease Osteoarthritis of right shoulder Asthma Surgical History History of colonoscopy (~03/01/18) S/P excision of lipoma H/O excision of ganglion cyst (~02/2014) Family History Father Lung cancer Mother CVA (cerebral vascular accident), Onset Age: 80 Chronic mental illness Social History Household Members: None Housing: Apartment Alcohol intake: never Patient Tobacco Use Status: Former Tobacco user Tobacco use type: Cigar Cigarettes Per Day: 20 Years Smoked: pt. states he has not smoked in years e-Cigarette/Vaping Use: Never Used Second Hand Smoke Exposure: Yes service: No Current occupational status: disabled Cognitive needs: No Hearing needs: No Vision needs: Yes (glasses) Questionnaire Thrive Questionnaire Date Thrive assessed: 06/13/24 NILSON-7 AMB Questionnaire NILSON-7 Date NILSON - 7 assessed: 06/13/24 Source: Developed by Drs. Angel Castellanos, Arlet Fine, Valeriano Shah and colleagues, with an educational sari from [employer]. Review of Systems Const All systems reviewed & are unremarkable except as noted in HPI and below Physical exam (Primary Care) Vital Signs: Last Vital Signs Pulse 78 07/18/24 13:58 BP 110/70 07/18/24 13:58 Pulse Ox 98 07/18/24 13:58 Oxygen Delivery Method Room Air 07/18/24 13:58 Vital signs have been reviewed and are within normal limits. BMI result Body Mass Index 24.2 Tobacco/Smoking Status: Tobacco use Status Tobacco use date assessed 07/18/24 07/18/24 14:05 Patient Tobacco Use Status Former Tobacco user 07/18/24 14:05 Tobacco use type Cigar 07/18/24 14:05 e-Cigarette/Vaping Use Never Used 07/18/24 14:05 Thrive Assessment: Date of Thrive Assessment Date Thrive assessed 06/13/24 07/18/24 14:05 Const Other: Appearance: Alert. Oriented X3. No acute distress. Head: Normal external exam. Normocephalic. Atraumatic. Eyes: Conjunctiva and sclera normal. Eyelids normal. ENT: Pharynx normal. Uvula midline. Moist mucous membranes. Neck: Normal inspection. Neck supple. FROM. CVS: Normal heart rate and rhythm. Respiratory: No respiratory distress. Painless inspiration. Skin: Skin warm and dry. Normal skin color. Normal skin turgor. To left arm patient has erythematous macular pruritic lesion that is less than 0.5 cm x 0.5. There is no advancing erythema, induration, fluctuance, purulent drainage, foul odor, crepitus or signs of active infection. There are no additional rashes/lesions/lacerations noted. Patient noted to have normal congenital Nevi throughout the body, they are normal appearing not irregular. Extremities: Extremities exhibit normal range of motion. Neuro: Normal steady gait. Vascular: + radial pulses. Normal cap refill. No cyanosis noted. 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 Not consistent with allergic reaction or anaphylaxis. No signs of infection. Patient will be started on topical hydrocortisone. 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 No irregular appearing Nevus. Medications: New hydrocortisone 2.5% 1 appl topical BID PRN 20 grams 0RF skin irritation
[2024-07-18 13:58] VITALS: BP 110/70; PULSE 78; O2SAT 98; BMI 24.2
== END 2024-07-18 16:11 | disposition home or self-care (01) ==
PROVIDERS: PCP Internal Medicine; Visit Provider Internal Medicine
DX: L25.9 Unspecified contact dermatitis, unspecified cause (principal); Q82.5 Congenital non-neoplastic nevus

== ENCOUNTER → 2024-07-18 13:55 | Outpatient (BNVA) | payer OTHER, SELFPAY | PROVIDERS: PCP Internal Medicine; Visit Provider Internal Medicine | DX: L25.9 Unspecified contact dermatitis, unspecified cause (principal); Q82.5 Congenital non-neoplastic nevus | CPT/HCPCS: 99212 ==

== ENCOUNTER 2024-10-10 09:01 | Outpatient (REF) | payer OTHER, SELFPAY ==
[2024-10-10 09:23] LABS: MANUAL DIFF FLAG NO
--- OUTSIDE RECORDS SUMMARY | 2024-10-10 09:30 | XMS_ITS | Encounter Summary ---
Author Organization [employer] [facility] Address [address] [place] [address] 7[address] [place] [address] Care Team Providers Care Densitometrist Name Role Phone Trent Aiken DMD Unavailable [phone] Encounter Details Date Type Department Care Team (Latest Contact Info) Description 03/04/2022 Abstract [facility] CONVERSIONS Dental, Provider, DDS Social History Tobacco Use Types Packs/Day Years Used Date Smoking Tobacco: Never Assessed Sex and Gender Information Value Date Recorded Sex Assigned at Male 06/22/2022 10:14 AM EDT Legal Sex Male 10:14 AM EDT Gender Identity Male 06/22/2022 10:14 AM EDT Sexual Orientation Straight 06/22/2022 10 :14 AM EDT documented as of this encounter Plan of Treatment Upcoming Encounters Date Type Department Care Team (Late st Contact Info) Description 10/20/2024 11:00 AM EST Office Visit [facility] ADULT DENTAL [address] [place] [address] Trent Aiken DOMINICK [address] [place] [address] documented as of this encounter Visit Diagnoses Not on filedocumented in this encounter Care Teams Densitometrist Relationship Specialty Start Date End Date Trent AikenDOMINICK [address] [place] [address] Dentist 07/26/24 documented as of this encounter
--- OUTSIDE RECORDS SUMMARY | 2024-10-10 09:30 | XMS_ITS | Encounter Summary ---
Author Organization [employer] [facility] Address [address] [place] [address] 7t [place] [address] Care Team Providers Care Promotions Team Leader Name Role Phone Trent Aiken DMD Unavailable [phone] Encounter Details Date Type Department Care Team (Latest Contact Info) Description 07/13/2019 Abstract [facility] CONVERSIONS Dental, Provider, DDS Social History [...] Description 10/20/2024 11:00 AM EST Office Visit [facility] ADULT DENTAL [address] [place] [address] AttilaTrent ignacioDOMINICK [address] [place] [address] documented as of this encounter Visit Diagnoses Not on filedocumented in this encounter Care Teams Promotions Team Leader Relationship Specialty Start Date End Date Trent Aiken DMD [address] [place] [address] Dentist 07/26/24 documented as of this encounter
--- OUTSIDE RECORDS SUMMARY | 2024-10-10 09:30 | XMS_ITS ---
Author Organization [facility] Address [address] [place] [address] Care Team Providers Care Spring Coiler Name Role Phone Wesley CUNNINGHAM, Lai Primary Care Provider UnaAngel Lobo Unavailable [phone] REASON FOR VISIT cancelled appt for today. Encounters Encounter Location Date Provider Diagnosis [facility] [address] [place] [address] 11/30/2023 Angel Duke PLAN OF TREATMENT No Information
--- OUTSIDE RECORDS SUMMARY | 2024-10-10 09:30 | XMS_ITS | Encounter Summary ---
Author Organization [employer] [facility] Address [address] [place] [address] 7t [place] [address] Care Team Providers Care Hourly Sales Staff Name Role Phone Trent Aiken DMD Unavailable [phone] Encounter Details Date Type Department Care Team (Latest Contact Info) Description 11/29/2020 Abstract [facility] CONVERSIONS Dental, Provider, DDS Social History [...] Description 10/20/2024 11:00 AM EST Office Visit [facility] ADULT DENTAL [address] [place] [address] Trent Aiken DMD [address] [place] [address] documented as of this encounter Visit Diagnoses Not on filedocumented in this encounter Care Teams Hourly Sales Staff Relationship Specialty Start Date End Date Trent AikenDOMINICK [address] [place] [address] Dentist 07/26/24 documented as of this encounter
--- OUTSIDE RECORDS SUMMARY | 2024-10-10 09:30 | XMS_ITS ---
Author Organization [facility] Address [address] [place] [address] Care Team Providers Care Length Control Tester Name Role Phone Wesley CUNNINGHAM, Lai Primary Care Provider Unava Angel Carter Unavailable [phone] REASON FOR VISIT Patient presents today for a screening colonoscopy Encounters Encounter Location Date Provider Diagnosis [facility] [address] [place] [address] 11/30/2023 Angel Duke PLAN OF TREATMENT No Information
--- OUTSIDE RECORDS SUMMARY | 2024-10-10 09:32 | XMS_ITS | Patient Health Record ---
Author Organization [facility] Address [address] [place] [address] Care Team Providers Care Regional Marketing Manager Name Role Phone Lai Olson MD Primary Care Provider Angel Branch Unavailable [phone] ALLERGIES Allergen (clinical drug ingredient) Drug/Non Drug Allergy documented on EMR Reaction Allergy Type Onset Date Status Penicillin Unknown Drug Allergy Active meperidine Demerol Unknown Drug Allergy Active REASON FOR REFERRAL No Information MEDICATIONS Medication SIG (Take, Route, Frequency, Duration) Notes Start Date End Date Status Albuterol Sulfate HFA 108 (90 Base) MCG/ACT 2 puffs as needed Inhalation every 6 hrs Active Tamsulosin HCl 0.4 MG Oral for 90 Active Ambien 10 MG 1 tablet at bedtime as needed Orally Once a day Active clonazePAM 1 MG Oral for 30 Ac tive Pantoprazole Sodium 40 MG Oral for 30 Active Fluticasone Propionate 50 MCG/ACT 1 spray in each nostril Nasally Once a day Active traMADol HCl 50 MG Oral for 30 Active Cyclobenzaprine HCl 10 MG 1 tablet as ne eded Orally Three times a day Active Loratadine 10 MG 1 tablet Orally Once a day Active Abilify 5 MG 1 tablet Orally Once a day Active KlonoPIN 1 MG 1 tablet Orally twic e a day Active Ventolin HFA 108 (90 Base) MCG/ACT TOME DOS INHALACIONES POR V A ORAL CUATRO VECES AL D A CUANDO SEA NECESARIO FOR BRONCHOSPASM Inhalation for 25 Active Sertraline HCl 100 MG 1 tablet Orally On ce a day Active Nabumetone 750 MG 1 tablet Orally Twic e a day Not-Taking SOCIAL HISTORY Tobacco Use: Social History Observation [...] adenomatous polyp of colon (Z86.010) Active confirmed 141481836 Problem Encounter for screening for malignant neoplasm of colon (Z12.11) Active confirmed 638564706 Problem Preprocedural examination (Z01.818) Active confirmed [id number] Problem Abdominal bloating (R14.0) Active confirmed Abdominal b loating (574621821) VITAL SIGNS Blood pressure diastolic 00 mm Hg 04/18/2024 Height 68 in 04/18/2024 Blood pressure systolic 00 mm Hg 04/18/2024 Weight 156 lbs 04/18/2024 BMI 23.72 kg/m2 04/18/2024 Encounters Encounter Location Date Provider Diagnosis [facility] [address] [place] [phone] 11/30/2023 Angel Duke [facility] [address] [place] [address] 04/18/2024 Angel Duke Abdominal bloating R14.0 ; History of adenomatous polyp of colon Z86.010 and Encounter for screening for malignant neoplasm of colon Z12.11 [facility] [address] [place] [phone] 11/30/2023 Angel Duke ASSESSMENTS Encounter Date Diagnosis Assessment Notes Treatment Notes Treatment Clinical Notes 04/18/2024 History of adenomatous polyp of colon (ICD-10 - Z86.010) 04/18/2024 Abdominal bloating (ICD-10 - R14.0) 04/18/2024 Encounter for screening for malignant neoplasm of colon (ICD-10 - Z12.11) Need colonoscopy/path report from [facility] in approx 2022 Needs colon recall for 03/2028 PLAN OF TREATMENT Future Test Test Name Order Date COLONOSCOPY 02/08/2018 Insurance Providers Payer Name Payer Address Payer Phone Subscriber Number Group Number Insured Name Patient Relationship to Insured Coverage Start Date Coverage End Date [facility] [address] Attn Claims BRENDAN Estevez [id number] RAYSHAWN ISSA Self - patient is the insured MEDICAID OF [facility] [place] [facility] [address] [place] [address] [phone] [id number] RAYSHAWN ISSA Self - patient is the insured MEDICAL (GENERAL) HISTORY Medical History History ICD Code Depression Insomnia Asthma Denies PA,DM,CVA Colonoscopy 09/2012 with a all tubular adenoma removed, internal hemorrhoids --Dr. Montilla Sees Dr. Son for renal cysts and ston es Screening colonoscopy in February of 2018 pending sale to [facility]--small tubular adenoma removed He describes a colonoscopy at [facility] i n 2022 with removal of a small polyp Surgical History Surgery Date(Month/Year) Ganglion cyst removed from left hand Lipoma on his back
--- OUTSIDE RECORDS SUMMARY | 2024-10-10 09:32 | XMS_ITS | Encounter Summary ---
Author Organization [employer] Address [address] [place] [address] 7t [place] [address] Care Team Providers Care Gut Sorter Name Role Phone Trent Aiken DMD Unavailable [phone] Reason for Visit * Reason Comments Scaling And Root Planing Encounter Details Date Type Department Care Team ([facility] st Contact Info) Description 09/12/2024 9:00 AM EST Office Visit [facility] ADULT DENTAL [address] [place] [address] Rocky Rivera Dental calculus (Primary Dx) Social History Tobacco Use Types Packs/Day Years Used Date Smoking Tobacco: Never Passive Smoke Exposure: Never Smokeless Tobacco: Never Alcohol Use Standard Drinks/Week Comments Never 0 (1 standard drink = 0.6 oz pur e alcohol) Sex and Gender Information Value Date Recorded Sex Assigned at Male 06/22/2022 10:14 AM EDT Legal Sex Male 10:14 AM EDT Gender Identity Male 06/22/2022 10:14 AM EDT Sexual Orientation Straight 06/22/2022 10 :14 AM EDT documented as of this encounter Last Filed Vital Signs Vital Sign Reading Time Taken Comments Blood Pressure 122/68 09/12/2024 8:47 AM EST Pulse 68 09/12/2024 8:47 AM EST Temperature - - Respiratory Rate - - Oxygen Saturation - - Inhaled Oxygen Concentration - - Weight - - Height - - Body Mass Index - - documented in this encounter Progress Notes * Rocky Rivera - 09/12/2024 9:00 AM EST Patient ID: Goyo Canela is a 64 y.o. male. Time Out: Timeout Date: 09/12/24, Timeout Time: 0847 Location: [facility] Tooth: UR and LR Procedure: Scaling and Root Planing Verified the above with patient, food trades assistants, and provider. Confirmed via patient's chart, intraorally and by radiographs. Direct Service Professional: not applicable Medical Hx: Vitals: Blood pressure 122/68, pulse 68. Medications, Med Hx reviewed with patient and updated in chart. Treatment Provided Dental procedures in this visit D4341 - PERIODONTAL SCALING AND ROOT PLANING - 4 OR MORE TEETH PER QUADRANT UR (Completed) Service provider: Rocky Rivera Billing provider: Delma Richardson DDS D4341 - PERIODONTAL SCALING AND ROOT PLANING - 4 OR MORE TEETH PER QUADRANT LR (Completed) Service provider: Rocky Rivera Billing provider: Delma Richardson DDS D9450 - ADJUNCTIVE GENERAL SERVICES - PROFESSIONAL VISITS - CASE PRESENTATION, SUBSEQUENT TO DETAILED AND EXTENSIVE TREATMENT PLANNING (Completed) Service provider: Rocky Rivera Billnilson provider: Delma Richardson DDS Topical: 20% Benzocaine Confirmed profound anesthesia. Oral Cancer Screening: No lesions Head/Neck Exam: No Lesions Instruments Used: Ultrasonic Scalers Fluoride: N/A Calculus: Moderate and Localized Plaque: Light and Localized Stain: Light and Generalized Bleeding: Light and Generalized Gingiva: Bleeding on probing OH: Fair Oral hygiene instructions provided to patient including brushing technique and flossing. Recommendations: [place] two times daily, modified holt technique, Floss daily Recall Frequency: 6 mo NV: 6mr Hygienist: Rocky Rivera RDH documented in this encounter Plan of Treatment Upcoming Encounters Date Type Department Care Team (Late st Contact Info) Description 10/20/2024 11:00 AM EST Office Visit [facility] ADULT DENTAL [address] [place] [address] Trent Aiken, DOMINICK [address] [place] [address] documented as of this encounter Procedures Procedure Name Priority Date/Time Associated Diagnosis Comments LR PERIODONTAL SCALING AND ROOT PLANING - 4 OR MORE TEETH PER QUADRANT Routine 09/12/2024 9:00 AM EST UR PERIODONTAL SCALING AND ROOT PLANING - 4 OR MORE TEETH PER QUADRANT Routine 09/12/2024 9:00 AM EST CASE PRESENTATION, DETAILED AND EXTENSIVE TREATMENT PLANNING Routine 09/12/2024 9:00 AM EST documented in this encounter Visit Diagnoses Diagnosis Dental calculus- Primary Accretions on teeth documented in this encounter Care Teams Gut Sorter Relationship Specialty Start Date End Date Trent Aiken DMD [address] [place] [address] Dentist 07/26/24 documented as of this encounter
--- OUTSIDE RECORDS SUMMARY | 2024-10-10 09:32 | XMS_ITS | Encounter Summary ---
Author Organization [employer] Address [address] [place] [address] 7t [place] [address] Care Team Providers Care Property Worker Name Role Phone Attila, Trent DMD Unavailable [phone] Reason for Visit * Reason Comments Makena Patient presents tod ay for core build up and crown prep Deepa JONES Encounter Details Date Type Department Care Team ([facility] st Contact Info) Description 09/26/2024 11:30 AM EST Office Visit [facility] ADULT DENTAL [address] [place], [place] [phone] Trent Aiken DMD [address] [place], [place] [phone] Full coverage crown needed for root canal-treated tooth (Primary Dx) Social History Tobacco Use Types [...] Sign Reading Time Taken Comments Blood Pressure 130/70 09/26/2024 12:48 PM EST Pulse - - Temperature - - Respiratory Rate - - Oxygen Saturation - - Inhaled Oxygen Concentration - - Weight - - Height - - Body Mass Index - - documented in this encounter Progress Notes * Trent Aiken DMD - 09/26/2024 11:30 AM EST Patient ID: Goyo Canela is a 64 y.o. male. Time Out: Timeout Date: 09/26/24, Timeout Time: 1132 (Core build up crown prep # 14) Location: [facility] Tooth: #14 Procedure: Orthodoxy and Makena Verified the above with patient, child development assistant, and provider. Confirmed via patient's chart, intraorally and by radiographs. [place]: Yes. Language: Armenian. [place]'s Name: Deepa ROBERT Chief Complaint Patient presents with Makena Patient presents today for core build up and crown prep Deepa JONES Medical Hx: Vitals: Blood pressure 130/70. Medications, Med Hx reviewed with patient and updated in chart. Consent Obtained: The risks, benefits, indications, potential complications, and alternatives were explained to the patient and informed consent was obtained with good understanding. Treatment Provided: Dental procedures in this visit D2950 - RESTORATIVE - OTHER RESTORATIVE SERVICES - CORE BUILDUP, INCLUDING ANY PINS WHEN REQUIRED 14 (Completed) Service provider: Trent Aiken DMD Billing provider: Trent Aiken DMD D2700.1 - CROWN PREP 14 (Completed) Service provider: Trent Aiken DMD Billing provider: Trent Aiken DMD D9450 - ADJUNCTIVE GENERAL SERVICES - PROFESSIONAL VISITS - CASE PRESENTATION, SUBSEQUENT TO DETAILED AND EXTENSIVE TREATMENT PLANNING (Completed) Service provider: Trent Aiken DMD Billing provider: Trent Aiken DMD Diagnosis: previously completed RCT #14, in need of core BU and crown Pt asymptomatic Topical: 20% Benzocaine Anesthesia: 4% Septocaine (Articaine) w/ 1:200,000 epinephrine Number of Cartridges: 0.5 Injection Type: Buccal infiltration and Palatal infiltration Confirmed profound anesthesia. Isolation: high speed suction, cotton rolls, and cheek guard Prep: All caries removed, Existing religious removed, and Preparation finalized Temp filling, cotton pellet and existing amalgam with small amount of recurrent decay removed Core BU completed: Matrix: None Etch: 37% Phosphoric Acid Etch Desensitizer: Gluma Liner/Base: None Carrero: I-Carrero Orthodoxy Material: Voco Grandioso Flowable Shade: A2 Prepared tooth for: Ceramic crown Note that when removing dry angle, portion of buccal mucosa sloughed off and caused bleeding. Hemostasis achieved with pressure, no sutures indicated. Pt informed and recommended OTC analgesics and warm salt water rinses. Pt understood Gingival Retraction: Cord, Size 000 and 00, soaked in hemodent, two cord technique. Cord removal verified prior to discharge Final Impression taken with: [employer] Bite Registration taken with: Jeanette VPS Provisional fabricated with: [employer] Temp Material and cemented with: TempBond Shade: A3 Lab used: [facility]X Lab Due Date: 10/12 POI given to patient with instructions for homecare, to avoid sticky or crunchy foods, and to call if temp crown becomes dislodged. All questions answered. Patient tolerated procedure well, and was discharged alert, oriented, and in stable condition. NV: #14 crown service delivery management consultant: Deepa Joaquin Dentist: Trent Aiken DMD documented in this encounter Plan of Treatment Upcoming Encounters Date Type Department Care Team (Late st Contact Info) Description 10/20/2024 11:00 AM EST Office Visit [facility] ADULT DENTAL [address] [place] [address] Trent Aiken DMD [address] [place] [address] Scheduled Orders Name Type Priority Associated Diagnoses Orde r Schedule DENTAL LAB FIXED Dental Routine Ordered: 09/26/2024 documented as of this encounter Procedures Procedure Name Priority Date/Time Associated Diagnosis Comments 14 CROWN PREP Routine 09/26/2024 11:30 AM EST Full coverage crown needed for root canal-treated tooth 14 CORE BUILDUP, INCL ANY PINS WHEN REQ Routine 09/26/2024 11:30 AM EST Full coverage crown needed for root canal-treated tooth CASE PRESENTATION, DETAILED AND EXTENSIVE TREATMENT PLANNING Routine 09/26/2024 11:30 AM EST Full coverage crown needed for root canal-treated tooth documented in this encounter Visit Diagnoses Diagnosis Full coverage crown needed for root canal-treated tooth- Primary documented in this encounter Care Teams Property Worker Relationship Specialty Start Date End Date Trent Aiken DMD [address] [place] [address] Dentist 07/26/24 documented as of this encounter
--- OUTSIDE RECORDS SUMMARY | 2024-10-10 09:32 | XMS_ITS | Encounter Summary ---
Author Organization [employer] Address [address] [place] [address] Care Team Providers Care Alloy Weigher Name Role Phone Trent Aiken DMD Unavailable [phone] Reason for Visit * Reason Onset Date Comments Referral 03/17/2023 Encounter Details Date Type Department Care Team (Late st Contact Info) Description 03/17/2023 Telephone [facility] ADULT DENTAL [address] [place] [address] Trent Aiken DMD [address] [place], [place] [phone] Referral Social History Tobacco Use Types Packs/Day Years [...] AM EDT documented as of this encounter Miscellaneous Notes * Telephone Encounter - Loida Hadley - 03/17/2023 12:28 PM EDT Patient called in again checking in referral and xrays had been sent. I reminded patient that we received call from [facility] in the morning and office has 48-72 to get records over to office. I contacted motel front desk clerk and referral is in the office but front end web developer that has referral was on lunch and would be sending over to office upon return. I informed patient that it would be up to pracctice if to see him as an exam without the referral and them follow up after referral is received or if they want to reschedule Request for referral and xcrays was made on same day that message was sent. * Telephone Encounter - Rama Thomas - 03/17/2023 10:17 AM EDT [facility] called in and stated patient Goyo Canela 1960 has appt with them today and stated they need RCT Referral and Xrays please advise documented in this encounter Plan of Treatment Upcoming Encounters Date Type Department Care Team (Late st Contact Info) Description 10/20/2024 11:00 AM EST Office Visit [facility] ADULT DENTAL [address] [place] [address] Trent Aiken DMD [address] [place] [address] documented as of this encounter Visit Diagnoses Not on filedocumented in this encounter Care Teams Alloy Weigher Relationship Specialty Start Date End Date Trent Aiken DMD [address] [place] [address] Dentist 07/26/24 documented as of this encounter
[2024-10-10 09:44] LABS: Appearance Urine Clear; Color Urine Yellow; Glucose Urine UA Negative (Negative); Leukocyte Esterase Urine Negative (Negative); Nitrite Urine Negative (Negative); Specific Gravity - Urine 1.025 (1.005-1.025); UMIC TRIGGER UACC YES; Urine Blood Trace (Negative); Urine Ketones Trace mg/dL (Negative); Urine Protein Trace mg/dL (Neg-Trace)
[2024-10-10 09:47] LABS: Basophils Percent Auto 0.9 % (0-2); Eosinophils Absolute Auto 0.1 X10*3/uL (0.0-0.4); Eosinophils Percent Auto 2.1 % (0-4); Hemoglobin 13.3 g/dl (14.0-18.0); Imm Gran Abs Auto 0.03 X10*3/uL (0.00-0.03); Imm Gran Pct Auto 0.7 % (0.0-0.4); Lymphocytes Absolute Auto 1.1 X10*3/uL (1.2-4.9); Lymphocytes Percent Auto 24.5 % (20-40); Mean Corpuscular HGB Conc 32.4 g/dl (31.0-36.0); Mean Corpuscular Hemoglobin 27.3 pg (27.0-33.0); Mean Corpuscular Volume 84.2 fL (80.0-98.0); Mean Platelet Volume 12.7 fL (9.4-12.4); Monocytes Absolute Auto 0.4 X10*3/uL (0.1-1.2); Monocytes Percent Auto 10.1 % (2-11); Neutrophils Absolute Auto 2.7 x10*3/uL (2.0-8.3); Neutrophils Percent Auto 61.7 % (45-73); Platelet Count 161 X10*3/uL (160-400); Red Blood Count 4.87 X10*6/uL (4.60-5.80); Red Cell Distribution Width 14.5 % (11.0-16.0); White Blood Count 4.4 X10*3/uL (4.8-10.8)
[2024-10-10 09:47] LABS: Bacteria Urine None Seen (None Seen); RBC Urine 0-2 /HPF (0-2); Squamous Epithelial Cell Urine 0-2 /HPF (0-2); WBC Urine 0-5 /HPF (0-5)
[2024-10-10 10:40] LABS: Alanine Aminotransferase 16 U/L (0-40); Albumin Level 3.9 g/dL (3.5-5.0); Alkaline Phosphatase 92 U/L (39-117); Anion Gap 11 (12-20); Aspartate Amino Transferase 17 U/L (5-37); Bilirubin Total 0.4 mg/dL (0.0-1.0); Blood Urea Nitrogen 26 mg/dL (9-16); Calcium 8.8 mg/dL (8.4-10.2); Carbon Dioxide 23 mmol/L (22-29); Chloride 111 mmol/L (96-108); Cholesterol 162 mg/dL (<200); Estimated Glomerular Filt Rate > 60; Glucose Fasting 107 mg/dL (60-99); HDL Cholesterol 48 mg/dL (>40); LDL Cholesterol Calculated 99 mg/dL (<100); Potassium 4.1 mmol/L (3.3-5.1); Sodium 141 mmol/L (135-145); TSH reflex Free T4 0.95 uIU/mL (0.32-4.0); Total Protein 6.9 g/dL (6.5-8.0); Triglycerides 75 mg/dL (<150); Vitamin D 25-OH Total 26.6 ng/mL (>30)
== END 2024-10-10 09:02 | disposition home or self-care (01) ==
LOC: HO.LAB 09:01
PROVIDERS: PCP Internal Medicine; Visit Provider Internal Medicine
DX: D64.9 Anemia, unspecified (principal); E78.00 Pure hypercholesterolemia, unspecified; E55.9 Vitamin D deficiency, unspecified
CPT/HCPCS: 36415; 80053; 80061; 81001; 82306; 84443; 85025

== ENCOUNTER 2024-10-17 09:18 | Outpatient (AMB) | payer OTHER, SELFPAY ==
[2024-10-17 09:23] VITALS: BP 130/78; PULSE 83; O2SAT 95; BMI 24.1
--- NOTE | 2024-10-17 09:23 | A.OFFPC_ITS ---
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 Accompanied by: Self / Same As Patient Allergies Penicillins [PENICILLINS] Allergy (Intermediate, Verified 10/17/24 09:41) RASH AND SWELLING meperidine [Demerol] Allergy (Unknown, Verified 10/17/24 09:41) pain morphine [MORPHINE] Adverse Reaction (Intermediate, Verified 10/17/24 09:41) N/V Medication List - Last Reconciled 10/17/24 by Lai Olson MD acetaminophen 500 mg PO Q6H PRN [air conditioner As directed] albuterol sulfate 90 mcg/actuation (Ventolin HFA) 2 puffs inhalation QID PRN aripiprazole 15 mg PO DAILY blood pressure monitor As directed bupropion HCl SR 100 mg PO DAILY clonazepam (Klonopin) 1 mg PO TID cyclobenzaprine 10 mg PO TID diclofenac sodium 1% 2 grams topical BEDTIME PRN famotidine 20 mg PO BID PRN finasteride 5 mg PO BEDTIME fluticasone propionate 50 mcg/actuation 1 spray intranasal DAILY PRN [HANDHELD SHOWER As directed] hydrocortisone 2.5% (Anusol-HC) 1 appl TX BID-QID PRN hydrocortisone 2.5% 1 appl topical BID PRN hydrocortisone 2.5% 1 appl TX BID [left knee supportive brace As directed] leuprolide acetate (6 month) (Eligard) 45 mg subcut [id number] [LIGHTWEIGHT CANE As directed] loratadine 10 mg PO DAILY PRN meclizine 25 mg PO BID PRN 10 days mupirocin 2% 1 appl topical BID nabumetone 750 mg PO DAILY naproxen (Naprosyn) 500 mg PO BID pantoprazole 40 mg PO DAILY 30 days phenazopyridine (Pyridium) 200 mg PO Q8H PRN 6 doses pregabalin 100 mg PO BID PRN [REUSABLE BED PADS As directed] sertraline 100 mg PO DAILY [shower head As directed] sildenafil (pulm.hypertension) 20 mg PO DAILY PRN sodium chloride 0.65% (Saline Nasal) 2 sprays intranasal Q12H PRN tamsulosin 0.4 mg PO BEDTIME tramadol 50 mg PO TID PRN zolpidem (Ambien) 10 mg PO BEDTIME PRN Tobacco use date assessed: 10/17/24 Fall risk assessment: 2 + Falls in past year Last assessed Fall Risk: 10/17/24 Dental Screening Dental Screen Date: 10/17/24 Did you have a dental visit in the last 12 months?: Yes Did you have a dental problem in the last 6 months where you did not have access to dental care?: No Was dental information given to patient?: Patient has dentist HPI 4 months follow up leg pain HPI Details Patient comes in today for his follow up visit States that he feels okay He denies any headaches or dizziness Denies any chest pains, no SOB No nausea/vomiting, no abdominal pain No change in bowel habits noted He is still undergoing treatment for his prostate cancer and was apparently referred by urology for hyperbaric oxygen Tx He had his follow up labs done last week - to discuss his results [facility] Medical History Vitamin D deficiency Congenital nevus Contact dermatitis Overweight (BMI 25.0-29.9) Rectal bleeding Abdominal pain Epigastric pain Left-sided chest pain Internal hemorrhoid, bleeding Encounter for medication monitoring Pain in finger of left hand Bilateral hip pain Schizophrenia Prostate cancer Left foot pain Left leg pain Elevated blood pressure reading Depression Anxiety Insomnia Benign prostate hyperplasia Lumbar degenerative disc disease Osteoarthritis of right shoulder Asthma Surgical History History of colonoscopy (~03/01/18) S/P excision of lipoma H/O excision of ganglion cyst (~02/2014) Family History Father Lung cancer Mother CVA (cerebral vascular accident), Onset Age: 80 Chronic mental illness Social History Household Members: None Housing: Apartment Alcohol intake: never Patient Tobacco Use Status: Former Tobacco user Tobacco use type: Cigar Cigarettes Per Day: 20 Years Smoked: pt. states he has not smoked in years e-Cigarette/Vaping Use: Never Used Second Hand Smoke Exposure: Yes service: No Current occupational status: disabled Cognitive needs: No Hearing needs: No Vision needs: Yes (glasses) Questionnaire PHQ-9 Over the last 2 weeks, how often have you been bothered by any of the following problems? 1. Little interest or pleasure in doing things: nearly every day 2. Feeling down, depressed, or hopeless: nearly every day 3. Trouble falling or staying asleep, or sleeping too much: more than half the days 4. Feeling tired or having little energy: nearly every day 5. Poor appetite or overeating: more than half the days 6. Feeling bad about yourself - or that you are a failure or have let yourself or your family down: nearly every day 7. Trouble concentrating on things, such as reading the newspaper or watching television: more than half the days 8. Moving or speaking so slowly that other people could have noticed. Or the opposite - being so fidgety or restless that you have been moving around a lot more than usual: several days 9. Thoughts that you would be better off or of hurting yourself in some way: several days Total score: 20 Depression Screening Interpretation: Positive Depression Screening Follow-up: Existing condition and In treatment Depression Screening Done: Yes 16969 - PHQ-9 Billing: Yes Source: Developed by Drs. Angel Castellanos, Arlet Fine, Valeriano Shah and colleagues, with an educational sari from [employer]. Thrive Questionnaire Date Thrive assessed: 10/17/24 I am a: Patient What is your living situation today?: I have a steady place to live Within the past 12 months, did the food you bought not last and you didn't have the money to get more?: Never true Within the past 12 months, did you worry whether your food would run out before you got money to buy more?: Never true Do you have trouble paying for medicines?: No Do you have trouble getting transportation to medical appointments?: No Do you have trouble paying your heating and electricity bill?: No Do you have trouble taking care of your child, family member or friend?: No Do you have trouble with day-to-day activities such as bathing, preparing meals, shopping, managing finances, etc.?: No Are you currently unemployed and looking for a job?: No Are you interested in more education?: No Please select the resources that you would like help with: None Currently or been in a relationship where the following occur: No concerns reported THRIVE Score: 0 AUDIT C Alcohol Use Questionnaire (AUDIT-C) 1. How often do you have a drink containing alcohol?: Never 3. How often do you have six or more drinks on one occasion?: Never Total Score: 0 Score Reviewed/Action Taken: Yes NILSON-7 AMB Questionnaire NILSON-7 Date NILSON - 7 assessed: 10/17/24 Feeling nervous, anxious, or on edge: 0 = Not at all Not being able to stop or control worryin = Not at all Worrying too much about different things: 0 = Not at all Trouble relaxin = Not at all Being so restless that it is hard to sit still: 0 = Not at all Becoming easily annoyed or irritable: 0 = Not at all Feeling afraid as if something awful might happen: 0 = Not at all Total NILSON-7 score (0-4 normal; 5-9 mild; 10-14 moderate; 15-21 severe): 0 Source: Developed by Drs. Angel Castellanos, Arlet Fine, Valeriano Shah and colleagues, with an educational sari from [employer]. Review of Systems Const Denies chills, Denies fatigue, Denies fever(s) and Denies headache(s) ENT Denies dysphagia, Denies dizziness, Denies otalgia, Denies headache(s), Denies neck pain, Denies odynophagia and Denies sore throat Card Denies chest pain, Denies irregular heart rhythm, Denies palpitations and Denies dyspnea Resp Denies chest congestion, Denies cough and Denies dyspnea GI Denies abdominal pain, Denies constipation, Denies dysphagia, Denies heartburn, Denies diarrhea, Denies nausea, Denies odynophagia and Denies vomiting Denies difficulty urinating, Denies dysuria and Denies urinary frequency Musc Denies back pain, Reports arthralgias (in the left hand/fingers lately - see HPI) and Denies neck pain Skin/Breast Denies rash Neuro Denies dizziness, Denies headache(s) and Denies paresthesias Endo Denies fatigue and Denies palpitations Physical exam (Primary Care) Vital Signs: Last Vital Signs Pulse 83 10/17/24 09:23 BP 130/78 10/17/24 09:23 Pulse Ox 95 10/17/24 09:23 Oxygen Delivery Method Room Air 10/17/24 09:23 BMI result Body Mass Index 24.1 Tobacco/Smoking Status: Tobacco use Status Tobacco use date assessed 10/17/24 10/17/24 09:30 Patient Tobacco Use Status Former Tobacco user 10/17/24 09:30 Tobacco use type Cigar 10/17/24 09:30 e-Cigarette/Vaping Use Never Used 10/17/24 09:30 PHQ-9: PHQ-9 Score PHQ-9: Total score 20 10/17/24 09:30 Depression Screening Interpretation: Positive Depression Screening Follow-up: Existing condition and In treatment Thrive Assessment: Date of Thrive Assessment Date Thrive assessed 10/17/24 10/17/24 09:30 Currently or been in a relationship where the following occur: No concerns reported Const General: no acute distress and alert HENMT Ears: TM's normal bilaterally and EAC's normal Throat: Yes posterior oropharynx normal and Yes tonsils normal (no TP congestion) Neck Neck: Yes supple and No lymphadenopathy Thyroid: Thyroid normal Resp Auscultation: clear to auscultation bilaterally, no rales and no wheezes Cardio Rate: regular rate Rhythm: regular rhythm Heart sounds: no murmurs GI Palpation (GI): Soft to palpation and nontender Auscultation: normal bowel sounds General: Yes no CVA tenderness Back/Spine/Pelvis Back: no CVA tenderness Thoracic/Lumbar Spine: No lumbar spinal tenderness Skin Rashes: no rashes Extrem General: Yes no clubbing, cyanosis or edema Results Reviewed Results Reviewed: Laboratory Tests 10/10/24 10/10/24 09:20 09:22 WBC 4.4 L Hgb 13.3 L Hct 41.0 L Plt Count 161 Sodium 141 Potassium 4.1 Creatinine 1.01 Estimated GFR > 60 Fasting Glucose 107 H Calcium 8.8 AST 17 ALT 16 Triglycerides 75 Cholesterol 162 LDL Cholesterol, Calc 99 HDL Cholesterol 48 25-OH Vitamin D Total 26.6 L TSH 0.95 Ur Specific [place] 1.025 Urine Protein Trace Urine Glucose (UA) Negative Urine Blood Trace Urine Nitrite Negative Ur Leukocyte Esterase Negative Coding Level of Care Code Est Pt Level 4 (48952) Diagnoses Prostate cancer C61 Moderate persistent asthma without complication J45.40 Asthma severity: moderate Asthma persistence: persistent Asthma complication type: uncomplicated Allergic rhinitis, unspecified seasonality, unspecified trigger J30.9 Allergic rhinitis trigger: unspecified Allergic rhinitis seasonality: unspecified Vitamin D deficiency E55.9 Impaired fasting glucose R73.01 Primary osteoarthritis of right shoulder M19.011 Osteoarthritis type: primary Lumbar spondylosis M47.816 Left hand pain M79.642 Erectile dysfunction, unspecified erectile dysfunction type N52.9 Erectile dysfunction type: unspecified Insomnia, unspecified type G47.00 Insomnia type: unspecified Anxiety F41.9 Episode of recurrent major depressive disorder, unspecified depression episode severity F33.9 Depression Type: major depressive disorder Major depression recurrence: recurrent Active/Remission status: currently active Major depression episode severity: unspecified Overweight (BMI 25.0-29.9) E66.3 Additional Codes PHQ-9 - 01743 - PHQ-9 Billing: Yes ([id number]) Assessment & Plan Assessment & Plan (1) Prostate cancer: Code(s): C61 - Malignant neoplasm of prostate Category: Medical Plan: He was diagnosed with an unfavorable intermediate-risk prostate cancer by urology in 2022 and he has been on Eligard injection every 6 months since his first dose on 10/21/2022 He completed his radiation therapy back in April 2023 and has been referred for hyperbaric oxygen Tx by urology Continue Finasteride 5 mg QD and Tamsulosin 0.4 mg Q HS Follow up with urology as scheduled for continuing surveillance and monitoring (2) Asthma: Code(s): J45.909 - Unspecified asthma, uncomplicated Category: Medical Qualifiers: Asthma severity: moderate Asthma persistence: persistent Asthma complication type: uncomplicated Qualified Code(s): J45.40 - Moderate persistent asthma, uncomplicated Plan: Controlled again recently Continue Flovent HFA 110 mcg 1 inhalation BID and Albuterol HFA 2 inhalations every 6 hours as needed (3) Allergic rhinitis: Code(s): J30.9 - Allergic rhinitis, unspecified Category: Medical Qualifiers: Allergic rhinitis trigger: unspecified Allergic rhinitis seasonality: unspecified Qualified Code(s): J30.9 - Allergic rhinitis, unspecified Plan: Continue Fluticasone 50 mcg nasal spray QD PRN and Loratadine 10 mg QD PRN (4) Vitamin D deficiency: Code(s): E55.9 - Vitamin D deficiency, unspecified Category: Medical Plan: Results of his labs done last week reviewed and discussed with patient - he is advised that his Vitamin D level is low Will start him on Vitamin D3 2000 units QD (5) Impaired fasting glucose: Code(s): R73.01 - Impaired fasting glucose Category: Medical Plan: He is advised that his fasting glucose was slightly elevated on his labs done last week at 107 mg/dl Discussed low calorie diet Will recheck his FBS in a few months for follow up; will also check his HgbA1c then for further evaluation (6) Osteoarthritis of right shoulder: Code(s): M19.011 - Primary osteoarthritis, right shoulder Category: Medical Qualifiers: Osteoarthritis type: primary Qualified Code(s): M19.011 - Primary osteoarthritis, right shoulder Plan: X-rays of the right shoulder done in October 2019 showed mild AC joint arthritis Follow up with rheumatology as scheduled - has been receiving cortisone injections into the right shoulder as needed with (+) relief of shoulder pain Continue Nabumetone 750 mg BID PRN and Acetaminophen 500 mg Q 6 hours PRN (7) Lumbar spondylosis: Code(s): M47.816 - Spondylosis without myelopathy or radiculopathy, lumbar region Category: Medical Plan: Reinforced activity and weight-lifting restrictions Continue Tramadol 50 mg TID PRN for pain and Pregabalin 100 mg BID We have also considered starting him on Duloxetine for his chronic low back pain but he is already presently on Sertraline for his mood disorder and seems to be doing well on it so we held off on adding Duloxetine for now Follow up with pain management as scheduled Reminded that we will NOT be prescribing him any opioids for pain, as they are never a good or acceptable long-term management for chronic pain Advised that a lumbar spine MRI may be beneficial to help establish a more effective treatment plan for him going forward and I will leave this up to the pain specialists to decide how to best go about this (8) Left hand pain: Code(s): M79.642 - Pain in left hand Category: Medical Plan: X-rays of the left hand done back in May 2024 revealed (+) moderate degenerative changes in the first carpometacarpal joint with joint space narrowing and hypertrophic change and narrowing of the radiocarpal joint with degenerative changes (9) Erectile dysfunction: Code(s): N52.9 - Male erectile dysfunction, unspecified Category: Medical Qualifiers: Erectile dysfunction type: unspecified Qualified Code(s): N52.9 - Male erectile dysfunction, unspecified Plan: Continue Sildenafil 20 mg QD PRN (10) Insomnia: Code(s): G47.00 - Insomnia, unspecified Category: Medical Qualifiers: Insomnia type: unspecified Qualified Code(s): G47.00 - Insomnia, unspecified Plan: Sleep hygiene reinforced Continue Zolpidem 10 mg Q HS PRN (11) Anxiety: Code(s): F41.9 - Anxiety disorder, unspecified Category: Medical Plan: Continue Clonazepam 1 mg TID PRN and Hydroxyzine 25 mg BID PRN (12) Depression: Code(s): F32.9 - Major depressive disorder, single episode, unspecified Category: Medical Qualifiers: Depression Type: major depressive disorder Major depression recurrence: recurrent Active/Remission status: currently active Major depression episode severity: unspecified Qualified Code(s): F33.9 - Major depressive disorder, recurrent, unspecified Plan: Continue Sertraline 100 mg QD and Abilify 15 mg Q HS Follow-up with Psychiatry as scheduled (13) Overweight (BMI 25.0-29.9): Code(s): E66.3 - Overweight Category: Medical Plan: Reinforced diet/exercise as tolerated/lose weight Plan Follow up in 4 months Orders: Orders Comprehensive [place]. Panel Fast 4 Months E78.00 - Pure hypercholesterolemia, unspecified Complete Blood Count Auto Diff 4 Months D64.9 - Anemia, unspecified Lipid Panel 4 Months E78.00 - Pure hypercholesterolemia, unspecified Hemoglobin A1c 4 Months R73.01 - Impaired fasting glucose Medications: New cholecalciferol (vitamin D3) 50 mcg PO DAILY 90 days 90 caps 3RF E55.9 - Vitamin D deficiency, unspecified
--- OUTSIDE RECORDS SUMMARY | 2024-10-17 10:13 | XMS_ITS | Encounter Summary ---
Author Organization [facility] Address [address] [place] [address] [address] [place] [address] Care Team Providers Care Consulting Hr Professional Name Role Phone Trent Aiken DMD Unavailable [phone] Encounter Details Date Type Department Care Team (Latest Contact Info) Description 03/04/2022 Abstract [facility] CONVERSIONS Dental, Provider, DDS Social History Tobacco [...] Description 10/20/2024 11:00 AM EST Office Visit [facility] [address] [place] [address] Trent Aiken DOMINICK [address] [place] [address] documented as of this encounter Visit Diagnoses Not on filedocumented in this encounter Care Teams Consulting Hr Professional Relationship Specialty Start Date End Date Trent AikenDOMINICK [address] [place] [address] Dentist 07/26/24 documented as of this encounter
--- OUTSIDE RECORDS SUMMARY | 2024-10-17 10:13 | XMS_ITS ---
Author Organization [facility] Address [address] [place] [address] Care Team Providers Care Loading Checker Name Role Phone Wesley CUNNINGHAM, Lai Primary Care Provider Angel Branch [phone] ALLERGIES Allergen (clinical drug ingredient) Drug/Non Drug Allergy documented on EMR Reaction Allergy Type Onset Date Status Penicillin Unknown Drug Allergy Active meperidine Demerol Unknown Drug Allergy Active REASON FOR VISIT Patient presents today for a colon screening MEDICATIONS Medication SIG (Take, Route, Frequency, Duration) Notes Start Date End Date Status Nabumetone 750 MG 1 tablet Orally Twic e a day Not-Taking Ventolin HFA 108 (90 Base) MCG/ACT TOME DOS INHALACIONES POR V A ORAL CUATRO VECES AL D A CUANDO SEA NECESARIO FOR BRONCHOSPASM Inhalation for 25 Active Tamsulosin HCl 0.4 MG Oral for 90 Active clonazePAM 1 MG Oral for 30 Ac tive Pantoprazole Sodium 40 MG Oral for 30 Active traMADol HCl 50 MG Oral for 30 Active Cyclobenzaprine HCl 10 MG 1 tablet as ne eded Orally Three times a day Active Loratadine 10 MG 1 tablet Orally Once a day Active Abilify 5 MG 1 tablet Orally Once a day Active KlonoPIN 1 MG 1 tablet Orally twic e a day Active Fluticasone Propionate 50 MCG/ACT 1 spray in each nostril Nasally Once a day Active Sertraline HCl 100 MG 1 tablet Orally On ce a day Active Albuterol Sulfate HFA 108 (90 Base) MCG/ACT 2 puffs as needed Inhalation every 6 hrs Active Ambien 10 MG 1 tablet at bedtime as needed Orally Once a day Active SOCIAL HISTORY Tobacco [...] W/U Status Risk SNOMED Code Notes Problem Abdominal bloating (R14.0) Active confirmed Abdominal bloating ([id number]) VITAL SIGNS Blood pressure systolic 00 mm Hg 04/18/20 24 Blood pressure diastolic 00 mm Hg 024 Height 68 in 04/18/2024 Weight 156 lbs 04/18/2024 BMI 23.72 kg/m2 04/18/2024 Encounters Encounter Location Date Provider Diagnosis [facility] [address] [place] [address] 04/18/2024 Angel Duke Abdominal bloating R14.0 ; History of adenomatous polyp of colon Z86.010 and Encounter for screening for malignant neoplasm of colon Z12.11 ASSESSMENTS Encounter Date Diagnosis Assessment Notes Treatment Notes Treatment Clinical Notes 04/18/2024 Abdominal bloating (ICD-10 - R14.0) 04/18/2024 History of adenomatous polyp of colon (ICD-10 - Z86.010) 04/18/2024 Encounter for screening for malignant neoplasm of colon (ICD-10 - Z12.11) Need colonoscopy/path report from [facility] in approx 2022 Needs colon recall for 03/2028 PLAN OF TREATMENT Treatment Notes Assessment Notes Encounter for screening for malignant neoplasm of colon Need colonoscopy/path report from [facility] in 2022 Needs colon recall for 03/2028 Next Appt Details Follow Up: prn, Reason: Progress Notes * Examination Category Sub-Category Detail Notes General Examination GENERAL APPEARANCE: pleasant , well nourished, well developed, in no acute distress HEAD: EYES: sclera non-icteric EARS: NOSE: THROAT: NECK/THYROID: no cervical lymphade nopathy, neck supple HEART: S1, S2 normal CHEST: LUNGS: clear to auscultatio n bilaterally ABDOMEN: normal bowel sounds, no guarding or rigidity, no guarding or rigidity, no masses palpable, soft, nontender, nondistended NEUROLOGIC: alert and oriented SKIN: nonjaundiced, no spi sandie angiomata EXTREMITIES: no edema PERIPHERAL PULSES: BACK: BREASTS: MUSCULOSKELETAL: MALE GENITOURINARY: LYMPH NODES: RECTAL EXAM: FEMALE GENITOURINARY: ORAL CAVITY: mucosa moist
--- OUTSIDE RECORDS SUMMARY | 2024-10-17 10:13 | XMS_ITS | Encounter Summary ---
Author Organization [employer] Address [address] [place] [address] Care Team Providers Care Data Support Specialist Name Role Phone Trent Aiken DMD Unavailable [phone] Reason for Visit * Reason Onset Date Comments Referral 03/17/2023 Encounter Details Date Type Department Care Team (Late st Contact Info) Description 03/17/2023 Telephone [facility]ULT [facility] [address] [place] [address] Trent Aiken DMD [address] [place], [place] [id number] Referral Social History Tobacco Use Types Packs/Day [...] reminded patient that we received call from [facility] in the morning and office has 48-72 to get records over to office. I contacted front office supervisor and referral is in the office but front desk that has referral was on lunch and [...] Rama Thomas - 03/17/2023 10:17 AM EDT [facility] called in and stated patient Goyo Canela 1960 has appt with them today and stated they need RCT Referral and Xrays please advise documented in this encounter Plan of Treatment Upcoming Encounters Date Type Department Care Team (Late st Contact Info) Description 10/20/2024 11:00 AM EST Office Visit [facility]ULT [facility] [address] [place] [address] Trent Aiken DMD [address] [place] [address] documented as of this encounter Visit Diagnoses Not on filedocumented in this encounter Care Teams Data Support Specialist Relationship Specialty Start Date End Date Trent Aiken DMD [address] [place] [address] Dentist 07/26/24 documented as of this encounter
--- OUTSIDE RECORDS SUMMARY | 2024-10-17 10:13 | XMS_ITS | Clinical Summary ---
Author Organization [employer] Address [address] [place] [address] [address] [place] [address] Care Team Providers Care Enterprise Application Analyst Name Role Phone Trent Aiken DMD Unavailable [phone] Allergies Active Allergy Reactions Criticality Noted Date Comments Penicillin G Hives 01/04/2023 Medications Ventolin HFA 108 (90 Base) MCG/ACT inhaler TOME DOS INHALACIONES POR V A ORAL CUATRO VECES AL D A CUANDO SEA NECESARIO BRONCHOSPASM 2 Active ARIPiprazole (Abilify) 15 MG tablet TOME YEYO TABLETA TODOS LOS D 3 Active buPROPion SR (Wellbutrin SR) 100 MG 12 hr tablet TOME YEYO TABLETA TODOS LOS D EN AMARA FERREIRA 3 Active clonazePAM (KlonoPIN) 1 MG tablet TOME YEYO TABLETA DELIO VECES AL D A CUANDO SEA NECESARIO PARA LA ANSIEDAD 3 Active hydrocortisone (Anusol-HC) 2.5 % rectal cream APPLY RECTALLY 2 TIMES A DAY 3 Active finasteride (Proscar) 5 MG tablet TOME YEYO TABLETA TODOS LOS D 2 Active meclizine (Antivert) 25 MG tablet TAKE 1 TABLET 2 TIMES A DAY NEEDED FOR DIZZINESS FOR 10 DAYS 3 Active pregabalin (Lyrica) 50 MG capsule TAKE 2 CAPSULES ORALLY 2 TIMES A DAY FOR 30 DAYS 2 Active sertraline (Zoloft) 100 MG tablet TOME YEYO TABLETA TODOS LOS D EN AMARA FERREIRA 3 Active traMADol (Ultram) 50 MG tablet TAKE 1 TABLET ORALLY 3 TIMES A DAY NEEDED FOR PAIN 3 Active tamsulosin (Flomax) 0.4 MG 24 hr capsule TOME YEYO C PSULA TODOS LOS D 3 Active zolpidem (Ambien) 10 MG tablet TOME YEYO TABLETA S LOS D AL ACOSTARSE 3 Active ibuprofen 600 MG tabletIndication s:Symptomatic irreversible pulpitis Take 1 tablet (600 mg) by mouth every 6 (six) hours if needed for mild pain for up to 20 doses. 20 tablet 3 Active acetaminophen (Tylenol) 500 MG tabletIndication s:Symptomatic irreversible pulpitis Take 1 tablet (500 mg) by mouth every 6 (six) hours if needed for mild pain for up to 20 doses. 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 Generalized abdominal pain 08/01/2012 Migraine 05/25/2012 Schizoaffective schizophrenia 05/25/2012 Asthma 03/09/2012 Encounters Date Type Department Care Team Description 09/26/2024 11:30 AM EST Office Visit [facility] [address] [place] [address] Trent Aiken DMD Full coverage crown needed for root canal-treated tooth (Primary Dx) 09/12/2024 9:00 AM EST Office Visit [facility] [address] [place] [address] Rocky Rivera Dental calculus (Primary Dx) 09/07/2024 1:00 PM EST Office Visit [facility] [address] [place] [address] Veronica Moura 08/21/2024 9:00 AM EST Office Visit [facility] [address] [place] [address] Trent Aiken DMD Symptomatic irreversible pulpitis (Primary Dx) 07/25/2024 3:00 PM EST Office Visit [facility] [address] [place] [address] Rocky Rivera Dental calculus (Primary Dx); Symptomatic irreversible pulpitis; Periodontal disease; Symptomatic apical periodontitis from Last 3 Months Immunizations Name Administration Dates Next Due Hep A, Adult 05/09/2009,10/10/2008 Hep B, adult 05/09/2009,10/10/2008,09/04/2008 Influenza Injectable Quadriv alant Preservative Free IIV4 MDCK 06/08/2018 Influenza injectable quadriv alent IIV4 with preservative 06/07/2019,05/14/2016,07/01/2015 Influenza injectable quadriv alent preservative free 06/03/2022,05/13/2021,04/29/2020,06/06 Influenza, IIV3, injectable 06/03/2010,0 05/02/2009,06/11/2008,07/06,06/30/2002,08/08/2001,08/02/2000 ,06/13/1999,06/13/1998 Influenza, seasonal, injecta ble, preservative free 05/25/2018 Moderna Covid-19 Vaccine 6+ Bivalent 11/24/2022 Pneumococcal Polysaccharide PPSV23 03/18/2006 TD (adult), 2 Lf tetanus tox oid, preservative free, adsorbed 04/29/2007 Tdap 01/09/2013 Zoster, Recombinant 09/15/2022,12/19/2021 Social History Tobacco Use Types Packs/Day Years Used Date Smoking Tobacco: Never Passive Smoke Exposure: Never Smokeless Tobacco: Never Tobacco Cessation:Counseling Given: No Alcohol Use Standard Drinks/Week Comments Never 0 (1 standard drink = 0.6 oz pur e alcohol) Sex and Gender Information Value Date Recorded Sex Assigned at Male 06/22/2022 10:14 AM EDT Legal Sex Male 10:14 AM EDT Gender Identity Male 06/22/2022 10:14 AM EDT Sexual Orientation Straight 06/22/2022 10 :14 AM EDT Last Filed Vital Signs Vital Sign Reading Time Taken Comments Blood Pressure 130/70 09/26/2024 12:48 PM EST Pulse 68 09/12/2024 8:47 AM EST Temperature - - Respiratory Rate - - Oxygen Saturation - - Inhaled Oxygen Concentration - - Weight - - Height - - Body Mass Index - - Plan of Treatment Upcoming Encounters Date Type Department Care Team (Late st Contact Info) Description 10/20/2024 11:00 AM EST Office Visit [facility] [address] [place] [address] Trent Aiken, DMD [address] [place] [address] Health Maintenance Due Date Last Done Comments CT Colonography 1959 Colonoscopy 1959 Colorectal Cancer Screening 1959 Depression Screening 1959 FIT DNA/Cologuard 1959 FIT 1959 FOBT 1959 Lipid Panel 1959 SDOH Screening 1959 Sigmoidoscopy 1959 Alcohol/Substance Use Screening 1971 Hepatitis C Screening 1977 RSV Patients and Patients Aged 60 years or older (1 - Risk 60-74 years 1-dose series) 2019 DTaP/Tdap/Td Vaccines (2 - Td or Tdap) 01/09/2023 01/09/2013, 04/29/2007 Dental Oral Exam 01/24/2025 07/25/2024, , 09/22/2019, Additional history exists Dental Prophylaxis 01/24/2025 07/25/2024, 0 03/04/2022, 06/12/2021, Additional history exists Dental X-Ray: Bitewings 07/26/2025 07/25/20 24, 03/16/2023, 03/04/2022, Additional history exists Tobacco Screening 09/26/2025 09/26/2024 Dental X-Ray: Full Mouth 01/05/2026 023, 11/12/2020, 01/27/2017 Hepatitis A Vaccines Aged Out 05/09/2009, 10/10/19 09 No longer eligible based on patient's age to complete this topic Hepatitis B Vaccines Completed 05/09/2009, 10/10/2008, 09/04/2008 Zoster Vaccines Completed 09/15/2022, 12/19/2021 Pneumococcal Vaccine: 50+ Years Completed 12/09/2023, 03/18/2006 Influenza Vaccine Completed 04/28/2024, , 06/03/2022, Additional history exists COVID-19 Vaccine Completed 05/06/2024, 11/2022, 01/23/2022, Additional history exists HIB Vaccines Aged Out No longer eligi ble based on patient's age to complete this topic HPV Vaccines Aged Out No longer eligi ble based on patient's age to complete this topic IPV Vaccines Aged Out No longer eligi ble based on patient's age to complete this topic Meningococcal Vaccine Aged Out No izabel yandy eligible based on patient's age to complete this topic RSV under 20 months Aged Out No longe r eligible based on patient's age to complete this topic Rotavirus Vaccines Aged Out No longer eligible based on patient's age to complete this topic Procedures Procedure Name Priority Date/Time Associated Diagnosis Comments CASE PRESENTATION, DETAILED AND EXTENSIVE TREATMENT PLANNING Routine 09/26/2024 11:30 AM EST Full coverage crown needed for root canal-treated tooth 14 CROWN PREP Routine 09/26/2024 11:30 AM EST Full coverage crown needed for root canal-treated tooth 14 CORE BUILDUP, INCL ANY PINS WHEN REQ Routine 09/26/2024 11:30 AM EST Full coverage crown needed for root canal-treated tooth CASE PRESENTATION, DETAILED AND EXTENSIVE TREATMENT PLANNING Routine 09/12/2024 9:00 AM EST LR PERIODONTAL SCALING AND ROOT PLANING - 4 OR MORE TEETH PER QUADRANT Routine 09/12/2024 9:00 AM EST UR PERIODONTAL SCALING AND ROOT PLANING - 4 OR MORE TEETH PER QUADRANT Routine 09/12/2024 9:00 AM EST ORAL HYGIENE INSTRUCTIONS Routine 09/07/2024 1:00 PM EST CASE PRESENTATION, DETAILED AND EXTENSIVE TREATMENT PLANNING Routine 09/07/2024 1:00 PM EST LL PERIODONTAL SCALING AND ROOT PLANING - 4 OR MORE TEETH PER QUADRANT Routine 09/07/2024 1:00 PM EST UL PERIODONTAL SCALING AND ROOT PLANING - 4 OR MORE TEETH PER QUADRANT Routine 09/07/2024 1:00 PM EST CASE PRESENTATION, DETAILED AND EXTENSIVE TREATMENT PLANNING Routine 08/21/2024 9:00 AM EST Symptomatic irreversible pulpitis 14 ENDODONTIC THERAPY, MOLAR TOOTH Routine 08/21/2024 9:00 AM EST Symptomatic irreversible pulpitis COMPREHENSIVE PERIODONTAL EVALUATION - NEW OR ESTABLISHED PATIENT Routine 07/25/2024 3:00 PM EST Symptomatic irreversible pulpitis Periodontal disease Symptomatic apical periodontitis PERIODIC ORAL EVALUATION - ESTABLISHED PATIENT Routine 07/25/2024 3:00 PM EST Symptomatic irreversible pulpitis Periodontal disease Symptomatic apical periodontitis CASE PRESENTATION, DETAILED AND EXTENSIVE TREATMENT PLANNING Routine 07/25/2024 3:00 PM EST Symptomatic irreversible pulpitis Periodontal disease Symptomatic apical periodontitis INTRAORAL - PERIAPICAL EACH ADDITIONAL RADIOGRAPHIC IMAGE Routine 07/25/2024 3:00 PM EST Symptomatic irreversible pulpitis Periodontal disease Symptomatic apical periodontitis INTRAORAL - PERIAPICAL EACH ADDITIONAL RADIOGRAPHIC IMAGE Routine 07/25/2024 3:00 PM EST Symptomatic irreversible pulpitis Periodontal disease Symptomatic apical periodontitis INTRAORAL - PERIAPICAL FIRST RADIOGRAPHIC IMAGE Routine 07/25/2024 3:00 PM EST Symptomatic irreversible pulpitis Periodontal disease Symptomatic apical periodontitis ORAL HYGIENE INSTRUCTIONS Routine 07/25/2024 3:00 PM EST Symptomatic irreversible pulpitis Periodontal disease Symptomatic apical periodontitis BITEWINGS - 4 RADIOGRAPHIC IMAGES Routine 07/25/2024 3:00 PM EST Symptomatic irreversible pulpitis Periodontal disease Symptomatic apical periodontitis Full PROPHYLAXIS - ADULT Routine 024 3:00 PM EST Symptomatic irreversible pulpitis Periodontal disease Symptomatic Apical Periodontitis PANORAMIC RADIOGRAPHIC IMAGE Routine 01/04/2023 11:30 AM EDT from Last 3 Months or Most Recently Relevant to Health Maintenance Insurance DENTAL - [facility] CARE ALLIANCE [facility] - ONE CARE DENTAL - [facility] Care Teams Enterprise Application Analyst Relationship Specialty Start Date End Date Trent Aiken DMD [address] [place] [address] Dentist 07/26/24
--- OUTSIDE RECORDS SUMMARY | 2024-10-17 10:13 | XMS_ITS | Encounter Summary ---
Author Organization [employer] Address [address] [place] [address] 7[address] [place] [address] Care Team Providers Care Crna Name Role Phone Attila, Trent DMD Unavailable [phone] Reason for Visit * Reason Comments Matlock Patient presents tod ay for core build up and crown prep Deepa JONES Encounter Details Date Type Department Care Team ([facility] st Contact Info) Description 09/26/2024 11:30 AM EST Office Visit [facility] [address] [place], [place] [phone] Trent Aiken DMD [address] [place], [place] [phone] Full coverage crown needed for root canal-treated [...] build up crown prep # 14) Location: [facility] Tooth: #14 Procedure: Tenriism and Matlock Verified the above with patient, assistant director of public works, and provider. Confirmed via patient's chart, intraorally and by radiographs. Tour Bus Driver: Yes. Language: Italian. Tour Bus Driver's Name: Deepa ROBERT Chief Complaint Patient presents with Matlock Patient presents today for core build up [...] cheek guard Prep: All caries removed, Existing amish removed, and Preparation finalized Temp filling, cotton pellet and existing amalgam with small amount of recurrent decay removed Core BU completed: Matrix: None Etch: 37% Phosphoric Acid Etch Desensitizer: Gluma Liner/Base: None Carrero: I-Carrero Tenriism Material: Voco Grandioso Flowable Shade: A2 Prepared [...] and in stable condition. NV: #14 crown collect on delivery clerk: Deepa Joaquin Dentist: Trent Aiken DMD documented in this encounter Plan of Treatment Upcoming Encounters Date Type Department Care Team (Late st Contact Info) Description 10/20/2024 11:00 AM EST Office Visit [facility] [address] [place] [address] Trent Aiken DMD [address] [place] [address] Scheduled Orders Name Type Priority Associated Diagnoses [...] Primary documented in this encounter Care Teams Crna Relationship Specialty Start Date End Date Trent Aiken DMD [address] [place] [address] Dentist 07/26/24 documented as of this encounter
--- OUTSIDE RECORDS SUMMARY | 2024-10-17 10:13 | XMS_ITS ---
Author Organization [facility] Address [address] [place] [address] Care Team Providers Care Hand Fretted Instrument Maker Name Role Phone Wesley CUNNINGHAM, Lai Primary Care Provider UnaAngel Lobo Unavailable [phone] REASON FOR VISIT cancelled appt for today. Encounters Encounter Location Date Provider Diagnosis [facility] [address] [place] [address] 11/30/2023 Angel Duke PLAN OF TREATMENT No Information
--- OUTSIDE RECORDS SUMMARY | 2024-10-17 10:13 | XMS_ITS | Encounter Summary ---
Author Organization [employer] [facility] Address [address] [place] [address] 7[address] [place] [address] Care Team Providers Care Software Test And Validation Engineer Name Role Phone Trent Aiken DMD Unavailable [phone] Encounter Details Date Type Department Care Team (Latest Contact Info) Description 07/13/2019 Abstract [facility] CONVERSIONS Dental, Provider, DDS Social History [...] Description 10/20/2024 11:00 AM EST Office Visit [facility] [address] [place] [address] AttilaTrent ignacioDOMINICK [address] [place] [address] documented as of this encounter Visit Diagnoses Not on filedocumented in this encounter Care Teams Software Test And Validation Engineer Relationship Specialty Start Date End Date Trent Aiken DMD [address] [place] [address] Dentist 07/26/24 documented as of this encounter
--- OUTSIDE RECORDS SUMMARY | 2024-10-17 10:13 | XMS_ITS ---
Author Organization [facility] Address [address] [place] [address] Care Team Providers Care Window Glass Cutter Off Name Role Phone Wesley CUNNINGHAM, Lai Primary Care Provider Unava Angel Carter Unavailable [phone] REASON FOR VISIT Patient presents today for a screening colonoscopy Encounters Encounter Location Date Provider Diagnosis [facility] [address] [place] [address] 11/30/2023 Angel Duke PLAN OF TREATMENT No Information
--- OUTSIDE RECORDS SUMMARY | 2024-10-17 10:13 | XMS_ITS | Encounter Summary ---
Author Organization [employer] [facility] Address [address] [place] [address] 7[address] [place] [address] Care Team Providers Care Sales Architect Name Role Phone Trent Aiken DMD Unavailable [phone] Encounter Details Date Type Department Care Team (Latest Contact Info) Description 11/29/2020 Abstract [facility] CONVERSION[facility] Dental, Provider, DDS Social History [...] Description 10/20/2024 11:00 AM EST Office Visit [facility] [address] [place] [address] Trent Aiken DMD [address] [place] [address] documented as of this encounter Visit Diagnoses Not on filedocumented in this encounter Care Teams Sales Architect Relationship Specialty Start Date End Date Trent AikenDOMINICK [address] [place] [address] Dentist 07/26/24 documented as of this encounter
--- OUTSIDE RECORDS SUMMARY | 2024-10-17 10:14 | XMS_ITS | Patient Health Record ---
Author Organization [facility] Address [address] [place] [address] Care Team Providers Care Car Wash Attendant Automatic Name Role Phone Lai Olson MD Primary Care Provider Angel Branch Unavailable [phone] ALLERGIES Allergen (clinical drug ingredient) Drug/Non Drug [...] W/U Status Risk SNOMED Code Notes Problem Encounter for screening for malignant neoplasm of colon (Z12.11) Active confirmed 445277232 Problem History of adenomatous polyp of colon (Z86.010) Active confirmed 554812814 Problem Abdominal bloating (R14.0) Active confirmed Abdominal b loating (633517731) Problem Preprocedural examination (Z01.818) Active confirmed [id number] VITAL SIGNS Blood pressure diastolic 00 mm Hg 04/18/2024 Height 68 in 04/18/2024 Blood pressure systolic 00 mm Hg 04/18/2024 Weight 156 lbs 04/18/2024 BMI 23.72 kg/m2 04/18/2024 Encounters Encounter Location Date Provider Diagnosis [facility] [address] [place] [address] 11/30/2023 Angel Duke [facility] [address] [place] [phone] 04/18/2024 Angel Duke Abdominal bloating R14.0 ; History of adenomatous polyp of colon Z86.010 and Encounter for screening for malignant neoplasm of colon Z12.11 [facility] [address] [place] [phone] 11/30/2023 Angel Duke ASSESSMENTS Encounter Date Diagnosis Assessment Notes Treatment Notes Treatment Clinical Notes 04/18/2024 History of adenomatous polyp of colon (ICD-10 - Z86.010) 04/18/2024 Abdominal bloating (ICD-10 - R14.0) 04/18/2024 Encounter for screening for malignant neoplasm of colon (ICD-10 - Z12.11) Need colonoscopy/path report from [facility] in approx 2022 Needs colon recall for 03/2028 PLAN OF TREATMENT Future Test Test Name Order Date COLONOSCOPY 02/08/2018 Insurance Providers Payer Name Payer Address Payer Phone Subscriber Number Group Number Insured Name Patient Relationship to Insured Coverage Start Date Coverage End Date [facility] [address] Attn Claims BRENDAN Estevez [id number] RAYSHAWN ISSA Self - patient is the insured MEDICAID OF [facility] [address] [place] [address] [phone] [id number] RAYSHAWN ISSA Self - patient is the insured MEDICAL (GENERAL) HISTORY Medical History History ICD Code Depression Insomnia Asthma Denies CO,DM,CVA Colonoscopy 09/2012 with a all tubular adenoma removed, internal hemorrhoids --Dr. Montilla Sees Dr. Son for renal cysts and ston es Screening colonoscopy in February of 2018 [facility]--small tubular adenoma removed He describes a colonoscopy at [facility] i n 2022 with removal of a small polyp Surgical History Surgery Date(Month/Year) Ganglion cyst removed from left hand Lipoma on his back
== END 2024-10-17 09:57 | disposition home or self-care (01) ==
PROVIDERS: PCP Internal Medicine; Visit Provider Internal Medicine
DX: J45.40 Moderate persistent asthma, uncomplicated (principal); C61 Malignant neoplasm of prostate; F33.9 Major depressive disorder, recurrent, unspecified; J30.9 Allergic rhinitis, unspecified; E55.9 Vitamin D deficiency, unspecified; R73.01 Impaired fasting glucose; M19.011 Primary osteoarthritis, right shoulder; M47.816 Spondylosis without myelopathy or radiculopathy, lumbar region; M79.642 Pain in left hand; N52.9 Male erectile dysfunction, unspecified; G47.00 Insomnia, unspecified; F41.9 Anxiety disorder, unspecified

== ENCOUNTER → 2024-10-17 09:18 | Outpatient (BNVA) | payer OTHER, SELFPAY | PROVIDERS: PCP Internal Medicine; Visit Provider Internal Medicine | DX: C61 Malignant neoplasm of prostate (principal); J45.40 Moderate persistent asthma, uncomplicated; J30.9 Allergic rhinitis, unspecified; E55.9 Vitamin D deficiency, unspecified; R73.01 Impaired fasting glucose; M19.011 Primary osteoarthritis, right shoulder; M47.816 Spondylosis without myelopathy or radiculopathy, lumbar region; M79.642 Pain in left hand; N52.9 Male erectile dysfunction, unspecified; G47.00 Insomnia, unspecified; F41.9 Anxiety disorder, unspecified; F33.9 Major depressive disorder, recurrent, unspecified; E66.3 Overweight | CPT/HCPCS: 96127; 99212 ==

== ENCOUNTER 2025-03-05 09:56 | Outpatient (AMB) | payer OTHER, SELFPAY ==
--- NOTE | 2025-03-05 10:03 | A.OFFPC_ITS ---
Vital Signs 03/05/25 10:05 Height 5 ft 8 in Weight 156 lb BMI 23.7 BP 112/70 Blood Pressure Location Lt brachial Position Sitting Pulse 78 Pulse Source Pulse Oximeter Pulse Oximetry (%) 98 Oxygen Delivery Method Room Air Intake Visit Reasons: 4 month f/u Intake Note: Patient here for a 4 month follow up Sex Therapist Required: No Accompanied by: Self / Same As Patient Allergies Penicillins (PENICILLINS) Allergy (Intermediate, Verified 03/05/25 10:32) RASH AND SWELLING meperidine (Demerol) Allergy (Unknown, Verified 03/05/25 10:32) pain morphine (MORPHINE) Adverse Reaction (Intermediate, Verified 03/05/25 10:32) N/V Medication List - Last Reconciled 03/05/25 by Lai Olson MD acetaminophen 500 mg PO Q6H PRN [air conditioner As directed] albuterol sulfate 90 mcg/actuation (Ventolin HFA) 2 puffs inhalation QID PRN aripiprazole 15 mg PO DAILY blood pressure monitor As directed bupropion HCl SR 100 mg PO DAILY cholecalciferol (vitamin D3) 50 mcg PO DAILY 90 days clonazepam (Klonopin) 1 mg PO TID cyclobenzaprine 10 mg PO TID diclofenac sodium 1% 2 grams topical BEDTIME PRN famotidine 20 mg PO BID PRN finasteride 5 mg PO BEDTIME fluticasone propionate 50 mcg/actuation 1 spray intranasal DAILY PRN [HANDHELD SHOWER As directed] hydrocortisone 2.5% (Anusol-HC) 1 appl [place] BID-QID PRN hydrocortisone 2.5% 1 appl [place] BID hydrocortisone 2.5% 1 appl topical BID PRN [left knee supportive brace As directed] leuprolide acetate (6 month) (Eligard) 45 mg subcut [id number] [LIGHTWEIGHT CANE As directed] loratadine 10 mg PO DAILY PRN meclizine 25 mg PO BID PRN 10 days mupirocin 2% 1 appl topical BID nabumetone 750 mg PO DAILY naproxen (Naprosyn) 500 mg PO BID pantoprazole 40 mg PO DAILY 30 days phenazopyridine (Pyridium) 200 mg PO Q8H PRN 6 doses pregabalin 100 mg PO BID PRN [REUSABLE BED PADS As directed] sertraline 100 mg PO DAILY [shower head As directed] sildenafil (pulm.hypertension) 20 mg PO DAILY PRN sodium chloride 0.65% (Saline Nasal) 2 sprays intranasal Q12H PRN tamsulosin 0.4 mg PO BEDTIME [Toilet riser with removable arms As directed] tramadol 50 mg PO TID 30 days zolpidem (Ambien) 10 mg PO BEDTIME PRN Tobacco use date assessed: 10/17/24 Fall risk assessment: No Falls in past year Last assessed Fall Risk: 03/05/25 Dental Screening Dental Screen Date: 03/05/25 Did you have a dental visit in the last 12 months?: Yes Did you have a dental problem in the last 6 months where you did not have access to dental care?: No Was dental information given to patient?: Patient has dentist HPI 4 month f/u HPI Details Patient comes in today for his follow up visit States that he feels okay He denies any dizziness; reports (+) occasional headaches Denies any chest pains, no SOB No nausea/vomiting, no abdominal pain No change in bowel habits noted He is currently still undergoing treatment for his prostate cancer - states that he has been doing well with his treatment so far He was not able to get his follow up labs done prior to his appointment today [facility] Medical History Vitamin D deficiency Congenital nevus Contact dermatitis Overweight (BMI 25.0-29.9) Rectal bleeding Abdominal pain Epigastric pain Left-sided chest pain Internal hemorrhoid, bleeding Encounter for medication monitoring Pain in finger of left hand Bilateral hip pain Schizophrenia Prostate cancer Left foot pain Left leg pain Elevated blood pressure reading Depression Anxiety Insomnia Benign prostate hyperplasia Lumbar degenerative disc disease Osteoarthritis of right shoulder Asthma Surgical History History of colonoscopy (~03/01/18) S/P excision of lipoma H/O excision of ganglion cyst (~02/2014) Family History Father Lung cancer Mother CVA (cerebral vascular accident), Onset Age: 80 Chronic mental illness Social History Household Members: None Housing: Apartment Alcohol intake: never Patient Tobacco Use Status: Former Tobacco user Tobacco use type: Cigar Cigarettes Per Day: 20 Years Smoked: pt. states he has not smoked in years e-Cigarette/Vaping Use: Never Used Second Hand Smoke Exposure: Yes service: No Current occupational status: disabled Cognitive needs: No Hearing needs: No Vision needs: Yes (glasses) Questionnaire PHQ-9 Over the last 2 weeks, how often have you been bothered by any of the following problems? 1. Little interest or pleasure in doing things: several days 2. Feeling down, depressed, or hopeless: several days 3. Trouble falling or staying asleep, or sleeping too much: several days 4. Feeling tired or having little energy: several days 5. Poor appetite or overeating: several days 6. Feeling bad about yourself - or that you are a failure or have let yourself or your family down: not at all 7. Trouble concentrating on things, such as reading the newspaper or watching television: several days 8. Moving or speaking so slowly that other people could have noticed. Or the opposite - being so fidgety or restless that you have been moving around a lot more than usual: several days 9. Thoughts that you would be better off or of hurting yourself in some way: not at all Total score: 7 Depression Screening Interpretation: Positive Depression Screening Follow-up: Existing condition and In treatment Depression Screening Done: Yes 19805 - PHQ-9 Billing: Yes Source: Developed by Drs. Angel Castellanos, Arlet Fine, Valeriano Shah and colleagues, with an educational sari from [employer]. Thrive Questionnaire Date Thrive assessed: 03/05/25 I am a: Patient What is your living situation today?: I have a steady place to live Within the past 12 months, did the food you bought not last and you didn't have the money to get more?: Never true Within the past 12 months, did you worry whether your food would run out before you got money to buy more?: Never true Do you have trouble paying for medicines?: No Do you have trouble getting transportation to medical appointments?: No Do you have trouble paying your heating and electricity bill?: No Do you have trouble taking care of your child, family member or friend?: No Do you have trouble with day-to-day activities such as bathing, preparing meals, shopping, managing finances, etc.?: No Are you currently unemployed and looking for a job?: No Are you interested in more education?: No Please select the resources that you would like help with: None Currently or been in a relationship where the following occur: No concerns reported THRIVE Score: 0 AUDIT C Alcohol Use Questionnaire (AUDIT-C) 1. How often do you have a drink containing alcohol?: Never Total Score: 0 Score Reviewed/Action Taken: Yes NILSON-7 AMB Questionnaire NILSON-7 Date NILSON - 7 assessed: 03/05/25 Feeling nervous, anxious, or on edge: 0 = Not at all Not being able to stop or control worryin = Not at all Worrying too much about different things: 0 = Not at all Trouble relaxin = Not at all Being so restless that it is hard to sit still: 0 = Not at all Becoming easily annoyed or irritable: 0 = Not at all Feeling afraid as if something awful might happen: 0 = Not at all Total NILSON-7 score (0-4 normal; 5-9 mild; 10-14 moderate; 15-21 severe): 0 Source: Developed by Drs. Angel Castellanos, Arlet Fine, Valeriano Shah and colleagues, with an educational sari from [employer]. Review of Systems Const Denies chills, Reports difficulty sleeping (Rx helping), Denies fatigue, Denies fever(s) and Reports headache(s) (occasional) ENT Denies dysphagia, Denies dizziness, Denies otalgia, Reports headache(s) (occasional), Denies neck pain, Denies odynophagia and Denies sore throat Card Denies chest pain, Denies irregular heart rhythm, Denies palpitations and Denies dyspnea Resp Denies chest congestion, Denies cough and Denies dyspnea GI Denies abdominal pain, Denies constipation, Denies dysphagia, Denies heartburn, Denies diarrhea, Denies nausea, Denies odynophagia and Denies vomiting Denies difficulty urinating, Denies dysuria and Denies urinary frequency Musc Denies back pain, Reports arthralgias (in the left hand/fingers lately - see HPI) and Denies neck pain Skin/Breast Denies rash Neuro Denies dizziness, Reports headache(s) (occasional) and Denies paresthesias Endo Denies fatigue and Denies palpitations Physical exam (Primary Care) Vital Signs: Last Vital Signs Pulse 78 03/05/25 10:05 BP 112/70 03/05/25 10:05 Pulse Ox 98 03/05/25 10:05 Oxygen Delivery Method Room Air 03/05/25 10:05 BMI result Body Mass Index 23.7 Tobacco/Smoking Status: Tobacco use Status Tobacco use date assessed 10/17/24 03/05/25 10:10 Patient Tobacco Use Status Former Tobacco user 03/05/25 10:10 Tobacco use type Cigar 03/05/25 10:10 e-Cigarette/Vaping Use Never Used 03/05/25 10:10 PHQ-9: PHQ-9 Score PHQ-9: Total score 7 03/05/25 10:10 Depression Screening Interpretation: Positive Depression Screening Follow-up: Existing condition and In treatment Thrive Assessment: Date of Thrive Assessment Date Thrive assessed 03/05/25 03/05/25 10:10 Currently or been in a relationship where the following occur: No concerns reported Const General: no acute distress and alert HENMT Ears: TM's normal bilaterally and EAC's normal Throat: Yes posterior oropharynx normal and Yes tonsils normal (no TP congestion) Neck Neck: Yes supple and No lymphadenopathy Thyroid: Thyroid normal Resp Auscultation: clear to auscultation bilaterally, no rales and no wheezes Cardio Rate: regular rate Rhythm: regular rhythm Heart sounds: no murmurs GI Palpation (GI): Soft to palpation and nontender Auscultation: normal bowel sounds General: Yes no CVA tenderness Back/Spine/Pelvis Back: no CVA tenderness Thoracic/Lumbar Spine: No lumbar spinal tenderness Skin Rashes: no rashes Extrem General: Yes no clubbing, cyanosis or edema Coding Level of Care Code Est Pt Level 4 (09933) Diagnoses Prostate cancer C61 Moderate persistent asthma without complication J45.40 Asthma severity: moderate Asthma persistence: persistent Asthma complication type: uncomplicated Allergic rhinitis, unspecified seasonality, unspecified trigger J30.9 Allergic rhinitis trigger: unspecified Allergic rhinitis seasonality: unspecified Vitamin D deficiency E55.9 Impaired fasting glucose R73.01 Primary osteoarthritis of right shoulder M19.011 Osteoarthritis type: primary Lumbar spondylosis M47.816 Left hand pain M79.642 Erectile dysfunction, unspecified erectile dysfunction type N52.9 Erectile dysfunction type: unspecified Insomnia, unspecified type G47.00 Insomnia type: unspecified Anxiety F41.9 Episode of recurrent major depressive disorder, unspecified depression episode severity F33.9 Depression Type: major depressive disorder Major depression recurrence: recurrent Active/Remission status: currently active Major depression episode severity: unspecified Overweight (BMI 25.0-29.9) E66.3 Additional Codes PHQ-9 - 61116 - PHQ-9 Billing: Yes ([id number]) Assessment & Plan Assessment & Plan (1) Prostate cancer: Code(s): C61 - Malignant neoplasm of prostate Category: Medical Plan: He was diagnosed with an unfavorable intermediate-risk prostate cancer by urology in 2022 and he has been on Eligard injection every 6 months since his first dose on 10/21/2022 He completed his radiation therapy back in April 2023 and has been referred for hyperbaric oxygen Tx by urology Continue Finasteride 5 mg QD and Tamsulosin 0.4 mg Q HS Follow up with urology as scheduled for continuing surveillance and monitoring (2) Asthma: Code(s): J45.909 - Unspecified asthma, uncomplicated Category: Medical Qualifiers: Asthma severity: moderate Asthma persistence: persistent Asthma complication type: uncomplicated Qualified Code(s): J45.40 - Moderate persistent asthma, uncomplicated Plan: Controlled Continue Flovent HFA 110 mcg 1 inhalation BID and Albuterol HFA 2 inhalations every 6 hours as needed (3) Allergic rhinitis: Code(s): J30.9 - Allergic rhinitis, unspecified Category: Medical Qualifiers: Allergic rhinitis trigger: unspecified Allergic rhinitis seasonality: unspecified Qualified Code(s): J30.9 - Allergic rhinitis, unspecified Plan: Continue Fluticasone 50 mcg nasal spray QD PRN and Loratadine 10 mg QD PRN (4) Vitamin D deficiency: Code(s): E55.9 - Vitamin D deficiency, unspecified Category: Medical Plan: Continue Vitamin D3 2000 units QD (5) Impaired fasting glucose: Code(s): R73.01 - Impaired fasting glucose Category: Medical Plan: He is reminded that his fasting glucose was slightly elevated on his labs done earlier this year at 107 mg/dl Reinforced low calorie diet Will recheck his FBS in a few months for follow up; will also check his HgbA1c then for further evaluation - will just have patient use his current orders (updated) for his next lab draw and he is reminded to make sure to get these done just before he comes back in 4 months (6) Osteoarthritis of right shoulder: Code(s): M19.011 - Primary osteoarthritis, right shoulder Category: Medical Qualifiers: Osteoarthritis type: primary Qualified Code(s): M19.011 - Primary osteoarthritis, right shoulder Plan: X-rays of the right shoulder done in October 2019 showed mild AC joint arthritis Follow up with rheumatology as scheduled - has been receiving cortisone injections into the right shoulder as needed with (+) relief of shoulder pain Continue Nabumetone 750 mg BID PRN and Acetaminophen 500 mg Q 6 hours PRN (7) Lumbar spondylosis: Code(s): M47.816 - Spondylosis without myelopathy or radiculopathy, lumbar region Category: Medical Plan: Reinforced activity and weight-lifting restrictions Continue Tramadol 50 mg TID PRN for pain and Pregabalin 100 mg BID We have also considered starting him on Duloxetine for his chronic low back pain but he is already presently on Sertraline for his mood disorder and seems to be doing well on it so we held off on adding Duloxetine for now Follow up with pain management as scheduled Patient is reminded that we will NOT be prescribing him any opioids for pain, as they are never a good or acceptable long-term management for chronic pain Advised that a lumbar spine MRI may be beneficial to help establish a more effective treatment plan for him going forward and I will leave this up to the pain specialists to decide how to best go about this (8) Left hand pain: Code(s): M79.642 - Pain in left hand Category: Medical Plan: X-rays of the left hand done back in May 2024 revealed (+) moderate degenerative changes in the first carpometacarpal joint with joint space narrowing and hypertrophic change and narrowing of the radiocarpal joint with degenerative changes (9) Erectile dysfunction: Code(s): N52.9 - Male erectile dysfunction, unspecified Category: Medical Qualifiers: Erectile dysfunction type: unspecified Qualified Code(s): N52.9 - Male erectile dysfunction, unspecified Plan: Continue Sildenafil 20 mg QD PRN (10) Insomnia: Code(s): G47.00 - Insomnia, unspecified Category: Medical Qualifiers: Insomnia type: unspecified Qualified Code(s): G47.00 - Insomnia, unspecified Plan: Sleep hygiene reinforced Continue Zolpidem 10 mg Q HS PRN (11) Anxiety: Code(s): F41.9 - Anxiety disorder, unspecified Category: Medical Plan: Continue Clonazepam 1 mg TID PRN and Hydroxyzine 25 mg BID PRN (12) Depression: Code(s): F32.9 - Major depressive disorder, single episode, unspecified Category: Medical Qualifiers: Depression Type: major depressive disorder Major depression recurrence: recurrent Active/Remission status: currently active Major depression episode severity: unspecified Qualified Code(s): F33.9 - Major depressive disorder, recurrent, unspecified Plan: Continue Sertraline 100 mg QD and Abilify 15 mg Q HS Follow-up with Psychiatry as scheduled (13) Overweight (BMI 25.0-29.9): Code(s): E66.3 - Overweight Category: Medical Plan: Reinforced diet/exercise as tolerated/lose weight Plan Follow up in 4 months Orders: Orders TSH reflex Free T4 06/16/25 E78.00 - Pure hypercholesterolemia, unspecified UA CC w/rflx Micro + Cult 06/16/25 R30.0 - Dysuria Vitamin D 25-OH Total 06/16/25 E55.9 - Vitamin D deficiency, unspecified
[2025-03-05 10:05] VITALS: BP 112/70; PULSE 78; O2SAT 98; BMI 23.7
--- OUTSIDE RECORDS SUMMARY | 2025-03-05 10:33 | XMS_ITS | Encounter Summary ---
Author Organization [facility] Address [address] [place] [address] Care Team Providers Care Cloth Washer Back Tender Name Role Phone Trent Aiken DMD Unavailable [phone] Encounter Details Date Type Department Care Team (Latest Contact Info) Description 03/04/2022 Abstract [facility] CONVERSIONS Dental, Provider, DDS Social History Tobacco Use Types Packs/Day Years Used Date Smoking Tobacco: Never Assessed Sex and Gender Information Value Date Recorded Sex Assigned at Male 06/22/2022 10:14 AM EDT Legal Sex Male 10:14 AM EDT Gender Identity Male 06/22/2022 10:14 AM EDT Sexual Orientation Straight 06/22/2022 10 :14 AM EDT documented as of this encounter Plan of Treatment Not on file documented as of this encounter Visit Diagnoses Not on filedocumented in this encounter Care Teams Cloth Washer Back Tender Relationship Specialty Start Date End Date Trent Aiken DMD [address] [place] [id number] Dentist 07/26/24 documented as of this encounter
== END 2025-03-05 10:42 | disposition home or self-care (01) ==
LOC: HO.HMCH 09:57
PROVIDERS: PCP Internal Medicine; Visit Provider Internal Medicine
DX: C61 Malignant neoplasm of prostate (principal); J45.40 Moderate persistent asthma, uncomplicated; J30.9 Allergic rhinitis, unspecified; E55.9 Vitamin D deficiency, unspecified; R73.01 Impaired fasting glucose; M19.011 Primary osteoarthritis, right shoulder; M47.816 Spondylosis without myelopathy or radiculopathy, lumbar region; M79.642 Pain in left hand; N52.9 Male erectile dysfunction, unspecified; G47.00 Insomnia, unspecified; F41.9 Anxiety disorder, unspecified; F33.9 Major depressive disorder, recurrent, unspecified; E66.3 Overweight

== ENCOUNTER → 2025-03-05 09:56 | Outpatient (BNVA) | payer OTHER, SELFPAY | PROVIDERS: PCP Internal Medicine; Visit Provider Internal Medicine | DX: J45.40 Moderate persistent asthma, uncomplicated (principal); C61 Malignant neoplasm of prostate; J30.9 Allergic rhinitis, unspecified; E55.9 Vitamin D deficiency, unspecified; R73.01 Impaired fasting glucose; M19.011 Primary osteoarthritis, right shoulder; M47.816 Spondylosis without myelopathy or radiculopathy, lumbar region; M79.642 Pain in left hand; N52.9 Male erectile dysfunction, unspecified; G47.00 Insomnia, unspecified; F41.9 Anxiety disorder, unspecified; F33.9 Major depressive disorder, recurrent, unspecified; E66.3 Overweight; Z68.23 Body mass index [BMI] 23.0-23.9, adult; Z79.891 Long term (current) use of opiate analgesic; Z79.899 Other long term (current) drug therapy; Z13.31 Encounter for screening for depression; Z13.39 Encounter for screening examination for other mental health and behavioral disorders | CPT/HCPCS: 96127; 99212 ==

== ENCOUNTER 2025-06-01 08:59 | Outpatient (REF) | payer OTHER, SELFPAY ==
[2025-06-01 09:22] LABS: MANUAL DIFF FLAG NO
--- OUTSIDE RECORDS SUMMARY | 2025-06-01 09:23 | XMS_ITS | Encounter Summary ---
Author Organization [facility] Address [address] [place] [address] Care Team Providers Care Certified Surgical Technologist Name Role Phone Trent Aiken DMD Unavailable [phone] Encounter Details Date Type Department Care Team (Latest Contact Info) Description 03/04/2022 Abstract [facility] CONVERSIONS Dental, Provider, DDS Social History [...] on filedocumented in this encounter Care Teams Certified Surgical Technologist Relationship Specialty Start Date End Date Trent Aiken DMD [address] [place] [id number] Dentist 07/26/24 documented as of this encounter
--- OUTSIDE RECORDS SUMMARY | 2025-06-01 09:23 | XMS_ITS | Patient Health Record ---
Author Organization [facility] Address [address] [place] [address] Care Team Providers Care Skin Pass Operator Name Role Phone Lai Olson MD Primary Care Provider Angel Branch Unavailable [phone] Allergies Allergen (clinical drug ingredient) Drug/Non Drug Allergy documented on EMR Reaction Allergy Type Onset Date Status Penicillin Unknown Drug Allergy Active meperidine Demerol Unknown Drug Allergy Active Reason For Referral No Information Medications Medication SIG (Take, Route, Frequency, Duration) Notes Start Date End Date Status Albuterol Sulfate HFA 108 (90 Base) MCG/ACT 2 puffs as needed Inhalation every 6 hrs Active Tamsulosin HCl 0.4 MG Oral; Duration: 90 Active Ambien 10 MG 1 tablet at bedtime as needed Orally Once a day Active clonazePAM 1 MG Oral; Duration: 30 Active Pantoprazole Sodium 40 MG Oral; Duration: 30 Active Fluticasone Propionate 50 MCG/ACT 1 spray in each nostril Nasally Once a day Active traMADol HCl 50 MG Oral; Duration: 30 Active Cyclobenzaprine HCl 10 MG 1 [...] D A CUANDO SEA NECESARIO FOR BRONCHOSPASM Inhalation; Duration: 25 Active Sertraline HCl 100 MG 1 tablet Orally On ce a day Active Nabumetone 750 MG 1 tablet Orally Twic e a day Not-Taking Social History Tobacco Use: Social History Observation Description Date Details (start date - stop date) Former Smoker NA - NA Tobacco Use/Smoking Question Answer Notes Patient is a former smoker How long has it been since you last smoked? > 10 years Alcohol Screen Question Answer Notes Did you have a drink containing alcohol in the p ast year? No Points 0 Interpretation Negative Section Notes: Nonsmoker; no alcohol Nonsmoker; no alcohol Problems Problem Type SNOMED Code ICD Code Onset Dates Problem Status W/U Status Risk Notes Problem Screening for malignant neoplasm of colon (387821142) Encounter for screening for malignant neoplasm of colon (Z12.11) Active confirmed Problem History of adenomatous polyp of colon (166968891) History of adenomatous polyp of colon (Z86.010) Active confirmed Problem Abdominal bloating (588473503) Abdominal bloating (R14.0) Active confirmed Problem Preprocedural examination ([id number]) Preprocedural examination (Z01.818) Active confirmed Plan Of Treatment Future Test Test Name Order Date COLONOSCOPY 02/08/2018 Insurance Providers Payer Name Payer Address Payer Phone Subscriber Number Group Number Insured Name Patient Relationship to Insured Coverage Start Date Coverage End Date [facility] [address] Attn Claims BRENDAN Estevez [id number] MIREILLE RAYSHAWN Self - patient is the insured MEDICAID OF [facility] [address] [place] [address] [id number] MIREILLE RAYSHAWN Self - patient is the insured Medical (General) History Medical History History ICD Code Depression Insomnia Asthma Denies [place],DM,CVA Colonoscopy 09/2012 with a all tubular adenoma removed, internal hemorrhoids --Dr. Montilla Sees Dr. Son for renal cysts and ston es Screening colonoscopy in February of 2018 [facility]--small tubular adenoma removed He describes a colonoscopy at [facility] i n 2022 with removal of a small polyp Surgical History Surgery Date(Month/Year) Ganglion cyst removed from left hand Lipoma on his back
--- OUTSIDE RECORDS SUMMARY | 2025-06-01 09:23 | XMS_ITS | Clinical Summary ---
Author Organization [employer] Address [address] [place] [address] 7t [place] [address] Care Team Providers Care Heel Slugger Name Role Phone Trent Aiken DMD Unavailable [phone] Allergies Active Allergy Reactions Criticality Noted [...] (Ambien) 10 MG tablet TOME YEYO TABLETA TODOS LOS D AL ACOSTARSE 3 Active ibuprofen [...] abdominal pain 08/01/2012 Migraine 05/25/2012 Schizoaffective schizophrenia ([facility]) 05/25/20 12 Asthma 03/09/2012 Immunizations Immunization Administration Dates Next Due Hep A, Adult [...] Sign Reading Time Taken Comments Blood Pressure 110/70 01/02/2025 10:14 AM EDT Pulse 68 09/12/2024 8:47 AM EST Temperature - - Respiratory Rate - - Oxygen Saturation - - Inhaled Oxygen Concentration - - Weight - - Height - - Body Mass Index - - Plan of Treatment Health Maintenance Due Date Last Done Comments [...] 07/25/2024, 0 03/04/2022, 06/12/2021, Additional history exists COVID-19 Vaccine ( season) 2025 05/06/2024, 11/24/2022, 01/23/2022, Additional history exists Influenza Vaccine (#1) 2025 , 05/21/2023, 06/03/2022, Additional history exists Dental X-Ray: Bitewings 07/26/2025 07/25/20 24, 03/16/2023, 03/04/2022, Additional history exists Tobacco Screening 01/02/2026 01/02/2025 Dental X-Ray: Full Mouth 01/05/2026 023, 11/12/2020, 01/27/2017 Hepatitis A Vaccines Aged Out 05/09/2009, 10/10/19 09 No longer eligible based on patient's age to complete this topic Hepatitis B Vaccines Completed 05/09/2009, 10/10/2008, 09/04/2008 Zoster Vaccines Completed 09/15/2022, 12/19/2021 Pneumococcal Vaccine: 50+ Years Completed 12/09/2023, 03/18/2006 HIB Vaccines Aged Out No longer eligi ble based on patient's age to complete this topic HPV Vaccines Aged Out No longer eligi ble based on patient's age to complete this topic IPV Vaccines Aged Out No longer eligi ble based on patient's age to complete this topic Meningococcal B Vaccine Aged Out No l onger eligible based on patient's age to complete [...] Procedure Name Priority Date/Time Associated Diagnosis Comments Full PROPHYLAXIS - ADULT Routine 07/25/2024 3:00 PM EST Symptomatic irreversible pulpitis Periodontal disease Symptomatic Apical Periodontitis BITEWINGS - 4 RADIOGRAPHIC IMAGES Routine 07/25/2024 3:00 PM EST Symptomatic irreversible pulpitis Periodontal disease Symptomatic apical periodontitis PERIODIC ORAL EVALUATION - ESTABLISHED PATIENT Routine 07/25/2024 3:00 PM EST Symptomatic irreversible pulpitis Periodontal disease Symptomatic apical periodontitis PANORAMIC RADIOGRAPHIC IMAGE Routine 01/04/2023 11:30 AM EDT from Last 3 Months or Most Recently Relevant to Health Maintenance Insurance DENTAL - [facility] < 64 [facility] Care Teams Heel Slugger Relationship Specialty Start Date End Date Trent Aiken DMD [address] [place] [address] Dentist 07/26/24
--- OUTSIDE RECORDS SUMMARY | 2025-06-01 09:23 | XMS_ITS | Encounter Summary ---
Author Organization [employer] [facility] Address [address] [facility] 7t [place] [address] Care Team Providers Care Equipment Maintenance Engineer Name Role Phone Trent Aiken DMD Unavailable [phone] Encounter Details Date Type Department Care Team (Latest Contact Info) Description 07/13/2019 Abstract [facility] CONVERSIONS Dental, Provider, DDS Social [...] on filedocumented in this encounter Care Teams Equipment Maintenance Engineer Relationship Specialty Start Date End Date AttilaTrent DMD [address] [place] [id number] Dentist 07/26/24 documented as of this encounter
--- OUTSIDE RECORDS SUMMARY | 2025-06-01 09:23 | XMS_ITS | Encounter Summary ---
Author Organization [employer] Address [address] [facility] 7t [place] [address] Care Team Providers Care Dispensing And Measuring Optician Name Role Phone Trent Aiken DMD Unavailable [phone] Reason for Visit * Reason Onset Date Comments Referral 03/17/2023 Encounter Details Date Type Department Care Team ([facility] st Contact Info) Description 03/17/[address] [facility] [address] [place] [address] Trent Aiken DMD [address] [place], [place] [phone] Referral Social History Tobacco Use Types Packs/Day [...] reminded patient that we received call from [facility] in the morning and office has 48-72 to get records over to office. I contacted frontload driver and referral is in the office but waterfront director that has referral was on lunch and [...] Rama Thomas - 03/17/2023 10:17 AM EDT [facility] called in and stated patient Goyo Canela 1960 has appt with them today and stated they need RCT Referral and Xrays please advise documented in this encounter Plan of Treatment Not on file documented as of this encounter Visit Diagnoses Not on filedocumented in this encounter Care Teams Dispensing And Measuring Optician Relationship Specialty Start Date End Date Trent Aiken DMD [address] [place] [id number] Dentist 07/26/24 documented as of this encounter
--- OUTSIDE RECORDS SUMMARY | 2025-06-01 09:23 | XMS_ITS | Encounter Summary ---
Author Organization [employer] [facility] Address [address] [facility] 7t [place] [address] Care Team Providers Care Broth Mixer Name Role Phone Trent Aiken DMD Unavailable [phone] Encounter Details Date Type Department Care Team (Latest Contact Info) Description 11/29/2020 Abstract [facility] CONVERSIONS Dental, Provider, [...] on filedocumented in this encounter Care Teams Broth Mixer Relationship Specialty Start Date End Date AttilaTrent draper DMD [address] [place] [id number] Dentist 07/26/24 documented as of this encounter
[2025-06-01 09:50] LABS: Hematocrit 38.9 % (42.0-52.0); Hemoglobin 12.4 g/dl (14.0-18.0); Imm Gran Abs Auto 0.01 X10*3/uL (0.00-0.03); Imm Gran Pct Auto 0.2 % (0.0-0.4); Lymphocytes Absolute Auto 1.2 X10*3/uL (1.2-4.9); Mean Corpuscular HGB Conc 31.9 g/dl (31.0-36.0); Mean Corpuscular Hemoglobin 27.0 pg (27.0-33.0); Mean Corpuscular Volume 84.7 fL (80.0-98.0); NRBC Abs Auto 0.000 X10*3/uL (0.0-0.012); NRBC Pct Auto 0.0 /100WBC (0.0-0.2); Platelet Count 150 X10*3/uL (160-400); Red Blood Count 4.59 X10*6/uL (4.60-5.80); White Blood Count 5.5 X10*3/uL (4.8-10.8)
[2025-06-01 10:31] LABS: Appearance Urine Clear; Glucose Urine UA Negative (Negative); PH 5.5 (5.0-9.0); Specific Gravity - Urine 1.020 (1.005-1.025); UMIC TRIGGER UACC YES
[2025-06-01 10:39] LABS: Alanine Aminotransferase 13 U/L (0-40); Albumin Level 4.2 g/dL (3.5-5.0); Alkaline Phosphatase 102 U/L (39-117); Anion Gap 9 (12-20); Aspartate Amino Transferase 23 U/L (5-37); Blood Urea Nitrogen 15 mg/dL (9-16); Calcium 8.6 mg/dL (8.4-10.2); Carbon Dioxide 26 mmol/L (22-29); Chloride 109 mmol/L (96-108); Cholesterol 141 mg/dL (<200); Estimated Glomerular Filt Rate > 60; HDL Cholesterol 48 mg/dL (>40); Potassium 4.5 mmol/L (3.3-5.1); Sodium 139 mmol/L (135-145); Total Protein 7.1 g/dL (6.5-8.0); Triglycerides 53 mg/dL (<150)
== END 2025-06-01 09:00 | disposition home or self-care (01) ==
LOC: HO.LAB 08:59
PROVIDERS: PCP Internal Medicine; Visit Provider Internal Medicine
DX: R73.01 Impaired fasting glucose (principal); D64.9 Anemia, unspecified; E78.00 Pure hypercholesterolemia, unspecified; E55.9 Vitamin D deficiency, unspecified; R30.0 Dysuria
CPT/HCPCS: 36415; 80053; 80061; 81001; 81003; 82306; 83036; 84443; 85025

== ENCOUNTER 2025-06-03 06:29 | Emergency (ER) | payer OTHER, SELFPAY ==
--- NOTE | ~2025-06-03 | XR_ITS ---
CLINICAL HISTORY: pain 5 view left shoulder Comparison: None provided Findings: No fractures or dislocations. There are mild degenerative changes most significant involving acromioclavicular and glenohumeral joints No erosions. No radiopaque foreign body. This is noted is likely bone island within the left glenoid IMPRESSION: No acute fractures Mild degenerative changes This document has been electronically signed by: Angel Fitzpatrick MD on 06/03/2025 08:47:34
[2025-06-03 06:31] VITALS: BP 122/68; PULSE 93; RESP 18; TEMP 36.7; O2SAT 96; BMI 26.1
--- NOTE | 2025-06-03 06:44 | ED.EXTPRO ---
HPI - Extremity Problem General Chief complaint: Extremity Injury, Upper Stated complaint: left shoulder pain Time Seen by Provider: 06/03/25 06:44 Source: patient and fish net maker Mode of arrival: ambulatory Limitations: no limitations History of Present Illness ED Provider: HPI Narrative: 64-year-old male presenting with left arm pain, upon further questioning, he is presenting with left shoulder pain worse with overhead activity however he states he is always in pain for the past 2 days, no association with chest pain, dyspnea, vomiting, diaphoresis, he states he takes tramadol because he has other joint pain as well. MD Complaint: extremity pain Related Data Home Medications ?Medication ?Instructions ?Recorded ?Confirmed clonazepam 1 mg tablet (Klonopin) 1 mg PO TID 05/28/20 03/05/25 aripiprazole 15 mg tablet 15 mg PO DAILY 07/12/20 03/05/25 nabumetone 750 mg tablet 750 mg PO DAILY 07/12/20 03/05/25 sertraline 100 mg tablet 100 mg PO DAILY 07/12/20 03/05/25 zolpidem 10 mg tablet (Ambien) 10 mg PO BEDTIME PRN Sleep 07/12/20 03/05/25 diclofenac sodium 1 % topical gel 2 g topical BEDTIME PRN Pain 11/07/22 03/05/25 finasteride 5 mg tablet 5 mg PO BEDTIME 11/07/22 03/05/25 fluticasone propionate 50 1 spray intranasal DAILY PRN 11/07/22 03/05/25 mcg/actuation nasal Allergy Symptoms spray,suspension loratadine 10 mg tablet 10 mg PO DAILY PRN Allergy Symptoms 11/07/22 03/05/25 pregabalin 50 mg capsule 100 mg PO BID PRN Pain 11/07/22 03/05/25 leuprolide acetate (6 month) 45 mg 45 mg subcut [id number] 04/27/23 03/05/25 (6 month) subcutaneous syringe ([employer]) bupropion HCl 100 mg tablet,12 hr 100 mg PO DAILY 06/19/24 03/05/25 sustained-release tamsulosin 0.4 mg capsule 0.4 mg PO BEDTIME 06/19/24 03/05/25 Previous Rx's ?Medication ?Instructions ?Recorded blood pressure monitor #1 ea 12/02/20 sildenafil (pulm.hypertension) 20 20 mg PO DAILY PRN sexual activity 04/22/ mg tablet #10 tabs LIGHTWEIGHT CANE #1 ea 11/18/22 sodium chloride 0.65 % nasal spray 2 spray intranasal Q12H PRN dry 07/12/23 aerosol (Saline Nasal) nasal passages #30 mL hydrocortisone 2.5 % topical cream 1 appl AL BID-QID PRN hemorrhoids 08/06/23 with perineal applicator #30 grams (Anusol-HC) phenazopyridine 200 mg tablet 200 mg PO Q8H PRN pain (scale 10/23/23 (Pyridium) score 4-6) 6 doses #14 tabs REUSABLE BED PADS #3 ea 10/25/23 naproxen 500 mg tablet (Naprosyn) 500 mg PO BID #20 tabs 11/30/23 HANDHELD SHOWER #1 ea 04/19/24 air conditioner #1 ea 04/19/24 left knee supportive brace #1 ea 04/19/24 shower head #1 ea 04/19/24 cholecalciferol (vitamin D3) 50 50 mcg PO DAILY 90 days #90 caps 10/17/24 mcg (2,000 unit) capsule meclizine 25 mg tablet 25 mg PO BID PRN dizziness 10 days 01/15/25 #20 tabs Toilet riser with removable arms #1 ea 02/20/25 tramadol 50 mg tablet 50 mg PO TID 30 days #90 tabs 03/15/25 mupirocin 2 % topical ointment 1 appl topical BID #22 grams 03/30/25 polymyxin B sulfate 10,000 1 drp ophthalmic (eye) QID 7 days 03/30/25 unit-trimethoprim 1 mg/mL eye drops #10 mL pantoprazole 40 mg tablet,delayed 40 mg PO DAILY 30 days #30 tabs 04/15/25 release albuterol sulfate 90 mcg/actuation 2 puff inhalation QID PRN 04/16/25 aerosol inhaler (Ventolin HFA) Bronchospasm #8.5 grams acetaminophen 500 mg tablet 500 mg PO Q6H PRN pain #100 tabs 05/08/25 famotidine 20 mg tablet 20 mg PO BID PRN for abdominal 05/08/25 pain #180 tabs hydrocortisone 2.5 % topical cream 1 appl topical BID PRN skin 05/08/25 irritation #20 grams hydrocortisone 2.5 % topical cream 1 appl AL BID #60 grams 05/08/25 with perineal applicator sennosides 8.6 mg capsule (senna) 8.6 mg PO BEDTIME PRN constipation 05/08/25 #30 caps witch marty 50 % topical pads 1 pad topical BID-TID PRN 05/08/25 (Hemorrhoidal (witch marty)) hemorrhoids #100 ea methylprednisolone 4 mg tablets in 4 mg PO DAILY #21 ea 06/03/25 a dose pack (Medrol (Geovanny)) Allergies Allergy/AdvReac Type Severity Reaction Status Date / Time Penicillins (PENICILLINS) Allergy Intermediate RASH AND Verified 06/03/25 06:34 SWELLING meperidine (Demerol) Allergy Unknown pain Verified 06/03/25 06:34 morphine (MORPHINE) AdvReac Intermediate N/V Verified 06/03/25 06:34 Review of Systems Constitutional: Constitutional: Reports as per [facility] Past Medical History Medical History Vitamin D deficiency Congenital nevus Contact dermatitis Overweight (BMI 25.0-29.9) Rectal bleeding Abdominal pain Epigastric pain Left-sided chest pain Internal hemorrhoid, bleeding Encounter for medication monitoring Pain in finger of left hand Bilateral hip pain Schizophrenia Prostate cancer Left foot pain Left leg pain Elevated blood pressure reading Depression Anxiety Insomnia Benign prostate hyperplasia Lumbar degenerative disc disease Osteoarthritis of right shoulder Asthma Surgical History History of colonoscopy (~03/01/18) S/P excision of lipoma H/O excision of ganglion cyst (~02/2014) Family History Family History Father Lung cancer Mother CVA (cerebral vascular accident), Onset Age: 80 Chronic mental illness Social History Social History Household Members: None Housing: Apartment Alcohol intake: never Patient Tobacco Use Status: Former Tobacco user Tobacco use type: Cigar Cigarettes Per Day: 20 Years Smoked: pt. states he has not smoked in years Smoked in Last 30 Days: No e-Cigarette/Vaping Use: Never Used Second Hand Smoke Exposure: Yes Use of substances other than those prescribed or required for medical reasons: No Advance Directives: No Advance Directives Information Provided: Yes Do you have a plan to hurt others: No Plan service: No Current occupational status: disabled Cognitive needs: No Hearing needs: No Vision needs: Yes (glasses) Physical Exam Exam: Exam: General: ?Appears of stated age ? Neck: No JVD ? ?CV: S1-S2, no obvious murmurs ? ?Resp: ?No wheezing rales rhonchi no stridor moving air well ? Abd: ?Bowel sounds are present, no tenderness no rebound no rigidity ? ?MSK: FROM, strength 5/5 all extremities, patient has tenderness along left AC, positive Larose and Neer's impingement signs, rotator cuff tendons are intact, radial pulses +2 bilaterally, he has intact meeting ulnar and radial sensory and motor nerve left upper extremity ? Skin: Warm, dry, intact, ? ?Neuro: ?Alert and oriented x3, moving upper and lower extremities symmetrically, no obvious facial asymmetry noted, cranial nerves 2-12 intact Vital Signs: Vital Signs: Last Vital Signs Temp 98.1 F 06/03/25 06:31 Pulse 93 06/03/25 06:31 Resp 18 06/03/25 06:31 BP 122/68 06/03/25 06:31 Pulse Ox 96 06/03/25 06:31 O2 Del Method Room Air 06/03/25 06:31 BMI result Body Mass Index 26.1 Medications Administered Discontinued Medications Generic Name Dose Route Start Last Admin Trade Name Everett PRN Reason Stop Dose Admin Dexamethasone 10 mg 06/03/25 07:03 06/03/25 07:21 Dexamethasone 2 Mg Tablet PO 06/03/25 07:04 10 mg ONCE ONE Administration Ketorolac Tromethamine 15 mg 06/03/25 07:03 06/03/25 07:21 Ketorolac Tromethamine 15 Mg/Ml Vial IM 06/03/25 07:04 15 mg ONCE ONE Administration Medical Decision Making Medical Decision Making MDM Narrative: 7:17 AM 06/03/2025 (Dr. Dayday Carr): Patient presents with what appears to be isolated left shoulder pain impingement findings on exam and tenderness along AC joint, I did concentrate in discussed with him quite a bit other symptoms to consider ACS or aortic dissection anything else that is concerning that maybe radiating to his arm and shoulder and he denies any other concomitant symptoms. I will however obtain ECGs just to make sure there is no underlying ischemia or anything else concerning if I do find something I we will expand my workup to include a chest x-ray and cardiac enzymes but for now plan to treat with anti-inflammatories, steroids and the shoulder x-ray to evaluate for any calcifications, unlikely that is going to be a fracture and he has no neurovascular abnormalities examination bilateral upper extremities. 7:51 AM 06/03/2025 (Dr. Dayday Carr): X-ray reveals AC joint arthropathy, ECG without any changes to suspect underlying ACS there was no underlying dysrhythmia, see my discharge instructions Differential Diagnosis Differential Diagnoses: The differential diagnosis associated with the presentation includes (ACS, pneumothorax, fracture, subacromial impingement, shoulder dislocation, aortic dissection) Admission/Observation Consideration of admission/observation: Escalation of care including admission/observation considered Independent Interpretation I performed an independent interpretation of an: EKG (72 beats per minute otherwise normal ECG without dysrhythmia, AV mel blocks or ST-T changes to suspect underlying ACS, my independent interpretation) and Plain X-Ray (AC joint arthropathy, no fractures or dislocations) Radiology Impression Discussion of test interpretation with radiology: I have reviewed the radiologist's reading. Prescription Management I considered prescription management with: Pain Medication Discharge Plan Discharge Clinical Impression: Left shoulder pain Qualifiers: Chronicity: acute Qualified Code(s): M25.512 - Pain in left shoulder Patient Disposition: Home, Self-Care Additional Instructions: Evaluated with left shoulder and arm pain, on physical examination you have evidence of impingement signs which is inflammation of the underlying tendons in your shoulder that become inflamed and my typical recommendation is a big bag of ice to that shoulder 20 minutes every day, and we will let us continue steroids starting tomorrow you going to start feeling better, ultimately I believe you need to follow up with the orthopedic surgeons for re-evaluation, possibly injections, MRI, physical therapy etc. I did want to make sure that your pain is not related to her heart and I obtained EKG which was reassuring the rest of the physical exam and vital signs were unremarkable Chest pain, shortness of breath any other concerns come back to the ED Prescriptions: New methylprednisolone [Medrol (Geovanny)] 4 mg tablets,dose pack 4 mg PO DAILY Qty: 21 0RF Rx Instructions: Day 1: 24 mg on day 1 administered as 8 mg before breakfast, 4 mg after lunch, 4 mg after supper, and 8 mg at bedtime or 24 mg as a single dose or divided into 2 or 3 doses upon initiation. Day 2: 20 mg on day 2 administered as 4 mg before breakfast, 4 mg after lunch, 4 mg after supper, and 8 mg at bedtime. Day 3: 16 mg on day 3 administered as 4 mg before breakfast, 4 mg after lunch, 4 mg after supper, and 4 mg at bedtime. Day 4: 12 mg on day 4 administered as 4 mg before breakfast, 4 mg after lunch, and 4 mg at bedtime. Day 5: 8 mg on day 5 administered as 4 mg before breakfast and 4 mg at bedtime. Day 6: 4 mg on day 6 administered as 4 mg before breakfast. No Action (DME) blood pressure monitor Kit See Rx Instructions .ROUTE .MEDSUPPLY Qty: 1 0RF Rx Instructions: As directed (DME) LIGHTWEIGHT CANE See Rx Instructions .Route .MEDSUPPLY Qty: 1 0RF Rx Instructions: As directed Saline Nasal 0.65 % aerosol,spray 2 spray intranasal Q12H PRN (Reason: dry nasal passages) Qty: 30 1RF hydrocortisone [Anusol-HC] 2.5 % cream with perineal applicator 1 appl AL BID-QID PRN (Reason: hemorrhoids) Qty: 30 1RF (DME) REUSABLE BED PADS See Rx Instructions .Route .MEDSUPPLY Qty: 3 0RF Rx Instructions: As directed (DME) air conditioner See Rx Instructions .Route .MEDSUPPLY Qty: 1 0RF Rx Instructions: As directed (DME) shower head See Rx Instructions .Route .MEDSUPPLY Qty: 1 0RF Rx Instructions: As directed (DME) HANDHELD SHOWER See Rx Instructions .Route .MEDSUPPLY Qty: 1 0RF Rx Instructions: As directed (DME) left knee supportive brace medium See Rx Instructions .Route .MEDSUPPLY Qty: 1 0RF Rx Instructions: As directed meclizine 25 mg tablet 25 mg PO BID PRN (Reason: dizziness) 10 Days Qty: 20 0RF (DME) Toilet riser with removable arms See Rx Instructions .Route .MEDSUPPLY Qty: 1 0RF Rx Instructions: As directed tramadol 50 mg tablet 50 mg PO TID 30 Days Qty: 90 4RF polymyxin B sulf-trimethoprim 10,000 unit- 1 mg/mL drops 1 drp ophthalmic (eye) QID 7 Days Qty: 10 0RF mupirocin 2 % ointment 1 appl topical BID Qty: 22 0RF Rx Instructions: apply to lesion on the back of the right leg pantoprazole 40 mg tablet,delayed release (DR/EC) 40 mg PO DAILY 30 Days Qty: 30 1RF albuterol sulfate [Ventolin HFA] 90 mcg/actuation HFA aerosol inhaler 2 puff INHALATION QID PRN (Reason: Bronchospasm) Qty: 8.5 2RF famotidine 20 mg tablet 20 mg PO BID PRN (Reason: for abdominal pain) Qty: 180 0RF hydrocortisone 2.5 % cream 1 appl topical BID PRN (Reason: skin irritation) Qty: 20 0RF acetaminophen 500 mg tablet 500 mg PO Q6H PRN (Reason: pain) Qty: 100 1RF Hemorrhoidal (witch marty) 50 % pads, medicated 1 pad topical BID-TID PRN (Reason: hemorrhoids) Qty: 100 0RF hydrocortisone 2.5 % cream with perineal applicator 1 appl AL BID Qty: 60 1RF senna 8.6 mg capsule 8.6 mg PO BEDTIME PRN (Reason: constipation) Qty: 30 1RF fluticasone propionate 50 mcg/actuation Benson,Suspension 1 spray INTRANASAL DAILY PRN (Reason: Allergy Symptoms) Rx Instructions: administer into each nostril loratadine 10 mg Tablet 10 mg PO DAILY PRN (Reason: Allergy Symptoms) pregabalin 50 mg capsule 100 mg PO BID PRN (Reason: Pain) Rx Instructions: patient states he only takes twice weekly diclofenac sodium 1 % gel 2 g topical BEDTIME PRN (Reason: Pain) Rx Instructions: apply 2 gram to L foot nightly as needed finasteride 5 mg Tablet 5 mg PO BEDTIME tamsulosin 0.4 mg capsule 0.4 mg PO BEDTIME bupropion HCl 100 mg tablet sustained-release 12 hr 100 mg PO DAILY phenazopyridine [Pyridium] 200 mg tablet 200 mg PO Q8H PRN (Reason: pain (scale score 4-6)) Qty: 14 0RF naproxen [Naprosyn] 500 mg tablet 500 mg PO BID Qty: 20 0RF clonazepam [Klonopin] 1 mg tablet 1 mg PO TID aripiprazole 15 mg tablet 15 mg PO DAILY zolpidem [Ambien] 10 mg tablet 10 mg PO BEDTIME PRN (Reason: Sleep) sertraline 100 mg tablet 100 mg PO DAILY nabumetone 750 mg tablet 750 mg PO DAILY sildenafil (pulm.hypertension) 20 mg tablet 20 mg PO DAILY PRN (Reason: sexual activity) Qty: 10 0RF Eligard (6 month) 45 mg syringe 45 mg subcut [id number] cholecalciferol (vitamin D3) 50 mcg (2,000 unit) capsule 50 mcg PO DAILY 90 Days Qty: 90 3RF Referrals: [facility] Orthopedic Surgeons [Provider Group, Orthopedics] - 10 days Clinical Impression: Left shoulder pain Print Language: Malagasy
--- OUTSIDE RECORDS SUMMARY | 2025-06-03 06:46 | XMS_ITS | Encounter Summary ---
Author Organization [employer] [facility] Address [address] [facility] 7t [place] [address] Care Team Providers Care Pipe Welder Name Role Phone Trent Aiken DMD Unavailable [phone] Encounter Details Date Type Department Care Team (Latest Contact Info) Description 07/13/2019 Abstract [facility] CONVERSIONS Dental, Provider, DDS Social [...] on filedocumented in this encounter Care Teams Pipe Welder Relationship Specialty Start Date End Date AttilaTrent DMD [address] [place] [phone] Dentist 07/26/24 documented as of this encounter
--- OUTSIDE RECORDS SUMMARY | 2025-06-03 06:46 | XMS_ITS | Clinical Summary ---
Author Organization [employer] Address [address] [place] [address] 7t [place] [address] Care Team Providers Care Diamond Setter Apprentice Name Role Phone Trent Aiken DMD Unavailable [phone] Allergies Active Allergy Reactions Criticality Noted [...] abdominal pain 08/01/2012 Migraine 05/25/2012 Schizoaffective schizophrenia ([facility]) 05/25/20 12 Asthma 03/09/2012 Immunizations Immunization Administration [...] Relevant to Health Maintenance Insurance DENTAL - [facility] < 64 [facility] Care Teams Diamond Setter Apprentice Relationship Specialty Start Date End Date Trent Aiken DMD [address] [place] [address] Dentist 07/26/24
--- OUTSIDE RECORDS SUMMARY | 2025-06-03 06:46 | XMS_ITS | Encounter Summary ---
Author Organization [employer] Address [address] [facility] [address]t [place] [address] Care Team Providers Care Accounts Payable Lead Name Role Phone Trent Aiken DMD Unavailable [phone] Reason for Visit * Reason Onset Date Comments Referral 03/17/2023 Encounter Details Date Type Department Care Team ([facility] st Contact Info) Description 03/17/2023 Telephone [facility] [address] [place] [address] Trent Aiken DMD [address] [place], [place] [id number] Referral Social History Tobacco Use Types Packs/Day [...] reminded patient that we received call from [facility] in the morning and office has 48-72 to get records over to office. I contacted senior front end web developer and referral is in the office but front sight attacher that has referral was on lunch and [...] Rama Thomas - 03/17/2023 10:17 AM EDT [facility] called in and stated patient Goyo Canela 1960 has appt with them today and stated they need RCT Referral and Xrays please advise documented in this encounter Plan of Treatment Not on file documented as of this encounter Visit Diagnoses Not on filedocumented in this encounter Care Teams Accounts Payable Lead Relationship Specialty Start Date End Date Trent Aiken DMD [address] [place] [id number] Dentist 07/26/24 documented as of this encounter
--- OUTSIDE RECORDS SUMMARY | 2025-06-03 06:46 | XMS_ITS | Encounter Summary ---
Author Organization [facility] Address [address] [facility] 7[address] [place] [address] Care Team Providers Care Clinical Quality Assurance Associate Name Role Phone Trent Akien DMD Unavailable Encounter Details Date Type Department Care Team (Latest Contact Info) Description 03/04/2022 Abstract [facility] CONVERSIONS Dental, Provider, DDS Social History Tobacco [...] on filedocumented in this encounter Care Teams Clinical Quality Assurance Associate Relationship Specialty Start Date End Date Trent Aiken DMD [address] [place] [address] Dentist 07/26/24 documented as of this encounter
--- OUTSIDE RECORDS SUMMARY | 2025-06-03 06:46 | XMS_ITS | Encounter Summary ---
Author Organization [facility] Address [address] [facility] 7t [place] [address] Care Team Providers Care Billboard Poster Name Role Phone Trent Aiken DMD Unavailable [phone] Encounter Details Date Type Department Care Team (Latest Contact Info) Description 11/29/2020 Abstract [facility] CONVERSIONS Dental, Provider, DDS Social History [...] on filedocumented in this encounter Care Teams Billboard Poster Relationship Specialty Start Date End Date AttilaTrent draper DMD [address] [place] [address] Dentist 07/26/24 documented as of this encounter
--- OUTSIDE RECORDS SUMMARY | 2025-06-03 06:46 | XMS_ITS | Patient Health Record ---
Author Organization [facility] Address [address] [place] [address] Care Team Providers Care Open Cut Examiner Name Role Phone Lai Olson MD Primary Care Provider Angel Branch Unavailable [phone] Allergies Allergen (clinical drug ingredient) Drug/Non Drug [...] Problem Screening for malignant neoplasm of colon (415389146) Encounter for screening for malignant neoplasm of colon (Z12.11) Active confirmed Problem History of adenomatous polyp of colon (776065051) History of adenomatous polyp of colon (Z86.010) Active confirmed Problem Abdominal bloating (909574002) Abdominal bloating (R14.0) Active confirmed Problem Preprocedural examination (488696155298732) Preprocedural examination (Z01.818) Active confirmed Plan Of Treatment Future Test Test Name Order Date COLONOSCOPY 02/08/2018 Insurance Providers Payer Name Payer Address Payer Phone Subscriber Number Group Number Insured Name Patient Relationship to Insured Coverage Start Date Coverage End Date [facility] [address] Attn Claims BRENDAN Estevez [id number] MIREILLE RAYSHAWN Self - patient is the insured [facility] [address] [place] [address] [id number] MIREILLE RAYSHAWN Self - patient is the insured Medical (General) History Medical History History ICD Code Depression Insomnia Asthma Denies [place],DM,CVA Colonoscopy 09/2012 with a all tubular adenoma removed, internal hemorrhoids --Dr. Montilla Sees Dr. Son for renal cysts and ston es Screening colonoscopy in February of 2018 formerly [facility]--small tubular adenoma removed He describes a colonoscopy at [facility] i n 2022 with removal of a small polyp Surgical History Surgery Date(Month/Year) Ganglion cyst removed from left hand Lipoma on his back
--- NOTE | 2025-06-03 07:01 | ECG_ITS ---
Test Reason : LEFT SHOULDER PAIN Blood Pressure : */* mmHG Vent. Rate : 72 BPM Atrial Rate : 72 BPM P-R Int : 172 ms QRS Dur : 74 ms QT Int : 372 ms P-R-T Axes : 28 30 16 degrees QTcB Int : 407 ms Normal sinus rhythm Normal ECG When compared with ECG of 24-Aug-2019 14:42, No significant change was found Referred By: Dayday Carr Electronically Signed By: KARO LISA MD
[2025-06-03 08:13] VITALS: BP 114/68; PULSE 70; RESP 18; TEMP 36.3; O2SAT 96
[2025-06-03 08:15] VITALS: BP 114/68; PULSE 70; RESP 18; TEMP 36.3; O2SAT 96
== END 2025-06-03 08:16 | disposition home or self-care (01) ==
PROVIDERS: Emergency Provider Emergency Medicine; PCP Internal Medicine
DX: M25.512 Pain in left shoulder (principal); M79.602 Pain in left arm
CPT/HCPCS: 73030; 93005; 96372; 99284; 99285; J1885; J8540

== ENCOUNTER → 2025-06-03 07:01 | Outpatient (BNV) | payer OTHER, SELFPAY | PROVIDERS: Emergency Provider Emergency Medicine; PCP Internal Medicine; Visit Provider Radiology Diagnostic Radiology | DX: M19.012 Primary osteoarthritis, left shoulder (principal) | CPT/HCPCS: 73030 ==

== ENCOUNTER → 2025-06-03 07:01 | Outpatient (BNV) | payer OTHER, SELFPAY | PROVIDERS: Emergency Provider Emergency Medicine; PCP Internal Medicine; Visit Provider Internal Medicine Cardiovascular Disease | DX: M25.512 Pain in left shoulder (principal) | CPT/HCPCS: 93010 ==

== ENCOUNTER 2025-06-08 13:04 | Outpatient (AMB) | payer OTHER, SELFPAY ==
--- NOTE | 2025-06-08 13:11 | A.OFFVIS_ITS ---
Vital Signs 06/08/25 13:23 Height 5 ft 8 in Weight 159 lb 2.78 oz BMI 24.2 BP 132/80 Blood Pressure Location Lt brachial Position Sitting Pulse 66 Pulse Source Pulse Oximeter Pulse Oximetry (%) 97 Oxygen Delivery Method Room Air Intake Visit Reasons: FMS Intake Note: Patient presents for FMS follow up. Surveillance Specialist Required: Yes Surveillance Specialist Language: Shipper/Receiver Services: Surveillance Specialist Present Surveillance Specialist Name: Ana [id number] Information Interpreted: non-clinical & clinical Allergies Penicillins (PENICILLINS) Allergy (Intermediate, Verified 06/08/25 13:17) RASH AND SWELLING meperidine (Demerol) Allergy (Unknown, Verified 06/08/25 13:17) pain morphine (MORPHINE) Adverse Reaction (Intermediate, Verified 06/08/25 13:17) N/V HPI Comments Details: Patient is a 64-year-old male with asthma, GERD, history of prostate cancer, BPPV, polyarticular osteoarthritis including lumbar spondylosis, and fibromyalgia here today for follow up Interval History: Patient last seen 06/08/[address] Garcia - Diffuse pain especially in his back, knees, and legs. States that his fingers have been getting stuck multiple times a day for a long period of time especially his left 4th and 5th fingers. He has not had any treatment specifically aimed for that. - Continues to take tramadol t.i.d. - Trigger finger, recommended finger splints - Refused pain management Today - On tramadol 50mg TID - Complains of whole body pain - Went to the emergency room 06/03 duie to left shoulder and left arm pain - XRs done showed OA changes to the shoulder and no evidence of AL - Got injection in right shoulder at the ED - Given medrol pack but did not pick it up out of fear of interactions with his tramadol Rheumatologic History: FM and OA Current Rheumatology Medication(s): Tamadol 50mg TID [facility] Medical History Vitamin D deficiency Congenital nevus Contact dermatitis Overweight (BMI 25.0-29.9) Rectal bleeding Abdominal pain Epigastric pain Left-sided chest pain Internal hemorrhoid, bleeding Encounter for medication monitoring Pain in finger of left hand Bilateral hip pain Schizophrenia Prostate cancer Left foot pain Left leg pain Elevated blood pressure reading Depression Anxiety Insomnia Benign prostate hyperplasia Lumbar degenerative disc disease Osteoarthritis of right shoulder Asthma Surgical History History of colonoscopy (~03/01/18) S/P excision of lipoma H/O excision of ganglion cyst (~02/2014) Family History Father Lung cancer Mother CVA (cerebral vascular accident), Onset Age: 80 Chronic mental illness Brother History of heart attack Daughter Cancer Paternal Aunt Cancer Maternal Aunt Cancer Social History Household Members: None Housing: Apartment Alcohol intake: former Patient Tobacco Use Status: Former Tobacco user Tobacco use type: Cigar Cigarettes Per Day: 20 Years Smoked: pt. states he has not smoked in years e-Cigarette/Vaping Use: Never Used Second Hand Smoke Exposure: Yes service: No Current occupational status: disabled Cognitive needs: No Hearing needs: No Vision needs: Yes (glasses) Review of Systems Const Details: Review of Systems Constitutional: Denies fever, chills, weight loss ENT: Denies vision changes, eye pain or eye redness, dental caries, dry mouth GI: Denies nausea, vomiting, diarrhea, abdominal pain, change in BM Pulm: Denies SOB, KHAN, hemoptysis, wheezing Cards: Denies chest pain, palpitations Skin: Denies Raynaud's, rash, nail changes, photosensitivity, METER REPAIRER HELPER: Denies headaches, weakness, paresthesias, recurrent falls MSK: as per HPI All other systems reviewed and are unremarkable except noted above Physical Exam Exam Exam: Vital signs reviewed Physical Examination CONSTITUITIONAL Patient alert and cooperative. Well appearing Pain MSK Hands * Right Hand: Able to make a fist. No swelling or tenderness to palpation of the MCPs, PIPs or DIPs. * Left Hand: Able to make a fist. No swelling or tenderness to palpation of the MCPs, PIPs or DIPs * TTP bilateral 1st CMC joints Wrists * Right Wrist: Full ROM to flexion and extension. No swelling or TTP. TTP of the tendon in 1st compartment * Left Wrist: Full ROM to flexion and extension. No swelling or TTP. TTP of the ECU tendon Elbows * Right Elbow: Full ROM. No swelling or TTP. TTP of the medial epicondyle. TTP of the lateral epicondyle * Left Elbow: Full ROM. No swelling or TTP. TTP of the medial epicondyle. TTP of the lateral epicondyle Shoulders * Right shoulder: No swelling noted. TTP of the AC joint. No TTP of the subacromial bursa. No TTP of the posterior shoulder * Left shoulder: No swelling noted. TTP of the AC joint. No TTP of the subacromial bursa. No TTP of the posterior shoulder Hip bursa: Tenderness to palpation bilaterally Knees * Right knee: No swelling noted. TTP of the knee joint line. No TTP of pes anserine bursa * Left knee: No swelling noted. TTP of the knee joint line. No TTP of pes anserine bursa. * Crepitations felt bilaterally Ankles * Right ankle: Good ankle dorsiflexion and plantar flexion. No swelling. No TTP of the ankle joint * Left ankle: Good ankle dorsiflexion and plantar flexion. No swelling. No TTP of the ankle joint Feet * Right foot: Negative squeeze test * Left foot: Negative squeeze test Tender points? * Tenderness to palpation of the bilateral trapezius, supraspinatus, anterior costochondral junctions, bilateral suboccipital muscle insertions SKIN No rashes Vital Signs: BMI result Body Mass Index 24.2 Results Reviewed Results Reviewed: Laboratory Tests 06/01/25 09:20 WBC 5.5 RBC 4.59 L Hgb 12.4 L Hct 38.9 L Plt Count 150 L Sodium 139 Potassium 4.5 Chloride 109 H Carbon Dioxide 26 BUN 15 Creatinine 0.94 AST 23 ALT 13 25-OH Vitamin D Total 36.3 XR Left shoulder 05/2025 Findings: No fractures or dislocations. There are mild degenerative changes most significant involving acromioclavicular and glenohumeral joints No erosions. No radiopaque foreign body. This is noted is likely bone island within the left glenoid IMPRESSION: No acute fractures Mild degenerative changes Assessment & Plan Assessment & Plan (1) Polyarticular osteoarthritis: Code(s): M15.9 - Polyosteoarthritis, unspecified Plan: #Polyarticular OA Patient is a 64-year-old male with polyarticular osteoarthritis here today for follow up. Discussed with patient the diagnosis of polyarticular osteoarthritis as is a degenerative disease that over time we will worsened due to degradation of cartilage and that there is no treatment for it except for procedural and surgical interventions. Right now his main complaint or his shoulders however he states that he received a shoulder injection in the emergency department and so does not qualify for an injection today. He did feel some improvement after the shoulder injection. Discussed with him that he can continue taking his tramadol. Recommended continued activity as much as he can. Given that we are the prescribe as of the tramadol we will see him once a year. I informed him that if at any. Doing now and the next appointment that he has concerns for knee pain, shoulder pain or any other joint pain but he would like a procedures such as an injection on he is free to contact the office Plan - Continue tramadol 50mg tid - RTC 1 year or sooner (2) Fibromyalgia: Code(s): M79.7 - Fibromyalgia Category: Medical Plan: #Fibromyalgia Patient with fibromyalgia currently on Lyrica from his primary. Given that he is already on tramadol he is not a candidate for naltrexone Recommended D-Ribose as an alternative medicine agent which has been shown to have some improvement on fibromyalgia Plan - D-Ribose 1400mg bid - patient to get [id number] Serge RICE, Mark Teixeira, [facility] [place]. The use of D-ribose in chronic fatigue syndrome and fibromyalgia: a aeroplane pilot study. J Altern Complement Med. 2006 Nov;12(9):857-62. doi: 10.1089/acm.2006.12.857. PMID: [id number]. Plan This is my first visit with the patient. I spent 40 minutes reviewing the record and labs, taking a history, examining the patient, discussing the treatment plan, explaining the diagnosis of fibromyalgia and OA, and documenting in the medical record Medications: Refilled tramadol 50 mg PO TID 90 tabs 5RF 30 days M47.816 - Spondylosis without myelopathy or radiculopathy, lumbar region Coding Level of Care Code Est Pt Level 5 (42750) Complex EM visit Add On G2211 Diagnoses Polyarticular osteoarthritis M15.9 Fibromyalgia M79.7
[2025-06-08 13:23] VITALS: BP 132/80; PULSE 66; O2SAT 97; BMI 24.2
--- OUTSIDE RECORDS SUMMARY | 2025-06-08 15:41 | XMS_ITS | Encounter Summary ---
Author Organization [email or web address] Address [address] [facility] 7t [place] [address] Care Team Providers Care Field Recorder Name Role Phone Trent Aiken DMD Unavailable [phone] Reason for Visit * Reason Onset Date Comments Referral 03/17/2023 Encounter Details Date Type Department Care Team ([facility] st Contact Info) Description 03/17/2023 Telephone [facility] ADULT DENTAL [address] [place] [address] Trent Aiken DMD [address] [place], [place] [id number] Referral Social History Tobacco Use Types Packs/Day [...] reminded patient that we received call from [facility] in the morning and office has 48-72 to get records over to office. I contacted front end developer and referral is in the office but senior front end web developer that has referral [...] Rama Thomas - 03/17/2023 10:17 AM EDT [facility] called in and stated patient Goyo Canela 1960 has appt with them today and stated they need RCT Referral and Xrays please advise documented in this encounter Plan of Treatment Not on file documented as of this encounter Visit Diagnoses Not on filedocumented in this encounter Care Teams Field Recorder Relationship Specialty Start Date End Date Trent Aiken DMD [address] [place] [id number] Dentist 07/26/24 documented as of this encounter
--- OUTSIDE RECORDS SUMMARY | 2025-06-08 15:41 | XMS_ITS | Clinical Summary ---
Author Organization [employer] Address [address] [place] [address] 7t [place] [address] Care Team Providers Care Organ Installer Name Role Phone Trent Aiken DMD Unavailable [phone] Allergies Active Allergy Reactions Criticality Noted [...] abdominal pain 08/01/2012 Migraine 05/25/2012 Schizoaffective schizophrenia ([facility]) 05/25/20 12 Asthma 03/09/2012 Immunizations Immunization Administration [...] Relevant to Health Maintenance Insurance DENTAL - [facility] < 64 [facility] Care Teams Organ Installer Relationship Specialty Start Date End Date Trent Aiken DMD [address] [place] [address] Dentist 07/26/24
--- OUTSIDE RECORDS SUMMARY | 2025-06-08 15:41 | XMS_ITS | Encounter Summary ---
Author Organization [facility] Address [address] [facility] 7t [place] [address] Care Team Providers Care Boiler Maker Name Role Phone Trent Aiken DMD Unavailable [phone] Encounter Details Date Type Department Care Team (Latest Contact Info) Description 11/29/2020 Abstract [facility] CONVERSIONS Dental, Provider, DDS Social History Tobacco [...] on filedocumented in this encounter Care Teams Boiler Maker Relationship Specialty Start Date End Date AttilaTrent draper DMD [address] [place] [id number] Dentist 07/26/24 documented as of this encounter
--- OUTSIDE RECORDS SUMMARY | 2025-06-08 15:41 | XMS_ITS | Encounter Summary ---
Author Organization [facility] Address [address] [facility] 7t [place] [address] Care Team Providers Care Loan Services Professional Name Role Phone Trent Aiken DMD Unavailable [phone] Encounter Details Date Type Department Care Team (Latest Contact Info) Description 03/04/[address] [facility] CONVERSIONS Dental, Provider, DDS Social History [...] on filedocumented in this encounter Care Teams Loan Services Professional Relationship Specialty Start Date End Date Trent Aiken DMD [address] [place] [id number] Dentist 07/26/24 documented as of this encounter
--- OUTSIDE RECORDS SUMMARY | 2025-06-08 15:41 | XMS_ITS | Encounter Summary ---
Author Organization [facility] Address [address] [facility] 7t [place] [address] Care Team Providers Care Stave Block Roller Name Role Phone Trent Aiken DMD Unavailable [phone] Encounter Details Date Type Department Care Team (Latest Contact Info) Description 07/13/2019 Abstract [facility] CONVERSIONS Dental, Provider, DDS Social History [...] on filedocumented in this encounter Care Teams Stave Block Roller Relationship Specialty Start Date End Date AttilaTrent DMD [address] [place] [address] Dentist 07/26/24 documented as of this encounter
--- OUTSIDE RECORDS SUMMARY | 2025-06-08 15:42 | XMS_ITS | Patient Health Record ---
Author Organization [facility] Address [address] [place] [address] Care Team Providers Care Patient Office Rep Name Role Phone Lai Olson MD Primary Care Provider Angel Branch Unavailable [phone] Allergies Allergen (clinical drug ingredient) Drug/Non Drug [...] Problem Screening for malignant neoplasm of colon (494032465) Encounter for screening for malignant neoplasm of colon (Z12.11) Active confirmed Problem History of adenomatous polyp of colon (629578096) History of adenomatous polyp of colon (Z86.010) Active confirmed Problem Abdominal bloating (516734761) Abdominal bloating (R14.0) Active confirmed Problem Preprocedural examination (876837838200441) Preprocedural examination (Z01.818) Active confirmed Plan Of Treatment Future Test Test Name Order Date COLONOSCOPY 02/08/2018 Insurance Providers Payer Name Payer Address Payer Phone Subscriber Number Group Number Insured Name Patient Relationship to Insured Coverage Start Date Coverage End Date [facility] [address] Attn Claims BRENDAN Estevez [id number] MIREILLE RAYSHAWN Self - patient is the insured [facility] [address] [place] [address] [id number] MIREILLE RAYSHAWN Self - patient is the insured Medical (General) History Medical History History ICD Code Depression Insomnia Asthma Denies [place],DM,CVA Colonoscopy 09/2012 with a all tubular adenoma removed, internal hemorrhoids --Dr. Montilla Sees Dr. Son for renal cysts and ston es Screening colonoscopy in February of 2018 [facility]--small tubular adenoma removed He describes a colonoscopy at [facility] i n 2022 with removal of a small polyp Surgical History Surgery Date(Month/Year) Ganglion cyst removed from left hand Lipoma on his back
== END 2025-06-08 13:52 | disposition home or self-care (01) ==
PROVIDERS: PCP Internal Medicine; Visit Provider Student in an Organized Health Care Education/Training Program
DX: M79.7 Fibromyalgia (principal); M47.816 Spondylosis without myelopathy or radiculopathy, lumbar region; M15.0 Primary generalized (osteo)arthritis
CPT/HCPCS: 99215; G2211

== ENCOUNTER → 2025-06-08 13:04 | Outpatient (BNVA) | payer OTHER, SELFPAY | PROVIDERS: PCP Internal Medicine; Visit Provider Student in an Organized Health Care Education/Training Program | DX: M79.7 Fibromyalgia (principal); M15.9 Polyosteoarthritis, unspecified | CPT/HCPCS: 99212 ==

== ENCOUNTER 2025-06-18 08:54 | Outpatient (AMB) | payer OTHER, SELFPAY ==
--- NOTE | 2025-06-18 09:14 | MHC.PC.OV ---
Vital Signs 06/18/25 09:15 Height 5 ft 8 in Weight 156 lb 8 oz BMI 23.8 BP 118/70 Blood Pressure Location Lt brachial Position Sitting Pulse 83 Pulse Source Pulse Oximeter Temp 97.3 F Temp Source Temporal Artery Scan Pulse Oximetry (%) 97 Oxygen Delivery Method Room Air Intake Visit Reasons: Annual Physical Intake Note: Patient is here today for a physical. Cosmetics Demonstrator Required: Yes Cosmetics Demonstrator Name: [id number] Director Medical Writing: Not Required per policy Accompanied by: Self / Same As Patient Allergies Penicillins (PENICILLINS) Allergy (Intermediate, Verified 06/18/25 09:41) RASH AND SWELLING meperidine (Demerol) Allergy (Unknown, Verified 06/18/25 09:41) pain morphine (MORPHINE) Adverse Reaction (Intermediate, Verified 06/18/25 09:41) N/V Medication List - Last Reconciled 06/18/25 by NIHARIKA Conteh acetaminophen 500 mg PO Q6H PRN [air conditioner As directed] albuterol sulfate 90 mcg/actuation (Ventolin HFA) 2 puffs inhalation QID PRN aripiprazole 15 mg PO DAILY blood pressure monitor As directed bupropion HCl SR 100 mg PO DAILY cholecalciferol (vitamin D3) 50 mcg PO DAILY 90 days clonazepam (Klonopin) 1 mg PO TID diclofenac sodium 1% 2 grams topical BEDTIME PRN famotidine 20 mg PO BID PRN finasteride 5 mg PO BEDTIME fluticasone propionate 50 mcg/actuation 1 spray intranasal DAILY PRN [HANDHELD SHOWER As directed] hydrocortisone 2.5% 1 appl topical BID PRN hydrocortisone 2.5% [address] BID [left knee supportive brace As directed] leuprolide acetate (6 month) (Eligard) 45 mg subcut [id number] [LIGHTWEIGHT CANE As directed] loratadine 10 mg PO DAILY PRN meclizine 25 mg PO BID PRN 10 days methylprednisolone (Medrol (Geovanny)) 4 mg PO DAILY mupirocin 2% 1 appl topical BID nabumetone 750 mg PO DAILY naproxen (Naprosyn) 500 mg PO BID pantoprazole 40 mg PO DAILY 30 days phenazopyridine (Pyridium) 200 mg PO Q8H PRN 6 doses polymyxin B sulf-trimethoprim 10,000 unit- 1 mg/mL 1 drp ophthalmic (eye) QID 7 days pregabalin 100 mg PO BID PRN [REUSABLE BED PADS As directed] sennosides (senna) 8.6 mg PO BEDTIME PRN sertraline 100 mg PO DAILY [shower head As directed] sildenafil (pulm.hypertension) 20 mg PO DAILY PRN sodium chloride 0.65% (Saline Nasal) 2 sprays intranasal Q12H PRN tamsulosin 0.4 mg PO BEDTIME [Toilet riser with removable arms As directed] tramadol 50 mg PO TID 30 days witch marty 50% (Hemorrhoidal (witch marty)) 1 pad topical BID-TID PRN zolpidem (Ambien) 10 mg PO BEDTIME PRN Tobacco use date assessed: 06/18/25 Fall risk assessment: No Falls in past year Last assessed Fall Risk: 06/18/25 Dental Screening Dental Screen Date: 03/05/25 HPI Annual Physical HPI Details Dentist: up to date Eye: up to date Snellen: Right: Left: Corrected vision: yes , glasses STI screening: Colonoscopy: 2022, repeat in 5 years Pap Smer:n/a PHQ-9: Flu:up to date COVID: x 5 Tdap: reports that he will come back to get this on Wednesday Diet: regular Exercise: walks a little The patient is a 64-year-old Macedonian-speaking male presenting for a physical examination. Recent labs show an ongoing but stable mild anemia. Urinalysis reveals proteinuria, which is a chronic finding, and a history of trace blood in the urine. The patient reports chronic pain all over his body, including daily back pain and left knee pain for which he wears a brace. He attributes the knee pain to a childhood femur fracture that required him to put all his weight on his knee while in a special cast. He sees Dr. Oslon for his pain treatment. He also experiences headaches that are well-controlled with his current treatment and are not a weekly occurrence. Regarding health maintenance, the patient had a colonoscopy three years ago. He has had dental and eye exams within the past year and wears glasses. He has received the seasonal flu vaccine but does not recall when he last had a tetanus shot. Left knee brace in place and the patient he is ambulating with cane [facility] Medical History (Updated 06/18/25 @ 23:14 by NIHARIKA Conteh) Annual physical exam Vitamin D deficiency Congenital nevus Contact dermatitis Overweight (BMI 25.0-29.9) Rectal bleeding Abdominal pain Epigastric pain Left-sided chest pain Internal hemorrhoid, bleeding Encounter for medication monitoring Pain in finger of left hand Bilateral hip pain Schizophrenia Prostate cancer Left foot pain Left leg pain Elevated blood pressure reading Depression Anxiety Insomnia Benign prostate hyperplasia Lumbar degenerative disc disease Osteoarthritis of right shoulder Asthma Surgical History History of colonoscopy (~03/01/18) S/P excision of lipoma H/O excision of ganglion cyst (~02/2014) Family History Father Lung cancer Mother CVA (cerebral vascular accident), Onset Age: 80 Chronic mental illness Brother History of heart attack Daughter Cancer Paternal Aunt Cancer Maternal Aunt Cancer Social History Household Members: None Housing: Apartment Alcohol intake: former Patient Tobacco Use Status: Former Tobacco user Tobacco use type: Cigar Cigarettes Per Day: 20 Years Smoked: pt. states he has not smoked in years e-Cigarette/Vaping Use: Never Used Second Hand Smoke Exposure: Yes service: No Current occupational status: disabled Cognitive needs: Yes (Cane) Hearing needs: No Vision needs: Yes (glasses) Questionnaire Thrive Questionnaire Date Thrive assessed: 03/05/25 NILSON-7 AMB Questionnaire NILSON-7 Date NILSON - 7 assessed: 03/05/25 Source: Developed by Drs. Angel Castellanos, Arlet Fine, Valeriano Shah and colleagues, with an educational sari from [employer]. Review of Systems Const Reports headache(s) (on and off-well controlled with current regimen) Eyes Denies loss of vision ENT Denies vertigo, Denies dizziness, Reports headache(s) (on and off-well controlled with current regimen) and Denies sore throat Card Denies chest pain, Denies leg edema and Denies lightheadedness Resp Denies cough, Denies hemoptysis and Denies wheezing GI Denies abdominal pain, Denies melena, Denies constipation, Reports heartburn (depending on what he eats), Denies diarrhea and Denies vomiting Denies dysuria, Denies urinary frequency and Denies urinary urgency Musc Reports back pain, Reports arthralgias (knees, worse in left knee, shoulders), Denies joint swelling, Denies numbness and Denies tingling Skin/Breast Denies rash Neuro Denies Abnormal speech present, Denies behavioral changes, Denies vertigo, Denies dizziness, Reports headache(s) (on and off-well controlled with current regimen), Denies loss of vision, Denies memory loss, Denies numbness and Denies tingling Psych Denies anxiety, Denies behavioral changes, Denies depression, Denies memory loss and Denies panic attacks Miko/Lymph Denies easy bleeding and Denies easy bruising Aller/Immun Denies wheezing Physical exam (Primary Care) Vital Signs: Last Vital Signs Temp 97.3 F 06/18/25 09:15 Pulse 83 06/18/25 09:15 BP 118/70 06/18/25 09:15 Pulse Ox 97 06/18/25 09:15 Oxygen Delivery Method Room Air 06/18/25 09:15 BMI result Body Mass Index 23.8 Tobacco/Smoking Status: Tobacco use Status Tobacco use date assessed 06/18/25 06/18/25 09:22 Patient Tobacco Use Status Former Tobacco user 06/18/25 09:22 Tobacco use type Cigar 06/18/25 09:22 e-Cigarette/Vaping Use Never Used 06/18/25 09:22 Thrive Assessment: Date of Thrive Assessment Date Thrive assessed 03/05/25 06/18/25 09:22 Const General: healthy appearing, no acute distress, alert and awake Nutritional Appearance: well nourished Orientation/consciousness: oriented to person, oriented to place and oriented to time HENMT Ears: TM's normal bilaterally General nose exam: Normal nasal mucous membranes and turbinates present Eyes Conjunctivae: conjunctivae normal Sclerae: sclerae normal Pupils: Equal, round and reactive pupils present Neck Neck: Yes no lymphadenopathy and Yes no JVD Thyroid: Thyroid normal Carotids: no bruits Resp Effort & Inspection: normal respiratory effort and not tachypneic Auscultation: no crackles, no rales, no rhonchi and no wheezes Cardio Rate: regular rate Rhythm: regular rhythm Heart sounds: S1 normal heart sound present, S2 normal heart sound present, no murmurs and normal S1 and S2 GI Palpation (GI): Soft to palpation, nontender, no hepatomegaly and no splenomegaly Auscultation: normal bowel sounds General: Yes no CVA tenderness Back/Spine/Pelvis Back: no CVA tenderness Thoracic/Lumbar Spine: No lumbar spinal tenderness Skin General skin exam: no rashes or lesions noted and dry skin Neuro General: oriented to person, oriented to place and oriented to time Cranial nerves: Yes Equal, round and reactive pupils present Speech: No Abnormal speech present Gait exam (Neuro): Normal gait present Motor exam (neuro): no tremor noted Extrem Right upper extremity: full ROM Left upper extremity: full ROM Right lower extremity: full ROM and knee Details: no tenderness and no swelling; no edema Left lower extremity: full ROM and knee (brace intact); no edema Psych Mental Status: mental status grossly normal Speech and movement: Normal speech and movement present Affect: normal affect Attitude: cooperative Thought process: Normal thought process present Results Reviewed Results Reviewed: Laboratory Tests 06/01/25 09:20 WBC 5.5 RBC 4.59 L Hgb 12.4 L Hct 38.9 L MCV 84.7 MCH 27.0 RDW 14.1 Plt Count 150 L MPV 12.7 H Sodium 139 Potassium 4.5 Chloride 109 H Carbon Dioxide 26 Anion Gap 9 L BUN 15 Creatinine 0.94 Estimated GFR > 60 Fasting Glucose 92 Estimat Average Glucose 114 Hemoglobin A1c % 5.6 Calcium 8.6 Total Bilirubin 0.5 AST 23 ALT 13 Alkaline Phosphatase 102 Total Protein 7.1 Albumin 4.2 Triglycerides 53 Cholesterol 141 LDL Cholesterol, Calc 83 HDL Cholesterol 48 25-OH Vitamin D Total 36.3 TSH 1.93 Urine Color Yellow Urine Appearance Clear Urine pH 5.5 Ur Specific Dalton 1.020 Urine Protein 30 (1+) H Urine Glucose (UA) Negative Urine Ketones Negative Urine Blood Trace H Urine Nitrite Negative Ur Leukocyte Esterase Negative Urine RBC 0-2 Urine WBC 0-5 Ur Squamous Epith Cells 0-2 Urine Bacteria None Seen Hyaline Casts 0-2 Coding Level of Care Code Est Pt Prev Care >65y(23519) Diagnoses Annual physical exam Z00.00 Prostate cancer C61 Moderate persistent asthma without complication J45.40 Asthma complication type: uncomplicated Asthma persistence: persistent Asthma severity: moderate Allergic rhinitis, unspecified seasonality, unspecified trigger J30.9 Allergic rhinitis seasonality: unspecified Allergic rhinitis trigger: unspecified Primary osteoarthritis of right shoulder M19.011 Osteoarthritis type: primary Lumbar spondylosis M47.816 Erectile dysfunction, unspecified erectile dysfunction type N52.9 Erectile dysfunction type: unspecified Insomnia, unspecified type G47.00 Insomnia type: unspecified Anxiety F41.9 Episode of recurrent major depressive disorder, unspecified depression episode severity F33.9 Active/Remission status: currently active Depression Type: major depressive disorder Major depression episode severity: unspecified Major depression recurrence: recurrent Overweight (BMI 25.0-29.9) E66.3 Anemia, unspecified type D64.9 Anemia type: unspecified type Time Spent (min) 34 Assessment & Plan Assessment & Plan (1) Annual physical exam: Code(s): Z00.00 - Encounter for general adult medical examination without abnormal findings Category: Medical Plan: Preventative guidelines and recent labs reviewed with the patient. Colonoscopy done on 2022 to repeat in 5 years. The patient is up-to-date on preventative screens and most vaccinations. Tdap due today the patient reports that he will return on Wednesday to get this done. (2) Prostate cancer: Code(s): C61 - Malignant neoplasm of prostate Category: Medical Plan: Patient was diagnosed with unfavorable intermediate risk prostate cancer status post radiation and six-month of antigen deprivation therapy. The patient was having gross hematuria with cystoscopy revealing signs of radiation cystitis. Since goes heme at the area has cleared up however the patient continues to have he urinalysis with microscopic hematuria. Cystoscopy was negative. Continue Finasteride 5 mg QD and Tamsulosin 0.4 mg Q HS Follow up with urology as scheduled for continuing surveillance and monitoring (3) Asthma: Code(s): J45.909 - Unspecified asthma, uncomplicated Category: Medical Qualifiers: Asthma complication type: uncomplicated Asthma persistence: persistent Asthma severity: moderate Qualified Code(s): J45.40 - Moderate persistent asthma, uncomplicated Plan: Stable/controlled Continue Flovent HFA 110 mcg 1 inhalation BID and Albuterol HFA 2 inhalations every 6 hours as needed (4) Allergic rhinitis: Code(s): J30.9 - Allergic rhinitis, unspecified Category: Medical Qualifiers: Allergic rhinitis seasonality: unspecified Allergic rhinitis trigger: unspecified Qualified Code(s): J30.9 - Allergic rhinitis, unspecified Plan: Continue Fluticasone 50 mcg nasal spray QD PRN and Loratadine 10 mg QD PRN (5) Osteoarthritis of right shoulder: Code(s): M19.011 - Primary osteoarthritis, right shoulder Category: Medical Qualifiers: Osteoarthritis type: primary Qualified Code(s): M19.011 - Primary osteoarthritis, right shoulder Plan: X-rays of the right shoulder done in October 2019 showed mild AC joint arthritis Follow up with rheumatology as scheduled - has been receiving cortisone injections into the right shoulder as needed with (+) relief of shoulder pain Continue Nabumetone 750 mg BID PRN and Acetaminophen 500 mg Q 6 hours PRN (6) Lumbar spondylosis: Code(s): M47.816 - Spondylosis without myelopathy or radiculopathy, lumbar region Category: Medical Plan: Reinforced activity and weight-lifting restrictions Continue Tramadol 50 mg TID PRN for pain and Pregabalin 100 mg BID (7) Erectile dysfunction: Code(s): N52.9 - Male erectile dysfunction, unspecified Category: Medical Qualifiers: Erectile dysfunction type: unspecified Qualified Code(s): N52.9 - Male erectile dysfunction, unspecified Plan: Continue Sildenafil 20 mg QD PRN (8) Insomnia: Code(s): G47.00 - Insomnia, unspecified Category: Medical Qualifiers: Insomnia type: unspecified Qualified Code(s): G47.00 - Insomnia, unspecified Plan: Sleep hygiene reinforced Continue Zolpidem 10 mg Q HS PRN (9) Anxiety: Code(s): F41.9 - Anxiety disorder, unspecified Category: Medical Plan: Encouraged CBT Denies SI/HI Continue Clonazepam 1 mg TID PRN and Hydroxyzine 25 mg BID PRN (10) Depression: Code(s): F32.9 - Major depressive disorder, single episode, unspecified Category: Medical Qualifiers: Active/Remission status: currently active Depression Type: major depressive disorder Major depression episode severity: unspecified Major depression recurrence: recurrent Qualified Code(s): F33.9 - Major depressive disorder, recurrent, unspecified Plan: Continue Sertraline 100 mg QD and Abilify 15 mg Q HS Follow-up with Psychiatry as scheduled (11) Overweight (BMI 25.0-29.9): Code(s): E66.3 - Overweight Category: Medical Plan: Reinforced diet/exercise as tolerated/lose weight (12) Anemia: Code(s): D64.9 - Anemia, unspecified Category: Medical Qualifiers: Anemia type: unspecified type Qualified Code(s): D64.9 - Anemia, unspecified Plan: Labs reviewed with the patient, he is concerned about his anemia and would like to know how he could corrected. Discussed the different causes of anemia with the patient. We will add an iron profile along with B12 and folate to further evaluate. Explained to the patient that his anemia could be caused from chronic diseases and only could be maintained had a stable range instead of reversing it. At this time the patient CBC is stable. We will continue to monitor. Plan Follow up in 3 months Orders: Orders Complete Blood Count Auto Diff 3 Months C61 - Malignant neoplasm of prostate, D64.9 - Anemia, unspecified, E55.9 - Vitamin D deficiency, unspecified, E66.3 - Overweight, F33.9 - Major depressive disorder, recurrent, unspecified, F41.9 - Anxiety disorder, unspecified, H81.13 - Benign paroxysmal vertigo, bilateral, J45.40 - Moderate persistent asthma, uncomplicated, M19.011 - Primary osteoarthritis, right shoulder, M47.816 - Spondylosis without myelopathy or radiculopathy, lumbar region, M79.7 - Fibromyalgia, N40.1 - Benign prostatic hyperplasia with lower urinary tract symptoms, N52.9 - Male erectile dysfunction, unspecified, R39.16 - Straining to void, R73.01 - Impaired fasting glucose Comprehensive [place]. Panel Fast 3 Months C61 - Malignant neoplasm of prostate, D64.9 - Anemia, unspecified, E55.9 - Vitamin D deficiency, unspecified, E66.3 - Overweight, F33.9 - Major depressive disorder, recurrent, unspecified, F41.9 - Anxiety disorder, unspecified, H81.13 - Benign paroxysmal vertigo, bilateral, J45.40 - Moderate persistent asthma, uncomplicated, M19.011 - Primary osteoarthritis, right shoulder, M47.816 - Spondylosis without myelopathy or radiculopathy, lumbar region, M79.7 - Fibromyalgia, N40.1 - Benign prostatic hyperplasia with lower urinary tract symptoms, N52.9 - Male erectile dysfunction, unspecified, R39.16 - Straining to void, R73.01 - Impaired fasting glucose Vitamin D 25-OH Total 3 Months C61 - Malignant neoplasm of prostate, D64.9 - Anemia, unspecified, E55.9 - Vitamin D deficiency, unspecified, E66.3 - Overweight, F33.9 - Major depressive disorder, recurrent, unspecified, F41.9 - Anxiety disorder, unspecified, H81.13 - Benign paroxysmal vertigo, bilateral, J45.40 - Moderate persistent asthma, uncomplicated, M19.011 - Primary osteoarthritis, right shoulder, M47.816 - Spondylosis without myelopathy or radiculopathy, lumbar region, M79.7 - Fibromyalgia, N40.1 - Benign prostatic hyperplasia with lower urinary tract symptoms, N52.9 - Male erectile dysfunction, unspecified, R39.16 - Straining to void, R73.01 - Impaired fasting glucose UA CC w/rflx Micro + Cult 3 Months C61 - Malignant neoplasm of prostate, D64.9 - Anemia, unspecified, E55.9 - Vitamin D deficiency, unspecified, E66.3 - Overweight, F33.9 - Major depressive disorder, recurrent, unspecified, F41.9 - Anxiety disorder, unspecified, H81.13 - Benign paroxysmal vertigo, bilateral, J45.40 - Moderate persistent asthma, uncomplicated, M19.011 - Primary osteoarthritis, right shoulder, M47.816 - Spondylosis without myelopathy or radiculopathy, lumbar region, M79.7 - Fibromyalgia, N40.1 - Benign prostatic hyperplasia with lower urinary tract symptoms, N52.9 - Male erectile dysfunction, unspecified, R39.16 - Straining to void, R73.01 - Impaired fasting glucose Hemoglobin A1c 3 Months C61 - Malignant neoplasm of prostate, D64.9 - Anemia, unspecified, E55.9 - Vitamin D deficiency, unspecified, E66.3 - Overweight, F33.9 - Major depressive disorder, recurrent, unspecified, F41.9 - Anxiety disorder, unspecified, H81.13 - Benign paroxysmal vertigo, bilateral, J45.40 - Moderate persistent asthma, uncomplicated, M19.011 - Primary osteoarthritis, right shoulder, M47.816 - Spondylosis without myelopathy or radiculopathy, lumbar region, M79.7 - Fibromyalgia, N40.1 - Benign prostatic hyperplasia with lower urinary tract symptoms, N52.9 - Male erectile dysfunction, unspecified, R39.16 - Straining to void, R73.01 - Impaired fasting glucose Lipid Panel 3 Months C61 - Malignant neoplasm of prostate, D64.9 - Anemia, unspecified, E55.9 - Vitamin D deficiency, unspecified, E66.3 - Overweight, F33.9 - Major depressive disorder, recurrent, unspecified, F41.9 - Anxiety disorder, unspecified, H81.13 - Benign paroxysmal vertigo, bilateral, J45.40 - Moderate persistent asthma, uncomplicated, M19.011 - Primary osteoarthritis, right shoulder, M47.816 - Spondylosis without myelopathy or radiculopathy, lumbar region, M79.7 - Fibromyalgia, N40.1 - Benign prostatic hyperplasia with lower urinary tract symptoms, N52.9 - Male erectile dysfunction, unspecified, R39.16 - Straining to void, R73.01 - Impaired fasting glucose IRON PROFILE 3 Months C61 - Malignant neoplasm of prostate, D64.9 - Anemia, unspecified, E55.9 - Vitamin D deficiency, unspecified, E66.3 - Overweight, F33.9 - Major depressive disorder, recurrent, unspecified, F41.9 - Anxiety disorder, unspecified, H81.13 - Benign paroxysmal vertigo, bilateral, J45.40 - Moderate persistent asthma, uncomplicated, M19.011 - Primary osteoarthritis, right shoulder, M47.816 - Spondylosis without myelopathy or radiculopathy, lumbar region, M79.7 - Fibromyalgia, N40.1 - Benign prostatic hyperplasia with lower urinary tract symptoms, N52.9 - Male erectile dysfunction, unspecified, R39.16 - Straining to void, R73.01 - Impaired fasting glucose Vitamin B12 and Folate 3 Months C61 - Malignant neoplasm of prostate, D64.9 - Anemia, unspecified, E55.9 - Vitamin D deficiency, unspecified, E66.3 - Overweight, F33.9 - Major depressive disorder, recurrent, unspecified, F41.9 - Anxiety disorder, unspecified, H81.13 - Benign paroxysmal vertigo, bilateral, J45.40 - Moderate persistent asthma, uncomplicated, M19.011 - Primary osteoarthritis, right shoulder, M47.816 - Spondylosis without myelopathy or radiculopathy, lumbar region, M79.7 - Fibromyalgia, N40.1 - Benign prostatic hyperplasia with lower urinary tract symptoms, N52.9 - Male erectile dysfunction, unspecified, R39.16 - Straining to void, R73.01 - Impaired fasting glucose TSH reflex Free T4 3 Months C61 - Malignant neoplasm of prostate, D64.9 - Anemia, unspecified, E55.9 - Vitamin D deficiency, unspecified, E66.3 - Overweight, F33.9 - Major depressive disorder, recurrent, unspecified, F41.9 - Anxiety disorder, unspecified, H81.13 - Benign paroxysmal vertigo, bilateral, J45.40 - Moderate persistent asthma, uncomplicated, M19.011 - Primary osteoarthritis, right shoulder, M47.816 - Spondylosis without myelopathy or radiculopathy, lumbar region, M79.7 - Fibromyalgia, N40.1 - Benign prostatic hyperplasia with lower urinary tract symptoms, N52.9 - Male erectile dysfunction, unspecified, R39.16 - Straining to void, R73.01 - Impaired fasting glucose
[2025-06-18 09:15] VITALS: BP 118/70; PULSE 83; TEMP 36.3; O2SAT 97; BMI 23.8
--- OUTSIDE RECORDS SUMMARY | 2025-06-18 09:33 | XMS_ITS | Encounter Summary ---
Author Organization [employer] [facility] Address [address] [place] [address] Care Team Providers Care Wing Scorer Name Role Phone Trent Aiken DMD Unavailable [phone] Encounter Details Date Type Department Care Team (Latest Contact Info) Description 11/29/2020 Abstract [facility] CONVERSIONS Dental, Provider, DDS Social History [...] on filedocumented in this encounter Care Teams Wing Scorer Relationship Specialty Start Date End Date AttilaTrent draper DMD [address] [place] [id number] Dentist 07/26/24 documented as of this encounter
--- OUTSIDE RECORDS SUMMARY | 2025-06-18 09:33 | XMS_ITS | Encounter Summary ---
Author Organization [employer] [facility] Address [address] [place] [address] Care Team Providers Care Truck Unloader Name Role Phone Trent Aiken DMD Unavailable [phone] Encounter Details Date Type Department Care Team (Latest Contact Info) Description 03/04/[address] [facility] CONVERSIONS Dental, Provider, DDS Social History [...] on filedocumented in this encounter Care Teams Truck Unloader Relationship Specialty Start Date End Date Trent Aiken DMD [address] [place] [id number] Dentist 07/26/24 documented as of this encounter
--- OUTSIDE RECORDS SUMMARY | 2025-06-18 09:33 | XMS_ITS | Encounter Summary ---
Author Organization [employer] [facility] Address [address] [place] [address] Care Team Providers Care Upper Cutter Out Name Role Phone Trent Aiken DMD Unavailable [phone] Encounter Details Date Type Department Care Team (Latest Contact Info) Description 07/13/2019 Abstract [facility] CONVERSIONS Dental, Provider, DDS Social History Tobacco [...] on filedocumented in this encounter Care Teams Upper Cutter Out Relationship Specialty Start Date End Date AttilaTrent DMD [address] [place] [id number] Dentist 07/26/24 documented as of this encounter
--- OUTSIDE RECORDS SUMMARY | 2025-06-18 09:33 | XMS_ITS | Encounter Summary ---
Author Organization [employer] Address [address] [facility] 7t [place] [address] Care Team Providers Care Rim Fire Priming Operator Name Role Phone Trent Aiken DMD Unavailable [phone] Reason for Visit * Reason Onset Date Comments Referral 03/17/2023 Encounter Details Date Type Department Care Team ([facility] st Contact Info) Description 03/17/2023 Telephone [facility] [address] [place] [address] Trent Aiken DMD [address] [place], [place] [phone] Referral Social History Tobacco Use Types Packs/Day [...] reminded patient that we received call from [facility] in the morning and office has 48-72 to get records over to office. I contacted front desk specialist and referral is in the office but assistant front end manager that has referral was on lunch and [...] Rama Thomas - 03/17/2023 10:17 AM EDT [facility] called in and stated patient Goyo Canela 1960 has appt with them today and stated they need RCT Referral and Xrays please advise documented in this encounter Plan of Treatment Not on file documented as of this encounter Visit Diagnoses Not on filedocumented in this encounter Care Teams Rim Fire Priming Operator Relationship Specialty Start Date End Date Trent Aiken DMD [address] [place] [address] Dentist 07/26/24 documented as of this encounter
--- OUTSIDE RECORDS SUMMARY | 2025-06-18 09:33 | XMS_ITS | Clinical Summary ---
Author Organization [employer] Address [address] [place] [address] 7t [place] [address] Care Team Providers Care Golf Cart Maker Name Role Phone Trent Aiken DMD Unavailable [phone] Allergies Active Allergy Reactions Criticality Noted [...] abdominal pain 08/01/2012 Migraine 05/25/2012 Schizoaffective schizophrenia ([facility]) 05/25/20 12 Asthma 03/09/2012 Immunizations Immunization Administration [...] Relevant to Health Maintenance Insurance DENTAL - [facility] ALLIANCE [facility] < 65 [facility] Care Teams Golf Cart Maker Relationship Specialty Start Date End Date Trent Aiken DMD [address] [place] [address] Dentist 07/26/24
--- OUTSIDE RECORDS SUMMARY | 2025-06-18 09:34 | XMS_ITS | Patient Health Record ---
Author Organization [facility] Address [address] [place] [address] Care Team Providers Care Procurement Forester Name Role Phone Lai Olson MD Primary Care Provider Angel Branch Unavailable [phone] Allergies Allergen (clinical drug ingredient) Drug/Non Drug [...] Problem Screening for malignant neoplasm of colon (110025331) Encounter for screening for malignant neoplasm of colon (Z12.11) Active confirmed Problem History of adenomatous polyp of colon (163169473) History of adenomatous polyp of colon (Z86.010) Active confirmed Problem Abdominal bloating (135145024) Abdominal bloating (R14.0) Active confirmed Problem Preprocedural examination (290580809089043) Preprocedural examination (Z01.818) Active confirmed Plan Of Treatment Future Test Test Name Order Date COLONOSCOPY 02/08/2018 Insurance Providers Payer Name Payer Address Payer Phone Subscriber Number Group Number Insured Name Patient Relationship to Insured Coverage Start Date Coverage End Date [facility] [address] Attn Claims BRENDAN Estevez [id number] MIREILLE RAYSHAWN Self - patient is the insured MEDICAID OF [facility] [address] [place] [address] [id number] MIRELILE RAYSHAWN Self - patient is the insured Medical (General) History Medical History History ICD Code Depression Insomnia Asthma Denies [place],DM,CVA Colonoscopy 09/2012 with a all tubular adenoma removed, internal hemorrhoids --Dr. Montilla Sees Dr. Sno for renal cysts and ston es Screening colonoscopy in February of 2018 [facility]--small tubular adenoma removed He describes a colonoscopy at [facility] i n 2022 with removal of a small polyp Surgical History Surgery Date(Month/Year) Ganglion cyst removed from left hand Lipoma on his back
== END 2025-06-18 10:17 | disposition home or self-care (01) ==
LOC: HO.HMCH 08:55
PROVIDERS: PCP Internal Medicine
DX: Z00.00 Encounter for general adult medical examination without abnormal findings (principal); C61 Malignant neoplasm of prostate; J45.40 Moderate persistent asthma, uncomplicated; J30.9 Allergic rhinitis, unspecified; M19.011 Primary osteoarthritis, right shoulder; M47.816 Spondylosis without myelopathy or radiculopathy, lumbar region; N52.9 Male erectile dysfunction, unspecified; G47.00 Insomnia, unspecified; F41.9 Anxiety disorder, unspecified; F33.9 Major depressive disorder, recurrent, unspecified; E66.3 Overweight; D64.9 Anemia, unspecified

== ENCOUNTER → 2025-06-18 08:54 | Outpatient (BNVA) | payer OTHER, SELFPAY | PROVIDERS: PCP Internal Medicine | DX: Z00.00 Encounter for general adult medical examination without abnormal findings (principal); D64.9 Anemia, unspecified; R80.9 Proteinuria, unspecified; M54.9 Dorsalgia, unspecified; M25.562 Pain in left knee; C61 Malignant neoplasm of prostate; J45.40 Moderate persistent asthma, uncomplicated; J30.9 Allergic rhinitis, unspecified; M19.011 Primary osteoarthritis, right shoulder; M47.816 Spondylosis without myelopathy or radiculopathy, lumbar region; N52.9 Male erectile dysfunction, unspecified; G47.00 Insomnia, unspecified; F41.9 Anxiety disorder, unspecified; F33.9 Major depressive disorder, recurrent, unspecified | CPT/HCPCS: 99397 ==

== ENCOUNTER 2025-06-22 10:34 | Outpatient (AMB) | payer OTHER, SELFPAY ==
--- NOTE | 2025-06-22 10:51 | AM.OFFVISNUR ---
Intake Visit Reasons: TD Allergies Penicillins (PENICILLINS) Allergy (Intermediate, Verified 06/18/25 09:41) RASH AND SWELLING meperidine (Demerol) Allergy (Unknown, Verified 06/18/25 09:41) pain morphine (MORPHINE) Adverse Reaction (Intermediate, Verified 06/18/25 09:41) N/V Immunizations Tenivac (PF) 5 Lf unit-2 Lf unit/0.5 mL intramuscular syringe Performing Provider: Lai Olson MD [facility] Administered by: Rama Silva LPN on 06/22/25 10:35 Dose Route Admin Location Dispensed Lot Number Expiration Date NDC Hearing Aid Fitter 0.5 mL IM Right Deltoid 0.5 mL [id number] 12/20/26 14110-777-90 [employer] Total Dispensed Waste 0.5 mL 0 % VIS Given Date VIS Provided VIS Publication Date 06/22/25 Single Vaccine 21 Eligibility Eligibility Date Funding Source Not [facility] Eligible 06/22/25 Private Assessment & Plan Assessment & Plan Orders: Orders Td Immunization Today Z23 - Encounter for immunization Coding
--- OUTSIDE RECORDS SUMMARY | 2025-06-22 11:58 | XMS_ITS | Encounter Summary ---
Author Organization [employer] [facility] Address [address] [facility] 7t [place] [address] Care Team Providers Care Dry Color Tester Name Role Phone Trent Aiken DMD Unavailable [phone] Encounter Details Date Type Department Care Team (Latest Contact Info) Description 03/04/2022 Abstract [facility] CONVERSIONS Dental, Provider, DDS Social History [...] on filedocumented in this encounter Care Teams Dry Color Tester Relationship Specialty Start Date End Date Trent Aiken DMD [address] [place] [address] Dentist 07/26/24 documented as of this encounter
--- OUTSIDE RECORDS SUMMARY | 2025-06-22 11:59 | XMS_ITS | Encounter Summary ---
Author Organization [facility] Address [address] [facility] 7t [place] [address] Care Team Providers Care Rehabilitator Name Role Phone Trent Aiken DMD Unavailable [phone] Encounter Details Date Type Department Care Team (Latest Contact Info) Description 11/29/2020 Abstract [facility] CONVERSIONS Dental, Provider, DDS Social History [...] on filedocumented in this encounter Care Teams Rehabilitator Relationship Specialty Start Date End Date AttilaTrent draper DMD [address] [place] [address] Dentist 07/26/24 documented as of this encounter
--- OUTSIDE RECORDS SUMMARY | 2025-06-22 11:59 | XMS_ITS | Patient Health Record ---
Author Organization [facility] Address [address] [place] [address] Care Team Providers Care Executive Steward Name Role Phone Lai Olson MD Primary Care Provider Angel Branch Unavailable [phone] Allergies Allergen (clinical drug ingredient) Drug/Non Drug [...] Problem Screening for malignant neoplasm of colon (036834246) Encounter for screening for malignant neoplasm of colon (Z12.11) Active confirmed Problem History of adenomatous polyp of colon (350300216) History of adenomatous polyp of colon (Z86.010) Active confirmed Problem Abdominal bloating (267071599) Abdominal bloating (R14.0) Active confirmed Problem Preprocedural examination (715548441744098) Preprocedural examination (Z01.818) Active confirmed Plan Of Treatment Future Test Test Name Order Date COLONOSCOPY 02/08/2018 Insurance Providers Payer Name Payer Address Payer Phone Subscriber Number Group Number Insured Name Patient Relationship to Insured Coverage Start Date Coverage End Date [facility] [address] Attn Claims BRENDAN Estevez [id number] MIREILLE RAYSHAWN Self - patient is the insured MEDICAID OF [facility] [address] [place] [address] [id number] MIREILLE RAYSHAWN Self - patient is the insured Medical (General) History Medical History History ICD Code Depression Insomnia Asthma Denies [place],DM,CVA Colonoscopy 09/2012 with a all tubular adenoma removed, internal hemorrhoids --Dr. Montilla Sees Dr. Son for renal cysts and ston es Screening colonoscopy in February of 2018 [facility]--small tubular adenoma removed He describes a colonoscopy at [facility] i n 2022 with removal of a small polyp Surgical History Surgery Date(Month/Year) Ganglion cyst removed from left hand Lipoma on his back
--- OUTSIDE RECORDS SUMMARY | 2025-06-22 11:59 | XMS_ITS | Encounter Summary ---
Author Organization [employer] Address [address] [facility] 7t [place] [address] Care Team Providers Care Dielectric Press Operator Name Role Phone Trent Aiken DMD Unavailable [phone] Reason for Visit * Reason Onset Date Comments Referral 03/17/2023 Encounter Details Date Type Department Care Team ([facility] st Contact Info) Description 03/17/2023 Telephone [facility] ADULT DENTAL [address] [place] [address] Trent Aiken DMD [address] [place], [place] [phone] Referral Social History Tobacco Use Types Packs/Day [...] reminded patient that we received call from [facility] in the morning and office has 48-72 to get records over to office. I contacted commercial front load driver and referral is in the office but commercial front load driver that has referral was on lunch and [...] Rama Thomas - 03/17/2023 10:17 AM EDT [facility] called in and stated patient Goyo Canela 1960 has appt with them today and stated they need RCT Referral and Xrays please advise documented in this encounter Plan of Treatment Not on file documented as of this encounter Visit Diagnoses Not on filedocumented in this encounter Care Teams Dielectric Press Operator Relationship Specialty Start Date End Date Trent Aiken DMD [address] [place] [address] Dentist 07/26/24 documented as of this encounter
--- OUTSIDE RECORDS SUMMARY | 2025-06-22 11:59 | XMS_ITS | Encounter Summary ---
Author Organization [employer] [facility] Address [address] [facility] 7t [place] [address] Care Team Providers Care Media Librarian Name Role Phone Trent Aiken DMD Unavailable [phone] Encounter Details Date Type Department Care Team (Latest Contact Info) Description 07/13/2019 Abstract [facility] CONVERSIONS Dental, Provider, DDS Social History Tobacco [...] on filedocumented in this encounter Care Teams Media Librarian Relationship Specialty Start Date End Date AttilaTrent DMD [address] [place] [address] Dentist 07/26/24 documented as of this encounter
--- OUTSIDE RECORDS SUMMARY | 2025-06-22 11:59 | XMS_ITS | Clinical Summary ---
Author Organization [employer] Address [address] [place] [address] 7t [place] [address] Care Team Providers Care Concrete Fence Builder Name Role Phone Trent Aiken DMD Unavailable [phone] Allergies Active Allergy Reactions Criticality Noted [...] abdominal pain 08/01/2012 Migraine 05/25/2012 Schizoaffective schizophrenia ([facility]) 05/25/20 12 Asthma 03/09/2012 Immunizations Immunization Administration [...] Relevant to Health Maintenance Insurance [facility]ENTAL - [facility] ALLIANCE [facility] < 64 [facility] Care Teams Concrete Fence Builder Relationship Specialty Start Date End Date Trent Aiken DMD [address] [place] [address] Dentist 07/26/24
== END 2025-06-22 10:52 | disposition home or self-care (01) ==
LOC: HO.HMCH 10:34
PROVIDERS: PCP Internal Medicine; Visit Provider Internal Medicine
DX: Z23 Encounter for immunization (principal)

== ENCOUNTER → 2025-06-22 10:34 | Outpatient (BNVA) | payer OTHER, SELFPAY | PROVIDERS: PCP Internal Medicine; Visit Provider Internal Medicine | DX: Z23 Encounter for immunization (principal) | CPT/HCPCS: 90471; 90714 ==